=== PATIENT | female | born 1950 | race Two or more races ===

== ENCOUNTER 2020-06-07 08:45 | Outpatient (REF) | payer MEDICARE, SELFPAY ==
--- NOTE | 2020-06-07 08:51 | MM_ITS ---
EXAMINATION: MM SCREENING DIGITAL BREAST TOMOSYNTHESIS, BILATERAL CLINICAL INFORMATION: Screening. Asymptomatic. The lifetime risk of breast cancer based on the Tyrer-Cuzick Model is 18.6%. COMPARISON: Mammography: February 22, 2019 and studies dating back to January 08, 2012 TECHNIQUE: Digital breast tomosynthesis is performed in both the craniocaudal and mediolateral oblique views along with computer-aided detection (CAD). Synthesized 2D images are generated from the tomosynthesis. FINDINGS: There are scattered areas of fibroglandular density (ACR BI-RADS breast composition Category b). There are no significant masses, abnormal calcifications, or other abnormalities. MM/MM tomosynthesis screening BI IMPRESSION: There are no significant changes from prior study. ASSESSMENT: BI-RADS 1: Negative RECOMMENDATION: Routine annual mammography screening. This patient's information was entered into a reminder system with a target due date for their next mammogram.
== END 2020-06-07 08:46 | disposition home or self-care (01) ==
LOC: HO.MAMMO 08:45
PROVIDERS: Visit Provider Internal Medicine
DX: Z12.31 Encounter for screening mammogram for malignant neoplasm of breast (principal)
CPT/HCPCS: 77063; 77067

== ENCOUNTER → 2020-06-18 13:45 | Outpatient (BNVA) | payer MEDICARE, SELFPAY | PROVIDERS: PCP Internal Medicine; Referring Provider Internal Medicine; Visit Provider Internal Medicine Pulmonary Disease | DX: J47.9 Bronchiectasis, uncomplicated (principal); R06.00 Dyspnea, unspecified; Z88.6 Allergy status to analgesic agent; Z91.018 Allergy to other foods | CPT/HCPCS: 90471; 90686; 99212 ==

== ENCOUNTER 2020-10-31 09:29 | Outpatient (REF) | payer MEDICARE, SELFPAY ==
[2020-10-31 11:15] LABS: Alanine Aminotransferase 17 U/L (0-31); Albumin Level 4.2 g/dL (3.5-5.0); Alkaline Phosphatase 125 U/L (39-117); Anion Gap 13 (12-20); Aspartate Amino Transferase 16 U/L (5-31); Bilirubin Total 0.7 mg/dL (0.0-1.0); Blood Urea Nitrogen 21 mg/dL (9-16); Calcium 9.4 mg/dL (8.4-10.2); Carbon Dioxide 29 mmol/L (22-29); Chloride 104 mmol/L (96-108); Estimated Glomerular Filt Rate 39; Glucose Random 106 mg/dL (60-115); Potassium 4.3 mmol/L (3.3-5.1); Sodium 142 mmol/L (135-145); Total Protein 7.4 g/dL (6.5-8.0)
== END 2020-10-31 09:30 | disposition home or self-care (01) ==
LOC: HO.LAB 09:29
PROVIDERS: PCP Internal Medicine; Visit Provider Student in an Organized Health Care Education/Training Program
DX: M25.50 Pain in unspecified joint (principal); Z79.899 Other long term (current) drug therapy
CPT/HCPCS: 36415; 80053; 99212

== ENCOUNTER 2020-11-20 13:17 | Outpatient (REF) | payer MEDICARE, MEDICAID, SELFPAY ==
[2020-11-20 14:59] LABS: MANUAL DIFF FLAG NO
[2020-11-20 15:02] LABS: Basophils Percent Auto 0.6 % (0-2); Eosinophils Absolute Auto 0.1 X10*3/uL (0.0-0.4); Eosinophils Percent Auto 2.2 % (0-4); Hematocrit 36.2 % (37-47); Hemoglobin 11.7 g/dl (12.0-16.0); Imm Gran Abs Auto 0.02 X10*3/uL (0.00-0.03); Imm Gran Pct Auto 0.3 % (0.0-0.4); Lymphocytes Absolute Auto 2.8 X10*3/uL (1.2-4.9); Lymphocytes Percent Auto 44.1 % (20-40); Mean Corpuscular HGB Conc 32.3 g/dl (31.0-35.0); Mean Corpuscular Hemoglobin 24.8 pg (27.0-33.0); Mean Corpuscular Volume 76.9 fL (80-98); Mean Platelet Volume 9.5 fL (9.4-12.3); Monocytes Absolute Auto 0.6 X10*3/uL (0.1-1.2); Monocytes Percent Auto 8.9 % (2-11); Neutrophils Absolute Auto 2.8 X10*3/uL (2.0-8.3); Neutrophils Percent Auto 43.9 % (45-73); Platelet Count 352 X10*3/uL (160-400); Red Blood Count 4.71 X10*6/uL (4.20-5.50); Red Cell Distribution Width 14.3 % (11.0-16.0); White Blood Count 6.4 X10*3/uL (4.8-10.8)
== END 2020-11-20 13:18 | disposition home or self-care (01) ==
LOC: HO.LAB 13:17
PROVIDERS: PCP Internal Medicine; Visit Provider Internal Medicine Pulmonary Disease
DX: J45.909 Unspecified asthma, uncomplicated (principal); J47.9 Bronchiectasis, uncomplicated; R06.00 Dyspnea, unspecified; I10 Essential (primary) hypertension; E78.5 Hyperlipidemia, unspecified; F32.9 Major depressive disorder, single episode, unspecified; F17.200 Nicotine dependence, unspecified, uncomplicated; Z88.6 Allergy status to analgesic agent; Z91.018 Allergy to other foods; Z91.09 Other allergy status, other than to drugs and biological substances
CPT/HCPCS: 36415; 82785; 85025; 86003; 99212

== ENCOUNTER 2020-12-05 10:30 | Outpatient (RCR) | payer MEDICARE, SELFPAY ==
--- NOTE | 2020-11-26 11:04 | MHC.OT.OEV ---
[address] [phone] F: [phone] Occupational Therapy Evaluation Diagnosis: B/L hand arthritis Date of Onset: 08/16/19 Date of Surgery: Attending Provider: Dr Nielsen Prescribed Treatment: Sara and Soraya WOODARD Follow Up Appointment: History of Current Condition: Pt w/ history of arthritis, persistant pain in both shoulders, elbows and hands over the past few years. Also reports more pain and immobility in left thumb due to accident with a chainsaw years ago. Significant Medical History: Precautions/Contraindications: Difficulty staying focused during assessment High tension, guarded, moves frequently in chair, gets up occasionally Patient Goals: Hand Dominance: Right Observations: QuickDASH Score: 66 Prior Level of Function and Occupation Self Care, Employment, Leisure: Enjoys walking, spends time cleaning Living Situation, Family and/or Social Support: Lives w/ her significant other Current Level of Function and Occupation Self Care, Employment, Leisure: Difficulty washing her hair and back, combing her hair Difficulty opening jars and containers Sleep: Not sleeping due to pain (and significant other snores) Driving: Not driving Vision: Balance: Pain Assessment Pain Score: 7 Pain Scale Used: Pain Location and Description: Constant pain in B/L shoulders, elbow, and hands, worse w/ heavy use Aggravating Factors: Heavy use, gripping Alleviating Factors: Does like to milli pain medications Ice roll to knee Skin and Soft Tissue Assessment Skin and Soft Tissue: Comments: Nerve assessment Ulnar Nerve: WFL Median Nerve: WFL Radial Nerve: WFL Comments: Sensory Assessment Temperature: Light Touch: Proprioception: Vibration: Comments: Reports nighttime numbness and tingling (has nighttime orthoses but does not wear) Edema Assessment Upper Extremity: WNL Lower Extremity: WNL Comments: Dexterity Assessment Dexterity: Comments: Special Tests Comments: AROM(PROM) Strength Cervical Cervical Flexion: Cervical Extension: Cervical Lateral Flexion: Cervical Rotation: R 50 L 50 Comments: Shoulder Flexion: R 115 L 115 Extension: Abduction: Internal Rotation: External Rotation: Comments: Flexion: Extension: Abduction: Internal Rotation: External Rotation: Comments: Elbow Flexion: Extension: Pronation: Supination: Comments: WFL Flexion: Extension: Pronation: Supination: Comments: Wrist Flexion: Extension: Ulnar Deviation: Radial Deviation: Comments: WFL Flexion: Extension: Ulnar Deviation: Radial Deviation: Comments: Thumb Thumb CMC Flexion: Thumb MCP Flexion: Thumb IP Flexion: Radial Abduction: Palmar Abduction: Stephens (Kapandji 0-10): Comments: Decreased left thumb flexion due to old laceration injury and scar tissue Digits Index MCP: PIP: DIP: Long MCP: PIP: DIP: Ring MCP: PIP: DIP: Small MCP: PIP: DIP: Comments: WFL, decreased end range flex of digits Gross Grasp: R 53 L 54 Lateral Pinch: Two-Point Pinch: Three-Jaw Quan: Comments: Patient Education Primary Language: City Attorney Required: Yes Current Knowledge: Minimal, needs reinforcement Teaching Method: Demonstration Verbal Education Needs Identified on Evaluation: ADL's Disease Information Exercise Pain Safety How did patient/family demonstrate learning? Patient verbalizes Family/SO verbalizes Needs reinforcement Barriers to Learning: Other Readiness for Learning: Accepting Who was educated? Patient Family/other Comments: Pt tangentile at times, needs help focusing back to task Granddaughter present, supportive and translates Plan of Care Assessment: 70 yo female w/ hx of osteoarthritis, presents w/ persistant pain in shoulders, elbows and hands. She has decreased end range digit flexion w/ intrinsic tightness and decreased shoulder flex and cervical rotation. She reports constant pain in joints, unable to sleep, but she is resistant to pain medications. She also reports nighttime tingling in hands but is not consistent w/ resting wrist orthosis. We will continue OT for education on pain management, relaxaion techniques and general upper body range and strengthening program. STG Duration: 3 weeks Short Term Goals: Ind w/ HEP Full tip-palm digit flex B/L'ly Shoulder flex to 140 B/L'ly Pt to report <5/10 pain w/ light activities Ind w/ use of ice or heat modalities for comfort LTG Duration: Halfway Goals: same as above Frequency and Duration: The patient will be seen 1-2x/wk for 4 weeks Treatment Plan: Therapeutic Exercise Therapeutic Activity Home Exercise Program Splinting Patient Education ADL Training Paraffin Fluidotherapy MHP Cold Packs Joint Mobilization Soft Tissue Mobilization Kinesiotaping Electronically Signed By: Meredith Duran OTR/L Reviewed/agree with student documentation: N/A Therapist: Please sign and return to therapist, Thank you for your referral.
--- NOTE | 2020-12-05 10:53 | MHC.OT.DC ---
[address] [phone] F: [phone] Occupational Therapy Discharge Note Provider: Dr Nielsen Diagnosis: B/L hand arthritis Date of Evaluation: 11/26/20 Date of Discharge: 12/05/20 Treatments to Date: 2 Discharge Status: Achieved Goals Improved Function Independent with HEP Discharge Summary: Pain free in upper body w/ good ROM, good follow through w/ HEP and all goals met. Pt w/ lower leg/calf pain concerning for blood clot, pt and granddaughter to contact physician or urgent care for further assessment. Electronically Signed By: Meredith Duran OTR/L Please Sign and return to therapist, thank you for your referral.
== END 2020-12-05 13:43 | disposition other institution (70) ==
LOC: HO.OT 10:30
PROVIDERS: Visit Provider Student in an Organized Health Care Education/Training Program
DX: M19.041 Primary osteoarthritis, right hand (principal); M19.042 Primary osteoarthritis, left hand
CPT/HCPCS: 97110; 97166

== ENCOUNTER 2020-12-06 13:01 | Outpatient (REF) | payer MEDICARE, SELFPAY ==
--- NOTE | ~2020-12-06 | US_ITS ---
EXAMINATION: US VENOUS ULTRASOUND WITH DOPPLER LOWER EXTREMITY, LEFT CLINICAL INFORMATION: Pain in left leg COMPARISON: Ultrasound venous left lower extremity from 03/07/2019 TECHNIQUE: Ultrasound of the deep veins is performed from the hip to the calf with compression sonography and color and pulse Doppler assessment. Spectral analysis with color-flow imaging is performed. FINDINGS: There is normal venous compression and respiratory variation and augmented flow. The visualized common femoral vein, superficial femoral vein, profunda femoral vein, popliteal vein, and the trifurcation region shows no evidence of deep venous thrombosis. There is no significant popliteal fossa cyst. If the patient's symptoms persist, followup ultrasound in 5 days 7 days might be of value to exclude proximal propagation from a non-visualized calf vein. US/US venous duplex LE IMPRESSION: No DVT demonstrated in the left lower extremity.
== END 2020-12-06 13:02 | disposition home or self-care (01) ==
LOC: HO.HMGCX 13:01
PROVIDERS: PCP Internal Medicine; Visit Provider Nurse Practitioner
DX: M79.662 Pain in left lower leg (principal)
CPT/HCPCS: 93971

== ENCOUNTER 2021-01-28 10:54 | Outpatient (REF) | payer MEDICARE, SELFPAY ==
--- NOTE | ~2021-01-28 | XR_ITS ---
EXAMINATION: XR FOOT, LEFT CLINICAL INFORMATION: Pain COMPARISON: None TECHNIQUE: AP, lateral, and oblique views of the left foot. FINDINGS: There is mild hallux valgus deformity first MTP joint. No visible acute fracture, dislocation or subluxation seen. The ankle mortise and subtalar joints are normal. There is a small to moderate size calcaneal heel and retrocalcaneal enthesophytes. The soft tissues are normal XR/XR foot LT min 3V IMPRESSION: No acute fracture, dislocation or subluxation seen. Moderate-sized retrocalcaneal and calcaneal heel enthesophyte.
== END 2021-01-28 10:55 | disposition home or self-care (01) ==
LOC: HO.XRAY 10:54
PROVIDERS: PCP Internal Medicine; Visit Provider Internal Medicine
DX: M79.672 Pain in left foot (principal)
CPT/HCPCS: 73630

== ENCOUNTER → 2021-02-20 10:45 | Outpatient (BNVA) | payer MEDICARE, SELFPAY | PROVIDERS: PCP Internal Medicine; Visit Provider Internal Medicine Pulmonary Disease | DX: J45.909 Unspecified asthma, uncomplicated (principal); J47.9 Bronchiectasis, uncomplicated; Z91.09 Other allergy status, other than to drugs and biological substances | CPT/HCPCS: 99212 ==

== ENCOUNTER 2021-07-04 10:12 | Outpatient (REF) | payer MEDICARE, SELFPAY ==
--- NOTE | ~2021-07-04 | MM_ITS ---
EXAMINATION: MM SCREENING DIGITAL BREAST TOMOSYNTHESIS, BILATERAL CLINICAL INFORMATION: Screening. Asymptomatic. Left lumpectomy 02/14/2018 for mucocele-like lesion with focal atypia, no invasive or in situ carcinoma. The lifetime risk of breast cancer based on the Tyrer-Cuzick Model is 18%. COMPARISON: Mammography: 06/07/2020, 02/22/2019, 08/30/2018, 02/14/2018, 01/28/2018, 01/19/2018, 01/07/2018 TECHNIQUE: Digital breast tomosynthesis is performed in both the craniocaudal and mediolateral oblique views along with computer-aided detection (CAD). Synthesized 2D images are generated from the tomosynthesis. FINDINGS: There are scattered areas of fibroglandular density (ACR BI-RADS breast composition Category b). Parenchymal pattern is similar to prior study. There are scattered fibroglandular asymmetries without developing density or interval mass or architectural abnormality. There are scattered benign round and ductal secretory calcifications. The axilla and skin contours are unremarkable. No significant changes. MM/MM tomosynthesis screening BI IMPRESSION: No mammographic evidence of malignancy. ASSESSMENT: BI-RADS 2: Benign RECOMMENDATION: Routine annual mammography screening. This patient's information was entered into a reminder system with a target due date for their next mammogram.
== END 2021-07-04 10:13 | disposition home or self-care (01) ==
LOC: HO.MAMMO 10:12
PROVIDERS: PCP Internal Medicine; Visit Provider Internal Medicine
DX: Z12.31 Encounter for screening mammogram for malignant neoplasm of breast (principal)
CPT/HCPCS: 77063; 77067

== ENCOUNTER → 2021-07-29 10:56 | Outpatient (BNVA) | payer MEDICARE, SELFPAY | PROVIDERS: PCP Internal Medicine; Visit Provider Internal Medicine Pulmonary Disease | DX: J45.909 Unspecified asthma, uncomplicated (principal); J47.9 Bronchiectasis, uncomplicated | CPT/HCPCS: 99212 ==

== ENCOUNTER 2021-10-29 09:41 | Outpatient (REF) | payer MEDICARE, SELFPAY ==
--- NOTE | ~2021-10-29 | XR_ITS ---
EXAMINATION: XR LUMBAR SPINE XR PELVIS CLINICAL INFORMATION: M54.50 - Low back pain, unspecified. M53.3 - Sacrococcygeal disorders, not elsewhere classified. COMPARISON: Radiographs lumbar spine 06/30/2017 TECHNIQUE: Lumbar spine is imaged in 3 views. AP view of the pelvis is performed. 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 There is chronic deformity at L2 with mild increased AP diameter and chronic accentuated superior and inferior endplate concavity. Mild degenerative disc changes L1-L3 and partially bridging anterior osteophytes again noted. There are new mild degenerative disc changes L4-L5, likely with trace vacuum disc phenomenon. Surgical clips right upper quadrant again seen likely from prior cholecystectomy. There is moderate stool throughout the colon. No abnormal bowel gas. The pelvis shows no fracture or dislocation or destructive process. The SI joints and pubis show no diastases. Hip show no joint narrowing or erosive change. XR/XR lumbar spine 2-3V IMPRESSION: 1. 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 2. Chronic deformity L2 with degenerative disc changes L1-L3. 3. New mild Mild degenerative disc changes L4-L5. 4. Unremarkable pelvis.
--- NOTE | ~2021-10-29 | XR_ITS ---
EXAMINATION: XR LUMBAR SPINE XR PELVIS CLINICAL INFORMATION: M54.50 - Low back pain, unspecified. M53.3 - Sacrococcygeal disorders, not elsewhere classified. COMPARISON: Radiographs lumbar spine 06/30/2017 TECHNIQUE: Lumbar spine is imaged in 3 views. AP view of the pelvis is performed. 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 There is chronic deformity at L2 with mild increased AP diameter and chronic accentuated superior and inferior endplate concavity. Mild degenerative disc changes L1-L3 and partially bridging anterior osteophytes again noted. There are new mild degenerative disc changes L4-L5, likely with trace vacuum disc phenomenon. Surgical clips right upper quadrant again seen likely from prior cholecystectomy. There is moderate stool throughout the colon. No abnormal bowel gas. The pelvis shows no fracture or dislocation or destructive process. The SI joints and pubis show no diastases. Hip show no joint narrowing or erosive change. XR/XR pelvis 1-2V IMPRESSION: 1. 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 2. Chronic deformity L2 with degenerative disc changes L1-L3. 3. New mild Mild degenerative disc changes L4-L5. 4. Unremarkable pelvis.
== END 2021-10-29 09:42 | disposition home or self-care (01) ==
LOC: HO.XRAY 09:41
PROVIDERS: PCP Internal Medicine; Visit Provider Nurse Practitioner Family
DX: M25.50 Pain in unspecified joint (principal); M54.50 Low back pain, unspecified; M53.3 Sacrococcygeal disorders, not elsewhere classified
CPT/HCPCS: 72100; 72170; 99212

== ENCOUNTER 2021-12-16 09:00 | Outpatient (RCR) | payer MEDICARE, MEDICAID, SELFPAY ==
--- NOTE | 2021-11-20 10:53 | MHC.PT.EP ---
[facility] [place] Office [place] Office [place] Office [address] Serjio Kitchen [address] [phone] F: [phone] F: [phone] F: [phone] F: [phone] Physical Therapy Plan of Care Date of Evaluation: Date of Surgery: Diagnosis: cervicalgia, low back pain Assessment: 71 y/o female referred to PT with neck and LBP. SHe has had LBP for > 10 years that has worsened over the past few months resulting in pain and difficulty with sitting and sleeping. 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 Examination shows decreased lumbar and hip AROM, decreased HS/piri/hip flexor length, decreased core/ LE strength pain , and impaired postural awareness. Recommend PT 2x/week for 5 weeks to address impairments, implement HEP, and optimize functional mobility. Frequency and Duration: The patient will be seen 2x/week for 5 weeks Short Term Goals: 3 weeks 1. compliance with HEP 2. Pt will be able to sit > 30 min with pain M 3/10 [employer]ourier Goals: 5 weeks 1. I with hEP and self management of sx 2. Improve lumbar AROM by 25% each direction 3. Pt will be able to sit >60 min with pain < 3/10 Treatment Plan: Modalities to reduce pain, spasms and effusion. Manual therapy to restore motion and function. Therapeutic exercise to improve strength and flexibility. Neuromuscular re-education for posture and balance. Therapeutic activities to return to functional activities of daily living. Electronically signed by: Buffy Sanchez PT Please sign and return to therapist. Thank you for your referral.
--- NOTE | 2021-12-17 08:54 | MHC.PT.DC ---
[facility] [place] Office [place] Office [place] Office [address] Serjio Kitchen [address] [phone] F: [phone] F: [phone] F: [phone] F: [phone] Physical Therapy Discharge Report Diagnosis: cervicalgia, low back pain Date of Surgery: Date of Evaluation: 11/20/21 Date of Discharge: 12/17/21 Treatments to Date: 4 Cancellations to Date: 0 No Shows to Date: 0 Discharge Status: Achieved Goals Improved Function Independent with HEP Discharge Summary: Pt reports I with HEP and has met her goals. She is happy with care and agrees with d/c at this time. Pt to continue with I HEP Electronically signed by: Buffy Sanchez PT DPT Please sign and return to therapist. Thank you for your referral.
== END 2021-12-17 08:54 | disposition home or self-care (01) ==
LOC: HO.PT 09:00
PROVIDERS: PCP Internal Medicine; Visit Provider Nurse Practitioner Family
DX: M54.50 Low back pain, unspecified (principal); M54.2 Cervicalgia
CPT/HCPCS: 97110; 97161

== ENCOUNTER 2021-12-16 09:55 | Outpatient (REF) | payer OTHER, SELFPAY ==
[2021-12-16 10:15] LABS: MANUAL DIFF FLAG NO
[2021-12-16 10:28] LABS: Basophils Percent Auto 0.5 % (0-2); Eosinophils Absolute Auto 0.2 X10*3/uL (0.0-0.4); Eosinophils Percent Auto 2.1 % (0-4); Hematocrit 35.3 % (37.0-47.0); Hemoglobin 11.2 g/dl (12.0-16.0); Imm Gran Abs Auto 0.02 X10*3/uL (0.00-0.03); Imm Gran Pct Auto 0.3 % (0.0-0.4); Lymphocytes Absolute Auto 3.2 X10*3/uL (1.2-4.9); Lymphocytes Percent Auto 43.2 % (20-40); Mean Corpuscular HGB Conc 31.7 g/dl (31.0-35.0); Mean Corpuscular Hemoglobin 24.3 pg (27.0-33.0); Mean Corpuscular Volume 76.7 fL (80.0-98.0); Mean Platelet Volume 9.3 fL (9.4-12.3); Monocytes Absolute Auto 0.6 X10*3/uL (0.1-1.2); Monocytes Percent Auto 8.4 % (2-11); Neutrophils Absolute Auto 3.4 x10*3/uL (2.0-8.3); Neutrophils Percent Auto 45.5 % (45-73); Platelet Count 329 X10*3/uL (160-400); Red Cell Distribution Width 14.6 % (11.0-16.0); White Blood Count 7.5 X10*3/uL (4.8-10.8)
[2021-12-16 11:02] LABS: Anion Gap 14 (12-20); Blood Urea Nitrogen 25 mg/dL (9-16); Calcium 10.2 mg/dL (8.4-10.2); Carbon Dioxide 26 mmol/L (22-29); Chloride 104 mmol/L (96-108); Estimated Glomerular Filt Rate 40; Phosphorus 3.4 mg/dL (2.7-4.5); Potassium 4.5 mmol/L (3.3-5.1); Sodium 139 mmol/L (135-145)
[2021-12-16 11:16] LABS: Appearance Urine HAZY; Color Urine YELLOW; Glucose Urine UA NEG (NEG); Leukocyte Esterase Urine NEG (NEG); Nitrite Urine NEG (NEG); PH 5.5 (5.0-8.0); Urine Blood NEG (NEG); Urine Ketones NEG (NEG); Urine Protein NEG (NEG-TRACE)
[2021-12-16 11:22] LABS: Vitamin D 25-OH Total 46.7 ng/mL (>30)
[2021-12-16 12:04] LABS: Creatinine Urine 106.36 mg/dL; Microalbum/Creatinine Ratio Ur 4.7 ug/mg cr; Total Protein Urine Random < 7 mg/dL (<12)
[2021-12-17 14:11] LABS: Calcium (PTHI) 9.8 mg/dL (8.6-10.4); PTHI 47 pg/mL (16-77)
== END 2021-12-16 09:56 | disposition home or self-care (01) ==
LOC: HO.LAB 09:55
PROVIDERS: PCP Internal Medicine; Visit Provider Internal Medicine Nephrology
DX: E11.22 Type 2 diabetes mellitus with diabetic chronic kidney disease (principal); N18.31 Chronic kidney disease, stage 3a; N25.0 Renal osteodystrophy
CPT/HCPCS: 36415; 80051; 81003; 82040; 82043; 82306; 82310; 82565; 83735; 83970; 84100; 84156; 84520; 85025; 87086

== ENCOUNTER 2022-07-14 12:11 | Outpatient (REF) | payer OTHER, SELFPAY ==
--- NOTE | ~2022-07-14 | MM_ITS ---
EXAMINATION: MM SCREENING DIGITAL BREAST TOMOSYNTHESIS, BILATERAL CLINICAL INFORMATION: Screening. Asymptomatic. Left lumpectomy 02/14/2018 for a mucocele-like lesion with focal atypia, no invasive or in situ carcinoma. The lifetime risk of breast cancer based on the Tyrer-Cuzick Model is 17%. COMPARISON: Mammography: 07/04/2021, 06/07/2020, 02/22/2019, 02/14/2018 TECHNIQUE: Digital breast tomosynthesis is performed in both the craniocaudal and mediolateral oblique views along with computer-aided detection (CAD). Synthesized 2D images are generated from the tomosynthesis. FINDINGS: There are scattered areas of fibroglandular density (ACR BI-RADS breast composition Category b). There are no significant masses, abnormal calcifications, or other abnormalities. No significant changes from prior studies. No developing density. Skin contours are smooth. MM/MM tomosynthesis screening BI IMPRESSION: No mammographic evidence of malignancy. ASSESSMENT: BI-RADS 1: Negative RECOMMENDATION: Routine annual mammography screening. This patient's information was entered into a reminder system with a target due date for their next mammogram.
== END 2022-07-14 12:12 | disposition home or self-care (01) ==
LOC: HO.MAMMO 12:11
PROVIDERS: Visit Provider Internal Medicine
DX: Z12.31 Encounter for screening mammogram for malignant neoplasm of breast (principal)
CPT/HCPCS: 77063; 77067

== ENCOUNTER → 2022-07-30 13:19 | Outpatient (BNVA) | payer OTHER, SELFPAY | PROVIDERS: PCP Internal Medicine; Visit Provider Internal Medicine Pulmonary Disease | DX: J47.9 Bronchiectasis, uncomplicated (principal); J45.909 Unspecified asthma, uncomplicated; R06.00 Dyspnea, unspecified | CPT/HCPCS: 99212 ==

== ENCOUNTER → 2022-10-29 09:57 | Outpatient (BNVA) | payer OTHER, SELFPAY | PROVIDERS: PCP Internal Medicine; Visit Provider Nurse Practitioner Family | DX: M25.562 Pain in left knee (principal); M47.816 Spondylosis without myelopathy or radiculopathy, lumbar region | CPT/HCPCS: 99212 ==

== ENCOUNTER 2022-10-29 11:04 | Outpatient (REF) | payer OTHER, SELFPAY ==
--- NOTE | ~2022-10-29 | XR_ITS ---
EXAMINATION: XR KNEE, LEFT CLINICAL INFORMATION: Left knee pain COMPARISON: 05/08/2014 TECHNIQUE: Four views of the left knee. FINDINGS: Osseous alignment is anatomic. There is slight narrowing of the medial joint space and likely also the patellofemoral joint space. No acute fracture is seen. Mild spurring along the posterior patella. No significant joint effusion. Vascular calcification is noted. XR/XR knee LT 3V IMPRESSION: No acute findings identified. Mild degenerative changes.
== END 2022-10-29 11:05 | disposition home or self-care (01) ==
LOC: HO.XRAY 11:04
PROVIDERS: PCP Internal Medicine; Visit Provider Nurse Practitioner Family
DX: M25.562 Pain in left knee (principal); M47.816 Spondylosis without myelopathy or radiculopathy, lumbar region
CPT/HCPCS: 73562

== ENCOUNTER → 2022-12-09 13:55 | Outpatient (BNVA) | payer OTHER, SELFPAY | PROVIDERS: PCP Internal Medicine; Visit Provider Anesthesiology | DX: M47.816 Spondylosis without myelopathy or radiculopathy, lumbar region (principal); M51.36 Other intervertebral disc degeneration, lumbar region; G89.4 Chronic pain syndrome; Z87.828 Personal history of other (healed) physical injury and trauma | CPT/HCPCS: 99202 ==

== ENCOUNTER 2023-01-12 06:06 | Outpatient (REF) | payer OTHER, SELFPAY ==
--- NOTE | ~2023-01-12 | FL_ITS ---
EXAMINATION: XR FLUOROSCOPY WITH IMAGES CLINICAL INFORMATION: Chronic pain syndrome COMPARISON: None available. TECHNIQUE: Fluoroscopy Supervised By: Dr. Jr Sims. Fluoroscopy Time: 0.9 minutes. Cumulative Dose: 12.7 mGy. DAP: 0.174 Gycm2. Images: 7. FINDINGS: There is 7 digital images obtained revealing needle positioned adjacent to bilateral L1, L2, L3 pedicles with contrast opacifying the soft tissues. No gross bony abnormality seen FL/FL guidance in treatment room IMPRESSION: Fluoroscopy guidance was provided to referring physician for pain management.
== END 2023-01-12 06:07 | disposition home or self-care (01) ==
LOC: CF 06:06
PROVIDERS: Visit Provider Anesthesiology
DX: M47.816 Spondylosis without myelopathy or radiculopathy, lumbar region (principal); M51.36 Other intervertebral disc degeneration, lumbar region; G89.4 Chronic pain syndrome; Z87.828 Personal history of other (healed) physical injury and trauma
CPT/HCPCS: 64493; 64494

== ENCOUNTER → 2023-01-14 13:42 | Outpatient (BNVA) | payer OTHER, SELFPAY | PROVIDERS: PCP Internal Medicine; Visit Provider Internal Medicine Pulmonary Disease | DX: J47.9 Bronchiectasis, uncomplicated (principal); J45.909 Unspecified asthma, uncomplicated; Z79.899 Other long term (current) drug therapy | CPT/HCPCS: 99212 ==

== ENCOUNTER → 2023-01-20 09:42 | Outpatient (BNVA) | payer OTHER, SELFPAY | PROVIDERS: PCP Internal Medicine; Visit Provider Anesthesiology | DX: M47.816 Spondylosis without myelopathy or radiculopathy, lumbar region (principal); M51.36 Other intervertebral disc degeneration, lumbar region; G89.4 Chronic pain syndrome; Z87.828 Personal history of other (healed) physical injury and trauma | CPT/HCPCS: 99212 ==

== ENCOUNTER 2023-07-19 10:01 | Outpatient (REF) | payer OTHER, SELFPAY ==
[2023-07-19 10:24] LABS: MANUAL DIFF FLAG NO
[2023-07-19 11:04] LABS: Basophils Percent Auto 0.5 % (0-2); Eosinophils Absolute Auto 0.2 X10*3/uL (0.0-0.4); Eosinophils Percent Auto 2.4 % (0-4); Hematocrit 39.4 % (37.0-47.0); Hemoglobin 12.7 g/dl (12.0-16.0); Imm Gran Abs Auto 0.03 X10*3/uL (0.00-0.03); Imm Gran Pct Auto 0.4 % (0.0-0.4); Lymphocytes Absolute Auto 3.5 X10*3/uL (1.2-4.9); Lymphocytes Percent Auto 46.3 % (20-40); Mean Corpuscular HGB Conc 32.2 g/dl (31.0-35.0); Mean Corpuscular Volume 77.4 fL (80.0-98.0); Mean Platelet Volume 9.9 fL (9.4-12.3); Monocytes Absolute Auto 0.6 X10*3/uL (0.1-1.2); Monocytes Percent Auto 8.2 % (2-11); Neutrophils Absolute Auto 3.2 x10*3/uL (2.0-8.3); Neutrophils Percent Auto 42.2 % (45-73); Platelet Count 338 X10*3/uL (160-400); Red Blood Count 5.09 X10*6/uL (4.20-5.50); White Blood Count 7.6 X10*3/uL (4.8-10.8)
[2023-07-19 11:34] LABS: Parathyroid Hormone Intact 85.6 pg/mL (8.7-77.1)
[2023-07-19 11:35] LABS: Albumin Level 4.1 g/dL (3.5-5.0); Anion Gap 13 (12-20); Blood Urea Nitrogen 22 mg/dL (9-16); Calcium 10.3 mg/dL (8.4-10.2); Carbon Dioxide 25 mmol/L (22-29); Chloride 108 mmol/L (96-108); Estimated Glomerular Filt Rate 41; Magnesium 2.4 mg/dL (1.6-2.6); Phosphorus 2.8 mg/dL (2.7-4.5); Sodium 142 mmol/L (135-145)
[2023-07-19 11:51] LABS: Vitamin D 25-OH Total 51.6 ng/mL (>30)
[2023-07-19 12:36] LABS: Appearance Urine Hazy; Color Urine Yellow; Glucose Urine UA >=1000 mg/dL (Negative); Leukocyte Esterase Urine Negative (Negative); Nitrite Urine Negative (Negative); UMIC TRIGGER UA YES; Urine Blood Negative (Negative); Urine Ketones Negative (Negative); Urine Protein Negative (Neg-Trace)
[2023-07-19 12:50] LABS: Bacteria Urine 1+ (None Seen); Hyaline Casts Urine 0-2 /LPF (0-2); RBC Urine 0-2 /HPF (0-2); WBC Urine 0-5 /HPF (0-5)
[2023-07-19 13:21] LABS: Creatinine Urine 61.01 mg/dL; Microalbum/Creatinine Ratio Ur 9.8 ug/mg cr (<30); Total Protein Urine Random < 7 mg/dL (<12)
== END 2023-07-19 10:02 | disposition home or self-care (01) ==
LOC: HO.LAB 10:01
PROVIDERS: PCP Internal Medicine; Visit Provider Internal Medicine Nephrology
DX: I12.9 Hypertensive chronic kidney disease with stage 1 through stage 4 chronic kidney disease, or unspecified chronic kidney disease (principal); E11.22 Type 2 diabetes mellitus with diabetic chronic kidney disease; N18.31 Chronic kidney disease, stage 3a; R82.90 Unspecified abnormal findings in urine
CPT/HCPCS: 36415; 80051; 81001; 82040; 82043; 82306; 82310; 82565; 82570; 83735; 83970; 84100; 84156; 84520; 85025; 87086

== ENCOUNTER 2023-07-22 13:52 | Outpatient (AMB) | payer OTHER, SELFPAY ==
--- NOTE | 2023-07-22 14:07 | MHC.OFFVIS ---
Intake Vital Signs 07/22/23 14:08 Height 5 ft Weight 148 lb 12.992 oz BMI 29.1 BP 122/67 Blood Pressure Location Rt brachial Position Sitting Pulse 101 H Pulse Source Doppler Pulse Oximetry (%) 95 Intake Visit Reasons: COPD Allergies aspirin [ASPIRIN] Allergy (Unknown, Verified 07/22/23 14:10) MOUTH SWELLING Beef Containing Products [BEEF CONTAINING PRODUCTS] Adverse Reaction (Unknown, Verified 07/22/23 14:10) ITCHY HPI COPD HPI Details 72-year-old lady, lifetime nonsmoker, followed for bronchiectasis, dyspnea, and llergic asthma.? Patient continues to use Symbicort, Spiriva, and albuterol MDI with good control of her underlying symptoms. Her orthopnea symptoms have resolved. Today she complains of 2D history of upper respiratory symptoms including cough, wheezing, and also myalgias. [facility] Medical History Allergic rhinitis Arthralgia of knee Arthritis Asthma Breast mass Environmental allergies HTN (hypertension) Hyperlipidemia Major depression Mood disorder CARON (obstructive sleep apnea) Osteopenia Varicose veins of both lower extremities Surgical History History of back surgery Hx of section Hx of cholecystectomy Hx of tubal ligation Family History Mother CVD (cardiovascular disease) HTN (hypertension) Father Stroke Social History Alcohol intake: never Patient Tobacco Use Status: Never used Tobacco Review of Systems Const Denies daytime sleepiness, Denies excessive sweating, Denies fatigue, Denies fever(s), Denies lethargy, Reports malaise, Denies night sweats, Denies snoring and Denies weight loss Eyes Denies blurry vision and Denies itchy eyes ENT Denies nasal congestion, Denies post nasal drip, Denies sinus pain, Denies sinus pressure and Denies other ( Thrush) Card Denies chest pain, Denies pedal edema, Denies dyspnea, Denies orthopnea and Denies paroxysmal nocturnal dyspnea Resp Reports cough, Denies hemoptysis, Denies excessive phlegm production, Denies dyspnea, Denies snoring and Reports wheezing GI Denies abdominal pain and Denies heartburn Musc Denies myalgias, Denies arthralgias and Denies joint swelling Skin/Breast Denies rash Neuro Denies memory loss and Denies seizure-like activity Psych Denies abnormal sleep pattern, Denies anxiety and Denies memory loss Endo Denies excessive sweating, Denies fatigue and Denies heat intolerance Kyle/Lymph Denies easy bruising Aller/Immun Denies itchy eyes, Denies seasonal rhinorrhea and Reports wheezing Physical Exam Vital Signs: Last Vital Signs Pulse 101 H 07/22/23 14:08 BP 122/67 07/22/23 14:08 Pulse Ox 95 07/22/23 14:08 BMI result Body Mass Index 29.1 Const General: no acute distress and alert Nutritional Appearance: not obese Orientation/consciousness: Other orientation findings ( oriented) HEENT Head: Yes atraumatic Eyes General: appearance normal, both eyes and all related structures Sclerae: sclerae normal EOM: EOMs intact bilaterally Neck Neck: Yes supple Lymphatic: no lymphadenopathy noted Resp Effort & Inspection: normal respiratory effort and no use of accessory muscles Auscultation: clear to auscultation bilaterally Cardio Rate: regular rate Rhythm: regular rhythm Heart sounds: no gallops, no murmurs and no rubs Skin General skin exam: other ( warm) Extrem General: No clubbing, No cyanosis and No edema Assessment & Plan Assessment & Plan (1) Allergic asthma: Code(s): J45.909 - Unspecified asthma, uncomplicated Plan: Well controlled on Symbicort, Spiriva, and albuterol MDI. Continue current regimen. Now with upper respiratory viral symptoms. RSV/COVID/flu swab sent. (2) Environmental allergies: Code(s): Z91.09 - Other allergy status, other than to drugs and biological substances Plan: Well controlled on Singulair and loratadine. Continue current regimen. Orders: Orders SARS-CoV2/FLU/RSV Today R09.89 - Other specified symptoms and signs involving the circulatory and respiratory systems Medications: New prednisone 40 mg (2 x 20 mg) PO DAILY 10 tabs 0RF 5 days Refilled budesonide-formoterol 160-4.5 mcg/actuation (Symbicort) 2 puffs PO BID 10.2 grams 5RF tiotropium bromide (Spiriva with HandiHaler) 1 cap inhalation DAILY 30 caps 6RF albuterol sulfate 90 mcg/actuation 2 puffs PO Q4-6H PRN 1 ea 6RF shortness of breath or wheezing 30 days Coding Level of Care Code Est Pt Level 4 (22656) Diagnoses Allergic asthma J45.909 Environmental allergies Z91.09
[2023-07-22 14:08] VITALS: BP 122/67; PULSE 101; O2SAT 95; BMI 29.1
== END 2023-07-22 14:34 | disposition home or self-care (01) ==
PROVIDERS: PCP Internal Medicine; Visit Provider Internal Medicine Pulmonary Disease
DX: J45.909 Unspecified asthma, uncomplicated (principal); Z91.09 Other allergy status, other than to drugs and biological substances
CPT/HCPCS: 99214

== ENCOUNTER → 2023-07-22 13:52 | Outpatient (BNVA) | payer OTHER, SELFPAY | PROVIDERS: PCP Internal Medicine; Visit Provider Internal Medicine Pulmonary Disease | DX: J45.909 Unspecified asthma, uncomplicated (principal); Z91.09 Other allergy status, other than to drugs and biological substances | CPT/HCPCS: 99212 ==

== ENCOUNTER 2023-07-22 14:36 | Outpatient (REF) | payer OTHER, SELFPAY ==
[2023-07-22 15:37] LABS: Influenza A PCR NEGATIVE (Negative); Influenza B PCR NEGATIVE (Negative); Resp Syncy Virus RNA Qual PCR NEGATIVE (Negative); SARS COV2 PCR INHOUSE POSITIVE (Negative)
== END 2023-07-22 14:37 | disposition home or self-care (01) ==
LOC: HO.LNP 14:36
PROVIDERS: Visit Provider Internal Medicine Pulmonary Disease
DX: R09.89 Other specified symptoms and signs involving the circulatory and respiratory systems (principal); Z20.822 Contact with and (suspected) exposure to COVID-19
CPT/HCPCS: 0241U

== ENCOUNTER 2023-08-23 08:28 | Outpatient (REF) | payer OTHER, SELFPAY ==
--- NOTE | ~2023-08-23 | MM_ITS ---
EXAMINATION: MM SCREENING DIGITAL BREAST TOMOSYNTHESIS, BILATERAL CLINICAL INFORMATION: Screening. Asymptomatic. Patient is status post left breast surgery in 2018 for a mucocele-like lesion without atypia. There was no malignancy. COMPARISON: Mammography: This study is compared with prior exams dating back to TECHNIQUE: Digital breast tomosynthesis is performed in both the craniocaudal and mediolateral oblique views along with computer-aided detection (CAD). Synthesized 2D images are generated from the tomosynthesis. FINDINGS: There are scattered areas of fibroglandular density (ACR BI-RADS breast composition Category b). There are no significant masses, abnormal calcifications, or other abnormalities. MM/MM tomosynthesis screening BI IMPRESSION: No mammographic evidence of malignancy. ASSESSMENT: BI-RADS BI-RADS 1 - Negative RECOMMENDATION: Routine annual mammography screening. 1 year F/U This examination should not preclude the clinical evaluation of a suspicious palpable abnormality. This patient's information was entered into a reminder system with a target due date for their next mammogram.
== END 2023-08-23 08:29 | disposition home or self-care (01) ==
LOC: HO.MAMMO 08:28
PROVIDERS: PCP Internal Medicine; Visit Provider Internal Medicine
DX: Z12.31 Encounter for screening mammogram for malignant neoplasm of breast (principal)
CPT/HCPCS: 77063; 77067

== ENCOUNTER → 2023-08-23 08:30 | Outpatient (BNV) | payer OTHER, SELFPAY | PROVIDERS: PCP Internal Medicine; Visit Provider Radiology Diagnostic Radiology | DX: Z12.31 Encounter for screening mammogram for malignant neoplasm of breast (principal) | CPT/HCPCS: 77063; 77067 ==

== ENCOUNTER 2023-12-09 09:48 | Outpatient (AMB) | payer OTHER, SELFPAY ==
[2023-12-09 09:49] VITALS: BP 110/64; PULSE 96; O2SAT 96; BMI 28.7
--- NOTE | 2023-12-09 09:49 | MHC.OFFVIS ---
Vital Signs 12/09/23 09:49 Height 5 ft Weight 147 lb BMI 28.7 BP 110/64 Blood Pressure Location Lt brachial Position Sitting Pulse 96 Pulse Source Doppler Pulse Oximetry (%) 96 Oxygen Delivery Method Room Air Intake Visit Reasons: COPD Allergies aspirin [ASPIRIN] Allergy (Unknown, Verified 07/22/23 14:10) MOUTH SWELLING Beef Containing Products [BEEF CONTAINING PRODUCTS] Adverse Reaction (Unknown, Verified 07/22/23 14:10) ITCHY HPI HPI COPD: Details: 73-year-old lady, lifetime nonsmoker, followed for bronchiectasis, dyspnea, and allergic asthma.? Patient continues to use Symbicort, Spiriva, and albuterol MDI however she stopped driving benefit from metered-dose inhalers rather difficult for her to synchronize its use. Her orthopnea symptoms have recurred on Lasix 40 mg daily. Today she is also complaining bronchitic symptoms over the last week. [facility] Medical History Allergic rhinitis Arthralgia of knee Arthritis Asthma Breast mass Environmental allergies HTN (hypertension) Hyperlipidemia Major depression Mood disorder CARON (obstructive sleep apnea) Osteopenia Varicose veins of both lower extremities Surgical History History of back surgery Hx of section Hx of cholecystectomy Hx of tubal ligation Family History Mother CVD (cardiovascular disease) HTN (hypertension) Father Stroke Social History Alcohol intake: never Patient Tobacco Use Status: Never used Tobacco Review of Systems Const Denies daytime sleepiness, Denies excessive sweating, Denies fatigue, Denies fever(s), Denies lethargy, Denies malaise, Denies night sweats, Denies snoring and Denies weight loss Eyes Denies blurry vision and Denies itchy eyes ENT Denies nasal congestion, Denies post nasal drip, Denies sinus pain, Denies sinus pressure and Denies other ( Thrush) Card Denies chest pain, Reports pedal edema, Denies dyspnea, Reports dyspnea on exertion, Reports orthopnea and Denies paroxysmal nocturnal dyspnea Resp Reports cough, Denies hemoptysis, Reports excessive phlegm production, Denies dyspnea, Reports dyspnea on exertion, Denies snoring and Denies wheezing GI Denies abdominal pain and Denies heartburn Musc Denies myalgias, Denies arthralgias and Denies joint swelling Skin/Breast Denies rash Neuro Denies memory loss and Denies seizure-like activity Psych Denies abnormal sleep pattern, Denies anxiety and Denies memory loss Endo Denies excessive sweating, Denies fatigue and Denies heat intolerance Kyle/Lymph Denies easy bruising Aller/Immun Denies itchy eyes, Denies seasonal rhinorrhea and Denies wheezing Physical Exam Vital Signs: Last Vital Signs Pulse 96 12/09/23 09:49 BP 110/64 12/09/23 09:49 Pulse Ox 96 12/09/23 09:49 Oxygen Delivery Method Room Air 12/09/23 09:49 BMI result Body Mass Index 28.7 Const General: no acute distress and alert Nutritional Appearance: not obese Orientation/consciousness: Other orientation findings ( oriented) HEENT Head: Yes atraumatic Eyes General: appearance normal, both eyes and all related structures Sclerae: sclerae normal EOM: EOMs intact bilaterally Neck Neck: Yes supple Lymphatic: no lymphadenopathy noted Resp Effort & Inspection: normal respiratory effort and no use of accessory muscles Auscultation: rales bilateral Cardio Rate: regular rate Rhythm: regular rhythm Heart sounds: no gallops, no murmurs and no rubs Skin General skin exam: other ( warm) Extrem General: No clubbing, No cyanosis and Yes edema (1+ bilateral) Assessment & Plan Assessment & Plan (1) Bronchiectasis: Code(s): J47.9 - Bronchiectasis, uncomplicated Category: Medical Plan: Now with exacerbation, will treat with a course of azithromycin. (2) Allergic asthma: Code(s): J45.909 - Unspecified asthma, uncomplicated Category: Medical Plan: Suboptimal control on metered-dose inhalers as patient is not able to synchronize its use efficiently. Will switch to nebulized Brovana and budesonide. (3) Orthopnea: Code(s): R06.01 - Orthopnea Category: Medical Plan: Now with worsening symptoms on Lasix 40 mg daily, will switch to Bumex 1 mg daily. Medications: New azithromycin For 250 mg dose pack: take 500 mg today (day 1), then 250 mg for 4 days (days 2-5) PO 6 tabs 0RF arformoterol 2 mL inhalation BID 120 mL 6RF 30 days budesonide 0.5 mg (2 mL) inhalation BID 120 mL 6RF bumetanide 1 mg PO DAILY 30 tabs 6RF Discontinued budesonide-formoterol 160-4.5 mcg/actuation (Symbicort) Discontinued Reason: Doctor's Order 2 puffs PO BID 10.2 grams 5RF tiotropium bromide (Spiriva with HandiHaler) Discontinued Reason: Doctor's Order 1 cap inhalation DAILY 30 caps 6RF furosemide Discontinued Reason: Doctor's Order 40 mg PO QAM 30 tabs 6RF Coding Level of Care Code Est Pt Level 4 (83427) Diagnoses Bronchiectasis J47.9 Allergic asthma J45.909 Orthopnea R06.01
== END 2023-12-09 10:10 | disposition home or self-care (01) ==
PROVIDERS: PCP Internal Medicine; Visit Provider Internal Medicine Pulmonary Disease
DX: J47.9 Bronchiectasis, uncomplicated (principal); J45.909 Unspecified asthma, uncomplicated; R06.01 Orthopnea
CPT/HCPCS: 99214

== ENCOUNTER → 2023-12-09 09:48 | Outpatient (BNVA) | payer OTHER, SELFPAY | PROVIDERS: PCP Internal Medicine; Visit Provider Internal Medicine Pulmonary Disease | DX: R06.01 Orthopnea (principal); J47.9 Bronchiectasis, uncomplicated; J45.909 Unspecified asthma, uncomplicated; J44.9 Chronic obstructive pulmonary disease, unspecified; F17.210 Nicotine dependence, cigarettes, uncomplicated | CPT/HCPCS: 99212 ==

== ENCOUNTER 2024-01-18 11:10 | Outpatient (AMB) | payer OTHER, SELFPAY ==
--- NOTE | 2024-01-18 11:12 | MHC.OFFVIS ---
Vital Signs 01/18/24 11:13 Height 5 ft Weight 145 lb 8.081 oz BMI 28.4 BP 134/78 Blood Pressure Location Rt brachial Position Sitting Pulse 91 Pulse Source Doppler Pulse Oximetry (%) 95 Oxygen Delivery Method Room Air Intake Visit Reasons: COPD Allergies aspirin [ASPIRIN] Allergy (Unknown, Verified 01/18/24 11:17) MOUTH SWELLING Beef Containing Products [BEEF CONTAINING PRODUCTS] Adverse Reaction (Unknown, Verified 01/18/24 11:17) ITCHY HPI HPI COPD: Details: 73-year-old lady, lifetime nonsmoker, followed for bronchiectasis, dyspnea, and allergic asthma.?At the last office visit she was switched to nebulized budesonide and also her diuretic was switched from Lasix to Bumex. Patient now reports significantly improved symptom control on denies any recent exacerbations. [facility] Medical History Allergic rhinitis Arthralgia of knee Arthritis Asthma Breast mass Environmental allergies HTN (hypertension) Hyperlipidemia Major depression Mood disorder CARON (obstructive sleep apnea) Osteopenia Varicose veins of both lower extremities Surgical History History of back surgery Hx of section Hx of cholecystectomy Hx of tubal ligation Family History Mother CVD (cardiovascular disease) HTN (hypertension) Father Stroke Social History Alcohol intake: never Patient Tobacco Use Status: Never used Tobacco Review of Systems Const Denies daytime sleepiness, Denies excessive sweating, Denies fatigue, Denies fever(s), Denies lethargy, Denies malaise, Denies night sweats, Denies snoring and Denies weight loss Eyes Denies blurry vision and Denies itchy eyes ENT Denies nasal congestion, Denies post nasal drip, Denies sinus pain, Denies sinus pressure and Denies other ( Thrush) Card Denies chest pain, Denies pedal edema, Denies dyspnea, Denies orthopnea and Denies paroxysmal nocturnal dyspnea Resp Denies cough, Denies hemoptysis, Denies excessive phlegm production, Denies dyspnea, Denies snoring and Denies wheezing GI Denies abdominal pain and Denies heartburn Musc Denies myalgias, Denies arthralgias and Denies joint swelling Skin/Breast Denies rash Neuro Denies memory loss and Denies seizure-like activity Psych Denies abnormal sleep pattern, Denies anxiety and Denies memory loss Endo Denies excessive sweating, Denies fatigue and Denies heat intolerance Kyle/Lymph Denies easy bruising Aller/Immun Denies itchy eyes, Denies seasonal rhinorrhea and Denies wheezing Physical Exam Vital Signs: Last Vital Signs Pulse 91 01/18/24 11:13 BP 134/78 01/18/24 11:13 Pulse Ox 95 01/18/24 11:13 Oxygen Delivery Method Room Air 01/18/24 11:13 BMI result Body Mass Index 28.4 Const General: no acute distress and alert Nutritional Appearance: not obese Orientation/consciousness: Other orientation findings ( oriented) HEENT Head: Yes atraumatic Eyes General: appearance normal, both eyes and all related structures Sclerae: sclerae normal EOM: EOMs intact bilaterally Neck Neck: Yes supple Lymphatic: no lymphadenopathy noted Resp Effort & Inspection: normal respiratory effort and no use of accessory muscles Auscultation: clear to auscultation bilaterally Cardio Rate: regular rate Rhythm: regular rhythm Heart sounds: no gallops, no murmurs and no rubs Skin General skin exam: other ( warm) Extrem General: No clubbing, No cyanosis and No edema Assessment & Plan Assessment & Plan (1) Allergic asthma: Code(s): J45.909 - Unspecified asthma, uncomplicated Category: Medical Plan: Well controlled on nebulized budesonide, Spiriva, and albuterol MDI. Continue current regimen. (2) Orthopnea: Code(s): R06.01 - Orthopnea Category: Medical Plan: Well controlled on Bumex 1 mg daily. Continue current regimen. (3) Bronchiectasis: Code(s): J47.9 - Bronchiectasis, uncomplicated Category: Medical Plan: No recent exacerbations. Continue to monitor clinically. Coding Level of Care Code Est Pt Level 4 (53418) Diagnoses Allergic asthma J45.909 Orthopnea R06.01 Bronchiectasis J47.9
[2024-01-18 11:13] VITALS: BP 134/78; PULSE 91; O2SAT 95; BMI 28.4
== END 2024-01-18 11:41 | disposition home or self-care (01) ==
PROVIDERS: PCP Internal Medicine; Visit Provider Internal Medicine Pulmonary Disease
DX: J45.909 Unspecified asthma, uncomplicated (principal); R06.01 Orthopnea; J47.9 Bronchiectasis, uncomplicated
CPT/HCPCS: 99214

== ENCOUNTER → 2024-01-18 11:10 | Outpatient (BNVA) | payer OTHER, SELFPAY | PROVIDERS: PCP Internal Medicine; Visit Provider Internal Medicine Pulmonary Disease | DX: J45.909 Unspecified asthma, uncomplicated (principal); R06.01 Orthopnea; J47.9 Bronchiectasis, uncomplicated; Z79.899 Other long term (current) drug therapy | CPT/HCPCS: 99212 ==

== ENCOUNTER 2024-07-14 10:35 | Emergency (ER) | payer OTHER, SELFPAY ==
[2024-07-14 10:42] VITALS: BP 154/77; PULSE 92; RESP 16; TEMP 36.7; O2SAT 98; BMI 32.0
== END 2024-07-14 17:46 | disposition left against medical advice (07) ==
PROVIDERS: Emergency Provider Emergency Medicine; PCP Internal Medicine
DX: R51.9 Headache, unspecified (principal)
CPT/HCPCS: 99281

== ENCOUNTER 2024-07-25 11:23 | Outpatient (AMB) | payer OTHER, SELFPAY ==
[2024-07-25 11:28] VITALS: BP 122/77; PULSE 101; O2SAT 97; BMI 31.4
--- NOTE | 2024-07-25 11:28 | A.OFFVIS_ITS ---
Vital Signs 07/25/24 11:28 Height 4 ft 9 in Weight 145 lb BMI 31.4 BP 122/77 Blood Pressure Location Lt brachial Position Sitting Pulse 101 H Pulse Source Doppler Pulse Oximetry (%) 97 Oxygen Delivery Method Room Air Intake Visit Reasons: COPD Allergies aspirin [ASPIRIN] Allergy (Unknown, Verified 07/14/24 10:47) MOUTH SWELLING Beef Containing Products [BEEF CONTAINING PRODUCTS] Adverse Reaction (Unknown, Verified 07/14/24 10:47) ITCHY HPI HPI COPD: Details: 73-year-old lady, lifetime nonsmoker, followed for bronchiectasis, dyspnea, and allergic asthma.? She is continuing on Symbicort and albuterol MDI with good control of her symptoms. She did not tolerate arformoterol. Her lower e xtremity edema is well controlled on current Bumex regimen. She denies acute exacerbations. [facility] Medical History Allergic rhinitis Arthralgia of knee Arthritis Asthma Breast mass Environmental allergies HTN (hypertension) Hyperlipidemia Major depression Mood disorder CARON (obstructive sleep apnea) Osteopenia Varicose veins of both lower extremities Surgical History History of back surgery Hx of section Hx of cholecystectomy Hx of tubal ligation Family History Mother CVD (cardiovascular disease) HTN (hypertension) Father Stroke Social History Alcohol intake: never Patient Tobacco Use Status: Never used Tobacco Review of Systems Const Denies daytime sleepiness, Denies excessive sweating, Denies fatigue, Denies fever(s), Denies lethargy, Denies malaise, Denies night sweats, Denies snoring and Denies weight loss Eyes Denies blurry vision and Denies itchy eyes ENT Denies nasal congestion, Denies post nasal drip, Denies sinus pain, Denies sinus pressure and Denies other ( Thrush) Card Denies chest pain, Denies pedal edema, Denies dyspnea, Denies orthopnea and Denies paroxysmal nocturnal dyspnea Resp Denies cough, Denies hemoptysis, Denies excessive phlegm production, Denies dyspnea, Denies snoring and Denies wheezing GI Denies abdominal pain and Denies heartburn Musc Denies myalgias, Denies arthralgias and Denies joint swelling Skin/Breast Denies rash Neuro Denies memory loss and Denies seizure-like activity Psych Denies abnormal sleep pattern, Denies anxiety and Denies memory loss Endo Denies excessive sweating, Denies fatigue and Denies heat intolerance Kyle/Lymph Denies easy bruising Aller/Immun Denies itchy eyes, Denies seasonal rhinorrhea and Denies wheezing Physical Exam Vital Signs: Last Vital Signs Pulse 101 H 07/25/24 11:28 BP 122/77 07/25/24 11:28 Pulse Ox 97 07/25/24 11:28 Oxygen Delivery Method Room Air 07/25/24 11:28 BMI result Body Mass Index 31.4 Const General: no acute distress and alert Nutritional Appearance: not obese Orientation/consciousness: Other orientation findings ( oriented) HEENT Head: Yes atraumatic Eyes General: appearance normal, both eyes and all related structures Sclerae: sclerae normal EOM: EOMs intact bilaterally Neck Neck: Yes supple Lymphatic: no lymphadenopathy noted Resp Effort & Inspection: normal respiratory effort and no use of accessory muscles Auscultation: clear to auscultation bilaterally Cardio Rate: regular rate Rhythm: regular rhythm Heart sounds: no gallops, no murmurs and no rubs Skin General skin exam: other ( warm) Extrem General: No clubbing, No cyanosis and Yes edema (Trace bilateral) Assessment & Plan Assessment & Plan (1) Bronchiectasis: Code(s): J47.9 - Bronchiectasis, uncomplicated Category: Medical Plan: No recent exacerbations. Continue to monitor clinically. (2) Allergic asthma: Code(s): J45.909 - Unspecified asthma, uncomplicated Category: Medical Plan: Unable to tolerate nebulized arformoterol. Now well controlled on Symbicort and albuterol MDI. Continue current regimen. (3) Orthopnea: Code(s): R06.01 - Orthopnea Category: Medical Plan: Well controlled on current Bumex regimen. Continue Bumex at 1 mg daily. Medications: Discontinued azithromycin Discontinued Reason: Doctor's Order For 250 mg dose pack: take 500 mg today (day 1), then 250 mg for 4 days (days 2-5) PO 6 tabs 0RF arformoterol Discontinued Reason: Doctor's Order 2 mL inhalation BID 30 days 120 mL 6RF budesonide Discontinued Reason: Doctor's Order 0.5 mg (2 mL) inhalation BID 120 mL 6RF Coding Level of Care Code Est Pt Level 4 (02740) Complex EM visit Add On G2211 Diagnoses Bronchiectasis J47.9 Allergic asthma J45.909 Orthopnea R06.01
== END 2024-07-25 11:40 | disposition home or self-care (01) ==
PROVIDERS: PCP Internal Medicine; Visit Provider Internal Medicine Pulmonary Disease
DX: J47.9 Bronchiectasis, uncomplicated (principal); J45.909 Unspecified asthma, uncomplicated; R06.01 Orthopnea
CPT/HCPCS: 99214; G2211

== ENCOUNTER → 2024-07-25 11:23 | Outpatient (BNVA) | payer OTHER, SELFPAY | PROVIDERS: PCP Internal Medicine; Visit Provider Internal Medicine Pulmonary Disease | DX: J45.909 Unspecified asthma, uncomplicated (principal); J47.9 Bronchiectasis, uncomplicated; R06.01 Orthopnea | CPT/HCPCS: 99212 ==

== ENCOUNTER 2024-09-05 08:04 | Outpatient (REF) | payer OTHER, SELFPAY | END 2024-09-05 08:05 | disposition home or self-care (01) | LOC: HO.MAMMO 08:04 | PROVIDERS: PCP Internal Medicine; Visit Provider Internal Medicine | DX: Z12.31 Encounter for screening mammogram for malignant neoplasm of breast (principal) | CPT/HCPCS: 77063; 77067 ==

== ENCOUNTER → 2024-09-05 08:15 | Outpatient (BNV) | payer OTHER, SELFPAY | PROVIDERS: PCP Internal Medicine; Visit Provider Internal Medicine | DX: Z12.31 Encounter for screening mammogram for malignant neoplasm of breast (principal) | CPT/HCPCS: 77063; 77067 ==

== ENCOUNTER 2024-10-05 12:06 | Inpatient (IN) | payer OTHER, SELFPAY ==
--- NOTE | 2024-10-05 | ECG_ITS ---
Test Reason : CHEST PAIN Blood Pressure : */* mmHG Vent. Rate : 113 BPM Atrial Rate : 113 BPM P-R Int : 126 ms QRS Dur : 116 ms QT Int : 364 ms P-R-T Axes : 77 42 154 degrees QTcB Int : 499 ms Sinus tachycardia Incomplete left bundle branch block Minimal voltage criteria for LVH, may be normal variant ( [place] product ) ST & T wave abnormality, consider inferolateral ischemia Abnormal ECG When compared with ECG of 14-May-2018 16:05, Incomplete left bundle branch block is now Present Referred By: Generic ED Physician Electronically Signed By:
--- NOTE | ~2024-10-05 | XR_ITS ---
EXAMINATION: XR CHEST CLINICAL INFORMATION: Epigastric pain COMPARISON: May 21, 2015. TECHNIQUE: Frontal view of the chest was obtained. FINDINGS: Patchy opacity right lower hemithorax. 2 mm calcified nodule, right lung. There is a prominent right-sided cardiomediastinal silhouette. No pneumothorax. No pleural effusion. Multilevel thoracic spondylosis. Vascular clips right upper quadrant abdomen and likely laparoscopic cholecystectomy. Degenerative changes in the acromioclavicular joint. XR/XR chest 1V IMPRESSION: Concerning acute airspace disease, right middle lung lobe. Probable granuloma, right upper lobe. Electronically signed by: Richard Sims MD 10/05/2024 02:17 PM EST
--- NOTE | ~2024-10-05 | CT_ITS ---
EXAMINATION: CT ABDOMEN AND PELVIS WITHOUT CONTRAST CLINICAL INFORMATION: Upper abdominal pain rule out perforated viscus, AAA. COMPARISON: 12/15/2011. TECHNIQUE: Multidetector volumetric imaging was performed from the superior aspect of the liver through the pubic symphysis. Sagittal and coronal reformatted images were obtained on the technologist's workstation. This CT examination was performed using dose optimization techniques as appropriate, variously including the following: *Automated exposure control *Adjustment of mA and/or kV according to patient size (this includes techniques or standardized protocols for targeted exams where dose is matched to indication/reason for exam; i.e. extremities or head) *Use of iterative reconstruction technique FINDINGS: LUNG BASES: Patchy peribronchial opacities with bronchial wall thickening in the right lower lobe and right middle lobe consistent with bronchopneumonia. Regions of right cylindrical and cystic bronchiectasis. No effusions. LIVER, GALLBLADDER, AND BILIARY TREE: The unenhanced liver is normal in size, shape, and attenuation. No focal hepatic lesion or biliary ductal dilatation is present. Gallbladder is surgically absent. PANCREAS: Mild atrophy. No acute finding. SPLEEN: Unremarkable. ADRENAL GLANDS: Unremarkable. KIDNEYS AND URETERS: The kidneys are normal in size, shape, and attenuation. No hydronephrosis, hydroureter, or calculi seen. No perinephric stranding. There are vascular calcifications mimicking nonobstructing calculi. BLADDER: Poorly distended, grossly normal. GASTROINTESTINAL TRACT: Extensive colonic diverticulosis involving both the right and left colon. No inflammation or wall thickening. Normal appendix. Normal small bowel. Small type I hiatus hernia. ABDOMINAL WALL: No significant hernia is appreciated. LYMPH NODES: None enlarged. VASCULAR: Moderate to severe atheromatous calcification of arterial structures. No aneurysm. PELVIC VISCERA: The uterus and adnexa are unremarkable. OSSEOUS STRUCTURES: L2 butterfly vertebra. No acute abnormalities. CT/CT abdomen pelvis wo IV con IMPRESSION: 1.Patchy peribronchial opacities with bronchial wall thickening in the right lower lobe and right middle lobe consistent with bronchopneumonia. Regions of right basilar cylindrical and cystic bronchiectasis. 2. Extensive colonic diverticulosis without evidence of acute diverticulitis. 3. Small type I hiatus hernia. Cholecystectomy. 5. No aneurysm identified. Moderate to severe atheromatous calcification of the arterial structures. Electronically signed by: Gilberto Seymour MD 10/05/2024 02:25 PM ER COLON
[2024-10-05 12:25] VITALS: BP 140/72; BP 166/96; PULSE 129; PULSE 99; RESP 18; TEMP 35.3; O2SAT 98; O2SAT 99; BMI 27.7
--- NOTE | 2024-10-05 12:44 | ED_ITS ---
HPI - General Adult General Chief complaint: General Medical Stated complaint: SYNCOPAL EPISODE,RAPID HR,PALPITATIONS PER EMS Time Seen by Provider: 10/05/24 12:39 Source: patient, family (Granddaughter and CAR JOCKEY) and EMS Mode of arrival: EMS Limitations: no limitations History of Present Illness ED Provider: DR. Calvin HPI narrative: 74-year-old female came in by ambulance from [facility] for severe sudden epigastric pain that started suddenly in the a.m. about 2 hours ago, patient went to [facility] for upper abd pain evaluation and was sent here for further evaluation because of severity of the pain, describes it as epigastric pain that has been constant since it started 2 hours ago, declined using any alcohol, no trauma to the abdomen. Reportedly by EMS patient had multiple episodes of unresponsiveness patient was showing signs of anxiety and hyperventilation, patient was placed on 2 L of oxygen while transportation for concern of O2 90%. had a few episodes of non- bloody diarrhea yesterday. This morning around 10:00 she began having epigastric abdominal pain with 3 episodes of nonbloody emesis. No fever, no chills, no other sick contacts, normal bowel movement this morning, passing flatus, intra-abdominal surgery significant for cholecystectomy. Related Data Home Medications ?Medication ?Instructions ?Recorded ?Confirmed atorvastatin 20 mg tablet 20 mg PO DAILY 06/18/20 10/05/24 citalopram 20 mg tablet 20 mg PO DAILY 06/18/20 10/05/24 fluticasone propionate 50 1 spray intranasal DAILY PRN 06/18/20 mcg/actuation nasal allergies spray,suspension montelukast 10 mg tablet 10 mg PO DAILY 06/18/20 10/05/24 calcium 600 mg (as 1 tab PO DAILY 01/12/23 10/05/24 carbonate)-vitamin D3 10 mcg (400 unit) tablet cholecalciferol (vitamin D3) 50 50 mcg PO DAILY 01/12/23 10/05/24 mcg (2,000 unit) capsule (Vitamin D3) dapagliflozin propanediol 10 mg 10 mg PO DAILY 01/12/23 10/05/24 tablet (Farxiga) docusate sodium 100 mg capsule 100 mg PO BID constipation 01/12/23 10/05/24 loratadine 10 mg tablet 10 mg PO DAILY PRN allergies 01/12/23 10/05/24 tiotropium bromide 18 mcg capsule 1 cap inhalation DAILY 01/18/24 with inhalation device (Spiriva with HandiHaler) budesonide-formoterol HFA 160 2 puff inhalation BID 07/25/24 10/05/24 mcg-4.5 mcg/actuation aerosol inhaler (Symbicort) bumetanide 1 mg tablet 1 mg PO DAILY 10/05/24 10/05/24 losartan 25 mg tablet 12.5 mg PO BEDTIME 10/05/24 10/05/24 Previous Rx's ?Medication ?Instructions ?Recorded albuterol sulfate 90 mcg/actuation 2 puff PO Q4-6H PRN shortness of 07/22/23 aerosol inhaler breath or wheezing 30 days #1 ea Allergies Allergy/AdvReac Type Severity Reaction Status Date / Time aspirin [ASPIRIN] Allergy Unknown MOUTH Verified 10/05/24 12:35 SWELLING Beef Containing Products AdvReac Unknown ITCHY Verified 07/14/24 10:47 [BEEF CONTAINING PRODUCTS] Review of Systems 2 Review of Systems: All other systems are reviewed and are negative Constitutional: Reports as per HPI and Reports no additional constitutional complaints Eyes: Reports as per HPI and Reports no additional eye complaints Reports system reviewed and no additional complaints, except as documented Cardiovascular: Reports as per HPI and Reports no additional cardiovascular complaints Respiratory: Reports as per HPI and Reports no additional respiratory complaints Gastrointestinal: Reports as per HPI and Reports no additional gastrointestinal complaints Genitourinary: Reports no additional female genitourinary complaints Musculoskeletal: Reports no additional musculoskeletal complaints Skin/Breast: Reports system reviewed and no additional complaints, except as docu Psychiatric: Reports no additional psychiatric complaints Endocrine: Reports no additional endocrine complaints Hematologic/Lymphatic: Reports no additional hematologic/lymphatic complaints Allergic/Immunologic: Reports no additional allergic/immunologic complaints Reports system reviewed and no additional complaints, except as documented and Reports Abnormal speech present [facility] Past Medical History Medical History Environmental allergies Arthralgia of knee Breast mass Varicose veins of both lower extremities CARON (obstructive sleep apnea) Major depression Hyperlipidemia Arthritis Mood disorder Allergic rhinitis Osteopenia HTN (hypertension) Asthma Surgical History Hx of tubal ligation Hx of cholecystectomy History of back surgery Hx of section Family History Family History Mother CVD (cardiovascular disease) HTN (hypertension) Father Stroke Social History Social History Alcohol intake: never Patient Tobacco Use Status: Never used Tobacco Advance Directives: Yes Advance Directives Information Provided: Yes Advance Directives on File: No Physical Exam ED Vital Signs: Vital Signs - 24 hr 10/05/24 12:25 10/05/24 14:06 10/05/24 16:36 Temperature 95.6 F L 98.3 F 98.7 F Pulse Rate 99 92 101 H Respiratory Rate 18 14 13 Blood Pressure 166/96 H 132/70 148/81 H Pulse Oximetry 98 98 98 Oxygen Delivery Method Room Air Room Air Room Air BMI result Body Mass Index 27.7 Vital signs have been reviewed and appear to be correct. Blood pressure elevated. Heart rate normal. Respiratory rate normal. Temperature normal. Oxygen saturation normal. Appearance: Alert. Oriented X3. acute distress secondary to epigastric pain. Head: Normal external exam. Normocephalic. Atraumatic. No Hartmann signs noted. No raccoon eyes noted Eyes: PERRLA. EOMI. Conjunctiva and sclera normal. Eyelids normal. ENT: TM's Normal. Pharynx normal. Uvula midline. Moist mucous membranes. No trismus noted. No drooling noted. No muffled voice noted. Neck: Normal inspection. Neck supple. FROM. No adenopathy. Thyroid Normal. No meningeal signs. No neck mass noted. CVS: Normal heart rate and rhythm. Heart sound normal. No murmurs noted. Pulses normal throughout. Respiratory: No respiratory distress. Painless inspiration. Breath sounds normal. No wheezes/rales/rhonchi noted. Chest nontender. No accessory muscle usage noted or decreased air movement noted. Abdomen: Soft and nontender. Bowel sounds normal in all 4 quadrants. No distention noted. No organomegaly noted. No visible injury noted. Back: No CVA tenderness. Full range of motion noted. Skin: Skin warm and dry. Normal skin color. Normal skin turgor. No rashes/lesions/lacerations noted. Extremities: No lower extremity edema. Extremities exhibit normal range of motion. Extremities nontender. Neuro: Oriented X 3. Cranial nerve exam: II-XII are grossly intact No motor deficit. No sensory deficit. Reflexes normal. Course Reevaluation(s) Reevaluation #1: sepsis is suspected now by confirming pneumonia on the CT, patient will be given ceftriaxone/doxycycline. Blood culture/lactic acid was ordered. Time: 16:04 Medications Administered Generic Name Dose Route Start Last Admin Trade Name Freq PRN Reason Stop Dose Admin Enoxaparin Sodium 40 mg 10/05/24 17:00 10/05/24 18:06 Enoxaparin Sodium 40 Mg/0.4 Ml Syringe SUBCUT 40 mg Q24H MERNA Administration Discontinued Medications Generic Name Dose Route Start Last Admin Trade Name Freq PRN Reason Stop Dose Admin Al Hydroxide/Mg Hydroxide 30 ml 10/05/24 12:40 10/05/24 13:35 Magnesium Hydrox/Alum Hydrox 30 Ml Oral.Susp PO 10/05/24 12:41 30 ml ONCE ONE Administration Ceftriaxone Sodium 1 gm 10/05/24 16:02 10/05/24 16:47 Ceftriaxone Sodium 1 Gm Vial IVPUSH 10/05/24 16:03 1 gm ONCE ONE Administration Famotidine 20 mg 10/05/24 12:40 10/05/24 13:34 Famotidine/Pf 20 Mg/2 Ml Vial IVPUSH 10/05/24 12:41 20 mg ONCE ONE Administration Sodium Chloride 1,000 mls @ 999 mls/hr 10/05/24 12:41 10/05/24 15:42 Ns IV 10/05/24 13:41 Infused .Q1H1M ONE Infusion Doxycycline Hyclate 100 mg/ 250 mls @ 166.67 mls/hr 10/05/24 16:02 10/05/24 19:06 Sodium Chloride IV 10/05/24 17:31 Infused ONCE ONE Infusion Ondansetron HCl 4 mg 10/05/24 15:40 10/05/24 15:45 Ondansetron Hcl 4 Mg/2 Ml Vial IVPUSH 10/05/24 15:41 4 mg ONCE ONE Administration Medical Decision Making Differential Diagnosis Differential Diagnoses: The differential diagnosis associated with the presentation includes (Pneumonia, pneumothorax, pleural effusion, AAA, pancreatitis, gastritis, viral upper respiratory infection) Admission/Observation Consideration of admission/observation: Escalation of care including admission/observation considered Lab Data MDM Lab Attestation statement: I reviewed the patient's lab results. 10/05/24 13:31 10/05/24 13:31 Labs: Lab Results 10/05/24 10/05/24 10/05/24 Range/Units 13:31 14:04 16:27 WBC 13.7 H (4.8-10.8) X10*3/uL RBC 5.12 (4.20-5.50) X10*6/uL Hgb 12.6 (12.0-16.0) g/dl Hct 38.1 (37.0-47.0) % MCV 74.4 L (80.0-98.0) fL MCH 24.6 L (27.0-33.0) pg MCHC 33.1 (31.0-35.0) g/dl RDW 15.2 (11.0-16.0) % Plt Count 320 (160-400) X10*3/uL MPV 9.2 L (9.4-12.3) fL Immature Gran % (Auto) 0.5 H (0.0-0.4) % Neut % (Auto) 87.8 H (45-73) % Lymph % (Auto) 6.5 L (20-40) % [place] % (Auto) 4.7 (2-11) % Eos % (Auto) 0.1 (0-4) % Baso % (Auto) 0.4 (0-2) % Lymph # (Auto) 0.9 L (1.2-4.9) X10*3/uL [place] # (Auto) 0.7 (0.1-1.2) X10*3/uL Eos # (Auto) 0.0 (0.0-0.4) X10*3/uL Baso # (Auto) 0.1 (0.0-0.2) X10*3/uL Abs Immat Gran (auto) 0.07 H (0.00-0.03) X10*3/uL Absolute Neuts (auto) 12.1 H (2.0-8.3) x10*3/uL Absolute Nucleated RBC 0.000 (0.0-0.012) X10*3/uL Nucleated RBC % (auto) 0.0 (0.0-0.2) /100WBC PT 11.3 (10.9-12.4) SEC INR 1.0 (0.9-1.1) Sodium 142 (135-145) mmol/L Potassium 4.1 (3.3-5.1) mmol/L Chloride 108 (96-108) mmol/L Carbon Dioxide 23 (22-29) mmol/L Anion Gap 15 (12-20) BUN 25 H (9-16) mg/dL Creatinine 1.18 (0.5-1.4) mg/dL Estim Creat Clear Calc 37.3 Estimated GFR 45 Random Glucose 102 (60-115) mg/dL Lactic Acid 1.1 (0.5-2.0) mmol/L Calcium 10.1 (8.4-10.2) mg/dL Total Bilirubin 0.4 (0.0-1.0) mg/dL Direct Bilirubin 0.2 (0.0-0.5) mg/dL AST 31 (5-31) U/L ALT 31 (0-31) U/L Alkaline Phosphatase 122 H (39-117) U/L Troponin I High Sens < 2.7 (<3.5-17.0) ng/L B-Natriuretic Peptide < 10 (<100) pg/mL Total Protein 8.6 H (6.5-8.0) g/dL Albumin 4.3 (3.5-5.0) g/dL Lipase 30 (8-78) U/L Procalcitonin 0.06 ng/mL Urine Color Yellow Urine Appearance Clear Urine pH 5.5 (5.0-9.0) Ur Specific [place] 1.025 (1.005-1.025) Urine Protein Negative (Neg-Trace) mg/dL Urine Glucose (UA) >=1000 H (Negative) mg/dL Urine Ketones Negative (Negative) mg/dL Urine Blood Negative (Negative) Urine Nitrite Negative (Negative) Ur Leukocyte Esterase Negative (Negative) Urine RBC 0-2 (0-2) /HPF Urine WBC 0-5 (0-5) /HPF Ur Squamous Epith Cells 6-10 (0-2) /HPF Urine Bacteria 1+ (None Seen) Hyaline Casts 3-5 (0-2) /LPF Influenza Type A (PCR) NEGATIVE (Negative) Influenza Type B (PCR) NEGATIVE (Negative) RSV RNA Qual (PCR) NEGATIVE (Negative) SARS-CoV-2 RNA (RT-PCR) NEGATIVE (Negative) Independent Interpretation I performed an independent interpretation of an: CT Scan (Abdomen pelvis:1.Patchy peribronchial opacities with bronchial wall thickening in the right lower lobe and right middle lobe consistent with bronchopneumonia. Regions of right basilar cylindrical and cystic bronchiectasis. 2. Extensive colonic diverticulosis without evidence of acute diverticul) Radiology Impression Discussion of test interpretation with radiology: I have reviewed the radiologist's reading. Discharge Plan Discharge Clinical Impression: Pneumonia Patient Disposition: Admitted As Inpatient
[2024-10-05] MEDS: 0.9 % Sodium Chloride 1,000 ML 999 ML IV (12:56)
[2024-10-05] MEDS: Famotidine/PF 20 MG/2 ML VIAL IVPUSH (13:34)
[2024-10-05] MEDS: Magnesium Hydrox/Alum Hydrox 30 ML ORAL.SUSP PO (13:35)
[2024-10-05 13:36] LABS: MANUAL DIFF FLAG NO
--- OUTSIDE RECORDS SUMMARY | 2024-10-05 13:37 | XMS_ITS | Encounter Summary ---
Author Organization [employer] Address [address] [facility] [address] [place] [address] Care Team Providers Care Music Minister Name Role Phone Sammie Silverman MD Primary Care Provide r Encounter Details Date Type Department Care Team (Late st Contact Info) Description 05/18/[address] [facility] [address] [place], [place] [id number] Rosa Wise LPN Social History Tobacco Use Types Packs/Day Years Used Date Smoking Tobacco: Never Smokeless Tobacco: Never Alcohol Use Standard Drinks/Week Comments Never 0 (1 standard drink = 0.6 oz pur e alcohol) Depression Answer Date Recorded Patient Health Questionnaire-9 Score 0 01/06/2023 Depression Answer Date Recorded Patient Health Questionnaire-2 Score 0 01/06/2023 Comments Unknown Sex and Gender Information Value Date Recorded Sex Assigned at Female 06/15/2022 10:22 AM EDT Legal Sex Female 10:22 AM EDT Gender Identity Female 06/15/2022 10:22 AM EDT Sexual Orientation Straight 06/15/2022 10 :22 AM EDT documented as of this encounter Plan of Treatment Not on file documented as of this encounter Visit Diagnoses Not on filedocumented in this encounter Additional Health Concerns Assessment Noted Time PHQ-9 Depression Total Score: 0 01/07/20 23 9:59 AM EDT documented as of this encounter Care Teams Music Minister Relationship Specialty Start Date End Date Sammie Silverman MD [address] [place] [address] PCP - General Family Medicine 04/27/18 documented as of this encounter
--- OUTSIDE RECORDS SUMMARY | 2024-10-05 13:37 | XMS_ITS | Encounter Summary ---
Author Organization [facility] Address [address] [facility] [address] [place] [address] Phone Care Team Providers Care Gravity Meter Observer Name Role Phone Sammie Silverman MD Primary Care Provide r Reason for Visit * Reason Comments Med Refill Encounter Details Date Type Department Care Team (Late Contact Info) Description 09/05/2024 Refill [facility] [address] [place] [address] [place] [phone] Shiva Patel MD [address] [facility] [address] [place] [address] Social History Tobacco Use Types Packs/Day Years Used Date Smoking Tobacco: Never Smokeless Tobacco: Never Alcohol Use Standard Drinks/Week Comments Not Currently 0 (1 standard drink = 0.6 oz pur e alcohol) Comments Unknown Sex and Gender Information Value Date Recorded Sex Assigned at Not on file Legal Sex Female 4:53 PM EST Gender Identity Not on file Sexual Orientation Not on file documented as of this encounter Plan of Treatment Upcoming Encounters Date Type Department Care Team (Late Contact Info) Description 12/11/2024 2:00 PM EDT Office Visit [facility] [address] [place] [address] [place] [phone] Shiva Patel MD [address] [facility] [address] [place] [address] documented as of this encounter Visit Diagnoses Not on filedocumented in this encounter Care Teams Gravity Meter Observer Relationship Specialty Start Date End Date Sammie Silverman MD [address] [place] [address] [facility] [place] [address] PCP - General Internal Medicine 12/19/20 documented as of this encounter
--- OUTSIDE RECORDS SUMMARY | 2024-10-05 13:37 | XMS_ITS | Encounter Summary ---
Author Organization [employer] Address [address] [facility] [address] [place] [address] Care Team Providers Care Furnace And Wash Equipment Operator Name Role Phone Sammie Silverman MD Primary Care Provide r Reason for Visit * Reason Onset Date Comments Nurse Triage 08/04/2023 Encounter Details Date Type Department Care Team ([facility] st Contact Info) Description 08/04/2023 Telephone [facility] [address] [place], [place] [phone] Sammie Silverman MD [address] [place], [place] [phone] Nurse Triage Social History Tobacco Use Types Packs/Day Years Used Date Smoking Tobacco: Never Smokeless Tobacco: Never Alcohol Use Standard Drinks/Week Comments Never 0 (1 standard drink = 0.6 oz pur e alcohol) Depression Answer Date Recorded Patient Health Questionnaire-9 Score 0 01/06/2023 Housing Stability Answer Date Recorded What is your housing situation today? I have radha rodas 05/31/[address] you li ve. Do you have problems with any of the following? None of the above 05/31/2023 Food Insecurity Answer Date Recorded Within the past 12 months, y ou worried that your food would run out before you got money to buy more: Never True 05/31/2023 Within the past 12 months,th e food you bought just didn't last and you didn't have enough money to get more: Never True Transportation Answer Date Recorded In the past 12 months, has l ack of transportation kept you from medical appts, meetings, work or from getting things needed for daily living? No 05/31/2023 Utilities Answer Date Recorded In the past 12 months, has t he electric, gas, oil or water company threatened to shut off services in your home? No 05/31/2023 Depression Answer Date Recorded Patient Health Questionnaire-2 Score 0 01/06/2023 Comments Unknown Sex and Gender Information Value Date Recorded Sex Assigned at Female 06/15/2022 10:22 AM EDT Legal Sex Female 10:22 AM EDT Gender Identity Female 06/15/2022 10:22 AM EDT Sexual Orientation Straight 06/15/2022 10 :22 AM EDT documented as of this encounter Miscellaneous Notes * Telephone Encounter - Nani Murphy RN - 08/04/2023 3:42 PM EST Triage call with [employer] [place] [id number] Pt reports was seen in pulmonology office [facility] 07/22/23. Pt reports was tested for Covid and was toldthat Pt had Covid. No information regarding a positive test for Covid observed on the chart. Pt didhave symptoms of fever on the but, today Pt is asymptomatic. Pt doesn't have sob , fever, coughor JERALD symptoms. Pt is advised to contact pulmonology office regarding testing and if any symptoms s hould start to call us back . Pt agrees with this disposition and will call with questions if needed. Protocol Used: COVID-19 - Diagnosed or Suspected (Adult) Protocol-Based Disposition: Home Care Positive Triage Question: * COVID-19 Testing, questions about * All higher-acuity triage questions were negative * Telephone Encounter - Earl Baumann - 08/04/2023 2:29 PM EST Symptom: COVID-19 Suspected Outcome: Schedule a same-day appointment or talk to a nurse or provider today Reason: Caller denied all higher acuity questions The caller accepted this outcome Please contact pt @ [phone] Maori Speaker documented in this encounter Plan of Treatment Not on file documented as of this encounter Visit Diagnoses Not on filedocumented in this encounter Additional Health Concerns Assessment Noted Time PHQ-9 Depression Total Score: 0 01/07/20 23 9:59 AM EDT documented as of this encounter Care Teams Furnace And Wash Equipment Operator Relationship Specialty Start Date End Date Sammie Silverman MD [address] [place] [address] PCP - General Family Medicine 04/27/18 documented as of this encounter
--- OUTSIDE RECORDS SUMMARY | 2024-10-05 13:37 | XMS_ITS | Encounter Summary ---
Author Organization [employer] Address [address] [facility] [address] [place] [address] Care Team Providers Care Ceo & Founder Name Role Phone Sammie Silverman MD Primary Care Provide r Reason for Visit * Reason Onset Date Comments Nurse Triage 10/05/2024 Encounter Details Date Type Department Care Team ([facility] st Contact Info) Description 10/05/2024 Telephone [facility] [address] [place] [address] Sammie Silverman MD [address] [place] [address] Nurse Triage Social History Tobacco Use Types Packs/Day Years Used Date Smoking Tobacco: Never Passive Smoke Exposure: Never Smokeless Tobacco: Never Alcohol Use Standard Drinks/Week Comments Never 0 (1 standard drink = 0.6 oz pur e alcohol) Depression Answer Date Recorded Patient Health Questionnaire-9 Score 0 08/28/2024 Patient Health Questionnaire-9 Score 0 08/28/2024 Last PHQ-9: Questionnaire Data Not on file 0 08/28/2024 Housing Stability Answer Date Recorded What is [...] Date Recorded Patient Health Questionnaire-2 Score 0 08/28/2024 Internet Access Answer Date Recorded Internet Access Q1 Yes 08/28/2024 Internet Access Q2 Not on file 08/28/2024 Comments Unknown Sex and Gender Information Value Date Recorded Sex Assigned at Female 06/15/2022 10:22 AM EDT Legal Sex Female 10:22 AM EDT Gender Identity Female 06/15/2022 10:22 AM EDT Sexual Orientation Straight 06/15/2022 10 :22 AM EDT documented as of this encounter Miscellaneous Notes * Telephone Encounter - Lenore Velez RN - 10/05/2024 11:56 AM EST service restorer emergency: Patient presents to walk-in center with severe abdominal pain. Patient brought back into triage room by this RN. Patient unable to stand d/t pain, brought by wheelchair. Initial vitals as follows: BP 135/73 HR 99 RR 18 SpO2 99% on room air Patient reports she currently has 10/10 lower pelvic and epigastric pain. She reports she has had this pain intermittently over the last 2 weeks, but it now constant. Reports she has been vomiting since yesterday. Gallbladder surgically removed years ago per patient's daughter. Patient in acute distress, tearful, grimacing in pain. Ambulance called by this RN at 1136. At approximately 1143, patient had episode of unresponsiveness. Pulse present, regular unlabored respirations. This RN performed sternal rub and patient became alert. Bruna WALKER communicated to patient (Pt [place] speaking). Patient with new onset confusion. EMS arrival at this time, 1146. Daughterreports she had similar episode earlier today and she is not sure why. No known hx seizure disorder. Report to EMS. Patient to be transported [facility] per patient/ family request. Will send to team nurses for follow-up. Interpretor Ajit DELEON/ Bruna WALKER documented in this encounter Plan of Treatment Not on file documented as of this encounter Visit Diagnoses Not on filedocumented in this encounter Additional Health Concerns Assessment Noted Time PHQ-9 Depression Total Score: 0 08/28/19 25 11:54 AM EST documented as of this encounter Care Teams Ceo & Founder Relationship Specialty Start Date End Date Sammie Silverman MD [address] [place] [address] PCP - General Family Medicine 04/27/18 documented as of this encounter
--- OUTSIDE RECORDS SUMMARY | 2024-10-05 13:37 | XMS_ITS | Clinical Summary ---
Author Organization [employer] Address [address] [facility] 7[address] [place] [address] Care Team Providers Care Scientific Illustrator Name Role Phone Sammie Silverman MD Primary Care Provide r Allergies Active Allergy Reactions Criticality Noted Date Comments Aspirin Swelling Hydrochlorothiazide 11/30/2014 Other reaction(s): GI upset Lisinopril 02/11/2015 Other reaction(s): itch Simvastatin 02/11/2015 Other reaction(s): muscle aches Medications fluticasone (Flonase) 50 MCG/ACT nasal sprayIndication s:Seasonal allergic rhinitis, unspecified trigger USE 1 SPRAY IN EACH NOSTRIL ONCE DAILY 16 g 11 09/09/19 23 Active albuterol (2.5 MG/3ML) 0.083% nebulizer solutionIndicat ions:Moderate persistent asthma, unspecified whether complicated Take 3 mL (2.5 mg) by nebulization every 6 (six) hours if needed for wheezing. 75 mL 11/24/19 24 Active Respiratory Therapy Supplies (Nebulizer Mask Adult) miscIndications :Moderate persistent asthma, unspecified whether complicated 1 each every 6 (six) hours if needed (wheezing). 1 each 02/08/20 24 Active Respiratory Therapy Supplies (Nebulizer Cup/Tubing) deviceIndicatio ns:Moderate persistent asthma, unspecified whether complicated 1 each every 6 (six) hours if needed (wheezing). 1 each 02/09/20 24 Active atorvastatin (Lipitor) 20 MG tablet TAKE 1 TABLET BY MOUTH EVERY MORNING 90 tablet 3 03/22/20 24 Active Calcium Carb-Cholecalci ferol 600-10 MG-MCG tablet TAKE 1 TABLET BY MOUTH EVERY MORNING 90 tablet 1 05/15/20 24 Active cholecalciferol (D3 Super Strength) 50 MCG (2000 UT) capsuleIndicati ons:Vitamin deficiency TAKE 1 CAPSULE BY MOUTH EVERY MORNING 90 capsule 1 05/15/20 24 Active loratadine (Claritin) 10 MG tablet TAKE 1 TABLET BY MOUTH EVERY DAY NEEDED FOR ALLERGIES 90 tablet 1 06/08/20 24 Active bumetanide (Bumex) 1 MG tablet Take 1 mg by mouth Once per day. Active dapagliflozin (Farxiga) 10 MG Take 10 mg by mouth Once per day. Active citalopram (CeleXA) 20 MG tablet Take 20 mg by mouth Once per day. Provider Kendall Junior Active montelukast (Singulair) 10 MG tabletIndicatio ns:Mild persistent asthma without complication TAKE 1 TABLET BY MOUTH EVERY EVENING 90 tablet 1 08/08/20 24 Active losartan (Cozaar) 25 MG tabletIndicatio ns:Essential hypertension TAKE 1/2 TABLET BY MOUTH EVERY EVENING 45 tablet 08/08/20 24 Active FREESTYLE LITE test stripIndication s:Prediabetes Use to test blood sugar 1 times daily 100 each 12 08/28/19 25 2025 Active Lancets miscIndications :Prediabetes Use to test blood sugar 1 times daily 100 each 08/28/19 25 Active Alcohol Swabs 70 % padsIndications :Prediabetes Use to test blood sugar 1 times daily 100 each 08/28/19 25 Active Blood Glucose Monitoring Suppl (FreeStyle Torrance Lite) w/Device kitIndications: Prediabetes Use to test blood sugar 1 times daily 1 kit 08/28/19 25 Active budesonide-form oterol (Symbicort) 160-4.5 MCG/ACT inhalerIndicati ons:Moderate persistent asthma, unspecified whether complicated Inhale 2 puffs in the morning and at bedtime. Rinse mouth with water after use to reduce aftertaste and incidence of candidiasis. Do not swallow. 1 each 08/28/19 25 2025 Active albuterol 108 (90 Base) MCG/ACT inhalerIndicati ons:Moderate persistent asthma, unspecified whether complicated Inhale 2 puffs every 6 (six) hours if needed for wheezing. 18 g 08/28/19 25 2025 Active docusate sodium (Colace) 100 MG capsuleIndicati ons:Constipatio n, unspecified constipation type TAKE 1 CAPSULE BY MOUTH TWICE DAILY FOR CONSTIPATION 180 capsule 3 09/12/19 25 Active docusate sodium (Colace) 100 MG capsuleIndicati ons:Constipatio n, unspecified constipation type TAKE 1 CAPSULE BY MOUTH TWICE DAILY FOR CONSTIPATION 180 capsule 3 09/03/19 24 2024 Discontinued Active Problems Problem Noted Date Diagnosed Date Advance directive discussed with patient 024 Assessment & Plan (10/22/2023 12:28 PM EST): See HPI Patient chose to be DNR/DNI Mixed stress and urge urinary incontinence 09/21 Colon cancer screening 03/25/2023 Essential hypertension 01/06/2023 Assessment & Plan (01/28/2024 1:51 PM EDT): Maintenance: BMP: up to date Lipid Panel: up to date ASCVD Risk: Calculated patient on atorvastatin 20mg daily - Aerobic exercise to reduce BP. Initial goal of 30 min walk 3-5x/week. Increase as tolerated. - low-sodium diet (goal: <2g/day) and heart healthy diet such as DASH to reduce BP and prevent ASCVD. - Home BP monitoring 1-2 x day with goal of <140/90. - Seek immediate medical attention for chest pain, palpitations, SOB, syncope, or sudden changes in mental status. - Do not change or discontinue current prescriptions without first consulting health care provider Assessment & Plan (10/22/2023 12:28 PM EST): - Aerobic exercise to reduce BP. Initial goal of 30 min walk 3-5x/week. Increase as tolerated. - low-sodium diet (goal: <2g/day) and heart healthy diet such as DASH to reduce BP and prevent ASCVD. - Home BP monitoring 1-2 x day with goal of <140/90. - Seek immediate medical attention for chest pain, palpitations, SOB, syncope, or sudden changes in mental status. - Do not change or discontinue current prescriptions without first consulting health care provider Assessment & Plan (09/24/2023 4:29 PM EST): Maintenance: BMP: up to date Lipid Panel: up to date ASCVD Risk: on atorvastatin 20mg - Aerobic exercise to reduce BP. Initial goal of 30 min walk 3-5x/week. Increase as tolerated. - low-sodium diet (goal: <2g/day) and heart healthy diet such as DASH to reduce BP and prevent ASCVD. - Home BP monitoring 1-2 x day with goal of <140/90. - Seek immediate medical attention for chest pain, palpitations, SOB, syncope, or sudden changes in mental status. - Do not change or discontinue current prescriptions without first consulting health care provider Assessment & Plan (03/25/2023 9:39 AM EDT): I will decrease her losartan decrease to 12.5mg daily I advise low Na diet and weight reduction Dizziness 01/06/2023 Foot pain 01/06/2023 Moderate persistent asthma 01/06/2023 Assessment & Plan (09/24/2023 4:29 PM EST): Controlled c/w current interventions Multiple joint pain 01/06/2023 Pain in right arm 01/06/2023 Stage 3 chronic kidney disease 01/06/2023 Assessment & Plan (03/25/2023 9:40 AM EDT): Patient has an appointment with nephrology on 07/08/23 I advise not to miss her appointment Avoid NSAIDs and take her BP medications ever day, drink plenty of water Xerostomia 01/06/2023 Prediabetes 01/06/2023 Assessment & Plan (01/28/2024 1:51 PM EDT): Today extensive discussion was done about life style modifications I advise healthy diet (low calorie) and cardiovascular exercise Assessment & Plan (09/24/2023 4:29 PM EST): Today extensive discussion was done about life style modifications I advise healthy diet (low calorie) and cardiovascular exercise Assessment & Plan (03/25/2023 9:39 AM EDT): Today extensive discussion was done about life style modifications I advise healthy diet (low calorie) and cardiovascular exercise Assessment & Plan (01/06/2023 1:02 PM EDT): a1c to be check Today extensive discussion was done about life style modifications I advise healthy diet (low calorie) and cardiovascular exercise Dental implant pain 01/06/2023 Hypertensive retinopathy of right eye 08/21/2022 Pain in elbow 11/26/2017 Benign essential hypertension 05/28/2017 Assessment & Plan (01/06/2023 1:02 PM EDT): Maintenance: BMP: ordered today Lipid Panel: ordered today ASCVD Risk: Calculate pending updated labs - Aerobic exercise to reduce BP. Initial goal of 30 min walk 3-5x/week. Increase as tolerated. - low-sodium diet (goal: <2g/day) and heart healthy diet such as DASH to reduce BP and prevent ASCVD. - Home BP monitoring 1-2 x day with goal of <140/90. - Seek immediate medical attention for chest pain, palpitations, SOB, syncope, or sudden changes in mental status. - Do not change or discontinue current prescriptions without first consulting health care provider Hyperlipidemia 05/28/2017 Injury of thoracic spine 05/28/2017 Mood disorder 05/28/2017 Osteopenia determined by x-ray 05/28/2017 Seasonal allergic rhinitis 05/28/2017 Encounters Date Type Department Care Team Description 10/05/2024 Telephone [facility] [address] [place] [id number] Sammie Silverman MD Nurse Triage 09/11/2024 Refill [facility] MED & PEDS [address] [place] [address] Sammie Silverman MD Constipation, unspecified constipation type 09/05/2024 Orders Only [facility] MEDICINE [address] [place] [phone] Sammie Silverman MD 08/28/2024 11:30 AM EST Office Visit [address] [address] Sammie Silverman MD Moderate persistent asthma, unspecified whether complicated (Primary Dx); Prediabetes 08/28/2024 Travel 08/21/2024 Telephone [facility] MEDICINE [address] [place] [address] Sammie Silverman MD callback requested 08/08/2024 Refill [facility] [address] [place] [address] Sammie Silverman MD Essential hypertension 08/08/2024 Telephone [facility] MEDICINE [address] [place] [address] Sammie Silverman MD fyi 08/07/2024 Telephone [facility] MEDICINE [address] [place] [address] Sammie Silverman MD 08/07/2024 Refill [facility] MED[facility] [address] [place] [address] Sammie Silverman MD Mild persistent asthma without complication; Essential hypertension 08/07/2024 Refill [facility] [address] [place] [address] Sammie Silverman MD Essential hypertension 07/27/2024 Telephone [facility] MED[facility] [address] [place] [address] Sammie Silverman MD Referral 07/19/2024 Telephone [facility] MED[facility] [address] [place] [address] Mayco Ontiveros [place] [employer] 07/12/2024 10:50 AM EST Immunization [facility] [address] [place] [phone] Encounter for immunization (Primary Dx) 07/12/2024 Telephone [facility] [address] [place] [address] Mayco Ontiveros [place] [employer] 07/10/2024 Telephone [facility] [address] [place] [phone] Sammie Silverman MD [employer] from Last 3 Months Immunizations Name Administration Dates Next Due Influenza High-dose Quadriva lent Preservative Free 06/04/2022 Influenza injectable quadriv alent IIV4 with preservative 05/26/2019,04/30/2015 Influenza injectable quadriv alent preservative free 09/24/2023,06/18/2020,05/28/2017 Influenza, High Dose Seasona l, Preservative Free 07/12/2024,06/02/2018 Influenza, Split (incl. andrew fied surface antigen) 06/05/2013,05/31/2012 Pfizer Covid-19 Vaccine 12+ 07/12/2024, Pneumococcal Conjugate PCV 13 04/30/2015 Pneumococcal Polysaccharide PPSV23 08/30/2019, Tdap 05/31/2012 Zoster, Recombinant 10/18/2019,07/31/2019 Zoster, live 04/26/2014 Social History Tobacco Use Types Packs/Day Years Used Date Smoking Tobacco: Never Passive Smoke Exposure: Never Smokeless Tobacco: Never Tobacco Cessation:Counseling Given: Not Answered Alcohol Use Standard Drinks/Week Comments Never 0 [...] Orientation Straight 06/15/2022 10 :22 AM EDT Last Filed Vital Signs Vital Sign Reading Time Taken Comments Blood Pressure 128/70 08/28/2024 11:53 AM EST Pulse 77 08/28/2024 11:53 AM EST Temperature 36.1 ??C (97 ??F) 08/28/2024 11:53 AM EST Respiratory Rate 18 08/28/2024 11:53 AM EST Oxygen Saturation 95% 01/28/2024 1:27 PM EDT Inhaled Oxygen Concentration - - Weight 66.2 kg (146 lb) 08/28/2024 11:53 AM EST Height 152.4 cm (5') 08/28/2024 11:53 AM EST Body Mass Index 28.51 08/28/2024 11:53 AM EST Plan of Treatment Health Maintenance Due Date Last Done Comments CT Colonography 1950 Colonoscopy 1950 Colorectal Cancer Screening 1950 Dental Oral Exam 1950 Dental Prophylaxis 1950 Dental X-Ray: Bitewings 1950 FIT DNA/Cologuard 1950 FIT 1950 FOBT 1950 Sigmoidoscopy 1950 DTaP/Tdap/Td Vaccines (2 - Td or Tdap) 05/31/2022 05/31/2012 RSV Patients and Patients Aged 60 years or older (1 - 1-dose 75+ series) 2024 Alcohol/Substance Use Screening 08/28/2025 08/28/2024 Depression Screening 08/28/2025 08/28/2024, 08/28/19 25 Diabetes: Hemoglobin A1C 08/28/2025 025, 01/28/2024, 09/24/2023, Additional history exists SDOH Screening 08/28/2025 08/28/2024 Tobacco Screening 08/28/2025 08/28/2024 Dental X-Ray: Full Mouth 04/07/2026 04/06/2023 Lipid Panel 01/07/2028 01/06/2023, 10/07/2021 Pneumococcal Vaccine: 50+ Years Completed 08/30/2019, 04/30/2015, 09/25/2011 Hepatitis C Screening Completed 10/17/2019 Zoster Vaccines Completed 10/18/2019, 07/16, 04/26/2014 COVID-19 Vaccine Completed 07/12/2024, 04/2024, 06/04/2022, Additional history exists Influenza Vaccine Completed 07/12/2024, , 06/04/2022, Additional history exists HIB Vaccines Aged Out No longer eligi ble based on patient's age to complete this topic HPV Vaccines Aged Out No longer eligi ble based on patient's age to complete this topic Hepatitis A Vaccines Aged Out No long er eligible based on patient's age to complete this topic Hepatitis B Vaccines Aged Out No long er eligible based on patient's age to complete this topic IPV Vaccines Aged Out No longer eligi ble based on patient's age to complete this topic Meningococcal Vaccine Aged Out No yakelin nerissa eligible based on patient's age to complete this topic RSV under 20 months Aged Out No longe r eligible based on patient's age to complete this topic Rotavirus Vaccines Aged Out No longer eligible based on patient's age to complete this topic Procedures Procedure Name Priority Date/Time Associated Diagnosis Comments BI MAMMOGRAM SCREENING TOMOSYNTHESIS BILATERAL Routine 09/05/2024 8:15 AM EST POCT GLYCATED HEMOGLOBIN, TOTAL Routine 08/28/2024 11:56 AM EST Prediabetes POCT GLUCOSE Routine 08/28/2024 11:56 AM EST Prediabetes PANORAMIC RADIOGRAPHIC IMAGE Routine 04/06/2023 10:00 AM EDT LIPID PANEL, STANDARD Routine 01/06/2023 10:56 AM EDT Essential hypertension Prediabetes ZZZ HISTORICAL HEPATITIS A,B,C PROFILE Routine 10/17/2019 2:04 PM EST from Last 3 Months or Most Recently Relevant to Health Maintenance Results * BI Mammogram Screening Tomosynthesis Bilateral (09/05/2024 8:15 AM EST) Anatomical Region Laterality Modality Breast Bilateral Mammography 09/05/2024 8:15 AM EST Narrative 09/13/2024 1:12 PM EST ? [facility] ? [address] ?[place] [address] ? Mammography Report ? Signed ? Patient: Irma Pal ?M ?? R#: [id number] ? : 1950 ?Acct:[id number] ? Age/Sex: 73 / F ?ADM Date: 09/05/ ? Loc: HO.MAMMO ? Attending Dr: Sammie Hale MD ? Ordering Physician: Sammie Silverman MD ?Results: ?? 1Negative ? Date of Service: 09/05/ ?Follow Up: 1 Year From Orig ?? inal Mammogram ? Procedure(s): MM tomosynthesis screening BI ?? Accession Number(s): [id number] ? cc: Sammie Silverman MD ? EXAMINATION: ?? MM SCREENING DIGITAL BREAST TOMOSYNTHESIS, BILATERAL ? CLINICAL INFORMATION: ? Screening. Asymptomatic. ? COMPARISON: ?? Mammography: Comparison is made with available priors ? TECHNIQUE: ?? Digital breast mammography with tomosynthesis is performed in both the ?? craniocaudal and mediolateral oblique views along with computer-aided ?? detection (CAD). ? FINDINGS: ?? There are scattered areas of fibroglandular density (ACR BI-RADS breast ?? composition Category b). ?? Left post surgical changes are stable. ?? There are no significant masses, abnormal calcifications, or other ?? abnormalities. ? MM/MM tomosynthesis screening BI ?? IMPRESSION: ?? No mammographic evidence of malignancy. ? ASSESSMENT: ? BI-RADS BI-RADS 1 - Negative ? RECOMMENDATION: ?? Routine annual mammography screening. ? 1 year F/U ? This examination should not preclude the clinical evaluation of a ?? suspicious palpable abnormality. ? This patient's information was entered into a reminder system with a ?? target due date for their next mammogram. ? Electronically signed by: ??Erin Martini DO ??09/13/2024 01:09 PM EST ?? RP ? Dictated By: ?Erin Martini DO ? Signed By: ?<Electronically signed by Erin Martini, DO in OV> ? 09/13/24 1309 ? DD/ 0815 ? TD/TT: 09/05/24 0839 ? Test Specialist: ? Procedure Note Don[place], Image - 09/13/2024 [place] [facility] [address] [place] [address] Mammography Report Signed Patient: Sanjuana Pal R#: [id number] : 1950Acct:[id number] Age/Sex: 73 / FADM Date: 09/05/24 Loc: HO.MAMMO Attending Dr: Sammie Hale MD Ordering Physician: Sammie Silverman MDResults: 1Negative Date of Service: 09/05/24Follow Up: 1 Year From Orig inal Mammogram Procedure(s): MM tomosynthesis screening BI Accession Number(s): [id number] cc: Sammie Silverman MD EXAMINATION: MM SCREENING DIGITAL BREAST TOMOSYNTHESIS, BILATERAL CLINICAL INFORMATION: Screening. Asymptomatic. COMPARISON: Mammography: Comparison is made with available priors TECHNIQUE: Digital breast mammography with tomosynthesis is performed in both the craniocaudal and mediolateral oblique views along with computer-aided detection (CAD). FINDINGS: There are scattered areas of fibroglandular density (ACR BI-RADS breast composition Category b). Left post surgical changes are stable. There are no significant masses, abnormal calcifications, or other abnormalities. MM/MM tomosynthesis screening BI IMPRESSION: No mammographic evidence of malignancy. ASSESSMENT: BI-RADS BI-RADS 1 - Negative RECOMMENDATION: Routine annual mammography screening. 1 year F/U This examination should not preclude the clinical evaluation of a suspicious palpable abnormality. This patient's information was entered into a reminder system with a target due date for their next mammogram. Electronically signed by: Erin Martini DO 09/13/2024 01:09 PM EST Dictated By: Erin Martini DO Signed By: <Electronically signed by Erin Martini DO in OV> 09/13/24 1309 DD/ 0815 TD/TT: 09/05/24 0839 Test Specialist: Sammie Hale MD IMG BI PROCEDURES Wes stephany Result - Final * (ABNORMAL) POCT HGB A1C (08/28/2024 11:56 AM EST) Hemoglobin A1C 6.1(A) 4.0 - 6.0 % QC Media Lot # [id number] Lot# Expiration Date ,026 Blood 08/28/2024 11:5 6 AM EST Result [facility] Sammie Hale MD POINT OF CARE TEST EN TER/EDIT ORDERABLES Final Result * POCT Glucose (08/28/2024 11:56 AM EST) Glucose Blood, POC 163 60 - 200 mg/dL QC Media Lot # [id number] Lot# Expiration Date 172,025 Blood Capillary blood specimen / Unknown 08/28/2024 11:56 AM EST Sammie Hale MD POINT OF CARE TEST EN TER/EDIT ORDERABLES Final Result * Lipid Panel, Standard (01/06/2023 10:56 AM EDT) [facility] Cholesterol, Total 165 <200 mg/dL [facility] [facility] HDL Cholesterol 51 > OR = 50 mg/dL [employer] [facility] Triglycerides 148 <150 mg/dL [facility] [facility] LDL Cholesterol 89 mg/dL (calc) [employer] [facility] Comment: Reference range: <100 Desirable range <100 mg/dL for primary prevention; ?? <70 mg/dL for patients with CHD or diabetic patients with > or = 2 CHD risk factors. LDL-C is now calculated using the Kedar calculation, which is a validated novel method providing better accuracy than the Friedewald equation in the estimation of LDL-C. Tyshawn ESTRADA et al. SUAD. 2013;310(19): 3156-6900 (http://education.[employer]/faq/RTX288) Chol/HDLC Ratio 3.2 <5.0 (calc) [facility] [facility] Non-HDL Cholesterol 114 <130 mg/dL (calc) [employer] [facility] [employer] [facility] Comment: For patients with diabetes plus 1 major ASCVD risk factor, treating to a non-HDL-C goal of <100 mg/dL (LDL-C of <70 mg/dL) is considered a therapeutic option. Blood Venous blood specimen / Unknown 01/06/2023 10:56 AM EDT 01/06/2023 10:56 AM EDT Narrative [facility] - 01/06/2023 9:40 PM EDT FASTING:YES FASTING: YES us Sammie Hale MD LAB BLOOD ORDERABLES Final Result [facility] [address], [place] [address] [facility] [employer] [facility] [address] [place] [address] * HEPATITIS A,B,C PROFILE (10/17/2019 2:04 PM EST) HEPATITIS B CORE ANTIBODY NONREACTIVE NONREACTIVE [facility] HEPATITIS B INTERPRETATION SEE NOTE [facility] Comment:Negative for Hepatit is B. HEPATITIS B SURFACE ANTIBODY NONREACTIVE NONREACTIVE [facility] Comment:NONREACTIVE: < 8.00 mIU/mL HEPATITIS B SURFACE ANTIGEN NEGATIVE NEGATIVE [facility] HEPATITIS C ANTIBODY NONREACTIVE NONREACTIVE [facility] Comment: Antibodies to HCV not detected; does not exclude early acute HCV infection. 10/17/2019 2:04 PM EST us Historical Provider MD HISTORICAL/NON ORDERABLE LABS Final Result [facility] [address] [place] [address], from Last 3 Months or Most Recently Relevant to Health Maintenance Insurance [facility] - [facility] Care Teams Scientific Illustrator Relationship Specialty Start Date End Date Sammie Silverman MD [address] [place] [phone] PCP - General Family Medicine 04/27/18
--- OUTSIDE RECORDS SUMMARY | 2024-10-05 13:37 | XMS_ITS | Encounter Summary ---
Author Organization [employer] Address [address] [place] [address] Care Team Providers Care Freight Elevator Erector Name Role Phone Sammie Silverman MD Primary Care Provide r Reason for Visit * Reason Comments Med Refill Encounter Details Date Type Department Care Team ([facility] st Contact Info) Description 09/11/2024 Refill [facility] MED & PEDS [address] [place], [place] [phone] Sammie Silverman MD [address] [place] [address] Constipation, unspecified constipation type Social History Tobacco Use Types Packs/Day Years [...] documented as of this encounter Visit Diagnoses Diagnosis Constipation, unspecified constipation type documented in this encounter Additional Health Concerns Assessment Noted Time PHQ-9 Depression Total Score: 0 08/28/19 25 11:54 AM EST documented as of this encounter Care Teams Freight Elevator Erector Relationship Specialty Start Date End Date Sammie Silverman MD [address] [place] [address] PCP - General Family Medicine 04/27/18 documented as of this encounter
--- OUTSIDE RECORDS SUMMARY | 2024-10-05 13:37 | XMS_ITS | Clinical Summary ---
Author Organization [facility] Address [address] [place] [address] Phone Care Team Providers Care Chief Of Police Name Role Phone Sammie Silverman MD Primary Care Provide r Allergies Active Allergy Reactions Criticality Noted Date Comments Aspirin 12/19/2020 Hydrochlorothiazide Other (see comments) 2020 Simvastatin Other (see comments) 12/15/2020 Medications Acetaminophen (Tylenol) 325 MG capsule Take 1 capsule by mouth 1 (one) time each day Active albuterol (2.5 MG/3ML) 0.083% nebulizer solution Active Albuterol Sulfate (ProAir RespiClick) 108 (90 Base) MCG/ACT aerosol powder Active atorvastatin (LIPITOR) 20 MG tablet Take 1 tablet by mouth 1 (one) time each day Active budesonide-form oterol (SYMBICORT) 160-4.5 MCG/ACT inhaler Active calcium carbonate (OS-BETINA) 1250 (500 Ca) MG tablet Active citalopram (CeleXA) 20 MG tablet Take 1 tablet by mouth 1 (one) time each day Active fluticasone (FLONASE) 50 MCG/ACT nasal spray Active loratadine (CLARITIN) 10 MG tablet Take 1 tablet by mouth 1 (one) time each day Active losartan (COZAAR) 25 MG tablet Take 1 tablet by mouth 1 (one) time each day Active montelukast (SINGULAIR) 10 MG tablet Take 1 tablet by mouth 1 (one) time each day Active tiotropium (Spiriva HandiHaler) 18 MCG per inhalation capsule Active Oyster Shell Calcium + D3 500-400 MG-UNIT per tablet Take 1 tablet by mouth 11/29/2020 Active furosemide (LASIX) 40 MG tablet Take 40 mg by mouth 11/29/2020 Active traMADol (ULTRAM) 50 MG tablet TAKE 1 TABLET BY MOUTH THREE TIMES DAILY NEEDED FOR PAIN 10/31/2020 Active Farxiga 10 MG tablet TAKE 1 TABLET BY MOUTH EVERY MORNING 90 tablet 2 09/05/2024 Active Active Problems Problem Noted Date Diagnosed Date Stage 3b chronic kidney disease 11/15/2023 Advance directive discussed with patient 024 Overview (11/15/2023): Last Assessment & Plan: See HPI Patient chose to be DNR/DNI Foot pain 01/06/2023 Dizziness 01/06/2023 Type 2 diabetes mellitus wit h diabetic chronic kidney disease 12/15/2021 Stage 3a chronic kidney disease 12/19/2020 Chronic kidney disease due to benign hypertensio n 12/19/2020 Renal osteodystrophy 12/19/2020 Benign essential hypertension 12/15/2020 Chronic kidney disease stage 3 12/15/2020 Bronchiectasis 10/10/2015 H/O Spinal surgery 10/15/2011 Asthma 10/15/2011 Arthritis 10/15/2011 Encounters Date Type Department Care Team Description 09/05/2024 Refill [facility] [address] [place], [place] [id number] Shiva Patel MD from Last 3 Months Immunizations Name Administration Dates Next Due Influenza Split 06/05/2013,05/31/2012 Influenza Split High Dose Pr eservative Free IM 06/02/2018 Influenza, Quadrivalent, Preservative Free 09/24,06/18/2020,05/28/2017 Influenza, Quadrivalent, With Preservative 05/26,04/30/2015 Pneumococcal Conjugate 13-Valent 04/30/2015 Pneumococcal Polysaccharide 08/30/2019, 2 Shingrix 10/18/2019,07/31/2019 Tdap 05/31/2012 Zoster 04/26/2014 Social History Tobacco Use Types Packs/Day Years Used Date Smoking Tobacco: Never Smokeless Tobacco: Never Tobacco Cessation:Counseling Given: Not Answered Alcohol Use Standard Drinks/Week Comments Not Currently 0 (1 standard drink = 0.6 oz pur e alcohol) Comments Unknown Sex and Gender Information Value Date Recorded Sex Assigned at Not on file Legal Sex Female 4:53 PM EST Gender Identity Not on file Sexual Orientation Not on file Last Filed Vital Signs Vital Sign Reading Time Taken Comments Blood Pressure 110/62 11/15/2023 3:30 PM EDT Pulse 78 11/15/2023 3:30 PM EDT Temperature - - Respiratory Rate - - Oxygen Saturation 96% 11/15/2023 3:30 PM EDT Inhaled Oxygen Concentration - - Weight 66.7 kg (147 lb) 11/15/2023 3:30 PM EDT Height - - Body Mass Index - - Plan of Treatment Upcoming Encounters Date Type Department Care Team (Late st Contact Info) Description 12/11/2024 2:00 PM EDT Office Visit [facility] [address] [place] [phone] Shiva Patel MD [id number] [address] [place] [phone] Health Maintenance Due Date Last Done Comments Breast Cancer Screening 1949 Colorectal Cancer Screening: Annual FOBT 1998 Colorectal Cancer Screening: Colonoscopy 1998 Colorectal Cancer Screening: Sigmoidoscopy 1998 Diabetes: Ophthalmology Exam 12/15/2021 Diabetes: Pedal Pulse Checked 12/15/2021 Diabetes: Sensory Foot Exam 12/15/2021 Diabetes: Visual Foot Exam 12/15/2021 Diabetes: Hemoglobin A1C 12/23/2023 09/24/2023 Influenza Vaccine (#1) 2024 4, 06/18/2020, 05/26/2019, Additional history exists Pneumococcal Vaccine: 65+ Years Completed 08/30/2019, 04/30/2015, 09/25/2011 Hepatitis B Vaccine Aged Out No longe r eligible based on patient's age to complete this topic Insurance [place] [id number] [facility]UAL [facility] ([id number]) [id number] ([id number]) Care Teams Chief Of Police Relationship Specialty Start Date End Date Sammie Silverman MD [address] [place] [phone] PCP - General Internal Medicine 12/19/20
--- OUTSIDE RECORDS SUMMARY | 2024-10-05 13:37 | XMS_ITS ---
Author Name Ridge Rubio APRN Address [address] [place] [address] Phone [phone] [facility] Care Team Providers Care Paint Stockman Name Role Phone Palma Rubio Unavailable [phone] Unavailable Unavailable Unavailable Reason for Referral Not Available Allergies, adverse reactions, alerts Allergen Type Reaction Severity Status Onset Date Aspirin Allergy to substance (disorder) Unknown Active N/A Hydrochlorothiazide Allergy to substance (disorder) Unknown Active N/A Simvastatin Allergy to substance (disorder) Unknown Active N/A History of medication use Medication Class Instructions Start Date End Date calcium carbonate 600 mg-vitamin D3 10 mcg (400 unit) tablet TAKE 1 TABLET BY MOUTH EVERY MORNING 2022-01-15 No Data Available cholecalciferol (vitamin D3) 50 mcg (2,000 unit) capsule TAKE 1 CAPSULE BY MOUTH EVERY MORNING 2021-10-09 No Data Available Citalopram Hydrobromide 20 m g Tab TAKE 1 TABLET BY MOUTH AT BEDTIME 2021-12-15 No Data Available Furosemide 40 mg Tab Take 1 tablet once daily No Data Available SM All Day Allergy Relief 10 mg Tab TAKE 1 TABLET BY MOUTH EVERY DAY NEEDED FOR ALLERGIES 2021-06-09 No Data Available Losartan Potassium 25 mg Tab TAKE half a TABLET (12.5 mg) BY MOUTH EVERY MORNING 2021-12-22 No Data Available Spiriva HandiHaler 18 MCG Cap USE 1 CAPS ULE FOR INHALATION ONCE A DAY DO NOT SWALLOW CAPSULE 2021-07-29 No Data Available Symbicort 160-4.5 MCG/ACT Aerosol INHALE 2 PUFFS TWICE DAILY. RINSE MOUTH AFTER USING. 2021-09-30 No Data Available Montelukast Sodium 10 mg Tab TAKE 1 TABL ET BY MOUTH EVERY EVENING 2021-11-27 No Data Available Atorvastatin Calcium 20 mg Tab TAKE 1 TA BLET BY MOUTH EVERY MORNING 2021-06-16 No Data Available Fluticasone Propionate 50 MCG/ACT Suspension USE 1 SPRAY IN EACH NOSTRIL ONCE DAILY 2021-07-15 No Data Available Farxiga 10 mg Tab TAKE 1 TABLET BY FIOR TH EVERY MORNING 2021-12-15 No Data Available traMADol 50 mg Tab TAKE 1 TABLET BY FIOR TH EVERY TWELVE HOURS NEEDED 2022-03-17 No Data Available Vitamin D3 50 mcg (2,000 uni t) capsule TAKE 1 CAPSULE BY MOUTH EVERY MORNING 2022-02-12 2023-04-09 Docusate Sodium 100 mg Cap TAKE 1 CAPSUL E BY MOUTH TWICE DAILY FOR CONSTIPATION 2022-05-04 No Data Available Polyethylene Glycol 3350 17 GM/SCOOP Powder DISSOLVE 17 GRAMS IN 4 TO 8 OUNCES LIQUID ONCE DAILY 2022-05-04 No Data Available Cyclobenzaprine 5 mg Tab TAKE 1 TABLET B Y MOUTH TWICE DAILY 2022-06-01 No Data Available ProAir HFA 108 (90 Base) MCG/ACT Aerosol Solution Inhalation 2 inhalations every 4-6 hours as needed. 2022-08-05 No Data Available Medbox Status USE DIRECTED 2022-07-08 No Data Baylee ilable Vitamin D3 50 mcg (2,000 uni t) capsule TAKE 1 CAPSULE BY MOUTH EVERY MORNING 2023-06-15 No Data Available Bumetanide 1 mg Tab TAKE 1 TABLET BY FIOR TH EVERY MORNING 2023-12-09 No Data Available Budesonide 0.5 mg/2ML Suspension INHALE 1 AMPULE USING A NEBULIZER TWICE DAILY 2023-12-09 No Data Available Azithromycin 250 mg Tab TAKE 2 TABLETS B Y MOUTH ON DAY 1, THEN TAKE 1 TABLET DAILY ON DAYS 2-5 2023-12-09 No Data Available Adult Aerosol Mask Miscellaneous USE DIRECTED EVERY 6 HOURS NEEDED FOR WHEEZING 2024-02-08 No Data Available Problem List Problem Status Onset Date Resolved Date HTN (hypertension) Active 2022-07-11 N/A HLD (hyperlipidemia) Active 2022-07-11 N/A Anxiety Active 2022-07-11 N/A COPD (chronic obstructive pulmonary disease) Active 2022-07-11 N/A Vitamin D deficiency Active 2022-07-11 N/A Constipation Active 2022-07-11 N/A Calcium deficiency Active 2022-07-11 N/A Type 2 diabetes mellitus wit h diabetic chronic kidney disease Active 2022-07-11 N/A MDD (major depressive disord er), recurrent episode, mild Active 2022-08-05 N/A 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 Active 2022-08-05 N/A Chronic kidney disease, stage 3b Active N/A Encounters Encounters Type Facility Date of Service Diagnosis/Co mplaint No Data Available [facility]/03/2022 Type 2 diabetes mellitus wit h diabetic chronic kidney diseaseHypertensive chronic kidney disease w stg 1-4/unsp chr kdnyChronic kidney disease, stage 3aHyperlipidemia, unspecifiedAnxiety disorder, unspecifiedChronic obstructive pulmonary disease, unspecifiedVitamin D deficiency, unspecifiedConstipation, unspecifiedDietary calcium deficiency No Data Available [facility] 07[place]03/2022 No Data Available [facility] No Data Available [facility] No Data Available [facility] No Data Available [facility] No Data Available [facility] Estab. patient 20-29min; 1 stable chronic or 2 minor; add add modifier 95 for video, modifier 93 for phone [facility] ([place] 08/05/2022 Type 2 diabetes mellitus wit h diabetic chronic kidney diseaseHyp hrt & chr kdny dis w hrt fail and stg 1-4/unsp chr kdnyHeart failure, unspecifiedChronic kidney disease, stage 3aHyperlipidemia, unspecifiedAnxiety disorder, unspecifiedChronic obstructive pulmonary disease, unspecifiedVitamin D deficiency, unspecifiedConstipation, unspecifiedDietary calcium deficiencyMajor depressive disorder, recurrent, mild Estab. patient 20-29min; 1 stable chronic or 2 minor; add add modifier 95 for video, modifier 93 for phone [facility] ([place] 08/05/2022 Unlisted special service; to be used for medical record reviews and reporting CPTII codes (1111F, etc) [facility] ([place]) 03/31/2023 Other specified counseling Unlisted special service; to be used for medical record reviews and reporting CPTII codes (1111F, etc) [facility], ([place]) 03/31/2023 Unlisted special service; to be used for medical record reviews and reporting CPTII codes (1111F, etc) [facility] ([place] 03/31/20[place] Estab. patient 30-39min; chronic exacerbation, 2 stable chronic or 1 acute illness add add modifier 95 for video, (do not use for phone, instead use [id number]) [facility] 04[place]09/2023 Type 2 diabetes mellitus wit h diabetic chronic kidney diseaseChronic kidney disease, stage 3aHyp hrt & chr kdny dis w hrt fail and stg 1-4/unsp chr kdnyHeart failure, unspecifiedSecondary hyperaldosteronismChronic obstructive pulmonary disease, unspecifiedMajor depressive disorder, recurrent, mildHyperlipidemia, unspecifiedAnxiety disorder, unspecifiedVitamin D deficiency, unspecifiedConstipation, unspecifiedDietary calcium deficiency Estab. patient 30-39min; chronic exacerbation, 2 stable chronic or 1 acute illness add add modifier 95 for video, (do not use for phone, instead use [id number]) [facility] 04[place]20[place] Estab. patient 30-39min; chronic exacerbation, 2 stable chronic or 1 acute illness add add modifier 95 for video, (do not use for phone, instead use [id number]) [facility] ([place] 04/09/2023 Estab. patient 30-39min; chronic exacerbation, 2 stable chronic or 1 acute illness add add modifier 95 for video, (do not use for phone, instead use [id number]) [facility] [place] 04/09/2023 Unlisted special service; to be used for medical record reviews and reporting CPTII codes (1111F, etc) [facility] ([place] 01/07/2024 Other specified health statu s Unlisted special service; to be used for medical record reviews and reporting CPTII codes (1111F, etc) [facility] ([place] 01/07/2024 Unlisted special service; to be used for medical record reviews and reporting CPTII codes (1111F, etc) [facility] ([place] 01/07/2024 Vital Signs Date of Collection Vitals 2022-08-05 09:12:10 Height - 149.86 cmWe ight - 63.96 kgBody Mass Index (BMI) - 28.48 kg/m2 2023-04-09 11:44:18 BP Diastolic - 83.0 mm[Hg]BP Systolic - 132.0 mm[Hg] Social History Social History Social History Observation Description Effec tive Time Current Smoking Status Never smoker 2024-09-17 0 Sex Female History of Procedures Procedures Service Procedure code Service date Servicing provider Phone# No Data Available [id number] 2022-07-03 No Data Available No Data Available Pain Assessment - NO pain present (1126F) 1126F 2022-07-03 No Data Available No Data A vailable Medication List Documented (1159F) 1159F 2022-07-03 No Data Available No Data Baylee ilable Medication Review by prescribing provider or pharmacist documented (1160F) 1160F 2022-07-03 No Data Available No Data Baylee ilable Functional Status Assessed (1170F) 1170F 2022-07-03 No Data Available No Data Avail able Advance Care Directive Advance care planning discussion documented in the medical record (1158F) 1158F 2022-07-03 No Data Available No Data Availa ble BMI obtained (3008F) 3008F 2022-07-03 No Data Availab le No Data Available Estab. patient 20-29min; 1 stable chronic or 2 minor; add add modifier 95 for video, modifier 93 for phone [id number] 2022-08-05 No Data Available No Data Availa ble BMI obtained (3008F) 3008F 2022-08-05 No Data Availab le No Data Available Unlisted special service; to be used for medical record reviews and reporting CPTII codes (1111F, etc) 38610 2023-03-31 No Data Available No Data Availa ble SBP < 130 (3074F) 3074F 2023-03-31 No Data Available No Data Available DBP 80-89 (3079F) 3079F 2023-03-31 No Data Available No Data Available Estab. patient 30-39min; chronic exacerbation, 2 stable chronic or 1 acute illness add add modifier 95 for video, (do not use for phone, instead use [id number]) 39734 2023-04-09 No Data Available No Data Availa ble Functional Status Assessed (1170F) 1170F 2023-04-09 No Data Available No Data Avail able Medication List Documented (1159F) 1159F 2023-04-09 No Data Available No Data Baylee ilable Medication Review by prescribing provider or pharmacist documented (1160F) 1160F 2023-04-09 No Data Available No Data Baylee ilable Unlisted special service; to be used for medical record reviews and reporting CPTII codes (1111F, etc) 28351 2024-01-07 No Data Available No Data Availa ble SBP < 130 (3074F) 3074F 2024-01-07 No Data Available No Data Available DBP <80 (3078F) 3078F 2024-01-07 No Data Available No Data Available Functional Status Functional Category Effective Dates EROSION CONTROL COORDINATOR/granddaughter, 2 hrs/wk 2022-07-03 walker 2022-07-03 Mental Status Status Date A&O x3 2022-07-03 Assessments Date of Service Assessments 2022-07-03 12:38:13 Type 2 diabetes david itus with diabetic chronic kidney diseaseHTN (hypertension)HLD (hyperlipidemia)AnxietyCOPD (chronic obstructive pulmonary disease)Vitamin D deficiencyConstipationCalcium deficiency 2022-08-05 09:12:10 Type 2 diabetes david itus with diabetic chronic kidney diseaseHTN (hypertension)HLD (hyperlipidemia)AnxietyCOPD (chronic obstructive pulmonary disease)Vitamin D deficiencyConstipationCalcium deficiencyCHF (congestive heart failure)Chronic kidney disease, stage 3aMDD (major depressive disorder), recurrent episode, mild 2023-04-09 11:44:18 Type 2 diabetes david itus with diabetic chronic kidney diseaseHTN (hypertension)HLD (hyperlipidemia)AnxietyCOPD (chronic obstructive pulmonary disease)Vitamin D deficiencyConstipationCalcium deficiencyChronic kidney disease, stage 3aMDD (major depressive disorder), recurrent episode, mildCHF (congestive heart failure) with secondary hyperaldosteronism Plan of Care Date of Service Plans 2022-07-03 12:38:13 Pain Assessment - NO pain documented (1126F)Medication Review by prescribing provider or pharmacist documented (1160F)Medication List Documented (1159F)Functional Status Assessed (1170F)Advance Care Directive Advance care planning discussion documented in the medical record (1158F)Phone (patient, parent, or guardian); 21-30 minutes of medical discussion (no modifier 95)Continue to see PCP. Follow-up with [facility] as needed for any acute or disease education needs that may arise.Avoid foods high in sugar and carbsIncorporate exercise regimenContinue taking Farxiga as prescribed Check A1c level every 3 monthsCheck BS weeklyContinue seeing entry level machine operator, Dr. Shiva Santo foods high in saltIncorporate exercise regimen and lifestyle modificationsContinue taking losartan as prescribedCheck BP weekly and report any elevated readingsAvoid foods high in fatIncorporate exercise regimen and lifestyle modificationsContinue taking Atorvastatin as prescribed Check lipid levels yearlyManaged by PCPContinue taking symbicort, spiriva, montelukast as prescribedAvoid irritantsContinue taking vit d as prescribedContinue taking docusate as prescribedContinue taking prescribed medications 2022-08-05 09:12:10 Televideo 20-29min; 1 stable chronic or 2 minor; add modifier 95BMI obtained (3008F)Continue to see PCP. Follow-up with [facility] as needed for any acute or disease education needs that may arise 08/03.Avoid foods high in sugar and carbsIncorporate exercise regimenContinue taking Farxiga as prescribed Check A1c level every 3 monthsCheck BS weeklyContinue seeing entry level machine operatorDr. Shiva foods high in saltIncorporate exercise regimen and lifestyle modificationsContinue taking losartan as prescribedCheck BP weekly and report any elevated readingsAvoid foods high in fatIncorporate exercise regimen and lifestyle modificationsContinue taking Atorvastatin as prescribed Check lipid levels yearlyManaged by PCPContinue taking symbicort, spiriva, montelukast as prescribedAvoid irritantsContinue taking vit d as prescribedContinue taking docusate as prescribedContinue taking prescribed medicationson furosemide daily [id number], low na dietcall if weight gain greater than 3lbs for RX treatmenton furosemidemonitor BPlow na dieton citalopram no recent episodes and stable 2023-03-31 11:07:41 29359HUY < 130 (3074 F)DBP 80-89 (3079F) 2023-04-09 11:44:18 Medication Review by prescribing provider or pharmacist documented (1160F)Medication List Documented (1159F)Functional Status Assessed (1170F)Advance Care Directive Advance care planning discussion documented in the medical record (1158F)BMI obtained (3008F)SBP 130-139 (3075F)DBP 80-89 (3079F)Televideo 30-39min; chronic exacerbation, 2 stable chronic or 1 acute illness add modifier 95Advance care planning discussed and documented ? advance care plan or surrogate decision-maker was documented in the medical record. (1123F)Advance care planning discussed and documented in the medical record ? beneficiary/patient did not wish to or was unable to provide an advance care plan or name a surrogate decision-maker. (1124F)Pain Assessment - NO pain documented (1126F)Continue to see PCP. Follow-up with [facility] as needed for any acute or disease education needs that may arise.Avoid foods high in sugar and carbsIncorporate exercise regimenContinue taking Farxiga as prescribed Check A1c level every 3 monthsCheck BS weeklyContinue seeing entry level machine operator, Dr. Shiva Hareid foods high in saltIncorporate exercise regimen and lifestyle modificationsContinue taking losartan as prescribedCheck BP weekly and report any elevated readingsAvoid foods high in fatIncorporate exercise regimen and lifestyle modificationsContinue taking Atorvastatin as prescribed Check lipid levels yearlyManaged by PCPContinue taking symbicort, spiriva, montelukast as prescribedAvoid irritantsContinue taking vit d as prescribedContinue taking docusate as prescribedContinue taking prescribed medicationson furosemidemonitor BPlow na dieton citalopram no recent episodes and stableon furosemide daily [id number], low na dietcall if weight gain greater than 3lbs for RX treatment 2024-01-07 09:15:07 Unlisted special ser vice; to be used for medical record reviews and reporting CPTII codes (1111F, etc)SBP < 130 (3074F)DBP <80 (3078F) Goals Date Goal 2022-07-03 Remember to Keep all provider appts 2022-07-03 Call me if You are f eeling sick or ill 2022-07-03 Keep it up with imndy aguirre medications as prescribed 2022-08-05 furosemide was recen tly increased to BID done by research project coordinator due to fluid in lungs, denies cough and SOB at this time 2022-08-05 will send proair ref ill to pharmacy 2022-08-05 call if you feel ill , have any questions or concerns
--- OUTSIDE RECORDS SUMMARY | 2024-10-05 13:37 | XMS_ITS | Encounter Summary ---
Author Organization [employer] Address [address] [place] [address] Care Team Providers Care Legal Word Processor Name Role Phone Sammie Silverman MD Primary Care Provide r Encounter Details Date Type Department Care Team ([facility] st Contact Info) Description 09/05/2024 Orders Only [facility] [address] [place], [place] [phone] Sammie Silverman MD [address] [place], [place] [phone] Social History Tobacco Use Types Packs/Day Years [...] on file documented as of this encounter Procedures Procedure Name Priority Date/Time Associated Diagnosis Comments BI MAMMOGRAM SCREENING TOMOSYNTHESIS BILATERAL Routine 09/05/2024 8:15 AM EST documented in this encounter Results * BI Mammogram Screening Tomosynthesis Bilateral (09/05/2024 8:15 AM EST) Anatomical Region Laterality Modality Breast Bilateral Mammography 09/05/2024 8:15 AM EST Narrative 09/13/2024 1:12 PM EST ? [facility] [place] ? [address] ?[place] [id number] ? Mammography Report ? Signed ? Patient: Irma Pal ?M ?? R#: [id number] ? : 1950 ?Acct:[id number] ? Age/Sex: 73 / F ?ADM Date: 01/21/25 ? Loc: HO.MAMMO ? Attending Dr: Sammie Hale MD ? Ordering Physician: Sammie Silverman MD ?Results: ?? 1Negative ? Date of Service: 09/05/24 ?Follow Up: 1 Year From Orig ?? inal Mammogram ? Procedure(s): MM tomosynthesis screening BI ?? Accession Number(s): [id number] ? cc: Sammie Silverman MD ? EXAMINATION: [...] DD/ 0815 ? TD/TT: 09/05/24 0839 ? Steamfitter: ? Procedure Note Donotuseinterpreter, Image - 09/13/2024 [facility] [address] [place] [address] Mammography Report Signed Patient: Sanjuana Pal R#: [id number] : 1950Acct:[id number] Age/Sex: 73 / FADM Date: 09/05/24 Loc: HO.MAMMO Attending Dr: Sammie Hale MD Ordering Physician: Sammie Silverman MDResults: 1Negative Date of Service: 09/05/24Follow Up: 1 Year From Orig inal Mammogram Procedure(s): MM tomosynthesis screening BI Accession Number(s): [id number] cc: Sammie Silverman MD EXAMINATION: MM SCREENING [...] by: Erin Martini DO 09/13/2024 01:09 PM [facility] Dictated By: Erin Martini DO Signed By: <Electronically signed by Erin Martini DO in OV> 09/13/24 1309 DD/ 0815 TD/TT: 09/05/24 0839 Steamfitter: us Sammie Hale MD IMG BI PROCEDURES Wes stephany Result - Final documented in this encounter Visit Diagnoses Not on filedocumented in this encounter Additional Health Concerns Assessment Noted Time PHQ-9 Depression Total Score: 0 08/28/19 25 11:54 AM EST documented as of this encounter Care Teams Legal Word Processor Relationship Specialty Start Date End Date Sammie Silverman MD [address] [place] [address] PCP - General Family Medicine 04/27/18 documented as of this encounter
[2024-10-05 13:44] LABS: Basophils Absolute Auto 0.1 X10*3/uL (0.0-0.2); Basophils Percent Auto 0.4 % (0-2); Eosinophils Percent Auto 0.1 % (0-4); Hematocrit 38.1 % (37.0-47.0); Hemoglobin 12.6 g/dl (12.0-16.0); Imm Gran Abs Auto 0.07 X10*3/uL (0.00-0.03); Imm Gran Pct Auto 0.5 % (0.0-0.4); Lymphocytes Absolute Auto 0.9 X10*3/uL (1.2-4.9); Lymphocytes Percent Auto 6.5 % (20-40); Mean Corpuscular HGB Conc 33.1 g/dl (31.0-35.0); Mean Corpuscular Hemoglobin 24.6 pg (27.0-33.0); Mean Corpuscular Volume 74.4 fL (80.0-98.0); Mean Platelet Volume 9.2 fL (9.4-12.3); Monocytes Absolute Auto 0.7 X10*3/uL (0.1-1.2); Monocytes Percent Auto 4.7 % (2-11); Neutrophils Absolute Auto 12.1 x10*3/uL (2.0-8.3); Neutrophils Percent Auto 87.8 % (45-73); Platelet Count 320 X10*3/uL (160-400); Red Blood Count 5.12 X10*6/uL (4.20-5.50); Red Cell Distribution Width 15.2 % (11.0-16.0); White Blood Count 13.7 X10*3/uL (4.8-10.8)
[2024-10-05 13:45] LABS: Prothrombin Time 11.3 SEC (10.9-12.4)
[2024-10-05 13:52] LABS: Alanine Aminotransferase 31 U/L (0-31); Albumin Level 4.3 g/dL (3.5-5.0); Alkaline Phosphatase 122 U/L (39-117); Anion Gap 15 (12-20); Aspartate Amino Transferase 31 U/L (5-31); Bilirubin Direct 0.2 mg/dL (0.0-0.5); Bilirubin Total 0.4 mg/dL (0.0-1.0); Blood Urea Nitrogen 25 mg/dL (9-16); Calcium 10.1 mg/dL (8.4-10.2); Carbon Dioxide 23 mmol/L (22-29); Chloride 108 mmol/L (96-108); Creatinine Clr Calc Pharmacy 37.3; Estimated Glomerular Filt Rate 45; Glucose Random 102 mg/dL (60-115); Lipase 30 U/L (8-78); Potassium 4.1 mmol/L (3.3-5.1); Sodium 142 mmol/L (135-145); Total Protein 8.6 g/dL (6.5-8.0)
[2024-10-05 14:01] LABS: Troponin-I High Sensitivity < 2.7 ng/L (<3.5-17.0)
[2024-10-05 14:06] VITALS: BP 132/70; PULSE 92; RESP 14; TEMP 36.8; O2SAT 98
[2024-10-05 14:06] LABS: B Type Natriuretic Peptide < 10 pg/mL (<100)
[2024-10-05 14:11] LABS: Appearance Urine Clear; Color Urine Yellow; Glucose Urine UA >=1000 mg/dL (Negative); Leukocyte Esterase Urine Negative (Negative); Nitrite Urine Negative (Negative); PH 5.5 (5.0-9.0); Specific Gravity - Urine 1.025 (1.005-1.025); UMIC TRIGGER UACC YES; Urine Blood Negative (Negative); Urine Ketones Negative (Negative); Urine Protein Negative (Neg-Trace)
[2024-10-05 14:17] LABS: Influenza A PCR NEGATIVE (Negative); Influenza B PCR NEGATIVE (Negative); Resp Syncy Virus RNA Qual PCR NEGATIVE (Negative); SARS COV2 PCR INHOUSE NEGATIVE (Negative)
[2024-10-05 14:21] LABS: Bacteria Urine 1+ (None Seen); RBC Urine 0-2 /HPF (0-2); WBC Urine 0-5 /HPF (0-5)
[2024-10-05] MEDS: ondansetron HCL 4 MG/2 ML VIAL IVPUSH (15:45)
[2024-10-05 16:36] VITALS: BP 148/81; PULSE 101; RESP 13; TEMP 37.1; O2SAT 98
[2024-10-05] MEDS: cefTRIAXone sodium 1 GM VIAL IVPUSH (16:47)
[2024-10-05] MEDS: Doxycycline Hyclate 100 MG in 0.9 % Sodium Chloride 250 ML 166.67 MG IV (16:47)
[2024-10-05 16:51] LABS: Lactic Acid 1.1 mmol/L (0.5-2.0)
--- NOTE | 2024-10-05 16:54 | PM.IMHP ---
History of Present Illness Date of Service: 10/05/24 Attending physician on admission: Rich Hubbard Chief Complaint: Abdominal pain This is a 74-year-old female who presents to the emergency depart multiple complaints. She had a few episodes of non- bloody diarrhea yesterday. This morning around 10:00 she began having epigastric abdominal pain with 3 episodes of nonbloody emesis. She denies any associated fever or recent sick contacts. In the emergency department she had CT scan of her abdomen and pelvis which showed peribronchial opacities and bronchial wall thickening in the right middle lobe and right lower lobe. She was treated with IV antibiotics. Lab work was significant for leukocytosis with white count of 13.7 and she had mild tachycardia. She does report cough productive of green phlegm for the past 2 weeks that she did not think much about it because she ?always coughs ?. She reports chronic shortness of breath stating that her breathing is the same as always. She tested negative for flu, RSV, COVID-19. She will be admitted for further management of pneumonia Review of Systems Review of Systems: Yes all other systems are reviewed and are negative Constitutional: Constitutional: Denies chills and Denies fever(s) Cardiovascular: Cardiovascular: Denies chest pain and Denies palpitations Endocrine: Endocrine: Denies palpitations [facility] Medical History Environmental allergies Arthralgia of knee Breast mass Varicose veins of both lower extremities CARON (obstructive sleep apnea) Major depression Hyperlipidemia Arthritis Mood disorder Allergic rhinitis Osteopenia HTN (hypertension) Asthma Family History Mother CVD (cardiovascular disease) HTN (hypertension) Father Stroke Surgical History Hx of tubal ligation Hx of cholecystectomy History of back surgery Hx of section Social History Alcohol intake: never Patient Tobacco Use Status: Never used Tobacco Smoked in Last 30 Days: No Use of substances other than those prescribed or required for medical reasons: No Advance Directives: Yes Advance Directives Information Provided: Yes Advance Directives on File: No Nutrition Risks: No Nutritional Risk Meds Allergies Allergy/AdvReac Type Severity Reaction Status Date / Time aspirin [ASPIRIN] Allergy Unknown MOUTH Verified 10/05/24 12:35 SWELLING Beef Containing Products AdvReac Unknown ITCHY Verified 07/14/24 10:47 [BEEF CONTAINING PRODUCTS] Active Medications: Current Medications Acetaminophen (Acetaminophen 325 Mg Tablet) 650 mg PO Q6H PRN PRN Reason: Pain, Mild 1-3,fever,headache Benzonatate (Benzonatate 100 Mg Capsule) 100 mg PO TID PRN PRN Reason: Cough Calcium Carbonate (Calcium Carbonate 750 Mg Tab.Chew) 750 mg PO Q4H PRN PRN Reason: Heartburn Enoxaparin Sodium (Enoxaparin Sodium 40 Mg/0.4 Ml Syringe) 40 mg SUBCUT Q24H MERNA Doxycycline Hyclate 100 mg/ (Sodium Chloride) 250 mls @ 166.67 mls/hr IV ONCE ONE Stop: 10/05/24 17:31 Last Admin: 10/05/24 16:47 Dose: 166.67 mls/hr Melatonin (Melatonin 3 Mg Tablet) 6 mg PO BEDTIME PRN PRN Reason: Insomnia Polyethylene Glycol (Polyethylene Glycol 3350 17 Gm Powd.Pack) 17 gm PO DAILY PRN PRN Reason: Constipation Sodium Chloride (0.9 % Sodium Chloride Flush 3 Ml Syringe) 3 ml IVFLUSH QSHIFT [facility] Home Medications ?Medication ?Instructions ?Recorded ?Confirmed ?Last Taken ?Type atorvastatin 20 mg tablet 20 mg PO DAILY 06/18/20 10/05/24 Unknown History citalopram 20 mg tablet 20 mg PO DAILY 06/18/20 10/05/24 Unknown History fluticasone propionate 50 1 spray intranasal DAILY PRN 06/18/20 Unknown History mcg/actuation nasal allergies spray,suspension montelukast 10 mg tablet 10 mg PO DAILY 06/18/20 10/05/24 Unknown History calcium 600 mg (as 1 tab PO DAILY 01/12/23 10/05/24 Unknown History carbonate)-vitamin D3 10 mcg (400 unit) tablet cholecalciferol (vitamin D3) 50 50 mcg PO DAILY 01/12/23 10/05/24 Unknown History mcg (2,000 unit) capsule (Vitamin D3) dapagliflozin propanediol 10 mg 10 mg PO DAILY 01/12/23 10/05/24 Unknown History tablet (Farxiga) docusate sodium 100 mg capsule 100 mg PO BID constipation 01/12/23 10/05/24 Unknown History loratadine 10 mg tablet 10 mg PO DAILY PRN allergies 01/12/23 10/05/24 Unknown History tiotropium bromide 18 mcg capsule 1 cap inhalation DAILY 01/18/24 Unknown History with inhalation device (Spiriva with HandiHaler) budesonide-formoterol HFA 160 2 puff inhalation BID 07/25/24 10/05/24 Unknown History mcg-4.5 mcg/actuation aerosol inhaler (Symbicort) bumetanide 1 mg tablet 1 mg PO DAILY 10/05/24 10/05/24 Unknown History losartan 25 mg tablet 12.5 mg PO BEDTIME 10/05/24 10/05/24 Unknown History Physical Exam Vital Signs and Narrative: Vital Signs: Last Vital Signs Temp 98.7 F 10/05/24 16:36 Pulse 101 H 10/05/24 16:36 Resp 13 10/05/24 16:36 BP 148/81 H 10/05/24 16:36 Pulse Ox 98 10/05/24 16:36 O2 Del Method Room Air 10/05/24 16:36 BMI result Body Mass Index 27.7 Const: General: cooperative, comfortable, no acute distress, alert and awake Nutritional Appearance: average body habitus Orientation/consciousness: patient oriented x3 Resp: Other: crackles right base Effort & Inspection: no respiratory distress and no use of accessory muscles Cardio: Rate: tachycardic Neuro: General: patient oriented x3, moves all extremities and CN's II-XI intact bilaterally Extrem: General: Yes no pedal edema Results Labs 10/06/24 06:08 10/05/24 13:31 Labs: Laboratory Results - last 24 hr 10/05/24 10/05/24 10/05/24 13:31 14:04 16:27 MCV 74.4 L MCH 24.6 L MCHC 33.1 RDW 15.2 Plt Count 320 MPV 9.2 L Immature Gran % (Auto) 0.5 H Neut % (Auto) 87.8 H Lymph % (Auto) 6.5 L [place] % (Auto) 4.7 Eos % (Auto) 0.1 Baso % (Auto) 0.4 Lymph # (Auto) 0.9 L [place] # (Auto) 0.7 Eos # (Auto) 0.0 Baso # (Auto) 0.1 Abs Immat Gran (auto) 0.07 H Absolute Neuts (auto) 12.1 H Absolute Nucleated RBC 0.000 Nucleated RBC % (auto) 0.0 PT 11.3 INR 1.0 Anion Gap 15 Estim Creat Clear Calc 37.3 Estimated GFR 45 Random Glucose 102 Lactic Acid 1.1 Calcium 10.1 Total Bilirubin 0.4 Direct Bilirubin 0.2 AST 31 ALT 31 Alkaline Phosphatase 122 H B-Natriuretic Peptide < 10 Total Protein 8.6 H Albumin 4.3 Lipase 30 Urine Color Yellow Urine Appearance Clear Urine pH 5.5 Ur Specific Wann 1.025 Urine Protein Negative Urine Glucose (UA) >=1000 H Urine Ketones Negative Urine Blood Negative Urine Nitrite Negative Ur Leukocyte Esterase Negative Urine RBC 0-2 Urine WBC 0-5 Ur Squamous Epith Cells 6-10 Urine Bacteria 1+ Hyaline Casts 3-5 Influenza Type A (PCR) NEGATIVE Influenza Type B (PCR) NEGATIVE RSV RNA Qual (PCR) NEGATIVE SARS-CoV-2 RNA (RT-PCR) NEGATIVE Imaging Radiologist's Impressions: Impressions Abdomen/Pelvis CT 10/05/24 13:53 IMPRESSION: 1.Patchy peribronchial opacities with bronchial wall thickening in the right lower lobe and right middle lobe consistent with bronchopneumonia. Regions of right basilar cylindrical and cystic bronchiectasis. 2. Extensive colonic diverticulosis without evidence of acute diverticulitis. 3. Small type I hiatus hernia. Cholecystectomy. 5. No aneurysm identified. Moderate to severe atheromatous calcification of the arterial structures. Electronically signed by: Gilberto Seymour MD 10/05/2024 02:25 PM EST RP Chest X-Ray 10/05/24 14:04 IMPRESSION: Concerning acute airspace disease, right middle lung lobe. Probable granuloma, right upper lobe. Electronically signed by: Richard Sims MD 10/05/2024 02:17 PM EST RP Assessment and Plan (1) Pneumonia: Status: Acute Plan This is a 74-year-old female with history of hypertension, hyperlipidemia, underlying bronchiectasis, allergic asthma who presents to the emergency department with abdominal pain and vomiting found to have pneumonia Sepsis due to Multilobar pneumonia CT scan showing opacities in right middle lobe, right lower lobe Met sepsis criteria with leukocytosis and tachycardia Lactic acid normal, blood cultures pending. No severe features Possible aspiration in the setting of vomiting. Also with history of bronchiectasis flu, rsv, covid 19 negative We will treat with IV Zosyn No hypoxia Follow blood culture results due to diarrhea, will check Legionella urine antigen Epigastric abdominal pain with nausea/vomiting/diarrhea Symptomatic support, IV Pepcid, antiemetics No acute abdominal pathology on CT scan if diarrhea persists can check stool studies Left bundle branch block EKG showing left bundle branch block, no recent EKGs for comparison. Last EKG from 2018 No chest pain, initial troponin negative We will repeat 2nd troponin monitor on telemetry HLD continue statin when med rec complete allergic asthma followed by pulmonology resume baseline inhalers lower extremity edema on bumex at baseline - will hold for now given nasea and diarrhea caron is listed in problem list - pt says her sleep study came out ok and she does not use CPAP med rec pending at the time of admission. dvt ppx - lovenox Code status-DNR/DNI Patient will likely require 2 midnight stay in the hospital for management of multilobar pneumonia requiring IV antibiotics Quality Stroke Does the patient have a stroke diagnosis?: No VTE Prior VTE?: No VTE Risk Level:: Medical - moderate - high VTE Device Contraindication: N/A - Device Ordered VTE Drug Contraindication: N/A - Med Ordered
[2024-10-05 17:05] LABS: Procalcitonin 0.06 ng/mL
[2024-10-05] MEDS: Enoxaparin Sodium 40 MG/0.4 ML SYRINGE SUBCUT (18:06)
--- NOTE | 2024-10-05 18:51 | PHA.MEDREC ---
Addendum entered by Bentley Henry 10/06/24 11:53: reviewed Addendum entered by Gloria Gallegos 10/06/24 11:30: Recieved a med list from another facility that was printed 10/05 that matched claims I was able to utilized to confirm the remainder of the med rec. Addendum entered by Natacha Gonzalez RPh 10/05/24 19:07: reviewed by [facility], left fluticasone and spiriva to be followed up on with the AM team. Original Note: Pharmacy Consult ? Medication Reconciliation Pharmacy has completed the medication reconciliation. Patient was a poor historian. was instructed to call patient daughter Chanelle. Called daughter and she didn't know the names of patient medications. was in the middle of taking to her and the phone D/C tried to call back 3 times and just go's straight to voicemail. Utilized claims to confirm med list.
[2024-10-05 20:16] LABS: Troponin-I High Sensitivity < 2.7 ng/L (<3.5-17.0)
[2024-10-05] MEDS: Piperacillin Sodium/Tazobactam 4.5 GM in 0.9 % Sodium Chloride 100 ML IV (21:16)
[2024-10-05 21:17] VITALS: BP 138/75; PULSE 97; RESP 18; TEMP 36.8; O2SAT 97
--- NOTE | 2024-10-05 21:24 | PC.NURSE ---
pt assisted to bathroom, ambulatory with steady gait to bathroom. pt noted to be stand by assist. pt medicated per mar at this time, son remains at bedside for comfort.vss.
[2024-10-05 23:14] VITALS: BP 128/70; PULSE 88; RESP 16; TEMP 37.1; O2SAT 96
[2024-10-06] VITALS (9 sets, daily range): BP systolic 112–148; BP diastolic 57–72; PULSE 80–97; RESP 14–22; TEMP 36.2–37.1; O2SAT 93–98
[2024-10-06] MEDS: Morphine Sulfate 2 MG/ML CARTRIDGE IVPUSH (05:15)
[2024-10-06] MEDS: Piperacillin Sodium/Tazobactam 4.5 GM in 0.9 % Sodium Chloride 100 ML IV ×3 (05:15→22:48)
--- NOTE | 2024-10-06 05:29 | PC.NURSE ---
tire rebuilder at bedside. pt reporting 8/10 pain, pt medicated per oct. pt reporting pain to IV site. IV removed, new IV established, 20G left forearm.
[2024-10-06 06:15] LABS: Hematocrit 33.6 % (37.0-47.0); Hemoglobin 11.3 g/dl (12.0-16.0); Mean Corpuscular HGB Conc 33.6 g/dl (31.0-35.0); Mean Corpuscular Hemoglobin 24.9 pg (27.0-33.0); Mean Platelet Volume 8.8 fL (9.4-12.3); Platelet Count 271 X10*3/uL (160-400); Red Blood Count 4.54 X10*6/uL (4.20-5.50); Red Cell Distribution Width 15.4 % (11.0-16.0); White Blood Count 6.9 X10*3/uL (4.8-10.8)
--- NOTE | 2024-10-06 07:00 | CA_ITS ---
Transthoracic Echocardiogram Patient (Last, First, Middle): Irma Pal, Gender: Female Date of : 1950 Age: 74 Procedure Date: 10/06/2024 Procedure Type: Transthoracic [place] [facility] [place]: 157.48 cm Weight: 68.49 kg BSA: 1.70 m2 Heart Rate: bpm BP: 123 / 61 mmHg Roof [employer]: Referring MD: Ethel ASKEW Symptoms: LBBB Study Quality: Fair ECG Rhythm: Sinus, LBBB Conclusions: - The left ventricular systolic function is normal. The calculated ejection fraction is 62% by biplane method. - No obvious valvular pathology seen on this study. Findings Left Ventricle Normal left ventricular cavity size. There is mildly increased left ventricular wall thickness. The left ventricular systolic function is normal. The calculated ejection fraction is 62% by biplane method. There is no evidence of regional wall motion abnormalities. There is paradoxical septal motion consistent with a left bundle branch block. Diastolic function is normal for age. Right Ventricle Normal right ventricular cavity size and systolic function. Atria Both atria are normal in size. Aortic Valve There is a normal trileaflet aortic valve. There is no aortic valve stenosis. There is no aortic valve regurgitation. Mitral Valve The mitral valve appears normal. There is no mitral valve regurgitation. There is no mitral valve stenosis. Pulmonic Valve The pulmonic valve is likely normal. Tricuspid Valve There is mild tricuspid valve regurgitation. There is no evidence of pulmonary hypertension. Great Vessels The asc aorta is normal in size. Venous The inferior vena cava is normal in size and collapses greater than 50% with inspiration. Pericardium/Pleural There is no evidence of pericardial effusion. Prior Study Comparison No significant change compared to prior study dated: 09/14/2018. Recommendations, Care & Conclusions No obvious valvular pathology seen on this study. Measurements 2D Linear Measurements IVSd: 1.22 0.6-0.9/0.6-1.0 cm LVIDd: 2.52 3.9-5.3/4.2-5.9 cm LVIDd Index: 1.48 2.4-3.2/2.2-3.1 cm/m2 LVIDs: 1.64 2.0-3.6 cm LVPWd: 1.23 0.7-1.1 cm Ao Root: 2.90 2.1-3.5 cm LA Diam: 2.90 2.7-3.8/3.0-4.0 cm LAIDs Index: 1.71 1.5-2.3 cm/m2 LV Mass: 111.03 67-162/88-224 g LV Mass Index: 65.31 43-95/49-115 g/m2 LVOT Diam: 1.90 3.0+(-)1.3 cm 2D Systolic Function EF 4C: 57.80 >55% EF 2C: 64.60 >55% EF BiP: 62.40 >55% Mitral Valve MV Pk E: 0.73 MV PK A: 0.96 MV Decel Time: 168.00 E/A: 0.80 E'Lateral: 7.40 E'Medial: 7.18 E/E' Med: 10.10 E/E' Lat: 9.80 PHT: 49.00 MVA PHT: 4.49 Decel Crawford: 4.33 Aortic Valve AoV Pk Kiran: 1.69 AoV Mn Kiran: 1.12 AoV VTI: 0.31 AoV Pk Grad: 11.00 Aov Mn Grad: 6.00 TERRI Cont.VTI: 1.92 LVOT LVOT Pk Kiran: 1.17 LVOT Mn Kiran: 0.82 LVOT VTI: 0.21 LVOT Pk Grad: 5.00 LVOT Mn Grad: 3.00 LVOT Diam: 1.90 LVOT Area: 2.84 Diastolic Function MV Pk E: 0.73 MV Pk A: 0.96 E/A: 0.80 E'Medial: 7.18 E/E' Med: 10.10 E' Laterial: 7.40 E/E' Lat: 9.80 Right Ventricle TAPSE (mm): 22.00 TVS' Kiran: 13.00 Tricuspid Valve TR Pk Kiran: 2.46 TR Pk Grad: 24.00 RA Press: 3.00 RVSP: 27.00 Great Vessels Aorta Ao Root-2D: 2.90 2.0-3.7 cm Ao Asc: 3.70 2.1-3.4 cm Pulmonary Valve PV Pk Kiran: 1.17 Peak PV Grad: 5.00 Updated in Other Vendor System with Status of Final Chris Pond MD electronically signed on 10/06/2024 3:50:21 PM with status of Final
[2024-10-06] MEDS: Cholecalciferol (Vitamin D3) 25 MCG TABLET 50 MCG PO (08:22)
[2024-10-06] MEDS: Montelukast Sodium 10 MG TABLET PO (08:22)
[2024-10-06] MEDS: Docusate Sodium 100 MG CAPSULE PO (08:22)
[2024-10-06] MEDS: Famotidine/PF 20 MG/2 ML VIAL IVPUSH (08:22)
[2024-10-06] MEDS: Escitalopram Oxalate 10 MG TABLET PO (08:22)
[2024-10-06] MEDS: Atorvastatin Calcium 20 MG TABLET PO (08:22)
[2024-10-06] MEDS: Fluticasone/Vilanterol 200/25 BLST.W.DEV 1 PUFF INHALE (08:55)
[2024-10-06] MEDS: Calcium + Vitamin D 250 MG TABLET PO (11:44)
--- NOTE | 2024-10-06 12:13 | P.PNIM_ITS ---
Subjective Subjective Date of Service: 10/06/24 Interval History: Seen and examined this morning Follow-up for pneumonia, abdominal pain Reporting diarrhea and persistent epigastric abdominal pain Cough improving, no shortness a breath Review of Systems Review of Systems: Yes all other systems are reviewed and are negative Constitutional Constitutional: Denies chills and Denies fever(s) Cardiovascular Cardiovascular: Denies chest pain, Denies palpitations and Denies dyspnea Respiratory Respiratory: Reports cough and Denies dyspnea Endocrine Endocrine: Denies palpitations Physical Exam 2 Vital Signs: Vital Signs: Last Vital Signs Temp 98.3 F 10/06/24 11:46 Pulse 80 10/06/24 11:46 Resp 14 10/06/24 11:46 BP 123/61 10/06/24 11:46 Pulse Ox 96 10/06/24 11:46 O2 Del Method Room Air 10/06/24 11:46 BMI result Body Mass Index 27.7 Const: General: cooperative, comfortable, no acute distress, alert and awake Nutritional Appearance: average body habitus Orientation/consciousness: p atient oriented x3 Resp: Other: crackles right base Effort & Inspection: no respiratory distress and no use of accessory muscles Cardio: Rate: tachycardic Neuro: General: patient oriented x3, moves all extremities and CN's II-XI intact bilaterally Extrem: General: Yes no pedal edema Objective Data Active Medications Acetaminophen (Acetaminophen 325 Mg Tablet) 650 mg PO Q6H PRN PRN Reason: Pain, Mild 1-3,fever,headache Albuterol Sulfate (Albuterol Sulfate 90 Mcg 8 Gm Inhaler) 2 puff INHALE Q4H PRN PRN Reason: shortness of breath or wheezing Albuterol/Ipratropium (Albuterol/Iprat 2.5/0.5mg 3 Ml Ampul.Neb) 3 ml INHALE Q6H PRN PRN Reason: shortness of breath/wheezing Atorvastatin Calcium (Atorvastatin Calcium 20 Mg Tablet) 20 mg PO DAILY MERNA Last Admin: 10/06/24 08:22 Dose: 20 mg Documented By: DARRELL Benzonatate (Benzonatate 100 Mg Capsule) 100 mg PO TID PRN PRN Reason: Cough Calcium Carbonate (Calcium Carbonate 750 Mg Tab.Chew) 750 mg PO Q4H PRN PRN Reason: Heartburn Calcium Carbonate/Cholecalciferol (Calcium + Vitamin D 250 Mg Tablet) 250 mg PO DAILY COUNT INCLUDES THE [facility] Last Admin: 10/06/24 11:44 Dose: 250 mg Documented By: SUSANNA Docusate Sodium (Docusate Sodium 100 Mg Capsule) 100 mg PO BID COUNT INCLUDES THE [facility] Last Admin: 10/06/24 08:22 Dose: 100 mg Documented By: DARRELL Enoxaparin Sodium (Enoxaparin Sodium 40 Mg/0.4 Ml Syringe) 40 mg SUBCUT Q24H COUNT INCLUDES THE [facility] Last Admin: 10/05/24 18:06 Dose: 40 mg Documented By: MIHIR Escitalopram Oxalate (Escitalopram Oxalate 10 Mg Tablet) 10 mg PO DAILY COUNT INCLUDES THE [facility] Last Admin: 10/06/24 08:22 Dose: 10 mg Documented By: DARRELL Famotidine (Famotidine/Pf 20 Mg/2 Ml Vial) 20 mg IVPUSH DAILY COUNT INCLUDES THE [facility] Last Admin: 10/06/24 08:22 Dose: 20 mg Documented By: DARRELL Fluticasone/Vilanterol (Fluticasone/Vilanterol 200/25 Blst.W.Dev) 1 puff INHALE DAILY COUNT INCLUDES THE [facility] Last Admin: 10/06/24 08:55 Dose: 1 puff Documented By: ALEX Piperacillin Sod/Tazobactam (Sod 4.5 gm/ Sodium Chloride) 100 mls @ 200 mls/hr IV Q8H COUNT INCLUDES THE [facility] Last Infusion: 10/06/24 05:45 Dose: Infused Documented By: GIANLUCA Loratadine (Loratadine 10 Mg Tablet) 10 mg PO DAILY PRN PRN Reason: allergies Losartan Potassium (Losartan Potassium 25 Mg Tablet) 12.5 mg PO BEDTIME COUNT INCLUDES THE [facility]; Protocol Melatonin (Melatonin 3 Mg Tablet) 6 mg PO BEDTIME PRN PRN Reason: Insomnia Montelukast Sodium (Montelukast Sodium 10 Mg Tablet) 10 mg PO DAILY COUNT INCLUDES THE [facility] Last Admin: 10/06/24 08:22 Dose: 10 mg Documented By: DARRELL Polyethylene Glycol (Polyethylene Glycol 3350 17 Gm Powd.Pack) 17 gm PO DAILY PRN PRN Reason: Constipation Sodium Chloride (0.9 % Sodium Chloride Flush 3 Ml Syringe) 3 ml IVFLUSH QSHIFT COUNT INCLUDES THE [facility] Last Admin: 10/06/24 07:06 Dose: Not Given Documented By: DARRELL Non-Admin Reason: Previously Administered Vitamin D (Cholecalciferol (Vitamin D3) 25 Mcg Tablet) 50 mcg PO DAILY MERNA Last Admin: 10/06/24 08:22 Dose: 50 mcg Documented By: DARRELL Labs 10/06/24 06:08 10/05/24 13:31 Labs: Laboratory Results - last 24 hr 10/05/24 10/05/24 10/05/24 13:31 14:04 16:27 MCV 74.4 L MCH 24.6 L MCHC 33.1 RDW 15.2 Plt Count 320 MPV 9.2 L Immature Gran % (Auto) 0.5 H Neut % (Auto) 87.8 H Lymph % (Auto) 6.5 L [place] % (Auto) 4.7 Eos % (Auto) 0.1 Baso % (Auto) 0.4 Lymph # (Auto) 0.9 L [place] # (Auto) 0.7 Eos # (Auto) 0.0 Baso # (Auto) 0.1 Abs Immat Gran (auto) 0.07 H Absolute Neuts (auto) 12.1 H Absolute Nucleated RBC 0.000 Nucleated RBC % (auto) 0.0 PT 11.3 INR 1.0 Anion Gap 15 Estim Creat Clear Calc 37.3 Estimated GFR 45 Random Glucose 102 Lactic Acid 1.1 Calcium 10.1 Total Bilirubin 0.4 Direct Bilirubin 0.2 AST 31 ALT 31 Alkaline Phosphatase 122 H B-Natriuretic Peptide < 10 Total Protein 8.6 H Albumin 4.3 Lipase 30 Procalcitonin 0.06 Urine Color Yellow Urine Appearance Clear Urine pH 5.5 Ur Specific [place] 1.025 Urine Protein Negative Urine Glucose (UA) >=1000 H Urine Ketones Negative Urine Blood Negative Urine Nitrite Negative Ur Leukocyte Esterase Negative Urine RBC 0-2 Urine WBC 0-5 Ur Squamous Epith Cells 6-10 Urine Bacteria 1+ Hyaline Casts 3-5 Influenza Type A (PCR) NEGATIVE Influenza Type B (PCR) NEGATIVE RSV RNA Qual (PCR) NEGATIVE SARS-CoV-2 RNA (RT-PCR) NEGATIVE 10/06/24 06:08 MCV 74.0 L MCH 24.9 L MCHC 33.6 RDW 15.4 Plt Count 271 MPV 8.8 L Immature Gran % (Auto) Neut % (Auto) Lymph % (Auto) [place] % (Auto) Eos % (Auto) Baso % (Auto) Lymph # (Auto) [place] # (Auto) Eos # (Auto) Baso # (Auto) Abs Immat Gran (auto) Absolute Neuts (auto) Absolute Nucleated RBC 0.000 Nucleated RBC % (auto) 0.0 PT INR Anion Gap Estim Creat Clear Calc Estimated GFR Random Glucose Lactic Acid Calcium Total Bilirubin Direct Bilirubin AST ALT Alkaline Phosphatase B-Natriuretic Peptide Total Protein Albumin Lipase Procalcitonin Urine Color Urine Appearance Urine pH Ur Specific [place] Urine Protein Urine Glucose (UA) Urine Ketones Urine Blood Urine Nitrite Ur Leukocyte Esterase Urine RBC Urine WBC Ur Squamous Epith Cells Urine Bacteria Hyaline Casts Influenza Type A (PCR) Influenza Type B (PCR) RSV RNA Qual (PCR) SARS-CoV-2 RNA (RT-PCR) Assessment and Plan (1) Pneumonia: Status: Acute (2) Left bundle branch block: Status: Acute Plan This is a 74-year-old female with history of hypertension, hyperlipidemia, underlying bronchiectasis, allergic asthma who presents to the emergency department with abdominal pain and vomiting found to have pneumonia Sepsis due to Multilobar pneumonia CT scan showing opacities in right middle lobe, right lower lobe Met sepsis criteria with leukocytosis and tachycardia Lactic acid normal, blood cultures pending. No severe features Possible aspiration in the setting of vomiting. Also with history of bronchiectasis flu, rsv, covid 19 negative continue IV Zosyn, started 10/05 remaines on room air Follow blood culture results due to diarrhea, will check Legionella urine antigen Epigastric abdominal pain with nausea/vomiting/diarrhea nausea and vomiting have resolved; persistent diarrhea Symptomatic support, IV Pepcid, antiemetics No acute abdominal pathology on CT scan will check stool studies Left bundle branch block EKG showing left bundle branch block, no recent EKGs for comparison. Last EKG from 2018 No chest pain, trops negative x2 will get echo monitor on telemetry HLD continue statin HTN continue losartan allergic asthma followed by pulmonology resume baseline inhalers lower extremity edema on bumex at baseline - will hold for now given nausea and diarrhea jay is listed in problem list - pt says her sleep study came out ok and she does not use CPAP mood continue citalopram unclear why pt is on farxiga? will hold for now dvt ppx - lovenox Code status-DNR/DNI Requires ongoing inpatient stay for management of multilobar pneumonia requiring IV antibiotics Quality Stroke Does the patient have a stroke diagnosis?: No VTE Prior VTE?: No VTE Risk Level:: Medical - moderate - high VTE Device Contraindication: N/A - Device Ordered VTE Drug Contraindication: N/A - Med Ordered
[2024-10-06] MEDS: Pantoprazole Sodium 40 MG/10 ML VIAL IVPUSH (12:57)
--- NOTE | 2024-10-06 13:43 | MHC.CM.PN ---
IMM 10/06/24, Pt is SSO, she lives with her , she has a [employer] 29 hrs a week. For DME, she has a cane, walker, shower chair, bed rails. HCP discussed, she will complete form here and it will be added to her chart. PCP confirmed: Sammie Zacarias. Family to provide transport home at DC. DCP: home with services. CM to follow for DC needs.
[2024-10-06] MEDS: 0.9 % Sodium Chloride Flush 3 ML SYRINGE IVFLUSH ×2 (17:38→21:04)
[2024-10-06] MEDS: Enoxaparin Sodium 40 MG/0.4 ML SYRINGE SUBCUT (17:40)
[2024-10-06] MEDS: Acetaminophen 325 MG TABLET 650 MG PO (21:02)
[2024-10-06] MEDS: Losartan Potassium 25 MG TABLET 12.5 MG PO (21:02)
[2024-10-07] MEDS: Morphine Sulfate 2 MG/ML CARTRIDGE IVPUSH (00:22)
[2024-10-07 03:26] VITALS: BP 126/56; PULSE 84; RESP 16; TEMP 36.4; O2SAT 98
[2024-10-07] MEDS: Pantoprazole Sodium 40 MG/10 ML VIAL IVPUSH (06:02)
[2024-10-07] MEDS: Piperacillin Sodium/Tazobactam 4.5 GM in 0.9 % Sodium Chloride 100 ML IV (06:02)
[2024-10-07] MEDS: Fluticasone/Vilanterol 200/25 BLST.W.DEV 1 PUFF INHALE (07:35)
[2024-10-07 07:56] VITALS: BP 114/65; PULSE 68; RESP 18; TEMP 36.2; O2SAT 96
[2024-10-07] MEDS: Atorvastatin Calcium 20 MG TABLET PO (08:52)
[2024-10-07] MEDS: Cholecalciferol (Vitamin D3) 25 MCG TABLET 50 MCG PO (08:53)
[2024-10-07] MEDS: Calcium + Vitamin D 250 MG TABLET PO (08:53)
[2024-10-07] MEDS: Montelukast Sodium 10 MG TABLET PO (08:54)
[2024-10-07] MEDS: 0.9 % Sodium Chloride Flush 3 ML SYRINGE IVFLUSH (08:54)
[2024-10-07 09:30] LABS: Adenovirus PCR Not Detected (Not Detect.); Bordetella parapertussis PCR Not Detected (Not Detect.); Bordetella pertussis PCR Not Detected (Not Detect.); Chlamydia pneumoniae PCR Not Detected (Not Detect.); Coronavirus 229E PCR Not Detected (Not Detect.); Coronavirus HKU1 PCR Not Detected (Not Detect.); Coronavirus NL63 PCR Not Detected (Not Detect.); Coronavirus OC43 PCR Not Detected (Not Detect.); Human metapneumovirus PCR Not Detected (Not Detect.); Influenza A PCR Not Detected (Not Detect.); Influenza B PCR Not Detected (Not Detect.); Mycoplasma pneumoniae PCR Not Detected (Not Detect.); Parainfluenza 1 PCR Not Detected (Not Detect.); Parainfluenza 2 PCR Not Detected (Not Detect.); Parainfluenza 3 PCR Not Detected (Not Detect.); Parainfluenza 4 PCR Not Detected (Not Detect.); RSV PCR Not Detected (Not Detect.); Rhino/Enterovirus PCR Not Detected (Not Detect.)
[2024-10-07 09:31] LABS: SARS-CoV-2 PCR Not Detected (Not Detect.)
[2024-10-07 09:33] LABS: Adenovirus F 40/41 Not Detected (Not Detect.); Astrovirus Not Detected (Not Detect.); Campylobacter Not Detected (Not Detect.); Cryptosporidium Not Detected (Not Detect.); Cyclospora cayetanensis Not Detected (Not Detect.); E. coli EAEC Not Detected (Not Detect.); E. coli EPEC Not Detected (Not Detect.); E. coli ETEC Not Detected (Not Detect.); E. coli STEC Not Detected (Not Detect.); Entamoeba histolytica Not Detected (Not Detect.); Giardia lamblia Not Detected (Not Detect.); Plesiomonas shigelloides Not Detected (Not Detect.); Rotavirus A Not Detected (Not Detect.); Salmonella Not Detected (Not Detect.); Sapovirus Not Detected (Not Detect.); Shigella sp./EIEC Not Detected (Not Detect.); Vibrio Not Detected (Not Detect.); Vibrio Cholerae Not Detected (Not Detect.); Yersinia enterocolitica Not Detected (Not Detect.)
[2024-10-07 09:54] LABS: Norovirus GI/GII Detected (Not Detect.)
--- NOTE | 2024-10-07 10:04 | P.DS_ITS ---
DS: Providers Provider Date of Service: 10/07/24 Date of admission: 10/05/24 17:06 Date of discharge: 10/07/24 Primary care physician: Sammie Hale MD Attending physician on discharge: Dalila Dominguez Discharging clinician: Ethel White DS: Diagnosis Discharge Diagnosis (1) Pneumonia: Status: Acute (2) Left bundle branch block: Status: Acute DS: Summary Hospital Course Hospital Course: From H&P on the day of admission This is a 74-year-old female who presents to the emergency depart multiple complaints. She had a few episodes of non- bloody diarrhea yesterday. This morning around 10:00 she began having epigastric abdominal pain with 3 episodes of nonbloody emesis. She denies any associated fever or recent sick contacts. In the emergency department she had CT scan of her abdomen and pelvis which showed peribronchial opacities and bronchial wall thickening in the right middle lobe and right lower lobe. She was treated with IV antibiotics. Lab work was significant for leukocytosis with white count of 13.7 and she had mild tachycardia. She does report cough productive of green phlegm for the past 2 weeks that she did not think much about it because she ?always coughs ?. She reports chronic shortness of breath stating that her breathing is the same as always. She tested negative for flu, RSV, COVID-19. She will be admitted for further management of pneumonia Sepsis due to Multilobar pneumonia CT scan showing opacities in right middle lobe, right lower lobe. Met sepsis criteria with leukocytosis and tachycardia which have both resolved. Lactic acid normal, blood cultures negative to date. No severe features of sepsis. Possible aspiration in the setting of vomiting. Also with history of bronchiectasis. RPP was negative. She was treated with IV Zosyn, she has remained on room air. Due to diarrhea Legionella urine antigen was checked pending at the time of discharge but as the patient tested positive for norovirus, less likely to be positive. Recommend repeat chest imaging outpatient to ensure resolution. Epigastric abdominal pain with nausea/vomiting/diarrhea No acute abdominal pathology on CT scan. Stool studies positive for norovirus. Abdominal pain and nausea and vomiting have resolved, patient is tolerating regular diet. Left bundle branch block EKG showing left bundle branch block, no recent EKGs for comparison. Last EKG from 2018 No chest pain, trops negative x2. ECHO with no wall motion abnormality. Recommend outpatient follow-up with Cardiology Time Attestation Discharge Coordination Time (in mins): 35 Quality: Safe Use of Opioids Does Pt have an Active Cancer Diagnosis on the Problem List?: No Quality: Stroke Does the patient have a stroke diagnosis?: No Physical Exam Vital Signs: Vital Signs: Last Vital Signs Temp 97.2 F 10/07/24 07:56 Pulse 68 10/07/24 07:56 Resp 18 10/07/24 07:56 BP 114/65 10/07/24 07:56 Pulse Ox 96 10/07/24 07:56 O2 Del Method Room Air 10/07/24 07:56 BMI result Body Mass Index 27.7 Const: General: cooperative, comfortable, no acute distress, alert and awake Nutritional Appearance: average body habitus Orientation/consciousness: patient oriented x3 Resp: Effort & Inspection: normal respiratory effort, able to speak in complete sentences, no respiratory distress and no use of accessory muscles GI: Inspection: No distended Palpation (GI): Soft to palpation and nontender Neuro: General: patient oriented x3, moves all extremities and CN's II-XI intact bilaterally Extrem: General: Yes no pedal edema DS: Data Data Completed and Pending Labs on day of discharge: Laboratory Results - last 24 hr 10/06/24 10/06/24 14:40 18:06 Stl C. cayetanensis PCR Not Detected Stool Rotavirus A PCR Not Detected Stl Adenov F 40/ PCR Not Detected Stool Astrovirus (PCR) Not Detected Stool Campylobacter PCR Not Detected Stool Cryptosporidium PCR Not Detected Stl Sh Tox Pr E STEC PCR Not Detected Stool E coli O157 PCR Not applicable Stl Enterotoxigenic E PCR Not Detected Stool EPEC (PCR) Not Detected Stool EAEC (PCR) Not Detected Stl E. histolytica PCR Not Detected Stool Giardia Lamblia PCR Not Detected Stl P. shigelloides PCR Not Detected Stool Salmonella PCR Not Detected Stool Sapovirus (PCR) Not Detected Stl Shigella/EIEC PCR Not Detected St Y.enterocolitica PCR Not Detected Stool Vibrio (PCR) Not Detected Stl Vibrio cholerae PCR Not Detected Stl Norovirus GI/GII PCR Detected A Respiratory Panel Valadez See Note Adenovirus (Rapid PCR) Not Detected B.pert (TEM-PCR) Not Detected B.parapertussis DNA PCR Not Detected C. pneumoniae DNA (PCR) Not Detected Coronavirus OC43 (PCR) Not Detected Coronavirus HKU1 (PCR) Not Detected Coronavirus 229E (PCR) Not Detected Coronavirus NL63 (PCR) Not Detected Human Metapneumovir PCR Not Detected Influenza A (RT-PCR) Not Detected Influenza B (RT-PCR) Not Detected M. pneumoniae (PCR) Not Detected Parainfluenza 1 (PCR) Not Detected Parainfluenza 2 (PCR) Not Detected Parainfluenza 3 (PCR) Not Detected Parainfluenza 4 (PCR) Not Detected RSV (PCR) Not Detected Entero/Rhino (PCR) Not Detected SARS-CoV-2 RNA (RT-PCR) Not Detected Preliminary micro results at discharge 10/05/24 16:27 Blood Culture - Preliminary Blood - Venous No growth after 24 hours. 10/05/24 16:27 Blood Culture - Preliminary Blood - Venous No growth after 24 hours. Discharge Plan Discharge Anticipated Discharge Date/Time: 10/07/24 10:16 Patient Disposition: Home, Self-Care Discharge Diagnosis: sepsis due to pneumonia norovirus [facility] Referrals: Sammie Silverman MD [Primary Care Provider] - 1 Week Chris Pond MD [Physician] - 1 Week (new [facility]) Discharge Medications: New amoxicillin-pot clavulanate 875-125 mg tablet 1 tab PO Q12H 5 Days Qty: 10 0RF loperamide [Anti-Diarrheal (loperamide)] 2 mg tablet 2 mg PO Q6H PRN (Reason: loose stool) Qty: 14 0RF Continued losartan 25 mg tablet 12.5 mg PO BEDTIME bumetanide 1 mg tablet 1 mg PO DAILY albuterol sulfate 2.5 mg /3 mL (0.083 %) Solution For Nebulization 2.5 mg INHALATION Q6H PRN (Reason: Shortness Of Breath Or Wheezing) fluticasone propionate 50 mcg/actuation spray,suspension 1 spray intranasal DAILY PRN (Reason: allergies) citalopram 20 mg tablet 20 mg PO DAILY montelukast 10 mg tablet 10 mg PO DAILY atorvastatin 20 mg tablet 20 mg PO DAILY albuterol sulfate 90 mcg/actuation HFA aerosol inhaler 2 puff PO Q4-6H PRN (Reason: shortness of breath or wheezing) 30 Days Qty: 1 6RF cholecalciferol (vitamin D3) [Vitamin D3] 50 mcg (2,000 unit) capsule 50 mcg PO DAILY calcium carbonate-vitamin D3 600 mg-10 mcg (400 unit) tablet 1 tab PO DAILY loratadine 10 mg tablet 10 mg PO DAILY PRN (Reason: allergies) docusate sodium 100 mg capsule 100 mg PO BID Farxiga 10 mg tablet 10 mg PO DAILY budesonide-formoterol [Symbicort] 160-4.5 mcg/actuation HFA aerosol inhaler 2 puff inhalation BID Discharge Orders: Discharge Order (Routine); Ordered 10/07/24 Ordered By: Ethel White Activity on Discharge: As tolerated Stand Alone Forms: Patient Portal Discharge page Print Language: Chinese Care Plan Goals: see below Health Concerns: pneumonia norovirus Left bundle branch block (LBBB) Plan of Treatment: complete course of antibiotics for pneumonia - consider repeat CXR as outpatient in 4-6 weeks to assess resolution of infection Norovirus is a viral illness which is self-limiting. Can use Imodium as needed for severe diarrhea. for LBBB, call to schedule a follow-up appointment with Cardiology Assessment: see discharge summary Patient Instructions: Gastroenteritis (GEN)
--- NOTE | 2024-10-07 10:47 | MHC.CM.PN ---
Patient has been medically cleared for dc to home today, self care. IMM was addressed yesterday.
[2024-10-10 07:23] LABS: Legionella Ag Urine Not Detected (Not Detected)
== END 2024-10-07 12:22 | disposition home or self-care (01) | DRG 194 ==
LOC: HO.ED 16:12 → HO.EDOVER 17:09 → HO.IMC 10-06 09:30
PROVIDERS: Admitting Provider Physician Assistant Medical; Emergency Provider Emergency Medicine; PCP Internal Medicine; Visit Provider Physician Assistant Medical
DX: J18.9 Pneumonia, unspecified organism (principal); A08.11 Acute gastroenteropathy due to Norwalk agent; J47.0 Bronchiectasis with acute lower respiratory infection; F39 Unspecified mood [affective] disorder; I44.7 Left bundle-branch block, unspecified; G47.33 Obstructive sleep apnea (adult) (pediatric); I10 Essential (primary) hypertension; E78.5 Hyperlipidemia, unspecified; Z20.822 Contact with and (suspected) exposure to COVID-19; Z79.899 Other long term (current) drug therapy
CPT/HCPCS: 0241U; 36415; 71045; 74176; 80048; 80076; 81001; 83605; 83690; 83880; 84145; 84484; 85025; 85027; 85610; 87040; 87449; 87507; 87633; 93005; 93306; 94640; 99285; J0696; J1650; J2270; J2405; J2470; J2543; Q9957

== ENCOUNTER → 2024-10-05 12:40 | Outpatient (BNV) | payer OTHER, SELFPAY | PROVIDERS: Emergency Provider Emergency Medicine; PCP Internal Medicine; Visit Provider Radiology Diagnostic Radiology | DX: R10.9 Unspecified abdominal pain (principal); R10.13 Epigastric pain | CPT/HCPCS: 71045; 74176 ==

== ENCOUNTER 2024-10-05 17:06 | Outpatient (BNV) | payer OTHER, SELFPAY | END 2024-10-06 07:00 | PROVIDERS: Admitting Provider Physician Assistant Medical; Emergency Provider Emergency Medicine; PCP Internal Medicine; Visit Provider Internal Medicine | DX: I36.1 Nonrheumatic tricuspid (valve) insufficiency (principal); I44.7 Left bundle-branch block, unspecified | CPT/HCPCS: 93306 ==

== ENCOUNTER → 2024-10-05 17:06 | Outpatient (BNV) | payer OTHER, SELFPAY | PROVIDERS: Admitting Provider Physician Assistant Medical; Emergency Provider Emergency Medicine; PCP Internal Medicine; Visit Provider Physician Assistant Medical | DX: J18.9 Pneumonia, unspecified organism (principal); I44.7 Left bundle-branch block, unspecified | CPT/HCPCS: 99239 ==

== ENCOUNTER 2024-10-25 11:45 | Outpatient (AMB) | payer OTHER, SELFPAY ==
[2024-10-25 11:53] VITALS: BMI 30.8
--- NOTE | 2024-10-25 11:53 | A.OFFVIS_ITS ---
Vital Signs 10/25/24 11:53 Height 4 ft 9 in Weight 142 lb 3.17 oz BMI 30.8 Intake Visit Reasons: ER follow up Allergies aspirin [ASPIRIN] Allergy (Unknown, Verified 10/05/24 12:35) MOUTH SWELLING Beef Containing Products [BEEF CONTAINING PRODUCTS] Adverse Reaction (Unknown, Verified 07/14/24 10:47) ITCHY HPI HPI ER follow up: Details: 74-year-old lady, lifetime nonsmoker, followed for bronchiectasis, dyspnea, and allergic asthma.? She is continuing on Symbicort and albuterol MDI with good control of her symptoms. She did not tolerate arformoterol. She had recent exacerbation requiring ER evaluation which was treated with course of doxycycline and Augmentin with recovery to baseline. Unfortunately patient also started develop worsening lower extremity edema and has been evaluated by her primary care day prior to this visit with increase of her bumetanide dose, unfortunately she has picked up increase dose diuretic and continues to complain of significant lower extremity edema and orthopnea. [facility] Medical History Environmental allergies Arthralgia of knee Breast mass Varicose veins of both lower extremities CARON (obstructive sleep apnea) Major depression Hyperlipidemia Arthritis Mood disorder Allergic rhinitis Osteopenia HTN (hypertension) Asthma Surgical History Hx of tubal ligation Hx of cholecystectomy History of back surgery Hx of section Family History Mother CVD (cardiovascular disease) HTN (hypertension) Father Stroke Social History Household Members: Spouse Housing: Apartment Do you presently have visiting nurse or other home services: Yes (come every 3 months , james is her [employer]. nursing does assessments) Alcohol intake: never Patient Tobacco Use Status: Never used Tobacco Advance Directives Date on File: 10/06/24 service: No Review of Systems Const Denies daytime sleepiness, Denies excessive sweating, Denies fatigue, Denies fever(s), Denies lethargy, Denies malaise, Denies night sweats, Denies snoring and Denies weight loss Eyes Denies blurry vision and Denies itchy eyes ENT Denies nasal congestion, Denies post nasal drip, Denies sinus pain, Denies sinus pressure and Denies other ( Thrush) Card Denies chest pain, Reports pedal edema, Denies dyspnea, Reports dyspnea on exert ion, Reports orthopnea and Denies paroxysmal nocturnal dyspnea Resp Denies cough, Denies hemoptysis, Denies excessive phlegm production, Denies dyspnea, Reports dyspnea on exertion, Denies snoring and Denies wheezing GI Denies abdominal pain and Denies heartburn Musc Denies myalgias, Denies arthralgias and Denies joint swelling Skin/Breast Denies rash Neuro Denies memory loss and Denies seizure-like activity Psych Denies abnormal sleep pattern, Denies anxiety and Denies memory loss Endo Denies excessive sweating, Denies fatigue and Denies heat intolerance Kyle/Lymph Denies easy bruising Aller/Immun Denies itchy eyes, Denies seasonal rhinorrhea and Denies wheezing Physical Exam Vital Signs: BMI result Body Mass Index 30.8 Const General: no acute distress and alert Nutritional Appearance: not obese Orientation/consciousness: Other orientation findings ( oriented) HEENT Head: Yes atraumatic Eyes General: appearance normal, both eyes and all related structures Sclerae: sclerae normal EOM: EOMs intact bilaterally Neck Neck: Yes supple Lymphatic: no lymphadenopathy noted Resp Effort & Inspection: normal respiratory effort and no use of accessory muscles Auscultation: clear to auscultation bilaterally Cardio Rate: regular rate Rhythm: regular rhythm Heart sounds: no gallops, no murmurs and no rubs Skin General skin exam: other ( warm) Extrem General: No clubbing, No cyanosis and Yes edema (1+ bilateral) Assessment & Plan Assessment & Plan (1) Bronchiectasis: Code(s): J47.9 - Bronchiectasis, uncomplicated Category: Medical Plan: With recent exacerbation requiring ER evaluation and treatment with an antibiotic regimen, now returned to baseline. (2) Allergic asthma: Code(s): J45.909 - Unspecified asthma, uncomplicated Category: Medical Plan: Control on baseline regimen of Symbicort, albuterol MDI and nebs. Continue current regimen. (3) Orthopnea: Code(s): R06.01 - Orthopnea Category: Medical Plan: Now with worsening orthopnea lower extremity edema. Patient diuretic has been increased by, will reassess symptoms in 5 days. (4) Environmental allergies: Code(s): Z91.09 - Other allergy status, other than to drugs and biological substances Category: Medical Plan: Baseline controlled on Singulair Flonase. Continue regimen. Coding Level of Care Code Est Pt Level 4 (84018) Complex EM visit Add On G2211 Diagnoses Bronchiectasis J47.9 Allergic asthma J45.909 Orthopnea R06.01 Environmental allergies Z91.09
--- OUTSIDE RECORDS SUMMARY | 2024-10-25 13:51 | XMS_ITS | Encounter Summary ---
Author Organization [employer] Address [address] [place] [address] Care Team Providers Care Slat Basket Top Maker Name Role Phone Sammie Silverman MD Primary Care Provide r Reason for Visit * Reason Onset Date Comments Error (VOID this visit) 10/06/2024 Encounter Details Date Type Department Care Team ([facility] st Contact Info) Description 10/06/2024 Telephone [facility] [address] [place] [address] Sammie Silverman MD [address] [place] [address] Error (VOID this visit) Social History Tobacco Use Types Packs/Day Years [...] Care Team (Late st Contact Info) Description 01/15/2025 10:00 AM EDT Office Visit [facility] [address] [place] [address] Sammie Silverman MD [address] [place] [address] documented as of this encounter Visit Diagnoses Not on filedocumented in this encounter Additional Health Concerns Assessment Noted Time PHQ-9 Depression Total Score: 0 08/28/19 25 11:54 AM EST documented as of this encounter Care Teams Slat Basket Top Maker Relationship Specialty Start Date End Date Sammie Silverman MD [address] [place] [id number] PCP - General Family Medicine 04/27/18 documented as of this encounter
--- OUTSIDE RECORDS SUMMARY | 2024-10-25 13:51 | XMS_ITS | Clinical Summary ---
Author Organization [facility] Address [address] [place] [address] Phone Care Team Providers Care Infection Control Manager Name Role Phone Sammie Silverman MD Primary [...] 09/05/2024 Refill [facility] [address] [place], [place] [id number] Shiva Patel MD from Last 3 Months [...] Visit [facility] [address] [place] [phone] Shiva Patel MD [address] [facility] [address] [place] [phone] Health Maintenance Due Date Last Done Comments [...] to complete this topic Insurance [place] [id number] [facility] DUAL COMPLETE ([id number]) [address] DUAL COMPLETE ([id number]) Care Teams Infection Control Manager Relationship Specialty Start Date End Date Sammie Silverman MD [address] [place] [phone] PCP - General Internal Medicine 12/19/20
--- OUTSIDE RECORDS SUMMARY | 2024-10-25 13:51 | XMS_ITS | Encounter Summary ---
Author Organization [employer] Address [address] [facility] [address] [place] [address] Care Team Providers Care Carbide Operator Name Role Phone Sammie Silverman MD Primary Care Provide r Encounter Details Date Type Department Care Team (Latest Contact Info) Description 10/24/2024 Travel Social History Tobacco Use Types Packs/Day Years Used Date Smoking Tobacco: Never Passive Smoke Exposure: Never Smokeless Tobacco: Never Alcohol Use Standard Drinks/Week Comments Never 0 (1 standard drink = 0.6 oz pur e alcohol) Depression Answer Date Recorded Patient Health Questionnaire-9 Score 0 10/24/2024 Patient Health Questionnaire-9 Score 0 10/24/2024 Last PHQ-9: Questionnaire Data Not on file 0 10/24/2024 Housing Stability Answer Date Recorded What is [...] Date Recorded Patient Health Questionnaire-2 Score 0 10/24/2024 Internet Access Answer Date Recorded Internet Access [...] Description 01/15/2025 10:00 AM EDT Office Visit [facility] [address] [place] [address] Sammie Silverman MD [address] [place] [id number] documented as of this encounter Visit Diagnoses Not on filedocumented in this encounter Additional Health Concerns Assessment Noted Time PHQ-9 Depression Total Score: 0 10/25/19 25 9:53 AM EDT documented as of this encounter Care Teams Carbide Operator Relationship Specialty Start Date End Date Sammie Silverman MD [address] [place] [id number] PCP - General Family Medicine 04/27/18 documented as of this encounter
--- OUTSIDE RECORDS SUMMARY | 2024-10-25 13:51 | XMS_ITS ---
Author Name Ridge Rubio APRN Address [address] [place] [address] Phone [phone] Organization [facility] Care Team Providers Care Milliner Helper Name Role Phone Pamla Rubio Unavailable [phone] Reason for Referral Not Available Allergies, adverse [...] of Service Diagnosis/Co mplaint No Data Available [facility] [place]/03/2022 Type 2 diabetes mellitus wit h diabetic chronic kidney diseaseHypertensive chronic kidney disease w stg 1-4/unsp chr kdnyChronic kidney disease, stage 3aHyperlipidemia, unspecifiedAnxiety disorder, unspecifiedChronic obstructive pulmonary disease, unspecifiedVitamin D deficiency, unspecifiedConstipation, unspecifiedDietary calcium deficiency No Data Available [facility] [place] 07[place]03[place]2022 No Data Available [facility]2022 No Data Available [facility]20[place] No Data Available [facility] No Data Available [facility] No Data Available [facility] [place]20[place] Estab. patient 20-29min; 1 stable chronic or 2 minor; add add modifier 95 for video, modifier [address] [facility] [place]2022 Type 2 diabetes mellitus wit h [...] 95 for video, modifier [address] [facility] [place]/2022 Unlisted special service; to be used for medical record reviews and reporting CPTII codes (1111F, etc) [facility] [place] 03/31/2023 Other specified counseling Unlisted special service; to be used for medical record reviews and reporting CPTII codes (1111F, etc) [facility] ([place]) 03/31/2023 Unlisted special service; to be used for medical record reviews and reporting CPTII codes (1111F, etc) [facility] [place] 03[place]/20[place] Estab. patient 30-39min; chronic exacerbation, 2 stable chronic or 1 acute illness add add modifier 95 for video, (do not use for phone, instead use [id number]) [facility] [place] 04/09/2023 Type 2 diabetes mellitus [...] (do not use for phone, instead use [id number]) [facility] [place] 04[place]09/2023 Estab. patient 30-39min; chronic exacerbation, 2 stable chronic or 1 acute illness add add modifier 95 for video, (do not use for phone, instead use [id number]) [facility] [place] 04[place]09/2023 Estab. patient 30-39min; chronic exacerbation, 2 stable chronic or 1 acute illness add add modifier 95 for video, (do not use for phone, instead use [id number]) [facility] [place] 04/09/2023 Unlisted special service; to be used for medical record reviews and reporting CPTII codes (1111F, etc) [facility] [place] 01/07/2024 Other specified health statu s Unlisted special service; to be used for medical record reviews and reporting CPTII codes (1111F, etc) [facility] [place]/07/2024 Unlisted special service; to be used for medical record reviews and reporting CPTII codes (1111F, etc) [facility] [place] 01/07/2024 Vital Signs Date of Collection Vitals 2022-08-05 09:12:10 Height - 149.86 cmWe ight - 63.96 kgBody Mass Index (BMI) - 28.48 kg/m2 2023-04-09 11:44:18 BP Diastolic - 83.0 mm[Hg]BP Systolic - 132.0 mm[Hg] Social History Social History Social History Observation Description Effec tive Time Current Smoking Status Never smoker 2024-10-14 2 Sex Female History of Procedures Procedures Service Procedure code Service date Servicing provider Phone# No Data Available [id number] 2022-07-03 No Data Available No Data Available [...] 95 for video, modifier 93 for phone [id number] 2022-08-05 No Data Available No Data Availa ble BMI obtained (3008F) 3008F 2022-08-05 No Data Availab le No Data Available Unlisted special service; to be used for medical record reviews and reporting CPTII codes (1111F, etc) 52147 2023-03-31 No Data Available No Data Availa ble SBP < 130 (3074F) 3074F 2023-03-31 No Data Available No Data Available DBP 80-89 (3079F) 3079F 2023-03-31 No Data Available No Data Available Estab. 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 Shiva Santo foods high in saltIncorporate [...] level every 3 monthsCheck BS weeklyContinue seeing sample cutterDr. Shiva foods high in saltIncorporate exercise regimen and lifestyle modificationsContinue taking losartan as prescribedCheck BP weekly and report any elevated readingsAvoid foods high in fatIncorporate exercise regimen and lifestyle modificationsContinue taking Atorvastatin as prescribed Check lipid levels yearlyManaged by PCPContinue taking symbicort, spiriva, montelukast as prescribedAvoid irritantsContinue taking vit d as prescribedContinue taking docusate as prescribedContinue taking prescribed medicationson furosemide daily [id number], low na dietcall if weight gain greater than 3lbs for RX treatmenton furosemidemonitor BPlow na dieton citalopram no recent episodes and stable 2023-03-31 11:07:41 [id number] < 130 (3074 F)DBP 80-89 (3079F) 2023-04-09 [...] level every 3 monthsCheck BS weeklyContinue seeing sample cutter, Dr. Shiva Santo foods high in saltIncorporate [...] no recent episodes and stableon furosemide daily [id number], low na dietcall if weight gain greater than 3lbs for RX treatment 2024-01-07 09:15:07 Unlisted special ser vice; to be used for medical record reviews and reporting CPTII codes (1111F, etc)SBP < 130 (3074F)DBP <80 (3078F) Goals Date Goal 2022-07-03 Remember to Keep all provider appts 2022-07-03 Call me if You are f eeling sick or ill 2022-07-03 Keep it up with mindy aguirre medications as prescribed 2022-08-05 furosemide was recen tly increased to BID done by lead technician due to fluid in lungs, denies cough and SOB at this time 2022-08-05 will send proair ref ill to pharmacy 2022-08-05 call if you feel ill , have any questions or concerns
--- OUTSIDE RECORDS SUMMARY | 2024-10-25 13:51 | XMS_ITS | Clinical Summary ---
Author Organization [employer] Address [address] [facility] 7[address] [place] [address] Care Team Providers Care Quality Control Projectionist Name Role Phone Sammie Silverman MD Primary Care Provide r Allergies Active Allergy Reactions Criticality Noted Date Comments Aspirin Swelling Hydrochlorothiazide 11/30/2014 Other reaction(s): GI upset Lisinopril 02/11/2015 Other reaction(s): itch Simvastatin 02/11/2015 Other reaction(s): muscle aches Medications fluticasone (Flonase) 50 MCG/ACT nasal sprayIndication s:Seasonal allergic rhinitis, unspecified trigger USE 1 SPRAY IN EACH NOSTRIL ONCE DAILY 16 g 11 023 Active albuterol (2.5 MG/3ML) 0.083% nebulizer solutionIndicat ions:Moderate persistent asthma, unspecified whether complicated Take 3 mL (2.5 mg) by nebulization every 6 (six) hours if needed for wheezing. 75 mL 024 Active Respiratory Therapy Supplies (Nebulizer Mask Adult) miscIndications :Moderate persistent asthma, unspecified whether complicated 1 each every 6 (six) hours if needed (wheezing). 1 each 024 Active Respiratory Therapy Supplies (Nebulizer Cup/Tubing) deviceIndicatio ns:Moderate persistent asthma, unspecified whether complicated 1 each every 6 (six) hours if needed (wheezing). 1 each 024 Active atorvastatin (Lipitor) 20 MG tablet TAKE 1 TABLET BY MOUTH EVERY MORNING 90 tablet 3 024 Active Calcium Carb-Cholecalci ferol 600-10 MG-MCG tablet TAKE 1 TABLET BY MOUTH EVERY MORNING 90 tablet 1 Active cholecalciferol (D3 Super Strength) 50 MCG (2000 UT) capsuleIndicati ons:Vitamin deficiency TAKE 1 CAPSULE BY MOUTH EVERY MORNING 90 capsule 1 Active loratadine (Claritin) 10 MG tablet TAKE 1 TABLET BY MOUTH EVERY DAY NEEDED FOR ALLERGIES 90 tablet 1 024 Active dapagliflozin (Farxiga) 10 MG Take 10 mg by mouth Once per day. Active citalopram (CeleXA) 20 MG tablet Take 20 mg by mouth Once per day. Provider Kendall Junior Active montelukast (Singulair) 10 MG tabletIndicatio ns:Mild persistent asthma without complication TAKE 1 TABLET BY MOUTH EVERY EVENING 90 tablet 1 024 Active losartan (Cozaar) 25 MG tabletIndicatio ns:Essential hypertension TAKE 1/2 TABLET BY MOUTH EVERY EVENING 45 tablet 024 Active FREESTYLE LITE test stripIndication s:Prediabetes Use to test blood sugar 1 times daily 100 each 025 2025 Active Lancets miscIndications :Prediabetes Use to test blood sugar 1 times daily 100 each 025 Active Alcohol Swabs 70 % padsIndications :Prediabetes Use to test blood sugar 1 times daily 100 each 025 Active Blood Glucose Monitoring Suppl (FreeStyle [place] Lite) w/Device kitIndications: Prediabetes Use to test blood sugar 1 times daily 1 kit Active budesonide-form oterol (Symbicort) 160-4.5 MCG/ACT inhalerIndicati ons:Moderate persistent asthma, unspecified whether complicated Inhale 2 puffs in the morning and at bedtime. Rinse mouth with water after use to reduce aftertaste and incidence of candidiasis. Do not swallow. 1 each 025 2025 Active albuterol 108 (90 Base) MCG/ACT inhalerIndicati ons:Moderate persistent asthma, unspecified whether complicated Inhale 2 puffs every 6 (six) hours if needed for wheezing. 18 g 025 2025 Active docusate sodium (Colace) 100 MG capsuleIndicati ons:Constipatio n, unspecified constipation type TAKE 1 CAPSULE BY MOUTH TWICE DAILY FOR CONSTIPATION 180 capsule 3 025 Active Blood Glucose Monitoring Suppl ([place] Lite) w/Device kitIndications: Prediabetes Use to test blood sugar 2 times daily 1 kit 025 Active bumetanide (Bumex) 1 MG tabletIndicatio ns:SOB (shortness of breath) Take 1 tablet (1 mg) by mouth 2 times daily. 60 tablet 025 Active bumetanide (Bumex) 1 MG tablet Take 1 mg by mouth Once per day. 2024 Discontinued(R eorder (will not trigger notification to Pharmacy)) furosemide (Lasix) 20 MG tabletIndicatio ns:SOB (shortness of breath) Take 1 tablet (20 mg) by mouth Once per day. 30 tablet 025 2024 Discontinued Active Problems Problem Noted Date Diagnosed Date Aspiration pneumonia of both lower lobes due to vomit 10/24/2024 Assessment & Plan (10/24/2024 11:48 AM EDT): Improved, patient finished all her antibiotics, I will order CT of the chest as suggested on discharge summary LBBB (left bundle branch block) 10/24/2024 SOB (shortness of breath) 10/24/2024 Assessment & Plan (10/24/2024 11:48 AM EDT): Patient will see cardiology on November 07 of this year I decided to go up on her bumetanide to 1 mg twice a day, further adjustment to be done by cardiology Advance directive discussed with patient Assessment & Plan (10/22/2023 12:28 PM EST): See HPI Patient chose to be DNR/DNI Mixed stress and urge urinary incontinence 09/21 Colon cancer screening 03/25/2023 Essential hypertension 01/06/2023 Assessment & Plan (10/24/2024 11:49 AM EDT): I advised low-sodium diet and continue with same medications Assessment & Plan (01/28/2024 1:51 PM EDT): [...] Xerostomia 01/06/2023 Prediabetes 01/06/2023 Assessment & Plan (10/24/2024 11:49 AM EDT): Patient tells me after she picked up the prescription for her glucometer she noticed it was not working she will bring it up done to pharmacy if it is still not working and new glucometer will be given to her Assessment & Plan (01/28/2024 1:51 PM EDT): [...] Encounters Date Type Department Care Team Description 10/24/2024 10:15 AM EDT Office Visit [facility] [address] [place] [phone] Sammie Silverman MD Aspiration pneumonia of both lower lobes due to vomit (CMS/HCC) (Primary Dx); Essential hypertension; LBBB (left bundle branch block); SOB (shortness of breath); Prediabetes 10/24/2024 Travel 10/20/2024 Telephone [facility] [address] [place] [phone] Sammie Silverman MD Chart Prep 10/09/2024 Patient Outreach [address] [phone] Sammie Silverman MD Transition Of Care (Tcm) (HDF- LV ) 10/09/2024 Telephone [facility] [address] [place] [address] [phone] Sammie Silverman MD Hospital Follow-up 10/06/[address] [phone] Sammie Silverman MD Error (VOID this visit) 10/05/2024 Telephone [facility] [address] [place] [address] [phone] Sammie Silverman MD Nurse Triage 09/11/2024 Refill [facility] [address] [place] [address] Sammie Silverman MD Constipation, unspecified constipation type 09/05/2024 Orders Only [facility] [address] [place] [phone] Sammie Silverman MD 08/28/2024 11:30 AM EST Office Visit [facility] [address] [place] [address] Sammie Silverman MD Moderate persistent asthma, unspecified whether complicated (Primary Dx); Prediabetes 08/28/2024 Travel 08/21/2024 Telephone [facility] [address] [place] [phone] Sammie Silverman MD callback requested 08/08/2024 Refill [facility] [address] [place] [address] Sammie Silverman MD Essential hypertension 08/08/2024 Telephone [facility] [address] [place] [phone] Sammie Silverman MD fyi 08/07/2024 Telephone [facility] [address] [place] [phone] Sammie Silverman MD 08/07/2024 Refill [facility] [address] [place] [phone] Sammie Silverman MD Mild persistent asthma without complication; Essential hypertension 08/07/2024 Refill [facility] [address] [place] [address] Sammie Silverman MD Essential hypertension 07/27/2024 Telephone [facility] [address] [place] [phone] Sammie Silverman MD Referral from Last 3 Months Immunizations Name Administration [...] Sign Reading Time Taken Comments Blood Pressure 141/77 10/24/2024 9:46 AM EDT Pulse 85 10/24/2024 9:46 AM EDT Temperature 36 ??C (96.8 ??F) 10/24/2024 9:46 AM EDT Respiratory Rate 20 10/24/2024 9:46 AM EDT Oxygen Saturation 99% 10/24/2024 9:46 AM EDT Inhaled Oxygen Concentration - - Weight 64.3 kg (141 lb 12.8 oz) 10/24/2024 9:46 AM EDT Height 152.4 cm (5') 10/24/2024 9:46 AM EDT Body Mass Index 27.69 10/24/2024 9:46 AM EDT Plan of Treatment Upcoming Encounters Date Type Department Care Team (Late st Contact Info) Description 01/15/2025 10:00 AM EDT Office Visit [facility] [address] [place] [phone] Sammie Silverman MD [address] [place] [address] Health Maintenance Due Date Last Done Comments [...] series) 2024 Alcohol/Substance Use Screening 08/28/2025 08/28/2024 Diabetes: Hemoglobin A1C 08/28/2025 025, 01/28/2024, 09/24/2023, Additional history exists SDOH Screening 08/28/2025 08/28/2024 Depression Screening 10/24/2025 10/24/2024, 10/25/19 Tobacco Screening 10/24/2025 10/24/2024 Dental X-Ray: Full Mouth 04/07/2026 04/06/2023 Lipid [...] Procedure Name Priority Date/Time Associated Diagnosis Comments LACTIC ACID Routine 10/05/2024 4:27 PM EST URINALYSIS, COMPLETE, WITH REFLEX TO CULTURE Routine 10/05/2024 2:04 PM EST XR CHEST 1 VIEW Routine 10/05/2024 2:[address] ABDOMEN PELVIS WO CONTRAST Routine 10/05/2024 1:53 PM EST BI MAMMOGRAM SCREENING TOMOSYNTHESIS BILATERAL Routine 09/05/2024 [...] Recently Relevant to Health Maintenance Results * Lactic Acid (10/05/2024 4:27 PM EST) Lactic Acid 1.1 0.5 - 2.0 mmol/L [facility] 10/05/2024 4:2 7 PM EST 10/05/2024 4:33 PM EST us Generic External Data Provider LAB BLOOD ORDERAB LES Final Result [facility] [address] [place] [phone] * (ABNORMAL) Urinalysis, Complete, with Reflex to Culture (10/05/2024 2:04 PM EST) Color Urine Yellow [facility] Appearance Urine Clear [facility] PH 5.5 5.0 - 9.0 [facility] Glucose Urine UA >=1000(A) Negative mg/dL [facility] Urine Blood Negative Negative [facility] Specific [place] - Urine 1.025 1.005 - 1.025 [facility] Urine Protein Negative Neg-Trace mg/dL [facility] Urine Ketones Negative Negative mg/dL [facility] Nitrite Urine Negative Negative [facility] Leukocyte Esterase Urine Negative Negative [facility] RBC Urine 0-2 0 - 2 /HPF [facility] Urine WBC 0-5 0 - 5 /HPF [facility] Urine Squamous Epithelial Cell 6-10 0 - 2 /HPF [facility] Urine Bacteria 1+ None Seen [facility] Hyaline Casts, Urine 3-5 0 - 2 /LPF [facility] 10/05/2024 2:04 PM EST 10/05/2024 2:07 PM EST Narrative [facility] - 10/05/2024 2:21 PM EST [id number], Clean Catch us Generic External Data Provider LAB URINE ORDERAB LES Final Result [facility] [address] [place] [address] [phone] * XR Chest 1 View (10/05/2024 2:04 PM EST) Anatomical Region Laterality Modality Chest Radiographic Addie ging 10/05/2024 2:04 PM EST Narrative 10/05/2024 2:20 PM EST ? [facility] ?[address] ?[place] [address] ?XRay Report ? Signed ? Patient: Irma Pal ?M ?? R#: [id number] ? : 1950 ?Acct:[id number] ? Age/Sex: 74 / F ?ADM Date: 10/05/24 ? Loc: HO.ED ? Attending Dr: ? Ordering Physician: Jose Calvin MD ?? Date of Service: 10/05/24 ?? Procedure(s): XR chest 1V ?? Accession Number(s): [id number] ? cc: Sammie Silverman MD; Jose Calvin MD ? EXAMINATION: ?? XR CHEST ? CLINICAL INFORMATION: ?? Epigastric pain ? COMPARISON: ?? May 21, 2015. ? TECHNIQUE: ?? Frontal view of the chest was obtained. ? FINDINGS: ?? Patchy opacity right lower hemithorax. ?? 2 mm calcified nodule, right lung. ?? There is a prominent right-sided cardiomediastinal silhouette. ?? No pneumothorax. No pleural effusion. Multilevel thoracic spondylosis. ?? Vascular clips right upper quadrant abdomen and likely laparoscopic ?? cholecystectomy. ?? Degenerative changes in the acromioclavicular joint. ? XR/XR chest 1V ?? IMPRESSION: ?? Concerning acute airspace disease, right middle lung lobe. ?? Probable granuloma, right upper lobe. ? Electronically signed by: ??Richard Sims MD ??10/05/2024 02:17 PM ?? EST RP ? Dictated By: ?Richard Mendes MD ? Signed By: ?<Electronically signed by Richard Alva MD in OV> ? 10/05/24 1417 ? DD/ 1404 ? TD/TT: 10/05/24 1404 ? Nut Processing Supervisor: ? Procedure Note Donines, Image - 10/05/[address] [address] XRay Report Signed Patient: Sanjuana Pal R#: [id number] : 1950Acct:[id number] Age/Sex: 74 / FADM Date: 10/05/24 Loc: HO.ED Attending Dr: Ordering Physician: Jose Calvin MD Date of Service: 10/05/24 Procedure(s): XR chest 1V Accession Number(s): [id number] cc: Sammie Silverman MD; Jose Calvin MD EXAMINATION: XR CHEST CLINICAL INFORMATION: Epigastric pain COMPARISON: May 21, 2015. TECHNIQUE: Frontal view of the chest was obtained. FINDINGS: Patchy opacity right lower hemithorax. 2 mm calcified nodule, right lung. There is a prominent right-sided cardiomediastinal silhouette. No pneumothorax. No pleural effusion. Multilevel thoracic spondylosis. Vascular clips right upper quadrant abdomen and likely laparoscopic cholecystectomy. Degenerative changes in the acromioclavicular joint. XR/XR chest 1V IMPRESSION: Concerning acute airspace disease, right middle lung lobe. Probable granuloma, right upper lobe. Electronically signed by: Richard Sims MD 10/05/2024 02:17 PM EST RP Dictated By: Richard Mendes MD Signed By: <Electronically signed by Richard Alva MDin OV> 10/05/24 1417 DD/ 1404 TD/TT: 10/05/24 1404 Nut Processing Supervisor: [facility] External Provider IMG XR PROCEDURES Final Result * CT Abdomen Pelvis w/o Contrast (10/05/2024 1:53 PM EST) Anatomical Region Laterality Modality Body, Pelvis, Abdomen Computed T omography 10/05/2024 1:53 PM EST Narrative 10/05/2024 2:28 PM EST ? [facility] ?[address] ?[place] [address] ? CT Scan Report ? Signed ? Patient: Irma Pal ?M ?? R#: [id number] ? : 1950 ?Acct:[id number] ? Age/Sex: 74 / F ?ADM Date: 10/05/24 ? Loc: HO.ED ? Attending Dr: ? Ordering Physician: Jose Calvin MD ?? Date of Service: 10/05/24 ?? Procedure(s): CT abdomen pelvis wo IV con ?? Accession Number(s): [id number] ? cc: Sammie Silverman MD; Jose Calvin MD ? Report Number: ?? [id number]: Total DLP = ??462.00 mGy-cm ?? EXAMINATION: ?? CT ABDOMEN AND PELVIS WITHOUT CONTRAST ? CLINICAL INFORMATION: ?? Upper abdominal pain rule out perforated viscus, AAA. ? COMPARISON: ?? 12/15/2011. ? TECHNIQUE: ?? Multidetector volumetric imaging was performed from the superior aspect ?? of the liver through the pubic symphysis. Sagittal and coronal ?? reformatted images were obtained on the technologist's workstation. ? This CT examination was performed using dose optimization techniques as ?? appropriate, variously including the following: ?? *Automated exposure control ?? *Adjustment of mA and/or kV according to patient size (this includes ?? techniques or standardized protocols for targeted exams where dose is ?? matched to indication/reason for exam; i.e. extremities or head) ?? *Use of iterative reconstruction technique ? FINDINGS: ?? LUNG BASES: Patchy peribronchial opacities with bronchial wall ?? thickening in the right lower lobe and right middle lobe consistent ?? with bronchopneumonia. Regions of right cylindrical and cystic ?? bronchiectasis. No effusions. ? LIVER, GALLBLADDER, AND BILIARY TREE: The unenhanced liver is normal in ?? size, shape, and attenuation. No focal hepatic lesion or biliary ductal ?? dilatation is present. Gallbladder is surgically absent. ? PANCREAS: Mild atrophy. No acute finding. ? SPLEEN: Unremarkable. ? ADRENAL GLANDS: Unremarkable. ? KIDNEYS AND URETERS: The kidneys are normal in size, shape, and ?? attenuation. No hydronephrosis, hydroureter, or calculi seen. No ?? perinephric stranding. ??There are vascular calcifications mimicking ?? nonobstructing calculi. ? BLADDER: Poorly distended, grossly normal. ? GASTROINTESTINAL TRACT: ?? Extensive colonic diverticulosis involving both the right and left ?? colon. No inflammation or wall thickening. ?? Normal appendix. ?? Normal small bowel. ? Small type I hiatus hernia. ? ABDOMINAL WALL: No significant hernia is appreciated. ? LYMPH NODES: None enlarged. ? VASCULAR: Moderate to severe atheromatous calcification of arterial ?? structures. No aneurysm. ? PELVIC VISCERA: The uterus and adnexa are unremarkable. ? OSSEOUS STRUCTURES: L2 butterfly vertebra. No acute abnormalities. ? CT/CT abdomen pelvis wo IV con ?? IMPRESSION: ?? 1.Patchy peribronchial opacities with bronchial wall thickening in the ?? right lower lobe and right middle lobe consistent with ?? bronchopneumonia. Regions of right basilar cylindrical and cystic ?? bronchiectasis. ?? 2. Extensive colonic diverticulosis without evidence of acute ?? diverticulitis. ?? 3. Small type I hiatus hernia. Cholecystectomy. ?? 5. No aneurysm identified. Moderate to severe atheromatous ?? calcification of the arterial structures. ? Electronically signed by: ??Gilberto Seymour MD ??10/05/2024 02:25 PM EST RP ? Dictated By: ?Gilberto Seymour MD ? Signed By: ?<Electronically signed by Gilberto Seymour MD in OV> ?10/05/24 1425 ? DD/ 7883 ? TD/TT: 10/05/24 1414 ? Nut Processing Supervisor: ? Procedure Note Donotuseinterpreter, Image - 10/05/[address] [address] [address] Scan Report Signed Patient: Sanjuana Pal R#: [id number] : 1950Acct:[id number] Age/Sex: 74 / FADM Date: 10/05/24 Loc: HO.ED Attending Dr: Ordering Physician: Jose Calvin MD Date of Service: 10/05/24 Procedure(s): CT abdomen pelvis wo IV con Accession Number(s): [id number] cc: Sammie Silverman MD; Jose Calvin MD Report Number: [id number]: Total DLP = 462.00 mGy-cm EXAMINATION: CT ABDOMEN AND PELVIS WITHOUT CONTRAST CLINICAL INFORMATION: Upper abdominal pain rule out perforated viscus, AAA. COMPARISON: 12/15/2011. TECHNIQUE: Multidetector volumetric imaging was performed from the superior aspect of the liver through the pubic symphysis. Sagittal and coronal reformatted images were obtained on the technologist's workstation. This CT examination was performed using dose optimization techniques as appropriate, variously including the following: *Automated exposure control *Adjustment of mA and/or kV according to patient size (this includes techniques or standardized protocols for targeted exams where dose is matched to indication/reason for exam; i.e. extremities or head) *Use of iterative reconstruction technique FINDINGS: LUNG BASES: Patchy peribronchial opacities with bronchial wall thickening in the right lower lobe and right middle lobe consistent with bronchopneumonia. Regions of right cylindrical and cystic bronchiectasis. No effusions. LIVER, GALLBLADDER, AND BILIARY TREE: The unenhanced liver is normal in size, shape, and attenuation. No focal hepatic lesion or biliary ductal dilatation is present. Gallbladder is surgically absent. PANCREAS: Mild atrophy. No acute finding. SPLEEN: Unremarkable. ADRENAL GLANDS: Unremarkable. KIDNEYS AND URETERS: The kidneys are normal in size, shape, and attenuation. No hydronephrosis, hydroureter, or calculi seen. No perinephric stranding. There are vascular calcifications mimicking nonobstructing calculi. BLADDER: Poorly distended, grossly normal. GASTROINTESTINAL TRACT: Extensive colonic diverticulosis involving both the right and left colon. No inflammation or wall thickening. Normal appendix. Normal small bowel. Small type I hiatus hernia. ABDOMINAL WALL: No significant hernia is appreciated. LYMPH NODES: None enlarged. VASCULAR: Moderate to severe atheromatous calcification of arterial structures. No aneurysm. PELVIC VISCERA: The uterus and adnexa are unremarkable. OSSEOUS STRUCTURES: L2 butterfly vertebra. No acute abnormalities. CT/CT abdomen pelvis wo IV con IMPRESSION: 1.Patchy peribronchial opacities with bronchial wall thickening in the right lower lobe and right middle lobe consistent with bronchopneumonia. Regions of right basilar cylindrical and cystic bronchiectasis. 2. Extensive colonic diverticulosis without evidence of acute diverticulitis. 3. Small type I hiatus hernia. Cholecystectomy. 5. No aneurysm identified. Moderate to severe atheromatous calcification of the arterial structures. Electronically signed by: Gilberto Seymour MD 10/05/2024 02:25 PM EST Dictated By: Gilberto Seymour MD Signed By: <Electronically signed by Gilberto Seymour MD in OV> 10/05/24 1425 DD/ 1353 TD/TT: 10/05/24 1414 Nut Processing Supervisor: [facility] External Provider IMG CT PROCEDURES Final Result * BI Mammogram Screening Tomosynthesis Bilateral (09/05/2024 8:15 AM EST) Anatomical Region Laterality Modality Breast Bilateral Mammography 09/05/2024 8:15 AM EST Narrative 09/13/2024 1:12 PM EST ? [place] [facility] ? [address] ?[place] [address] ? Mammography Report ? Signed ? Patient: Demarco,Irma ?M ?? R#: [id number] ? : 1950 ?Acct:[id number] ? Age/Sex: 73 / F ?ADM Date: 09/05/24 ? Loc: HO.MAMMO ? Attending Dr: Sammie Hale MD ? Ordering Physician: Sammie Silverman MD ?Results: ?? 1Negative ? Date of Service: 09/05/24 ?Follow Up: 1 Year From Orig ?? inal Mammogram ? Procedure(s): MM tomosynthesis screening BI ?? Accession Number(s): [id number] ? cc: Sammie Silverman MD ? EXAMINATION: [...] ??Erin Martini DO ??09/13/2024 01:09 PM EST ? Dictated By: ?Erin Martini DO ? Signed By: ?<Electronically signed by Erin Martini, DO in OV> ? 09/13/24 1309 ? DD/ 0815 ? TD/TT: 09/05/24 0839 ? Nut Processing Supervisor: ? Procedure Note Donmamtamoniinterpreter, Image - 09/13/2024 [place] [facility] [address] [place], [place] [address] Mammography Report Signed Patient: Sanjuana Pal R#: [id number] : 1950Acct:[id number] Age/Sex: 73 / FADM Date: 09/05/24 Loc: HO.MAMMO Attending Dr: Sammie Hael MD Ordering Physician: Sammie Silverman MDResults: 1Negative Date of Service: 09/05/24Follow Up: 1 Year From Orig inal Mammogram Procedure(s): MM tomosynthesis screening BI Accession Number(s): [id number] cc: Sammie Silverman MD EXAMINATION: MM SCREENING [...] Erin Martini DO 09/13/2024 01:09 PM EST RP Dictated By: Erin Martini DO Signed By: <Electronically signed by Erin Martini DO in OV> 09/13/24 1309 DD/ 0815 TD/TT: 09/05/24 0839 Nut Processing Supervisor: Sammie Hale MD IMG BI PROCEDURES Wes stephany Result - Final * (ABNORMAL) POCT HGB A1C (08/28/2024 11:56 AM EST) Hemoglobin A1C 6.1(A) 4.0 - 6.0 % QC Media Lot # [id number] Lot# Expiration Date Blood 08/28/2024 11:5 6 AM EST Result [facility] Sammie Hale MD POINT OF CARE TEST EN TER/EDIT ORDERABLES Final Result * POCT Glucose (08/28/2024 11:56 AM EST) Glucose Blood, POC 163 60 - 200 mg/dL QC Media Lot # [id number] Lot# Expiration Date ,025 Blood Capillary blood specimen / Unknown 08/28/2024 11:56 AM EST Result [facility] Sammie Hale MD POINT OF CARE TEST EN TER/EDIT ORDERABLES Final Result * Lipid Panel, Standard (01/06/2023 10:56 AM EDT) Cholesterol, Total 165 <200 mg/dL [facility] HDL Cholesterol 51 > OR = 50 mg/dL [facility] Triglycerides 148 <150 mg/dL [facility] LDL Cholesterol 89 mg/dL (calc) [facility]ulin Comment: Reference range: <100 Desirable range <100 mg/dL for primary prevention; ?? <70 mg/dL for patients with CHD or diabetic patients with > or = 2 CHD risk factors. LDL-C is now calculated using the Kedar calculation, which is a validated novel method providing better accuracy than the Friedewald equation in the estimation of LDL-C. Tyshawn SS et al. SUAD. 2013;310(19): 1419-9216 (http://education.McKinstry Reklaim/faq/TTE462) Chol/HDLC Ratio 3.2 <5.0 (calc) [facility] Non-HDL Cholesterol 114 <130 mg/dL (calc) [facility] Comment: For patients with diabetes plus 1 major ASCVD risk factor, treating to a non-HDL-C goal of <100 mg/dL (LDL-C of <70 mg/dL) is considered a therapeutic option. Blood Venous blood specimen / Unknown 01/06/2023 10:56 AM EDT 01/06/2023 10:56 AM EDT Narrative [facility] - 01/06/2023 9:40 PM EDT FASTING:YES FASTING: YES Sammie Hale MD LAB BLOOD ORDERABLES Final Result [facility] [address], [facility] [place] [address] [facility] [address] [place] [address] * HEPATITIS A,B,C PROFILE (10/17/2019 2:04 PM [...] 10/17/2019 2:04 PM EST us Historical Provider HISTORICAL/NON ORDERABLE LABS Final Result [facility] [address] from Last 3 Months or Most Recently Relevant to Health Maintenance Insurance [facility] D[facility]TE [facility] - [facility] Care Teams Quality Control Projectionist Relationship Specialty Start Date End Date Sammie Silverman MD [address] [place] [address] PCP - General Family Medicine 04/27/18
--- OUTSIDE RECORDS SUMMARY | 2024-10-25 13:51 | XMS_ITS | Encounter Summary ---
Author Organization [employer] Address [address] [facility] 7t [place] [address] Care Team Providers Care Business Process Consultant Name Role Phone Sammie Silverman MD Primary Care Provide r Reason for Visit * Reason Onset Date Comments Nurse Triage 08/04/2023 Encounter Details Date Type Department Care Team ([facility] st Contact Info) Description 08/04/2023 Telephone [facility] [address] [place], [place] [phone] Sammie Silverman MD [address] [place], [place] [phone] Nurse Triage Social History Tobacco Use Types [...] 08/04/2023 3:42 PM EST Triage call with [employer] Animal Caretaker ID [id number] Pt reports was seen in pulmonology office [facility] 07/22/23. Pt reports was tested for Covid [...] accepted this outcome Please contact pt @ [phone] Azeri Speaker documented in this encounter Plan of Treatment Upcoming Encounters Date Type Department Care Team (Late st Contact Info) Description 01/15/2025 10:00 AM EDT Office Visit [facility] [address] [place] [address] Sammie Silverman MD [address] [place] [address] documented as of this encounter Visit Diagnoses Not on filedocumented in this encounter Additional Health Concerns Assessment Noted Time PHQ-9 Depression Total Score: 0 01/07/20 23 9:59 AM EDT documented as of this encounter Care Teams Business Process Consultant Relationship Specialty Start Date End Date Sammie Silverman MD [address] [place] [address] PCP - General Family Medicine 04/27/18 documented as of this encounter
--- OUTSIDE RECORDS SUMMARY | 2024-10-25 13:51 | XMS_ITS | Encounter Summary ---
Author Organization [employer] Address [address] [facility] [address] 7[address] [place] [address] Care Team Providers Care Used Car Sales Supervisor Name Role Phone Sammie Silverman MD Primary Care Provide r Reason for Visit * Reason Onset Date Comments Nurse Triage 10/05/2024 Encounter Details Date Type Department Care Team ([facility] st Contact Info) Description 10/05/2024 Telephone [facility] [address] [place] [address] Sammie Silverman MD [address] [place], [place] [phone] Nurse Triage Social History Tobacco Use Types [...] encounter Miscellaneous Notes * Telephone Encounter - Twila Soto RN - 10/06/2024 11:46 AM EST Noted. RN [facility], patient is currently admitted d/t Pneumonia. Per admission note: Patient will likely require 2 midnight stay in the hospital for management of multilobar pneumoniarequiring IV antibiotics Patient/hospital to f/u upon discharge for HDF. * Telephone Encounter - Lenore Velez RN - 10/05/2024 11:56 AM EST family development extension specialist: Patient presents to walk-in center with severe [...] sternal rub and patient became alert. Bruna RN communicated to patient (Pt Urdu speaking). Patient with new onset confusion. EMS arrival at this time, 1146. Daughterreports she had similar episode earlier today and she is not sure why. No known hx seizure disorder. Report to EMS. Patient to be transported to [facility] per patient/ family request. Will send to team nurses for follow-up. Interpretor Ajit DELEON/ Bruna RN documented in this encounter Plan of Treatment Upcoming Encounters Date Type Department Care Team (Late st Contact Info) Description 01/15/2025 10:00 AM EDT Office Visit [facility] [address] [place] [address] Sammie Silverman MD [address] [place] [phone] documented as of this encounter Visit Diagnoses Not on filedocumented in this encounter Additional Health Concerns Assessment Noted Time PHQ-9 Depression Total Score: 0 08/28/19 25 11:54 AM EST documented as of this encounter Care Teams Used Car Sales Supervisor Relationship Specialty Start Date End Date Sammie Silverman MD [address] [place] [phone] PCP - General Family Medicine 04/27/18 documented as of this encounter
--- OUTSIDE RECORDS SUMMARY | 2024-10-25 13:51 | XMS_ITS | Encounter Summary ---
Author Organization [employer] Address [address] [facility] [address] [place] [address] Care Team Providers Care Biztalk Administrator Name Role Phone Sammie Silverman MD Primary Care Provide r Reason for Visit * Reason Onset Date Comments Hospital Follow-up 10/09/2024 Encounter Details Date Type Department Care Team ([facility] st Contact Info) Description 10/09/2024 Telephone [facility] [address] [place], [place] [phone] Sammie Silverman MD [address] [place], [place] [phone] Hospital Follow-up Social History Tobacco Use Types Packs/Day Years [...] encounter Miscellaneous Notes * Telephone Encounter - Nader Pruitt RN - 10/11/2024 10:31 AM EST Patients granddaughter walked in requesting HDF appt. RN reviewed last note and asked grandaughter about patients status grand daughter reports patient is doing a litter better. Patient stool is now softer and not watery like it was had about 2-3 episodes of soft stool yesterday and no vomiting. Denies any abdominal pain. Grand daughter denies any chest pain or shortness of breath. Patients granddaughter advised to ensure patient continue antibiotics until she completes the course and to take PRN antidiarrheal as needed until stools return to normal. Patient booked for HDF appt on 10/24/24 at10:15 am with PCP and advised to return call to clinic if patient symptoms return or worsen or go to ED if patient develops SOB CP or severe abdominal pain. Grand daughter asked if patient can apply anything to anus as patient is having burning there from the diarrhea she was having and advised shecan use some OTC Desitin to the area. Grand daughter verbalized understanding and agrees with plan. * Telephone Encounter - Pallavi Ferreira RN - 10/10/2024 3:30 PM EST TC x1 PM to pt to inquire about symptoms and advise pt to go to ED. No answer, LVM on [phone] and [phone] to return call to office and ask for red team nurses. * Telephone Encounter - Bibi Segovia RN - 10/10/2024 3:17 PM EST TC from Juani Vaz, [facility] nurse. States she was following up from pt having Norovirus and pt is in distress saying she is having multiple bouts of explosive diarrhea. Juani states she has told pt she should go to ED but pt says she wants to hear back from provider. Message forwarded to Red Team nurses. * Telephone Encounter - Keith Crowder - 10/09/2024 9:58 AM EST Tc from pt requesting a HDF appt. Hospital: [facility] Date of admission: 09-04-2024 Discharge date: 09-06-2024 Diagnosed: Pneumonia / Branch block *Send message to [place] Clinical Care Coordinators documented in this encounter Plan of Treatment Upcoming Encounters Date Type Department Care Team (Late st Contact Info) Description 01/15/2025 10:00 AM EDT Office Visit [facility] [address] [place] [address] Sammie Silverman MD [address] [place] [address] documented as of this encounter Visit Diagnoses Not on filedocumented in this encounter Additional Health Concerns Assessment Noted Time PHQ-9 Depression Total Score: 0 08/28/19 11:54 AM EST documented as of this encounter Care Teams Biztalk Administrator Relationship Specialty Start Date End Date Sammie Silverman MD [address] [place] [address] PCP - General Family Medicine 04/27/18 documented as of this encounter
--- OUTSIDE RECORDS SUMMARY | 2024-10-25 13:51 | XMS_ITS | Encounter Summary ---
Author Organization [employer] Address [address] [facility] 7t [place] [address] Care Team Providers Care Account Contact Associate Name Role Phone Sammie Silverman MD Primary Care Provide r Reason for Visit * Reason Comments Transition Of Care (Tcm) HDF- LVM Encounter Details Date Type Department Care Team ([facility] st Contact Info) Description 10/09/2024 Patient Outreach [facility] [address] [place] [address] Sammie Silverman MD [address] [place] [address] Transition Of Care (Tcm) (HDF- LVM ) Social History Tobacco Use Types Packs/Day Years [...] as of this encounter Miscellaneous Notes * Significant Event - Hien Baeza - 10/09/2024 11:14 AM EST 10/09/24 1110 Hospital Discharges and Admission for [facility] Type of Visit Hospital Admission Date of Admission/Visit 10/05/24 Date of Discharge 10/07/24 Facility [facility] Diagnosis Pneumonia / Branch block Disposition Discharged Home Follow-Up Actions Follow-Up Needed Provider appointment Follow-Up Outcome Left Voicemail Initial Contact Date 10/09/24 CC Hien Hudson placed outbound call to patient for HDF outreach. CC placing call to offer patient with an HDF appointment with provider. No answer at this time. Patient's name and were not confirmed. CC left detailed message educating patient on importance of following up with provider followingan inpatient admission. Provided contact information requesting a call back in order to schedule the HDF appointment. Patient educated via voicemail on extended clinic hours on Mondays and Wednesdays, and Walk-In Urgent Care Located in [facility] of [facility]. Patient provided with after-hours line for [facility], , which offer night time triage service and option to transfer to director of undergraduate admissions provider if needed. CC will request Discharge summaries to scan into chart. CC will place additional outreach call within 2-5 business days. documented in this encounter Plan of Treatment Upcoming Encounters Date Type Department Care Team (Late st Contact Info) Description 01/15/2025 10:00 AM EDT Office Visit [facility] [address] [place] [address] Sammie Silverman MD [address] [place], [place] [phone] documented as of this encounter Visit Diagnoses Not on filedocumented in this encounter Additional Health Concerns Assessment Noted Time PHQ-9 Depression Total Score: 0 08/28/19 25 11:54 AM EST documented as of this encounter Care Teams Account Contact Associate Relationship Specialty Start Date End Date Sammie Silverman MD [address] [place], [place] [phone] PCP - General Family Medicine 04/27/18 documented as of this encounter
--- OUTSIDE RECORDS SUMMARY | 2024-10-25 13:51 | XMS_ITS | Encounter Summary ---
Author Organization [employer] Address [address] [facility] 7t [place] [address] Care Team Providers Care Agriculture Extension Specialist Name Role Phone Sammie Silverman MD Primary Care Provide r Encounter Details Date Type Department Care Team ([facility] Contact Info) Description 05/18/2023 Orders Only [facility] [address] [place], [place] [phone] Rosa Wise LPN Social History Tobacco Use [...] Upcoming Encounters Date Type Department Care Team ([facility] Contact Info) Description 01/15/2025 10:00 AM EDT Office Visit [facility] [address] [place], [place] [phone] Sammie Silverman MD [address] [place], [place] [phone] documented as of this encounter Visit Diagnoses Not on filedocumented in this encounter Additional Health Concerns Assessment Noted Time PHQ-9 Depression Total Score: 0 01/07/20 23 9:59 AM EDT documented as of this encounter Care Teams Agriculture Extension Specialist Relationship Specialty Start Date End Date Sammie Silverman MD [address] [place] [address] PCP - General Family Medicine 04/27/18 documented as of this encounter
--- OUTSIDE RECORDS SUMMARY | 2024-10-25 13:51 | XMS_ITS | Encounter Summary ---
Author Organization [employer] Address [address] [facility] 7t [place] [address] Care Team Providers Care Canopy Inspector Name Role Phone Sammie Silverman MD Primary Care Provide r Reason for Referral * Imaging (Routine) - Authorized Specialty Diagnoses / Procedures Referred By Swapna t Referred To Contact Radiology Diagnoses Aspiration pneumonia of both lower lobes due to vomit (CMS/HCC) Procedures CT Chest w/o Contrast Sammie Silverman MD [address] [place] [address] Phone: tel: fax: [address] Phone: tel: fax: Referral ID Status Reason Start Date Expiration Date V isits Requested Visits Authorized [id number] Authorized 10/24/2024 10/24/2025 1 1 * Consultation (Routine) - Authorized Specialty Diagnoses / Procedures Referred By Contac t Referred To Contact Cardiology Diagnoses LBBB (left bundle branch block) SOB (shortness of breath) Sammie Silverman MD [address] [place] [address] Phone: tel: fax: [facility] Referral ID Status Reason Start Date Expiration Date Visits Requested Visits Authorized [id number] Authorized Specialty Services Required 10/24/2024 10/24/2025 1 1 Reason for Visit * Reason Comments Hospital follow up Encounter Details Date Type Department Care Team (Late st Contact Info) Description 10/24/2024 10:15 AM EDT Office Visit [facility] [address] [place] [address] Sammie Silverman MD [address] [place] [address] Aspiration pneumonia of both lower lobes due to vomit (CMS/HCC) (Primary Dx); Essential hypertension; LBBB (left bundle branch block); SOB (shortness of breath); Prediabetes Social History Tobacco Use Types Packs/Day Years [...] AM EDT documented as of this encounter Last Filed Vital Signs Vital Sign Reading [...] Mass Index 27.69 10/24/2024 9:46 AM EDT documented in this encounter Progress Notes * Sammie Hale MD - 10/24/2024 10:15 AM EDT SUBJECTIVE: Irma Puckett is a 74 y.o. year old female who presents for HDF . [facility] (10/05/24 - 10/07/24) Patient presented due to multiple episodes of V/D and epigastric abdominal pain. CT scan revealed peribronchial opacities and bronchial wall thickening of the RML and RLL. Patient initiated on IV Zosyn for pneumonia and possible aspiration in the setting of vomiting. Patient also tested positive for norovirus. EKG revealed LBBB, and patient instructed to follow up with cardiology outpatient. Patient discharged to home. Medication changes that occurred during hospitalization include: Added Amoxicillin-clavulanate 875-125 mg twice daily x 5 days Loperamide 2 mg every 6 hours as needed Changed None Discontinued None Acute Concerns: Patient reports that since she was sick she has been having increased shortness of breath, she tells me she cannot sleep at night due to shortness of breath and she is sleeps almost sitting up since before her hospitalization she also tells me she feels short of breath with activity Social History Social History Narrative Not on file Patient Active Problem List Diagnosis Hypertensive retinopathy of right eye Benign essential hypertension Essential hypertension Dizziness Foot pain Hyperlipidemia Injury of thoracic spine (CMS/HCC) Moderate persistent asthma Multiple joint pain Mood disorder ([facility]/HCC) Osteopenia determined by x-ray Pain in elbow Pain in right arm Seasonal allergic rhinitis Stage 3 chronic kidney disease (CMS/HCC) Xerostomia Prediabetes Dental implant pain Colon cancer screening Mixed stress and urge urinary incontinence Advance directive discussed with patient Aspiration pneumonia of both lower lobes due to vomit (CMS/HCC) LBBB (left bundle branch block) SOB (shortness of breath) No family history on file. Review of Systems Constitutional: Positive for fatigue. Negative for activity change, appetite change, chills, diaphoresis, fever and unexpected weight change. HENT: Negative. Respiratory: Positive for shortness of breath. Negative for apnea, cough, choking, chest tightness,wheezing and stridor. Cardiovascular: Negative. OBJECTIVE: Vitals: 10/24/24 0946 BP: (!) 141/77 BP Location: Left arm Patient Position: Sitting BP Cuff Size: Large adult Pulse: 85 Resp: 20 Temp: 96.8 ??F (36 ??C) TempSrc: Temporal SpO2: 99% Weight: 141 lb 12.8 oz (64.3 kg) Height: 5' (1.524 m) Physical Exam Constitutional: Appearance: Normal appearance. Cardiovascular: Rate and Rhythm: Normal rate and regular rhythm. Heart sounds: Gallop present. S3 sounds present. Musculoskeletal: Right lower le+ Edema present. Left lower le+ Edema present. Neurological: Mental Status: She is alert. Follow Up: Follow up in about 3 months (around 01/24/2025) for chronic conditions . Current Outpatient Medications on File Prior to Visit Medication Sig Dispense Refill albuterol (2.5 MG/3ML) 0.083% nebulizer solution Take 3 mL (2.5 mg) by nebulization every 6 (six) hours if needed for wheezing. 75 mL 0 albuterol 108 (90 Base) MCG/ACT inhaler Inhale 2 puffs every 6 (six) hours if needed for wheezing. 18 g 11 Alcohol Swabs 70 % pads Use to test blood sugar 1 times daily 100 each 0 atorvastatin (Lipitor) 20 MG tablet TAKE 1 TABLET BY MOUTH EVERY MORNING 90 tablet 3 Blood Glucose Monitoring Suppl (FreeStyle Ostrander Lite) w/Device kit Use to test blood sugar 1 times daily 1 kit 0 budesonide-formoterol (Symbicort) 160-4.5 MCG/ACT inhaler Inhale 2 puffs in the morning and at bedtime. Rinse mouth with water after use to reduce aftertaste and incidence of candidiasis. Do not swallow. 1 each 11 Calcium Carb-Cholecalciferol 600-10 MG-MCG tablet TAKE 1 TABLET BY MOUTH EVERY MORNING 90 tablet 1 cholecalciferol (D3 Super Strength) 50 MCG (2000 UT) capsule TAKE 1 CAPSULE BY MOUTH EVERY MORNING 90 capsule 1 citalopram (CeleXA) 20 MG tablet Take 20 mg by mouth Once per day. Provider - Lina Junior dapagliflozin (Farxiga) 10 MG Take 10 mg by mouth Once per day. docusate sodium (Colace) 100 MG capsule TAKE 1 CAPSULE BY MOUTH TWICE DAILY FOR CONSTIPATION 180 capsule 3 fluticasone (Flonase) 50 MCG/ACT nasal spray USE 1 SPRAY IN EACH NOSTRIL ONCE DAILY 16 g 11 FREESTYLE LITE test strip Use to test blood sugar 1 times daily 100 each 12 Lancets misc Use to test blood sugar 1 times daily 100 each 0 loratadine (Claritin) 10 MG tablet TAKE 1 TABLET BY MOUTH EVERY DAY NEEDED FOR ALLERGIES 90 tablet 1 losartan (Cozaar) 25 MG tablet TAKE 1/2 TABLET BY MOUTH EVERY EVENING 45 tablet 0 montelukast (Singulair) 10 MG tablet TAKE 1 TABLET BY MOUTH EVERY EVENING 90 tablet 1 Respiratory Therapy Supplies (Nebulizer Cup/Tubing) device 1 each every 6 (six) hours if needed (wheezing). 1 each 0 Respiratory Therapy Supplies (Nebulizer Mask Adult) misc 1 each every 6 (six) hours if needed (wheezing). 1 each 0 [DISCONTINUED] bumetanide (Bumex) 1 MG tablet Take 1 mg by mouth Once per day. No current facility-administered medications on file prior to visit. Problem List Items Addressed This Visit Aspiration pneumonia of both lower lobes due to vomit (CMS/HCC) - Primary Improved, patient finished all her antibiotics, I will order CT of the chest as suggested on discharge summary Relevant Orders CT Chest w/o Contrast Essential hypertension I advised low-sodium diet and continue with same medications LBBB (left bundle branch block) Relevant Orders Referral to Cardiology SOB (shortness of breath) Patient will see cardiology on November 07 of this year I decided to go up on her bumetanide to 1 mg twice a day, further adjustment to be done by cardiology Relevant Medications bumetanide (Bumex) 1 MG tablet Other Relevant Orders Referral to Cardiology Prediabetes Patient tells me after she picked up the prescription for her glucometer she noticed it was not working she will bring it up done to pharmacy if it is still not working and new glucometer will be given to her Relevant Medications Blood Glucose Monitoring Suppl (FreeStyle Ostrander Lite) w/Device kit documented in this encounter Miscellaneous Notes * Assessment & Plan Note - Sammie Hale MD - 10/24/2024 11:49 AM EDT Associated Problem(s): Prediabetes Patient tells me after she picked up the prescription for her glucometer she noticed it was not working she will bring it up done to pharmacy if it is still not working and new glucometer will be given to her * Assessment & Plan Note - Sammie Hale MD - 10/24/2024 11:49 AM EDT Associated Problem(s): Essential hypertension I advised low-sodium diet and continue with same medications * Assessment & Plan Note - Sammie Hale MD - 10/24/2024 11:48 AM EDT Associated Problem(s): SOB (shortness of breath) Patient will see cardiology on November 07 of this year I decided to go up on her bumetanide to 1 mg twice a day, further adjustment to be done by cardiology * Assessment & Plan Note - Sammie Hale MD - 10/24/2024 11:48 AM EDT Associated Problem(s): Aspiration pneumonia of both lower lobes due to vomit (CMS/HCC) Improved, patient finished all her antibiotics, I will order CT of the chest as suggested on discharge summary documented in this encounter Plan of Treatment Upcoming Encounters Date Type Department Care Team (Late st Contact Info) Description 01/15/2025 10:00 AM EDT Office Visit [facility] [address] [place], [place] [phone] Sammie Silverman MD [address] [place], [place] [phone] Scheduled Orders Name Type Priority Associated Diagnoses Orde r Schedule CT Chest w/o Contrast Imaging Routine Aspiration pneumonia of both lower lobes due to vomit (CMS/HCC) Expected: 10/24/2024, Expires: 10/24/2025 Scheduled Referrals Name Type Priority Associated Diagnoses Order Schedule Referral to Cardiology Outpatient Referral Routine LBBB (left bundle branch block) SOB (shortness of breath) Expected: 10/24/2024 (Approximate), Expires: 10/24/2025 documented as of this encounter Visit Diagnoses Diagnosis Aspiration pneumonia of both lower lobes due to vomit (CMS/HCC)- Primary Essential hypertension Unspecified essential hypertension LBBB (left bundle branch block) Other left bundle branch block SOB (shortness of breath) Shortness of breath Prediabetes Other abnormal glucose documented in this encounter Additional Health Concerns Assessment Noted Time PHQ-9 Depression Total Score: 0 10/25/19 25 9:53 AM EDT documented as of this encounter Care Teams Canopy Inspector Relationship Specialty Start Date End Date Sammie Silverman MD [address] [place], [place] [phone] PCP - General Family Medicine 04/27/18 documented as of this encounter
--- OUTSIDE RECORDS SUMMARY | 2024-10-25 13:51 | XMS_ITS | Encounter Summary ---
Author Organization [employer] Address [address] [facility] 7t [place] [address] Care Team Providers Care Account Engineer Name Role Phone Sammie Silverman MD Primary Care Provide r Reason for Visit * Reason Onset Date Comments Chart Prep 10/20/2024 Encounter Details Date Type Department Care Team ([facility] Contact Info) Description 10/20/2024 Telephone [facility] [address] [place], [place] [phone] Sammie Silverman MD [address] [place], [place] [phone] Chart Prep Social History Tobacco Use Types Packs/Day Years [...] encounter Miscellaneous Notes * Telephone Encounter - Mayco Ontiveros [place] - 10/20/2024 9:57 AM EST Chart Prep Labs: done Images: done Vaccines due: yes Referrals: complete Screenings: colonoscopy Overdue care gaps: Oral Health, SALLY-7 .discharge doc in chart documented in this encounter Plan of Treatment Upcoming Encounters Date Type Department Care Team (Late st Contact Info) Description 01/15/2025 10:00 AM EDT Office Visit [facility] [address] [place] [address] Sammie Silverman MD [address] [place] [address] documented as of this encounter Visit Diagnoses Not on filedocumented in this encounter Additional Health Concerns Assessment Noted Time PHQ-9 Depression Total Score: 0 08/28/19 25 11:54 AM EST documented as of this encounter Care Teams Account Engineer Relationship Specialty Start Date End Date Sammie Silverman MD [address] [place] [phone] PCP - General Family Medicine 04/27/18 documented as of this encounter
== END 2024-10-25 12:01 | disposition home or self-care (01) ==
LOC: HO.HPS 11:46
PROVIDERS: PCP Internal Medicine; Visit Provider Internal Medicine Pulmonary Disease
DX: J47.9 Bronchiectasis, uncomplicated (principal); J45.909 Unspecified asthma, uncomplicated; R06.01 Orthopnea; Z91.09 Other allergy status, other than to drugs and biological substances
CPT/HCPCS: 99214; G2211

== ENCOUNTER → 2024-10-25 11:45 | Outpatient (BNVA) | payer OTHER, SELFPAY | PROVIDERS: PCP Internal Medicine; Visit Provider Internal Medicine Pulmonary Disease | DX: J45.909 Unspecified asthma, uncomplicated (principal); J47.9 Bronchiectasis, uncomplicated; R06.01 Orthopnea; Z91.09 Other allergy status, other than to drugs and biological substances | CPT/HCPCS: 99212 ==

== ENCOUNTER 2024-10-31 09:04 | Outpatient (AMB) | payer OTHER, SELFPAY ==
[2024-10-31 09:09] VITALS: BP 124/60; PULSE 80; BMI 30.6
--- NOTE | 2024-10-31 09:09 | MHC.OFFVIS ---
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 Stage Setting Painter Apprentice Required: No Weir Fisherman: Weir Fisherman Present Allergies aspirin [ASPIRIN] Allergy (Unknown, Verified 10/31/24 09:11) MOUTH SWELLING Beef Containing Products [BEEF CONTAINING PRODUCTS] Adverse Reaction (Unknown, Verified 10/31/24 09:11) ITCHY Medication List - Last Reconciled 10/31/24 by Sarahy Herrera NP-C albuterol sulfate 2.5 mg inhalation Q6H PRN albuterol sulfate 90 mcg/actuation 2 puffs PO Q4-6H PRN 30 days atorvastatin 20 mg PO DAILY budesonide-formoterol 160-4.5 mcg/actuation (Symbicort) 2 puffs inhalation BID bumetanide 2 mg (2 x 1 mg) PO DAILY 30 days calcium carbonate-vitamin D3 600 mg-10 mcg (400 unit) 1 tab PO DAILY cholecalciferol (vitamin D3) (Vitamin D3) 50 mcg PO DAILY citalopram 20 mg PO DAILY dapagliflozin propanediol (Farxiga) 10 mg PO DAILY docusate sodium 100 mg PO BID fluticasone propionate 50 mcg/actuation 1 spray intranasal DAILY PRN loperamide (Anti-Diarrheal (loperamide)) 2 mg PO Q6H PRN loratadine 10 mg PO DAILY PRN losartan 12.5 mg PO BEDTIME montelukast 10 mg PO DAILY HPI HPI INDUSTRIAL ENGINEERING TECHNOLOGIST-ER C Follow up: Details: Irma is a 74-year-old female with past medical history of obesity, hypertension, hyperlipidemia, asthma who was recently seen in the ER for epigastric type discomfort and was found to have bronchopneumonia. EMS had reported patient had unresponsive episodes while in their care. Her EKG showed sinus tachycardia with left bundle branch block. Troponin levels were normal. An echocardiogram has shown normal EF and paradoxical septal motion consistent with left bundle branch block. On discharge she was referred to Cardiology. Today she presents for cardiology consultation. She tells me she has no cardiac history. She does get discomfort in her left upper chest area that occurs randomly at rest and with activity. She has no known triggers or alleviating factors. Her symptoms will gradually resolve on their own. She also notices rapid heartbeats at times. She does not recall any other syncopal events in her past. She does get mild shortness of breath with walking. She has periodic dizziness and says she recently had an episode of vertigo. No history of smoking or alcohol use. She believes her mom had a history of heart disease. No other heart disease in her family. She describes herself as an active person. Daughter is present and assisting with Argentine translation. [facility] Medical History (Updated 10/31/24 @ 11:12 by Sarahy Herrera NP-C) Environmental allergies Arthralgia of knee Breast mass Varicose veins of both lower extremities CARON (obstructive sleep apnea) Major depression Hyperlipidemia Arthritis Mood disorder Allergic rhinitis Osteopenia HTN (hypertension) Asthma Surgical History Hx of tubal ligation Hx of cholecystectomy History of back surgery Hx of section Family History Mother CVD (cardiovascular disease) HTN (hypertension) Father Stroke Social History Household Members: Spouse Housing: Apartment Do you presently have visiting nurse or other home services: Yes (come every 3 months , james is her BUNDLE PERSON. nursing does assessments) Alcohol intake: never Patient Tobacco Use Status: Never used Tobacco Advance Directives Date on File: 10/06/24 service: No Review of Systems Const All systems reviewed & are unremarkable except as noted in HPI and below ENT Details: posterior neck discomfort Denies dizziness Card Reports chest pain, Reports chest pain at rest, Denies chest pain with activity, Reports rapid heart rate, Denies pedal edema, Denies edema, Denies leg edema, Denies lightheadedness, Denies palpitations, Denies dyspnea, Reports dyspnea on exertion and Denies orthopnea Resp Denies cough, Denies dyspnea and Reports dyspnea on exertion GI Denies hematochezia and Denies change in stool character Musc Denies abnormal gait, Denies limited range of motion, Denies muscle cramps, Denies muscle weakness, Denies numbness, Denies radiating pain into limb, Denies stiffness and Denies tingling Neuro Denies abnormal gait, Denies dizziness, Denies numbness and Denies tingling Endo Denies palpitations Physical Exam Vital Signs: Last Vital Signs Pulse 80 10/31/24 09:09 BP 124/60 10/31/24 09:09 BMI result Body Mass Index 30.6 Const General: cooperative, healthy appearing, comfortable and no acute distress Orientation/consciousness: patient oriented x3 Neck Neck: Yes normal visual inspection Resp Effort & Inspection: normal respiratory effort Auscultation: rales (right lower lobe), no rhonchi and no wheezes Cardio Jugular venous distension: no JVD Rate: regular rate Rhythm: regular rhythm Heart sounds: S1 normal heart sound present, S2 normal heart sound present, no gallops, no murmurs and no rubs Neuro General: patient oriented x3 Extrem General: Yes normal to inspection, No no pedal edema and No calf tenderness Psych Appearance: grossly normal Mental Status: mental status grossly normal Speech and movement: Normal speech and movement present Assessment & Plan Assessment & Plan (1) Left bundle branch block: Code(s): I44.7 - Left bundle-branch block, unspecified Category: Medical Plan: EKG done at the time of recent ER evaluation, 10/05/2024 shows sinus tachycardia with left bundle branch block. Prior EKG in our system 2018 did not show left bundle branch block. She reports atypical chest discomfort. She has cardiac risk factors of hypertension, hyperlipidemia, mild obesity, age. Echocardiogram 10/06/2024 showed EF 62%, no regional wall motion abnormality. Will check a pharmacological nuclear stress test to evaluate for ischemia. Signs and symptoms of angina reviewed with her. Emergency care if needed for symptoms. Cardiology follow-up 4-6 weeks, sooner if needed. (2) Palpitations: Code(s): R00.2 - Palpitations Category: Medical Plan: Reports of heart palpitations like her heart is going fast. Reported syncopal event while under EMS care last month. No other reports of syncope in the past. Will check a Holter monitor to assess for arrhythmia. (3) Syncope: Code(s): R55 - Syncope and collapse Category: Medical Plan: As above. (4) HTN (hypertension): Code(s): I10 - Essential (primary) hypertension Category: Medical Plan: [place] goal less than 130/80. well controlled at this time. Continue losartan (5) Hyperlipidemia: Code(s): E78.5 - Hyperlipidemia, unspecified Category: Medical Plan: [place] LDL goal less than 70. No recent lipid profile in our system. She can continue atorvastatin. Recommend recheck of lipids in the near future. Labs followed by PCP. (6) Pneumonia: Code(s): J18.9 - Pneumonia, unspecified organism Category: Medical Plan: Recent pneumonia. On exam today she has some rales in her right lower lobe. She still has some shortness of breath with activity. She follows with pulmonology. (7) Chest pain: Code(s): R07.9 - Chest pain, unspecified Category: Medical Plan Time spent on chart review, documentation, interview and assessment Orders: Orders ECG 3 day holter monitor Today R00.2 - Palpitations, R55 - Syncope and collapse CA lexiscan stress w lesa Today I44.7 - Left bundle-branch block, unspecified, R07.9 - Chest pain, unspecified NM cardiolite stress test Today I44.7 - Left bundle-branch block, unspecified, R07.9 - Chest pain, unspecified Coding Level of Care Code New Pt Level 4 (49012) Complex EM visit Add On G2211 Diagnoses Left bundle branch block I44.7 Palpitations R00.2 Syncope R55 HTN (hypertension) I10 Hyperlipidemia E78.5 Pneumonia J18.9 Chest pain R07.9 Time Spent (min) 30
--- OUTSIDE RECORDS SUMMARY | 2024-10-31 09:40 | XMS_ITS | Encounter Summary ---
Author Organization [employer] Address 75 [facility] 7t [place] [address] Care Team Providers Care Senior Clinical Study Manager Name Role Phone Sammie Silverman MD Primary Care Provide r Reason for Referral * Imaging (Routine) - Authorized Specialty Diagnoses / Procedures Referred By Swapna t Referred To Contact Radiology Diagnoses Aspiration pneumonia of both lower lobes due to vomit (CMS/HCC) Procedures CT Chest w/o Contrast Sammie Silverman MD [address] [place] [address] Phone: tel: fax: [address] Phone: tel: fax: Referral ID Status Reason Start Date Expiration Date V isits Requested Visits Authorized [id number] Authorized 10/24/2024 10/24/2025 1 1 * Consultation (Routine) - Authorized Specialty Diagnoses / Procedures Referred By Contac t Referred To Contact Cardiology Diagnoses LBBB (left bundle branch block) SOB (shortness of breath) Sammie Silverman MD [address] [place] [address] Phone: tel: fax: [facility] Referral ID Status Reason Start Date Expiration Date Visits Requested Visits Authorized [id number] Authorized Specialty Services Required 10/24/2024 10/24/2025 1 1 Reason for Visit * Reason Comments Hospital follow up Encounter Details Date Type Department Care Team (Late st Contact Info) Description 10/24/2024 10:15 AM EDT Office Visit [facility] [address] [place] [address] Sammie Silverman MD [address] [place] [address] Aspiration pneumonia of both lower lobes due [...] old female who presents for HDF . [facility] (10/05/24 - 10/07/24) Patient presented due to [...] persistent asthma Multiple joint pain Mood disorder ([facility]/HCC) Osteopenia determined by x-ray Pain in elbow [...] tablet 3 Blood Glucose Monitoring Suppl (FreeStyle [place] Lite) w/Device kit Use to test blood [...] Relevant Medications Blood Glucose Monitoring Suppl (FreeStyle [place] Lite) w/Device kit documented in this encounter [...] Description 01/15/2025 10:00 AM EDT Office Visit [facility] [address] [place], [place] [phone] Sammie Silverman MD [address] [place], [place] [phone] Scheduled Orders Name Type Priority Associated Diagnoses [...] documented as of this encounter Care Teams Senior Clinical Study Manager Relationship Specialty Start Date End Date Sammie Silverman MD [address] [place], [place] [phone] PCP - General Family Medicine 04/27/18 documented as of this encounter
--- OUTSIDE RECORDS SUMMARY | 2024-10-31 09:40 | XMS_ITS | Encounter Summary ---
Author Organization [employer] Address [address] [facility] 7t [place] [address] Care Team Providers Care Car Seat Coverer Name Role Phone Sammie Silverman MD Primary Care Provide r Reason for Visit * Reason Comments Transition Of Care (Tcm) HDF- LVM Encounter Details Date Type Department Care Team ([facility] st Contact Info) Description 10/09/[address] [facility] [address] [place] [address] Sammie Silverman MD [address] [place] [address] Transition Of Care (Tcm) (HDF- LVM ) [...] Admission/Visit 10/05/24 Date of Discharge 10/07/24 Facility [facility] Diagnosis Pneumonia / Branch block Disposition [...] Wednesdays, and Walk-In Urgent Care Located in [facility]. Patient provided with after-hours line for [facility], , which offer night time triage service and option to transfer to ebd special education teacher provider if needed. CC will request Discharge summaries to scan into chart. CC will place additional outreach call within 2-5 business days. documented in this encounter Plan of Treatment Upcoming Encounters Date Type Department Care Team (Late st Contact Info) Description 01/15/2025 10:00 AM EDT Office Visit [facility] [address] [place] [address] Sammie Silverman MD [address] [place], [place] [phone] documented as of this encounter Visit Diagnoses Not on filedocumented in this encounter Additional Health Concerns Assessment Noted Time PHQ-9 Depression Total Score: 0 08/28/19 25 11:54 AM EST documented as of this encounter Care Teams Car Seat Coverer Relationship Specialty Start Date End Date Sammie Silverman MD [address] [place], [place] [phone] PCP - General Family Medicine 04/27/18 documented as of this encounter
--- OUTSIDE RECORDS SUMMARY | 2024-10-31 09:40 | XMS_ITS | Encounter Summary ---
Author Organization [employer] Address [address] [facility] 7t [place] [address] Care Team Providers Care Technology Methodology Consultant Name Role Phone Sammie Silverman MD Primary Care Provide r Reason for Visit * Reason Onset Date Comments Chart Prep 10/20/2024 Encounter Details Date Type Department Care Team ([facility] Contact Info) Description 10/20/2024 Telephone [facility] [address] [place], [place] [phone] Sammie Silverman MD [address] [place], [place] [phone] Chart Prep Social History Tobacco Use Types [...] Office Visit [facility] [address] [place] [address] Sammie Silverman MD [address] [place] [address] documented as of this encounter Visit Diagnoses Not on filedocumented in this encounter Additional Health Concerns Assessment Noted Time PHQ-9 Depression Total Score: 0 08/28/19 25 11:54 AM EST documented as of this encounter Care Teams Technology Methodology Consultant Relationship Specialty Start Date End Date Sammie Silverman MD [address] [place] [phone] PCP - General Family Medicine 04/27/18 documented as of this encounter
--- OUTSIDE RECORDS SUMMARY | 2024-10-31 09:40 | XMS_ITS | Clinical Summary ---
Author Organization [facility] Address [address] [facility] [address] [place] [address] Phone Care Team Providers Care Brick Off Bearer Name Role Phone Sammie Silverman MD Primary [...] 09/05/2024 Refill [facility] [address] [place], [place] [phone] Shiva Patel MD from Last 3 Months [...] Visit [facility] [address] [place] [phone] Shiva Patel MD [address] [facility] [address] [place] [phone] Health Maintenance Due Date Last Done Comments [...] to complete this topic Insurance [place] [id number] [facility] DUAL COMPLETE ([id number]) [id number] DUAL COMPLETE ([id number]) Care Teams Brick Off Bearer Relationship Specialty Start Date End Date Sammie Silverman MD [address] [place] [phone] PCP - General Internal Medicine 12/19/20
--- OUTSIDE RECORDS SUMMARY | 2024-10-31 09:40 | XMS_ITS | Encounter Summary ---
Author Organization [email or web address] Address 75 [facility] 7t [place] [address] Care Team Providers Care Cancer Genetic Counselor Name Role Phone Sammie Silverman MD Primary Care Provide r Encounter Details Date Type Department Care Team ([facility] Contact Info) Description 05/18/2023 Orders Only [facility]S [address] [place], [place] [phone] Rosa Wise LPN Social History Tobacco Use [...] Upcoming Encounters Date Type Department Care Team ([facility] Contact Info) Description 01/15/2025 10:00 AM EDT Office Visit [facility] [address] [place], [place] [phone] Sammie Silverman MD [address] [place], [place] [phone] documented as of this encounter Visit Diagnoses Not on filedocumented in this encounter Additional Health Concerns Assessment Noted Time PHQ-9 Depression Total Score: 0 01/07/20 23 9:59 AM EDT documented as of this encounter Care Teams Cancer Genetic Counselor Relationship Specialty Start Date End Date Sammie Silverman MD [address] [place] [address] PCP - General Family Medicine 04/27/18 documented as of this encounter
--- OUTSIDE RECORDS SUMMARY | 2024-10-31 09:40 | XMS_ITS | Encounter Summary ---
Author Organization [employer] Address [address] [facility] [address] 7t [place] [address] Care Team Providers Care Dispatcher Service Or Work Name Role Phone Sammie Silverman MD Primary Care Provide r Reason for Visit * Reason Onset Date Comments Nurse Triage 10/05/2024 Encounter Details Date Type Department Care Team ([facility] st Contact Info) Description 10/05/2024 Telephone [facility] [address] [place] [address] Sammie Silverman MD [address] [place], [place] [phone] Nurse Triage Social History Tobacco Use Types [...] 10/06/2024 11:46 AM EST Noted. RN reviewed [facility], patient is currently admitted d/t Pneumonia. Per admission note: Patient will likely require 2 midnight stay in the hospital for management of multilobar pneumoniarequiring IV antibiotics Patient/hospital to f/u upon discharge for HDF. * Telephone Encounter - Lenore Velez RN - 10/05/2024 11:56 AM EST lab animal technologist: Patient presents to walk-in center with severe [...] alert. Bruna RN communicated to patient (Pt Bengali speaking). Patient with new onset confusion. EMS arrival at this time, 1146. Daughterreports she had similar episode earlier today and she is not sure why. No known hx seizure disorder. Report to EMS. Patient to be transported to [facility] per patient/ family request. Will send to team nurses for follow-up. Interpretor Ajit DELEON/ Bruna RN documented in this encounter Plan of Treatment Upcoming Encounters Date Type Department Care Team (Late st Contact Info) Description 01/15/2025 10:00 AM EDT Office Visit [facility] [address] [place] [address] Sammie Silverman MD [address] [place] [address] documented as of this encounter Visit Diagnoses Not on filedocumented in this encounter Additional Health Concerns Assessment Noted Time PHQ-9 Depression Total Score: 0 08/28/19 25 11:54 AM EST documented as of this encounter Care Teams Dispatcher Service Or Work Relationship Specialty Start Date End Date Sammie Silverman MD [address] [place] [phone] PCP - General Family Medicine 04/27/18 documented as of this encounter
--- OUTSIDE RECORDS SUMMARY | 2024-10-31 09:40 | XMS_ITS | Encounter Summary ---
Author Organization [email or web address] Address [address] [facility] 7[address] [place] [address] Care Team Providers Care Eligibility Manager Name Role Phone Sammie Silverman MD Primary Care Provide r Reason for Visit * Reason Onset Date Comments Hospital Follow-up 10/09/2024 Encounter Details Date Type Department Care Team ([facility] st Contact Info) Description 10/09/2024 Telephone [facility] [address] [place], [place] [phone] Sammie Silverman MD [address] [place], [place] [phone] Hospital Follow-up Social History Tobacco Use Types [...] go to ED. No answer, LVM on [phone] and [phone] to return call to office and ask for red team nurses. * Telephone Encounter - Bibi Segovia RN - 10/10/2024 3:17 PM EST TC from Juani Vaz, [facility] nurse. States she was following [...] from pt requesting a HDF appt. [place] [facility] Date of admission: 09-04-2024 Discharge date: 09-06-2024 Diagnosed: Pneumonia / Branch block *Send message to [place] Clinical Care Coordinators documented in this encounter Plan of Treatment Upcoming Encounters Date Type Department Care Team (Late st Contact Info) Description 01/15/2025 10:00 AM EDT Office Visit [facility] [address] [place] [address] Sammie Silverman MD [address] [place] [address] documented as of this encounter Visit Diagnoses Not on filedocumented in this encounter Additional Health Concerns Assessment Noted Time PHQ-9 Depression Total Score: 0 08/28/19 11:54 AM EST documented as of this encounter Care Teams Eligibility Manager Relationship Specialty Start Date End Date Sammie Silverman MD [address] [place] [address] PCP - General Family Medicine 04/27/18 documented as of this encounter
--- OUTSIDE RECORDS SUMMARY | 2024-10-31 09:40 | XMS_ITS | Encounter Summary ---
Author Organization [employer] Address [address] [facility] 7t [place] [address] Care Team Providers Care Information Technology Program Manager Name Role Phone Sammie Silverman MD Primary Care Provide r Reason for Visit * Reason Onset Date Comments Nurse Triage 08/04/2023 Encounter Details Date Type Department Care Team ([facility] st Contact Info) Description 08/04/2023 Telephone [facility] [address] [place], [place] [phone] Sammie Silverman MD [address] [place], [place] [phone] Nurse Triage Social History Tobacco Use Types [...] 08/04/2023 3:42 PM EST Triage call with [employer] [place] [id number] Pt reports was seen in pulmonology office [facility] 07/22/23. Pt reports was tested for Covid [...] accepted this outcome Please contact pt @ [phone] Korean Speaker documented in this encounter Plan of Treatment Upcoming Encounters Date Type Department Care Team (Late st Contact Info) Description 01/15/2025 10:00 AM EDT Office Visit [facility] [address] [place] [address] Sammie Silverman MD [address] [place] [address] documented as of this encounter Visit Diagnoses Not on filedocumented in this encounter Additional Health Concerns Assessment Noted Time PHQ-9 Depression Total Score: 0 01/07/20 23 9:59 AM EDT documented as of this encounter Care Teams Information Technology Program Manager Relationship Specialty Start Date End Date Sammie Silverman MD [address] [place] [address] PCP - General Family Medicine 04/27/18 documented as of this encounter
--- OUTSIDE RECORDS SUMMARY | 2024-10-31 09:40 | XMS_ITS ---
Author Name Ridge Rubio APRN Address [address] [place] [address] Phone [phone] Organization [facility] Care Team Providers Care Waste Treatment Operator Name Role Phone Palma Rubio Unavailable [phone] Reason for Referral Not Available Allergies, adverse [...] of Service Diagnosis/Co mplaint No Data Available [facility], [place] 07/03/2022 Type 2 diabetes mellitus wit h diabetic chronic kidney diseaseHypertensive chronic kidney disease w stg 1-4/unsp chr kdnyChronic kidney disease, stage 3aHyperlipidemia, unspecifiedAnxiety disorder, unspecifiedChronic obstructive pulmonary disease, unspecifiedVitamin D deficiency, unspecifiedConstipation, unspecifiedDietary calcium deficiency No Data Available [facility] 07/03/2022 No Data Available [facility] 07/03/2022 No Data Available [facility] 07/03/2022 No Data Available [facility] 07/03/2022 No Data Available [facility] 07/03/2022 No Data Available [facility] [place] 07/03/2022 Estab. patient 20-29min; 1 stable chronic or 2 minor; add add modifier 95 for video, modifier 93 for phone [facility] [place] 08/05/2022 Type 2 diabetes mellitus wit h [...] 95 for video, modifier 93 for phone [facility] [place] 08/05/2022 Unlisted special service; to be used for medical record reviews and reporting CPTII codes (1111F, etc) [facility] ([place] 03/31/2023 Other specified counseling Unlisted special service; to be used for medical record reviews and reporting CPTII codes (1111F, etc) [facility], ([place]) 03/31/2023 Unlisted special service; to be used for medical record reviews and reporting CPTII codes (1111F, etc) [facility] ([place] 03/31/2023 Estab. patient 30-39min; chronic exacerbation, 2 stable chronic or 1 acute illness add add modifier 95 for video, (do not use for phone, instead use 29564-27) [facility] 04/09/2023 Type 2 diabetes mellitus wit [...] (do not use for phone, instead use 02627-74) [facility] 04[place] Estab. patient 30-39min; chronic exacerbation, 2 stable chronic or 1 acute illness add add modifier 95 for video, (do not use for phone, instead use 11446-92) [facility] [place] 04/09/2023 Estab. patient 30-39min; chronic exacerbation, 2 stable chronic or 1 acute illness add add modifier 95 for video, (do not use for phone, instead use 29494-78) [facility] 04/09/2023 Unlisted special service; to be used for medical record reviews and reporting CPTII codes (1111F, etc) [facility] [place] 01/07/2024 Other specified health statu s Unlisted special service; to be used for medical record reviews and reporting CPTII codes (1111F, etc) [facility] [place] 01/07/2024 Unlisted special service; to be used for medical record reviews and reporting CPTII codes (1111F, etc) [facility] [place] 01/07/2024 Vital Signs Date of Collection Vitals 2022-08-05 09:12:10 Height - 149.86 cmWe ight - 63.96 kgBody Mass Index (BMI) - 28.48 kg/m2 2023-04-09 11:44:18 BP Diastolic - 83.0 mm[Hg]BP Systolic - 132.0 mm[Hg] Social History Social History Social History Observation Description Effec tive Time Current Smoking Status Never smoker 2024-10-14 7 Sex Female History of Procedures Procedures Service Procedure code Service date Servicing provider Phone# No Data Available 53312 2022-07-03 No Data Available No Data Available [...] 95 for video, modifier 93 for phone 36332 2022-08-05 No Data Available No Data Availa ble BMI obtained (3008F) 3008F 2022-08-05 No Data Availab le No Data Available Unlisted special service; to be used for medical record reviews and reporting CPTII codes (1111F, etc) 71116 2023-03-31 No Data Available No Data Availa ble SBP < 130 (3074F) 3074F 2023-03-31 No Data Available No Data Available DBP 80-89 (3079F) 3079F 2023-03-31 No Data Available No Data Available Estab. 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 Shiva Santo foods high in saltIncorporate [...] level every 3 monthsCheck BS weeklyContinue seeing infection control managerDr. Shiva foods high in saltIncorporate exercise regimen and lifestyle modificationsContinue taking losartan as prescribedCheck BP weekly and report any elevated readingsAvoid foods high in fatIncorporate exercise regimen and lifestyle modificationsContinue taking Atorvastatin as prescribed Check lipid levels yearlyManaged by PCPContinue taking symbicort, spiriva, montelukast as prescribedAvoid irritantsContinue taking vit d as prescribedContinue taking docusate as prescribedContinue taking prescribed medicationson furosemide daily [id number], low na dietcall if weight gain greater than 3lbs for RX treatmenton furosemidemonitor BPlow na dieton citalopram no recent episodes and stable 2023-03-31 11:07:41 09831FRI < 130 (3074 F)DBP 80-89 (3079F) 2023-04-09 [...] level every 3 monthsCheck BS weeklyContinue seeing infection control manager, Dr. Shiva Santo foods high in saltIncorporate [...] no recent episodes and stableon furosemide daily fufcnhf5O, low na dietcall if weight gain greater [...] recen tly increased to BID done by head of marketing analytics due to fluid in lungs, denies cough and SOB at this time 2022-08-05 will send proair ref ill to pharmacy 2022-08-05 call if you feel ill , have any questions or concerns
--- OUTSIDE RECORDS SUMMARY | 2024-10-31 09:40 | XMS_ITS | Encounter Summary ---
Author Organization [employer] Address [address] [facility] [address]t [place] [address] Care Team Providers Care Cytogenetics Technologist Name Role Phone Sammie Silverman MD Primary Care Provide r Reason for Visit * Reason Onset Date Comments Error (VOID this visit) 10/06/2024 Encounter Details Date Type Department Care Team ([facility] st Contact Info) Description 10/06/2024 Telephone [facility] MED[facility]INE [address] [place] [address] Sammie Silverman MD [address] [place] [address] Error (VOID this visit) Social History Tobacco [...] Description 01/15/2025 10:00 AM EDT Office Visit [facility] MEDICINE [address] [place] [address] Sammie Silverman MD [address] [place] [address] documented as of this encounter Visit Diagnoses Not on filedocumented in this encounter Additional Health Concerns Assessment Noted Time PHQ-9 Depression Total Score: 0 08/28/19 25 11:54 AM EST documented as of this encounter Care Teams Cytogenetics Technologist Relationship Specialty Start Date End Date Sammie Silverman MD [address] [place] [phone] PCP - General Family Medicine 04/27/18 documented as of this encounter
--- OUTSIDE RECORDS SUMMARY | 2024-10-31 09:40 | XMS_ITS | Clinical Summary ---
Author Organization [employer] Address [address] [facility] 7[address] [place] [address] Care Team Providers Care Screen Printing Stencil Preparer Name Role Phone Sammie Silverman MD Primary [...] EVERY MORNING 90 tablet 3 024 Active loratadine (Claritin) 10 MG tablet TAKE 1 TABLET BY MOUTH EVERY DAY NEEDED FOR ALLERGIES 90 tablet 1 10/24/2 024 Active dapagliflozin (Farxiga) 10 MG Take 10 mg by mouth Once per day. Active citalopram (CeleXA) 20 MG tablet Take 20 mg by mouth Once per day. Bel Junior Active montelukast (Singulair) 10 MG tabletIndicatio ns:Mild persistent asthma without complication TAKE 1 TABLET BY MOUTH EVERY EVENING 90 tablet 1 Active FREESTYLE LITE test stripIndication s:Prediabetes Use to test blood sugar 1 times daily 100 each 025 2025 Active Lancets miscIndications :Prediabetes Use to test blood sugar 1 times daily 100 each Active Alcohol Swabs 70 % padsIndications :Prediabetes Use to test blood sugar 1 times daily 100 each Active Blood Glucose Monitoring Suppl (FreeStyle [place] Lite) w/Device kitIndications: Prediabetes Use to test [...] TWICE DAILY FOR CONSTIPATION 180 capsule 3 Active Blood Glucose Monitoring Suppl (FreeStyle [place] Lite) w/Device kitIndications: Prediabetes Use to test blood sugar 2 times daily 1 kit 025 Active bumetanide (Bumex) 1 MG tabletIndicatio ns:SOB (shortness of breath) Take 1 tablet (1 mg) by mouth 2 times daily. 60 tablet 025 Active cholecalciferol (D3 Super Strength) 50 MCG (2000 UT) capsuleIndicati ons:Vitamin deficiency TAKE 1 CAPSULE BY MOUTH EVERY MORNING 90 capsule 1 025 Active Calcium Carb-Cholecalci ferol 600-10 MG-MCG tablet TAKE 1 TABLET BY MOUTH EVERY MORNING 90 tablet 1 025 Active losartan (Cozaar) 25 MG tabletIndicatio ns:Essential hypertension TAKE 1/2 TABLET BY MOUTH EVERY EVENING 45 tablet 1 025 Active Calcium Carb-Cholecalci ferol 600-10 MG-MCG tablet TAKE 1 TABLET BY MOUTH EVERY MORNING 90 tablet 1 024 2024 Discontinued cholecalciferol (D3 Super Strength) 50 MCG (2000 UT) capsuleIndicati ons:Vitamin deficiency TAKE 1 CAPSULE BY MOUTH EVERY MORNING 90 capsule 1 024 2024 Discontinued bumetanide (Bumex) 1 MG tablet Take 1 mg by mouth Once per day. 2024 Discontinued(R eorder (will not trigger notification to Pharmacy)) losartan (Cozaar) 25 MG tabletIndicatio ns:Essential hypertension TAKE 1/2 TABLET BY MOUTH EVERY EVENING 45 tablet 024 2024 Discontinued(R eorder (will not trigger notification [...] by cardiology Advance directive discussed with patient 024 Assessment [...] Encounters Date Type Department Care Team Description 10/30/2024 Refill [facility] MEDICINE [address] [place] [address] Sammie Silverman MD Essential hypertension 10/29/2024 Refill [facility] MED[facility] [address] [place] [address] Sammie Silverman MD Vitamin deficiency; Essential hypertension 10/24/2024 10:15 AM EDT Office Visit [facility] MED[facility] [address] [place] [address] Sammie Silverman MD Aspiration pneumonia of both lower lobes due to vomit (CMS/HCC) (Primary Dx); Essential hypertension; LBBB (left bundle branch block); SOB (shortness of breath); Prediabetes 10/24/2024 Travel 10/20/2024 Telephone [facility] [address] [place] [address] Sammie Silverman MD Chart Prep 10/09/2024 Patient Outreach [address] [address] Sammie Silverman MD Transition Of Care (Tcm) (HDF- LV ) 10/09/[address] [address] Sammie Silverman MD Hospital Follow-up 10/06/[address] [address] Sammie Silverman MD Error (VOID this visit) 10/05/2024 Telephone [facility] [address] [place] [address] Sammie Silverman MD Nurse Triage 09/11/2024 Refill [facility] [address] [place] [address] Sammie Silverman MD Constipation, unspecified constipation type 09/05/2024 Orders Only [facility] [address] [place] [address] Sammie Silverman MD 08/28/2024 11:30 AM EST Office Visit [address] [address] Sammie Silverman MD Moderate persistent asthma, unspecified whether complicated (Primary Dx); Prediabetes 08/28/2024 Travel 08/21/[address] [phone] Sammie Silverman MD callback requested 08/08/[address] [address] Sammie Silverman MD Essential hypertension 08/08/[address] [address] Sammie Silverman MD fyi 08/07/2024 Telephone [facility] [address] [place] [address] Sammie Silverman MD 08/07/2024 Refill [facility] [address] [place] [address] Sammie Silverman MD Mild persistent asthma without complication; Essential hypertension 08/07/2024 Refill [facility] [address] [place] [address] Sammie Silverman MD Essential hypertension from Last 3 Months Immunizations Name Administration [...] Description 01/15/2025 10:00 AM EDT Office Visit [facility] [address] [place], [place] [phone] Sammie Silverman MD [address] [place] [address] Health Maintenance Due Date Last Done Comments [...] 08/28/2025 08/28/2024 Depression Screening 10/24/2025 10/24/2024, 10/25/19 25 Tobacco Screening 10/24/2025 10/24/2024 Dental X-Ray: Full [...] Lactic Acid 1.1 0.5 - 2.0 mmol/L [facility] 10/05/2024 4:27 PM EST 10/05/2024 4:33 PM EST us Generic External Data Provider LAB BLOOD ORDERAB LES Final Result [facility] [address] [place] [address] [phone] * (ABNORMAL) Urinalysis, Complete, with Reflex to Culture (10/05/2024 2:04 PM EST) Color Urine Yellow [facility] Appearance Urine Clear [facility] PH 5.5 5.0 - 9.0 [facility] Glucose Urine UA >=1000(A) Negative mg/dL [facility] Urine Blood Negative Negative [facility] Specific [place] - Urine 1.025 1.005 - 1.025 [facility] Urine Protein Negative Neg-Trace mg/dL [facility] Urine Ketones Negative Negative mg/dL [facility] Nitrite Urine Negative Negative [facility] Leukocyte Esterase Urine Negative Negative [facility] RBC Urine 0-2 0 - 2 /HPF [facility] Urine WBC 0-5 0 - 5 /HPF [facility] Urine Squamous Epithelial Cell 6-10 0 - 2 /HPF [facility] Urine Bacteria 1+ None Seen [facility] Hyaline Casts, Urine 3-5 0 - 2 /LPF [facility] 10/05/2024 2:04 PM EST 10/05/2024 2:07 PM EST Narrative [facility] - 10/05/2024 2:21 PM EST [id number], Clean Catch us Generic External Data Provider LAB URINE ORDERAB LES Final Result Performing Organization Address [facility]/State/ZIP Co de Phone Number [facility] [address] [place] [address] [phone] * XR Chest 1 View (10/05/2024 2:04 PM EST) Anatomical Region Laterality Modality Chest Radiographic Addie ging 10/05/2024 2:04 PM EST Narrative 10/05/2024 2:20 PM EST ? [facility] ?[address] ?[place] [address] ?XRay Report ? Signed ? Patient: Irma Pal ?M ?? R#: [id number] ? : 1950 ?Acct:[id number] ? Age/Sex: 74 / F ?ADM Date: 10/05/24 ? Loc: HO.ED ? Attending Dr: ? Ordering Physician: Jose Calvin MD ?? Date of Service: 10/05/24 ?? Procedure(s): XR chest 1V ?? Accession Number(s): [id number] ? cc: Sammie Silverman MD; Jose Calvin [...] DD/ 1404 ? TD/TT: 10/05/24 1404 ? Product Development Intern: ? Procedure Note Shade, Image - 10/05/[address] [address] XRay Report Signed Patient: Sanjuana Pal#: [id number] : 1950Acct:[id number] Age/Sex: 74 / FADM Date: 10/05/24 Loc: HO.ED Attending Dr: Ordering Physician: Jose Calvin MD Date of Service: 10/05/24 Procedure(s): XR chest 1V Accession Number(s): [id number] cc: Sammie Silverman MD; Jose Calvin MD [...] 10/05/24 1417 DD/ 1404 TD/TT: 10/05/24 1404 Product Development Intern: [facility] External Provider IMG XR PROCEDURES Final Result * CT Abdomen Pelvis w/o Contrast (10/05/2024 1:53 PM EST) Anatomical Region Laterality Modality Body, Pelvis, Abdomen Computed T omography 10/05/2024 1:53 PM EST Narrative 10/05/2024 2:28 PM EST ? [facility] ?[address] ?[place] [address] ? CT Scan Report ? Signed ? Patient: Irma Pal ?M ?? R#: [id number] ? : 1950 ?Acct:[id number] ? Age/Sex: 74 / F ?ADM Date: 02/20/25 ? Loc: HO.ED ? Attending Dr: ? Ordering Physician: Jose Calvin MD ?? Date of Service: 10/05/24 ?? Procedure(s): CT abdomen pelvis wo IV con ?? Accession Number(s): [id number] ? cc: Sammie Silverman MD; Jose Calvin MD ? Report Number: ?? [id number]: Total DLP = ??462.00 mGy-cm ?? EXAMINATION: [...] MD in OV> ?10/05/24 1425 ? DD/ 1353 ? TD/TT: 10/05/24 1414 ? Product Development Intern: ? Procedure Note Heather Laguerre - 10/05/[address] [place] [address] [address] Scan Report Signed Patient: Sajnuana Pal R#: [id number] : 1950Acct:[id number] Age/Sex: 74 / FADM Date: 10/05/24 Loc: HO.ED Attending Dr: Ordering Physician: Jose Calvin MD Date of Service: 10/05/24 Procedure(s): CT abdomen pelvis wo IV con Accession Number(s): [id number] cc: Sammie Silverman MD; Jose Calvin MD Report Number: [id number]: Total DLP = 462.00 mGy-cm EXAMINATION: CT [...] by: Gilberto Seymour MD 10/05/2024 02:25 PM [facility] Dictated By: Gilberto Seymour MD Signed By: <Electronically signed by Gilberto Seymour MD in OV> 10/05/24 1425 DD/ 1353 TD/TT: 10/05/24 1414 Product Development Intern: [facility] External Provider IMG CT PROCEDURES Final Result * BI Mammogram Screening Tomosynthesis Bilateral (09/05/2024 8:15 AM EST) Anatomical Region Laterality Modality Breast Bilateral Mammography 09/05/2024 8:15 AM EST Narrative 09/13/2024 1:12 PM EST ? [facility] ? [address] ?[place] [address] ? Mammography Report ? Signed ? Patient: Irma Pal ?M ?? R#: [id number] ? : 1950 ?Acct:[id number] ? Age/Sex: 73 / F ?ADM Date: 09/05/24 ? Loc: HO.MAMMO ? Attending Dr: Sammie Hale MD ? Ordering Physician: Sammie Silverman MD ?Results: ?? 1Negative ? Date of Service: 09/05/24 ?Follow Up: 1 Year From Orig ?? inal Mammogram ? Procedure(s): MM tomosynthesis screening BI ?? Accession Number(s): [id number] ? cc: Sammie Silverman MD ? EXAMINATION: [...] DD/ 0815 ? TD/TT: 09/05/24 0839 ? Product Development Intern: ? Procedure Note Shade, Heather - 09/13/2024 [facility] [address] [place] [address] [place]. [place], [place] [address] Mammography Report Signed Patient: DemarcoSolLiana R#: [id number] : 1950Acct:[id number] Age/Sex: 73 / FADM Date: 09/05/24 Loc: JARROD Attending Dr: Sammie Hale MD Ordering Physician: Sammie Silverman MDResults: 1Negative Date of Service: 01/21/25Follow Up: 1 Year From Orig ina Mammogram Procedure(s): MM tomosynthesis screening BI Accession Number(s): [id number] cc: Sammie Silverman MD EXAMINATION: MM SCREENING [...] 09/13/24 1309 DD/ 0815 TD/TT: 09/05/24 0839 Product Development Intern: Sammie Hale MD IMG BI PROCEDURES Wes stephany Result - Final * (ABNORMAL) POCT HGB A1C (08/28/2024 11:56 AM EST) Hemoglobin A1C 6.1(A) 4.0 - 6.0 % QC Media Lot # [id number] Lot# Expiration Date Blood 08/28/2024 11:5 6 AM EST Sammie Hale MD POINT OF CARE TEST EN TER/EDIT ORDERABLES Final Result * POCT Glucose (08/28/2024 11:56 AM EST) Glucose Blood, POC 163 60 - 200 mg/dL QC Media Lot # [id number] Lot# Expiration Date [id number] Blood Capillary blood specimen / Unknown 08/28/2024 11:56 AM EST Sammie Hale MD POINT OF CARE TEST EN TER/EDIT ORDERABLES Final Result * Lipid Panel, Standard (01/06/2023 10:56 AM EDT) [facility] Cholesterol, Total 165 <200 mg/dL [facility] [place] [email or web address] HDL Cholesterol 51 > OR = 50 mg/dL [place] [place] [facility] Triglycerides 148 <150 mg/dL [place] [place] [facility] LDL Cholesterol 89 mg/dL (calc) [facility] [place] [facility] Comment: Reference range: <100 Desirable range <100 mg/dL for primary prevention; ?? <70 mg/dL for patients with CHD or diabetic patients with > or = 2 CHD risk factors. LDL-C is now calculated using the Tyshawn-Zoltan calculation, which is a validated novel method providing better accuracy than the Friedewald equation in the estimation of LDL-C. Tyshawn SS et al. SUAD. 2013;310(19): 7132-2187 (http://education.IWT/faq/FCE786) Chol/HDLC Ratio 3.2 <5.0 (calc) [facility] [place] [facility] Non-HDL Cholesterol 114 <130 mg/dL (calc) [facility] [place] [facility] Comment: For patients with diabetes plus 1 major ASCVD risk factor, treating to a non-HDL-C goal of <100 mg/dL (LDL-C of <70 mg/dL) is considered a therapeutic option. Blood Venous blood specimen / Unknown 01/06/2023 10:56 AM EDT 01/06/2023 10:56 AM EDT Narrative [facility] - 01/06/2023 9:40 PM EDT FASTING:YES FASTING: YES us Sammie Hale MD LAB BLOOD ORDERABLES Final Result [facility] [address] [facility], [place] [address] [facility] [address] [place] [address] * HEPATITIS A,B,C PROFILE (10/17/2019 2:04 PM [...] Provider HISTORICAL/NON ORDERABLE LABS Final Result [facility] [address] from Last 3 Months or Most Recently Relevant to Health Maintenance Insurance [facility] D[facility]PLETE [facility]AL - [facility] Care Teams Screen Printing Stencil Preparer Relationship Specialty Start Date End Date Sammie Silverman MD [address] [place] [phone] PCP - General Family Medicine 04/27/18
--- OUTSIDE RECORDS SUMMARY | 2024-10-31 09:41 | XMS_ITS | Encounter Summary ---
Author Organization [employer] Address [address] [facility] 7t [place] [address] Care Team Providers Care Book Publisher Name Role Phone Sammie Silverman MD Primary [...] Description 01/15/2025 10:00 AM EDT Office Visit [facility] [address] [place] [address] Sammie Silverman MD [address] [place] [address] documented as of this encounter Visit Diagnoses Not on filedocumented in this encounter Additional Health Concerns Assessment Noted Time PHQ-9 Depression Total Score: 0 10/25/19 25 9:53 AM EDT documented as of this encounter Care Teams Book Publisher Relationship Specialty Start Date End Date Sammie Silverman MD [address] [place] [address] PCP - General Family Medicine 04/27/18 documented as of this encounter
--- OUTSIDE RECORDS SUMMARY | 2024-10-31 09:41 | XMS_ITS | Encounter Summary ---
Author Organization [employer] Address [address] [facility] [address] [place] [address] Care Team Providers Care Wire Machine Cutter Name Role Phone Sammie Silverman MD Primary Care Provide r Reason for Visit * Reason Comments Med Refill Encounter Details Date Type Department Care Team ([facility] st Contact Info) Description 10/29/2024 Refill [facility] [address] [place], [place] [phone] Sammie Silverman MD [address] [place] [address] Vitamin deficiency; Essential hypertension Social History Tobacco Use Types Packs/Day Years [...] Description 01/15/2025 10:00 AM EDT Office Visit [facility] [address] [place] [address] Sammie Silverman MD [address] [place] [address] documented as of this encounter Visit Diagnoses Diagnosis Vitamin deficiency Unspecified vitamin deficiency Essential hypertension Unspecified essential hypertension documented in this encounter Additional Health Concerns Assessment Noted Time PHQ-9 Depression Total Score: 0 10/25/19 25 9:53 AM EDT documented as of this encounter Care Teams Wire Machine Cutter Relationship Specialty Start Date End Date Sammie Silverman MD [address] [place] [address] PCP - General Family Medicine 04/27/18 documented as of this encounter
--- OUTSIDE RECORDS SUMMARY | 2024-10-31 09:41 | XMS_ITS | Encounter Summary ---
Author Organization [employer] Address [address] [facility] [address] [address] 7[address] [place] [address] Care Team Providers Care Emergency Room Technician Name Role Phone Sammie Silverman MD Primary Care Provide r Reason for Visit * Reason Comments Med Refill Encounter Details Date Type Department Care Team ([facility] st Contact Info) Description 10/30/2024 Refill [facility] [address] [place], [place] [phone] Sammie Silverman MD [address] [place] [address] Essential hypertension Social History Tobacco Use Types [...] Description 01/15/2025 10:00 AM EDT Office Visit [facility] [address] [place] [address] Sammie Silverman MD [address] [place] [address] documented as of this encounter Visit Diagnoses Diagnosis Essential hypertension Unspecified essential hypertension documented in this encounter Additional Health Concerns Assessment Noted Time PHQ-9 Depression Total Score: 0 10/25/19 25 9:53 AM EDT documented as of this encounter Care Teams Emergency Room Technician Relationship Specialty Start Date End Date Sammie Silverman MD [address] [place] [address] PCP - General Family Medicine 04/27/18 documented as of this encounter
== END 2024-10-31 09:39 | disposition home or self-care (01) ==
PROVIDERS: PCP Internal Medicine; Visit Provider Nurse Practitioner Family
DX: I44.7 Left bundle-branch block, unspecified (principal); R00.2 Palpitations; R55 Syncope and collapse; I10 Essential (primary) hypertension; E78.5 Hyperlipidemia, unspecified; J18.9 Pneumonia, unspecified organism; R07.9 Chest pain, unspecified
CPT/HCPCS: 99204; G2211

== ENCOUNTER → 2024-10-31 09:04 | Outpatient (BNVA) | payer OTHER, SELFPAY | PROVIDERS: PCP Internal Medicine; Visit Provider Nurse Practitioner Family | DX: I44.7 Left bundle-branch block, unspecified (principal); I10 Essential (primary) hypertension; R00.2 Palpitations; R55 Syncope and collapse; E78.5 Hyperlipidemia, unspecified; J18.9 Pneumonia, unspecified organism; R07.9 Chest pain, unspecified | CPT/HCPCS: 99202 ==

== ENCOUNTER → 2024-11-16 08:31 | Outpatient (REF) | payer OTHER, SELFPAY ==
--- NOTE | 2024-11-16 08:35 | CA_ITS ---
Acquisition Time: 2024-11-16 09:01:13 Total Exercise Time: 00:02:00 Test Indications: LBBB Medications: ALBUTEROL ATORVASTATIN LOSARTAN Protocol: LEXISCAN Max HR: 121 BPM 83% of Pred: 145 BPM Max BP: 124/60 mmHG Max Work Load: 1.0 METS Pharmacological stress test with Lexiscan while pt moves her legs in chair, with reports of feeling fatigued, with isolated PACs and PVCs, with normotensive response to injection. Nondiagnostic EKG for ischemia. In recovery, pt treated with IVP Aminophylline 75 mg to reverse Lexiscan after which, pt feeling back to baseline. Nuclear images pending. Test reviewed with Dr. Pond. Referred By: Sarahy Herrera Electronically Signed By: Boris Pickett
--- OUTSIDE RECORDS SUMMARY | 2024-11-16 08:39 | XMS_ITS | Encounter Summary ---
Author Organization [employer] Address [address] [facility] 7t [place] [address] Care Team Providers Care Campus Wellness Coordinator Name Role Phone Sammie Silverman MD Primary Care Provide r Encounter Details Date Type Department Care Team ([facility] Contact Info) Description 05/18/2023 Orders Only [facility] [address] [place], [place] [phone] Rosa Wise LPN Social History Tobacco Use [...] Department Care Team (Late Contact Info) Description 01/15/2025 10:00 AM EDT Office Visit [facility] [address] [place], [place] [phone] Sammie Silverman MD [address] [place], [place] [phone] documented as of this encounter Visit Diagnoses Not on filedocumented in this encounter Additional Health Concerns Assessment Noted Time PHQ-9 Depression Total Score: 0 01/07/20 23 9:59 AM EDT documented as of this encounter Care Teams Campus Wellness Coordinator Relationship Specialty Start Date End Date Sammie Silverman MD [address] [place] [address] PCP - General Family Medicine 04/27/18 documented as of this encounter
--- OUTSIDE RECORDS SUMMARY | 2024-11-16 08:39 | XMS_ITS | Encounter Summary ---
Author Organization [employer] Address [address] [facility] 7t [place] [address] Care Team Providers Care Electric Gas Appliances Demonstrator Name Role Phone Sammie Silverman MD Primary Care Provide r Reason for Visit * Reason Onset Date Comments Nurse Triage 08/04/2023 Encounter Details Date Type Department Care Team ([facility] st Contact Info) Description 08/04/2023 Telephone [facility] [address] [place], [place] [phone] Sammie Silverman MD [address] [place], [place] [phone] Nurse Triage Social History Tobacco Use Types [...] 08/04/2023 3:42 PM EST 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 Pt reports was tested for Covid [...] accepted this outcome Please contact pt @ [phone] Kuwaiti Speaker documented in this encounter Plan of Treatment Upcoming Encounters Date Type Department Care Team (Late st Contact Info) Description 01/15/2025 10:00 AM EDT Office Visit [facility] [address] [place] [address] Sammie Silverman MD [address] [place] [address] documented as of this encounter Visit Diagnoses Not on filedocumented in this encounter Additional Health Concerns Assessment Noted Time PHQ-9 Depression Total Score: 0 01/07/20 23 9:59 AM EDT documented as of this encounter Care Teams Electric Gas Appliances Demonstrator Relationship Specialty Start Date End Date Sammie Silverman MD [address] [place] [address] PCP - General Family Medicine 04/27/18 documented as of this encounter
--- OUTSIDE RECORDS SUMMARY | 2024-11-16 08:39 | XMS_ITS | Clinical Summary ---
Author Organization [facility] Address [address] [place] [address] Phone Care Team Providers Care English As A Second Language Instructor Name Role Phone Sammie Silverman MD Primary [...] Refill [facility] [address] [place], [place] [phone] Shiva Patel MD from Last 3 Months [...] Visit [facility] [address] [place] [phone] Shiva Patel MD [address] [facility] [address] [place] [phone] Health Maintenance Due Date Last Done Comments Breast Cancer Screening 1950 Colorectal Cancer Screening: Annual FOBT 1998 Colorectal Cancer Screening: Colonoscopy 1998 Colorectal Cancer Screening: Sigmoidoscopy 1998 Diabetes: Ophthalmology Exam 12/15/2021 Diabetes: Pedal Pulse Checked 12/15/2021 Diabetes: Sensory Foot Exam 12/15/2021 Diabetes: Visual Foot Exam 12/15/2021 Diabetes: Hemoglobin A1C 11/26/2024 08/28/2024, 02/0 04/2024 Pneumococcal Vaccine: 65+ Years Completed 08/30/2019, 04/30/2015, 09/25/2011 Influenza Vaccine Completed 07/12/2024, , 06/18/2020, Additional history exists Hepatitis B Vaccine Aged Out No longe r eligible based on patient's age to complete this topic Insurance [place] [employer] [id number] [facility] DUAL COMPLETE ([id number]) [id number] [facility] DUAL COMPLETE ([id number]) Care Teams English As A Second Language Instructor Relationship Specialty Start Date End Date Sammie Silverman MD [address] [place] [phone] PCP - General Internal Medicine 12/19/20
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
--- OUTSIDE RECORDS SUMMARY | 2024-11-16 08:39 | XMS_ITS | Clinical Summary ---
Author Organization [employer] Address 75 [facility] 7t [place] [address] Care Team Providers Care Health Physics Technician Name Role Phone Sammie Silverman MD [...] each Active Blood Glucose Monitoring Suppl (FreeStyle Macon Lite) w/Device kitIndications: Prediabetes Use to test [...] 3 Active Blood Glucose Monitoring Suppl (FreeStyle [place] Lite) w/Device kitIndications: Prediabetes Use to test [...] Type Department Care Team Description 10/30/2024 Refill [facility] [address] [place] [address] Sammie Silverman MD Essential hypertension 10/29/2024 Refill [facility] [address] [place] [address] Sammie Silverman MD Vitamin deficiency; Essential hypertension 10/24/2024 10:15 AM EDT Office Visit [facility] [address] [place] [address] Sammie Silverman MD Aspiration pneumonia of both lower lobes due to vomit (CMS/HCC) (Primary Dx); Essential hypertension; LBBB (left bundle branch block); SOB (shortness of breath); Prediabetes 10/24/2024 Travel 10/20/2024 Telephone [facility] [address] [place] [phone] Sammie Silverman MD Chart Prep 10/09/2024 Patient Outreach [address] [address] Sammie Silverman MD Transition Of Care (Tcm) (HDF- LV ) 10/09/[address] [address] Sammie Silverman MD Hospital Follow-up 10/06/[address] [address] Sammie Silverman MD Error (VOID this visit) 10/05/2024 Telephone [facility] [address] [place] [phone] Sammie Silverman MD Nurse Triage 09/11/2024 Refill [facility] [address] [place], [place] [phone] Sammie Silverman MD Constipation, unspecified constipation type 09/05/2024 Orders Only [address] [address] Sammie Silverman MD 08/28/2024 11:30 AM EST Office Visit [address] [phone] Sammie Silverman MD Moderate persistent asthma, unspecified whether complicated (Primary Dx); Prediabetes 08/28/2024 Travel 08/21/[address] [phone] Sammie Silverman MD callback requested from Last 3 Months Immunizations Name Administration [...] is your housing situation today? I have radhaopal rodas 05/31/[address] you [...] Description 01/15/2025 10:00 AM EDT Office Visit [facility] [address] [place] [address] Sammie Silverman MD [address] [place] [address] Health Maintenance Due Date Last Done Comments [...] Lactic Acid 1.1 0.5 - 2.0 mmol/L [facility] 10/05/2024 4:27 PM EST 10/05/2024 4:33 PM EST us Generic External Data Provider LAB BLOOD ORDERAB LES Final Result Performing Organization Address City/State/[facility] Co de Phone Number [facility] [address] [place] [phone] * (ABNORMAL) Urinalysis, Complete, with Reflex to Culture (10/05/2024 2:04 PM EST) Color Urine Yellow [facility] Appearance Urine Clear [facility] PH 5.5 5.0 - 9.0 [facility] Glucose Urine UA >=1000(A) Negative mg/dL [facility] Urine Blood Negative Negative [facility] Specific [place] - Urine 1.025 1.005 - 1.025 [facility] Urine Protein Negative Neg-Trace mg/dL [facility] Urine Ketones Negative Negative mg/dL [facility] Nitrite Urine Negative Negative [facility] Leukocyte Esterase Urine Negative Negative [facility] RBC Urine 0-2 0 - 2 /HPF [facility] Urine WBC 0-5 0 - 5 /HPF [facility] Urine Squamous Epithelial Cell 6-10 0 - 2 /HPF [facility] Urine Bacteria 1+ None Seen [facility] Hyaline Casts, Urine 3-5 0 - 2 /LPF [facility] 10/05/2024 2:04 PM EST 10/05/2024 2:07 PM EST Narrative [facility] - 10/05/2024 2:21 PM EST [id number], Clean Catch us Generic External Data Provider LAB URINE ORDERAB LES Final Result Performing Organization Address City/State/[facility] Co de Phone Number [facility] [address] [place] [address] [phone] * XR Chest 1 View (10/05/2024 2:04 PM EST) Anatomical Region Laterality Modality Chest Radiographic Addie ging 10/05/2024 2:04 PM EST Narrative 10/05/2024 2:20 PM EST ? [facility] ?[address] ?[place] [address] ?XRay Report ? Signed ? Patient: Irma Pal ?M ?? R#: [id number] ? : 1950 ?Acct:[id number] ? Age/Sex: 74 / F ?ADM Date: 10/05/24 ? Loc: HO.ED ? Attending Dr: ? Ordering Physician: Jose Calvin MD ?? Date of Service: 10/05/24 ?? Procedure(s): XR chest 1V ?? Accession Number(s): [id number] ? cc: Sammie Silverman MD; Jose Calvin [...] DD/ 1404 ? TD/TT: 10/05/24 1404 ? Law Office Assistant: ? Procedure Note Donanilater, Image - 10/05/2024 [place] [address] XRay Report Signed Patient: Sanjuana Pal R#: [id number] : 1950Acct:[id number] Age/Sex: 74 / FADM Date: 10/05/24 Loc: HO.ED Attending Dr: Ordering Physician: Jose Calvin MD Date of Service: 10/05/24 Procedure(s): XR chest 1V Accession Number(s): [id number] cc: Sammie Silverman MD; Jose Calvin MD [...] 10/05/24 1417 DD/ 1404 TD/TT: 10/05/24 1404 Law Office Assistant: [facility] External Provider IMG XR PROCEDURES Final Result * CT Abdomen Pelvis w/o Contrast (10/05/2024 1:53 PM EST) Anatomical Region Laterality Modality Body, Pelvis, Abdomen Computed T omography 10/05/2024 1:53 PM EST Narrative 10/05/2024 2:28 PM EST ? [facility] ?[address] ?[place] [address] ? CT Scan Report ? Signed ? Patient: Irma Pal ?M ?? R#: [id number] ? : 1950 ?Acct:[id number] ? Age/Sex: 74 / F ?ADM Date: 10/05/24 ? Loc: HO.ED ? Attending Dr: ? Ordering Physician: Jose Calvin MD ?? Date of Service: 10/05/24 ?? Procedure(s): CT abdomen pelvis wo IV con ?? Accession Number(s): [id number] ? cc: Sammie Silverman MD; Jose Calvin MD ? Report Number: ?? [id number]: Total DLP = ??462.00 mGy-cm ?? EXAMINATION: [...] DD/ 1353 ? TD/TT: 10/05/24 1414 ? Law Office Assistant: ? Procedure Note Donotuseinterpreter, Image - 10/05/[address] [address] Scan Report Signed Patient: Sanjuana Pal R#: [id number] : 1950Acct:[id number] Age/Sex: 74 / FADM Date: 10/05/24 Loc: HO.ED Attending Dr: Ordering Physician: Jose Calvin MD Date of Service: 10/05/24 Procedure(s): CT abdomen pelvis wo IV con Accession Number(s): [id number] cc: Sammie Silverman MD; Jose Calvin MD Report Number: [id number]: Total DLP = 462.00 mGy-cm EXAMINATION: CT [...] 10/05/24 1425 DD/ 1353 TD/TT: 10/05/24 1414 Law Office Assistant: [facility] External Provider IMG CT PROCEDURES Final Result * BI Mammogram Screening Tomosynthesis Bilateral (09/05/2024 8:15 AM EST) Anatomical Region Laterality Modality Breast Bilateral Mammography 09/05/2024 8:15 AM EST Narrative 09/13/2024 1:12 PM EST ? [facility] ? [address] ?[place] [address] ? Mammography Report ? Signed ? Patient: Demarco,Irma ?M ?? R#: [id number] ? : 1950 ?Acct:[id number] ? Age/Sex: 73 / F ?ADM Date: 01/21/25 ? Loc: HO.MAMMO ? Attending Dr: Sammie Hale MD ? Ordering Physician: Sammie Silverman MD ?Results: ?? 1Negative ? Date of Service: 09/05/24 ?Follow Up: 1 Year From Orig ?? inal Mammogram ? Procedure(s): MM tomosynthesis screening BI ?? Accession Number(s): [id number] ? cc: Sammie Silverman MD ? EXAMINATION: [...] DD/ 0815 ? TD/TT: 09/05/24 0839 ? Law Office Assistant: ? Procedure Note Donotuseinterpreter, Image - 09/13/2024 [place] [facility] [address] [place] [address] Mammography Report Signed Patient: Sanjuana Pal R#: [id number] : 1950Acct:[id number] Age/Sex: 73 / FADM Date: 09/05/24 Loc: HO.MAMMO Attending Dr: Sammie Hale MD Ordering Physician: Sammie Silverman MDResults: 1Negative Date of Service: 09/05/24Follow Up: 1 Year From Orig inal Mammogram Procedure(s): MM tomosynthesis screening BI Accession Number(s): [id number] cc: Sammie Silverman MD EXAMINATION: MM SCREENING [...] 09/13/24 1309 DD/ 0815 TD/TT: 09/05/24 0839 Law Office Assistant: Sammie Hale MD IMG BI PROCEDURES Wes stephany Result - Final * (ABNORMAL) POCT HGB A1C (08/28/2024 11:56 AM EST) [facility] Hemoglobin A1C 6.1(A) 4.0 - 6.0 % QC Media Lot # [id number] Lot# Expiration Date Blood 08/28/2024 11:5 6 AM EST Result [facility] Sammie Hale MD POINT OF CARE TEST EN TER/EDIT ORDERABLES Final Result * POCT Glucose (08/28/2024 11:56 AM EST) [facility] Glucose Blood, POC 163 60 - 200 mg/dL QC Media Lot # [id number] Lot# Expiration Date ,025 Blood Capillary blood specimen / Unknown 08/28/2024 11:56 AM EST Result [facility] Sammie Hale MD POINT OF CARE TEST EN TER/EDIT ORDERABLES Final Result * Lipid Panel, Standard (01/06/2023 10:56 AM EDT) [facility] Cholesterol, Total 165 <200 mg/dL [facility] HDL Cholesterol 51 > OR = 50 mg/dL [facility] Triglycerides 148 <150 mg/dL [employer] LDL Cholesterol 89 mg/dL (calc) [facility] Comment: Reference range: <100 Desirable range <100 mg/dL for primary prevention; ?? <70 mg/dL for patients with CHD or diabetic patients with > or = 2 CHD risk factors. LDL-C is now calculated using the Kedar calculation, which is a validated novel method providing better accuracy than the Friedewald equation in the estimation of LDL-C. Tyshawn ESTRADA et al. SUAD. 2013;310(19): 4364-0756 (http://education.Memonic/faq/UPU927) Chol/HDLC Ratio 3.2 <5.0 (calc) [facility] Non-HDL Cholesterol 114 <130 mg/dL (calc) [facility] Comment: For patients with diabetes plus 1 major ASCVD risk factor, treating to a non-HDL-C goal of <100 mg/dL (LDL-C of <70 mg/dL) is considered a therapeutic option. Blood Venous blood specimen / Unknown 01/06/2023 10:56 AM EDT 01/06/2023 10:56 AM EDT Narrative [facility] - 01/06/2023 9:40 PM EDT FASTING:YES FASTING: YES Sammie Hale MD LAB BLOOD ORDERABLES Final Result [facility] [address] [place] [address] [employer] [address] [place] [address] * HEPATITIS A,B,C PROFILE (10/17/2019 2:04 PM [...] acute HCV infection. 10/17/2019 2:04 PM EST Historical Provider HISTORICAL/NON ORDERABLE LABS Final Result [facility] [address] from Last 3 Months or Most Recently Relevant to Health Maintenance Insurance [facility] DUAL COMPLETE DENTAL - [facility] Care Teams Health Physics Technician Relationship Specialty Start Date End Date Sammie Silverman MD [address] [place] [address] PCP - General Family Medicine 04/27/18
== END ==
LOC: HO.CARD 08:31
PROVIDERS: PCP Internal Medicine; Visit Provider Nurse Practitioner Family
DX: R00.2 Palpitations (principal); R55 Syncope and collapse; I44.7 Left bundle-branch block, unspecified; R07.9 Chest pain, unspecified
CPT/HCPCS: 78452; 93017; 93242; A9500; J0280; J2785

== ENCOUNTER → 2024-11-16 08:35 | Outpatient (BNV) | payer OTHER, SELFPAY | PROVIDERS: PCP Internal Medicine | DX: I49.1 Atrial premature depolarization (principal); I49.3 Ventricular premature depolarization | CPT/HCPCS: 78452; 93016; 93018 ==

== ENCOUNTER 2024-12-14 09:07 | Outpatient (AMB) | payer OTHER, SELFPAY ==
--- NOTE | 2024-12-14 09:09 | A.OFFVIS_ITS ---
Vital Signs 12/14/24 09:10 Height 4 ft 9 in Weight 140 lb 10.479 oz BMI 30.4 BP 114/62 Blood Pressure Location Lt brachial Position Sitting Pulse 67 Pulse Source Pulse Oximeter Intake Visit Reasons: 6 wk f/up melquiades Plating Tank Operator Required: No Customer Operations Intern: Customer Operations Intern Present Allergies aspirin [ASPIRIN] Allergy (Unknown, Verified 12/14/24 09:11) MOUTH SWELLING Beef Containing Products [BEEF CONTAINING PRODUCTS] Adverse Reaction (Unknown, Verified 12/14/24 09:11) ITCHY Medication List - Last Reconciled 12/14/24 by RUDDY Landeros albuterol sulfate 2.5 mg inhalation Q6H PRN albuterol sulfate 90 mcg/actuation 2 puffs PO Q4-6H PRN 30 days atorvastatin 20 mg PO DAILY budesonide-formoterol 160-4.5 mcg/actuation (Symbicort) 2 puffs inhalation BID bumetanide 2 mg (2 x 1 mg) PO DAILY 30 days calcium carbonate-vitamin D3 600 mg-10 mcg (400 unit) 1 tab PO DAILY cholecalciferol (vitamin D3) (Vitamin D3) 50 mcg PO DAILY citalopram 20 mg PO DAILY dapagliflozin propanediol (Farxiga) 10 mg PO DAILY docusate sodium 100 mg PO BID fluticasone propionate 50 mcg/actuation 1 spray intranasal DAILY PRN loperamide (Anti-Diarrheal (loperamide)) 2 mg PO Q6H PRN loratadine 10 mg PO DAILY PRN losartan 12.5 mg PO BEDTIME montelukast 10 mg PO DAILY HPI HPI 6 wk f/up melquiades: Details: Irma is a 74-year-old female with past medical history of obesity, hypertension, hyperlipidemia, asthma who was recently seen in the ER for epigastric type discomfort and was found to have bronchopneumonia. EMS had reported patient had unresponsive episodes while in their care. Her EKG showed sinus tachycardia with left bundle branch block. Troponin levels were normal. An echocardiogram has shown normal EF and paradoxical septal motion consistent with left bundle branch block. On discharge she was referred to Cardiology. On last visit a nuclear stress test and Holter monitor were ordered and she now presents for follow-up. Today she reports that she has been doing very well since her last visit in October. She has no cardiac concerns at this time. She is denying any chest discomfort at rest or during activities. She now denies having any rapid heartbeats or palpitations. She says her breathing is normal, no PND, orthopnea or edema. She has been active and tolerates steady walking without symptoms. She has had vertigo in the past but is not experiencing any symptoms at this time. Daughter is present and assisting with [facility] Medical History Environmental allergies Arthralgia of knee Breast mass Varicose veins of both lower extremities CARON (obstructive sleep apnea) Major depression Hyperlipidemia Arthritis Mood disorder Allergic rhinitis Osteopenia HTN (hypertension) Asthma Surgical History Hx of tubal ligation Hx of cholecystectomy History of back surgery Hx of section Family History Mother CVD (cardiovascular disease) HTN (hypertension) Father Stroke Social History Household Members: Spouse Housing: Apartment Do you presently have visiting nurse or other home services: Yes (come every 3 months , james is her JUNIOR SALES REPRESENTATIVE. nursing does assessments) Alcohol intake: never Patient Tobacco Use Status: Never used Tobacco Advance Directives Date on File: 10/06/24 service: No Review of Systems Const All systems reviewed & are unremarkable except as noted in HPI and below ENT Denies dizziness Card Denies chest pain, Denies chest pain at rest, Denies chest pain with activity, Denies rapid heart rate, Denies pedal edema, Denies edema, Denies leg edema, Denies lightheadedness, Denies palpitations, Denies dyspnea, Denies dyspnea on exertion and Denies orthopnea Resp Denies cough, Denies dyspnea and Denies dyspnea on exertion GI Denies hematochezia and Denies change in stool character Musc Denies abnormal gait, Denies limited range of motion, Denies muscle cramps, Denies muscle weakness, Denies numbness, Denies radiating pain into limb, Denies stiffness and Denies tingling Neuro Denies abnormal gait, Denies dizziness, Denies numbness and Denies tingling Endo Denies palpitations Physical Exam Vital Signs: Last Vital Signs Pulse 67 12/14/24 09:10 BP 114/62 12/14/24 09:10 BMI result Body Mass Index 30.4 Const General: cooperative, healthy appearing, comfortable and no acute distress Orientation/consciousness: patient oriented x3 Neck Neck: Yes normal visual inspection Resp Effort & Inspection: normal respiratory effort Auscultation: rales (right lower lobe), no rhonchi and no wheezes Cardio Jugular venous distension: no JVD Rate: regular rate Rhythm: regular rhythm Heart sounds: S1 normal heart sound present, S2 normal heart sound present, no gallops, no murmurs and no rubs Neuro General: patient oriented x3 Extrem General: Yes normal to inspection, No no pedal edema and No calf tenderness Psych Appearance: grossly normal Mental Status: mental status grossly normal Speech and movement: Normal speech and movement present Assessment & Plan Assessment & Plan (1) Left bundle branch block: Code(s): I44.7 - Left bundle-branch block, unspecified Category: Medical Plan: EKG done at the time of recent ER evaluation, 10/05/2024 shows sinus tachycardia with left bundle branch block. Prior EKG in our system 2018 did not show left bundle branch block. Echocardiogram 10/06/2024 showed EF 62%, no regional wall motion abnormality. On last visit she reported atypical chest discomfort and underwent a nuclear stress test on 11/16/2024 which does show a reversible defect in the inferior region however report states it is less likely to be true ischemia and likely artifact. She has cardiac risk factors of hypertension, hyperlipidemia, mild obesity, age. She is currently asymptomatic and does not want further cardiac testing at this time. Signs and symptoms of angina reviewed with her. Instructed to notify this office if she has any concerning symptoms and CTA of coronary versus cardiac catheterization will be performed. Continue with risk factor modification. Continue losartan for good blood pressure control. Continue atorvastatin for LDL control. Emergency care if needed for symptoms. Cardiology follow-up 6 months, sooner if needed. (2) Palpitations: Code(s): R00.2 - Palpitations Category: Medical Plan: Prior reports of heart palpitations like her heart is going fast. Reported syncopal event while under EMS care last month. No other reports of syncope in the past. Holter monitor done 11/16/2024 for 3 days shows sinus rhythm with average heart rate 82, occasional PACs, no significant arrhythmia. (3) Syncope: Code(s): R55 - Syncope and collapse Category: Medical Plan: As above. -no recurrent episodes. (4) HTN (hypertension): Code(s): I10 - Essential (primary) hypertension Category: Medical Plan: [place]ushing goal less than 130/80. well controlled at this time. Continue losartan (5) Hyperlipidemia: Code(s): E78.5 - Hyperlipidemia, unspecified Category: Medical Plan: [place]ushing LDL goal less than 70. No recent lipid profile in our system. She can continue atorvastatin. Recommend recheck of lipids in the near future. Labs followed by PCP. Plan Time spent on chart review, documentation, interview and assessment Patient was informed and verbally consented to the use of an ambient scribe for clinic note documentation during this visit. During the discussion, I reviewed with the patient the presence of a left bundle branch block and the considerations regarding coronary artery disease given the stress test results. We deliberated the option of obtaining a coronary CTA to further explore potential coronary artery abnormalities however she decided on a symptom-directed approach owing to the absence of current symptoms and the possibility of false positive stress test results. The patient agreed to remain physically active while observing for symptoms. Future actions, such as further diagnostic imaging, will be taken if new symptoms develop. We agreed upon a follow-up timeline of six months, with immediate contact advised should any new symptoms arise. Patient Instructions: - Stay physically active and report new symptoms - Limit caffeine intake to one serving per day - Remain hydrated, especially during outdoor activities - Observe for symptoms such as chest pain and significant palpitations, and seek care immediately if these occur - Follow up in six months or sooner if symptoms develop Coding Level of Care Code Est Pt Level 4 (22550) Complex EM visit Add On G2211 Diagnoses Left bundle branch block I44.7 Palpitations R00.2 Syncope R55 HTN (hypertension) I10 Hyperlipidemia E78.5 Time Spent (min) 28
[2024-12-14 09:10] VITALS: BP 114/62; PULSE 67; BMI 30.4
--- OUTSIDE RECORDS SUMMARY | 2024-12-14 09:49 | XMS_ITS | Clinical Summary ---
Author Organization [facility] Address [address] [place] [address] Phone Care Team Providers Care Cinder Pitman Name Role Phone Sammie Silverman MD Primary [...] Spinal surgery 10/15/2011 Asthma 10/15/2011 Arthritis 10/15/2011 Immunizations Immunization Administration Dates Next Due Influenza Split 06/05/2013,05/31/2012 [...] Care Team (Late st Contact Info) Description 06/11/2025 2:45 PM EDT Office Visit [facility] [address] [place] [phone] Shiva Patel MD [address] [facility] [address] [place] [address] Health Maintenance Due Date Last Done Comments Breast Cancer Screening 1949 Colorectal Cancer Screening: Annual FOBT 1998 Colorectal Cancer Screening: Colonoscopy 1998 Colorectal Cancer Screening: Sigmoidoscopy 1998 Diabetes: Ophthalmology Exam 12/15/2021 Diabetes: Pedal Pulse Checked 12/15/2021 Diabetes: Sensory Foot Exam 12/15/2021 Diabetes: Visual Foot Exam 12/15/2021 Diabetes: Hemoglobin A1C 11/26/2024 08/28/2024, 04/2024 Pneumococcal Vaccine: 50+ Years Completed 08/30/2019, 04/30/2015, 09/25/2011 Pneumococcal Vaccine: Peds (0 to 5 Years) and At-Risk Patients (6 to 49 Years) Discontinued 08/30/2019, 04/30/2015, 09/25/2011 Influenza Vaccine Completed 07/12/2024, , 06/18/2020, Additional history exists Hepatitis B Vaccine Aged Out No longe r eligible based on patient's age to complete this topic Insurance [facility] [address] [place] [address] [facility] ([id number]) [place] [address] ([id number]) Care Teams Cinder Pitman Relationship Specialty Start Date End Date Sammie Silverman MD [address] [place] [phone] PCP - General Internal Medicine 12/19/20
--- OUTSIDE RECORDS SUMMARY | 2024-12-14 09:49 | XMS_ITS | Encounter Summary ---
Author Organization [employer] Address [address] [place] [address] Care Team Providers Care Bander Hand Name Role Phone Sammie Silverman MD Primary Care Provide r Reason for Visit * Reason Comments Med Refill Encounter Details Date Type Department Care Team ([facility] st Contact Info) Description 12/09/2024 Refill [facility] [address] [place], [place] [phone] Sammie Silverman MD [address] [place] [address] Social History Tobacco Use Types Packs/Day Years [...] Description 01/15/2025 10:00 AM EDT Office Visit [facility] [address] [place] [address] Sammie Silverman MD [address] [place] [address] documented as of this encounter Visit Diagnoses Not on filedocumented in this encounter Additional Health Concerns Assessment Noted Time PHQ-9 Depression Total Score: 0 10/25/19 25 9:53 AM EDT documented as of this encounter Care Teams Bander Hand Relationship Specialty Start Date End Date Sammie Silverman MD [address] [place] [phone] PCP - General Family Medicine 04/27/18 documented as of this encounter
--- OUTSIDE RECORDS SUMMARY | 2024-12-14 09:49 | XMS_ITS | Encounter Summary ---
Author Organization [employer] Address [address] [place] [address] Care Team Providers Care Engraver Ornamental Design Name Role Phone Sammie Silverman MD Primary Care Provide r Reason for Visit * Reason Comments Med Refill Encounter Details Date Type Department Care Team ([facility] st Contact Info) Description 12/14/2024 Refill [facility] MED[facility]INE [address] [place] [address] Belen Mehta FNP [address] [place] [address] Prediabetes Social History Tobacco Use Types Packs/Day [...] Description 01/15/2025 10:00 AM EDT Office Visit [facility] [address] [place] [address] Sammie Silverman MD [address] [place] [address] documented as of this encounter Visit Diagnoses Diagnosis Prediabetes Other abnormal glucose documented in this encounter Additional Health Concerns Assessment Noted Time PHQ-9 Depression Total Score: 0 10/25/19 25 9:53 AM EDT documented as of this encounter Care Teams Engraver Ornamental Design Relationship Specialty Start Date End Date Sammie Silverman MD [address] [place] [phone] PCP - General Family Medicine 04/27/18 documented as of this encounter
--- OUTSIDE RECORDS SUMMARY | 2024-12-14 09:49 | XMS_ITS | Encounter Summary ---
Author Organization [email or web address] Address [address] [facility] [address]t [place] [address] Care Team Providers Care Kiln Loader Name Role Phone Sammie Silverman MD Primary Care Provide r Reason for Visit * Reason Onset Date Comments Nurse Triage 08/04/2023 Encounter Details Date Type Department Care Team ([facility] st Contact Info) Description 08/04/2023 Telephone [facility] MEDICINE [address] [place], [place] [phone] Sammie Silverman MD [address] [place], [place] [phone] Nurse Triage Social History Tobacco Use Types [...] 08/04/2023 3:42 PM EST Triage call with [employer] [place] [id number] Pt reports was seen in pulmonology [place] [facility] [place]. Pt reports was tested for Covid [...] accepted this outcome Please contact pt @ [phone] Slovenian Speaker documented in this encounter Plan of Treatment Upcoming Encounters Date Type Department Care Team (Late st Contact Info) Description 01/15/2025 10:00 AM EDT Office Visit [facility] MED[facility]INE [address] [place] [address] Sammie Silverman MD [address] [place] [address] documented as of this encounter Visit Diagnoses Not on filedocumented in this encounter Additional Health Concerns Assessment Noted Time PHQ-9 Depression Total Score: 0 01/07/20 23 9:59 AM EDT documented as of this encounter Care Teams Kiln Loader Relationship Specialty Start Date End Date Sammie Silverman MD [address] [place] [address] PCP - General Family Medicine 04/27/18 documented as of this encounter
--- OUTSIDE RECORDS SUMMARY | 2024-12-14 09:49 | XMS_ITS ---
Author Name Ridge Rubio APRN Address [address] [place] [address] Phone [phone] Organization [facility] Care Team Providers Care Electrical Machinist Name Role Phone Palma Rubio Unavailable [phone] Reason for Referral Not Available Allergies, adverse [...] of Service Diagnosis/Co mplaint No Data Available [facility] Type 2 diabetes mellitus wit h diabetic chronic kidney diseaseHypertensive chronic kidney disease w stg 1-4/unsp chr kdnyChronic kidney disease, stage 3aHyperlipidemia, unspecifiedAnxiety disorder, unspecifiedChronic obstructive pulmonary disease, unspecifiedVitamin D deficiency, unspecifiedConstipation, unspecifiedDietary calcium deficiency No Data Available [facility] [facility] [facility] [facility] [facility] [facility] Estab. patient 20-29min; 1 stable chronic or 2 minor; add add modifier 95 for video, modifier [address] [facility] [place]20[place] Type 2 diabetes mellitus wit [...] for video, modifier [address] [facility] [place]20[place] Unlisted special service; to be used for medical record reviews and reporting CPTII codes (1111F, etc) [facility] ([place] 03/[place]/2023 Other specified counseling Unlisted special service; to be used for medical record reviews and reporting CPTII codes (1111F, etc) [facility] Unlisted special service; to be used for medical record reviews and reporting CPTII codes (1111F, etc) [facility] [place] Estab. patient 30-39min; chronic exacerbation, 2 stable chronic or 1 acute illness add add modifier 95 for video, (do not use for phone, instead use [id number]) [facility]2023 Type 2 diabetes mellitus [...] (do not use for phone, instead use [id number]) [facility] Estab. patient 30-39min; chronic exacerbation, 2 stable chronic or 1 acute illness add add modifier 95 for video, (do not use for phone, instead use 01770-49) [facility] [place] 04[place]/2023 Estab. patient 30-39min; chronic exacerbation, 2 stable chronic or 1 acute illness add add modifier 95 for video, (do not use for phone, instead use 77786-79) [facility]2023 Unlisted special service; to be used for medical record reviews and reporting CPTII codes (1111F, etc) [facility] [place] 01/07/2024 Other specified health statu s Unlisted special service; to be used for medical record reviews and reporting CPTII codes (1111F, etc) [facility] [place] Unlisted special service; to be used for medical record reviews and reporting CPTII codes (1111F, etc) [facility] [place]2024 Vital Signs Date of Collection Vitals 2022-08-05 09:12:10 Height - 149.86 cmWe ight - 63.96 kgBody Mass Index (BMI) - 28.48 kg/m2 2023-04-09 11:44:18 BP Diastolic - 83.0 mm[Hg]BP Systolic - 132.0 mm[Hg] Social History Social History Social History Observation Description Effec tive Time Current Smoking Status Never smoker 1 Sex Female History of Procedures Procedures Service Procedure code Service date Servicing provider Phone# No Data Available [id number] 2022-07-03 No Data Available No Data Available [...] 95 for video, modifier 93 for phone [id number] 2022-08-05 No Data Available No Data Availa ble BMI obtained (3008F) 3008F 2022-08-05 No Data Availab le No Data Available Unlisted special service; to be used for medical record reviews and reporting CPTII codes (1111F, etc) 54355 2023-03-31 No Data Available No Data Availa ble SBP < 130 (3074F) 3074F 2023-03-31 No Data Available No Data Available DBP 80-89 (3079F) 3079F 2023-03-31 No Data Available No Data Available Estab. patient 30-39min; chronic exacerbation, 2 stable chronic or 1 acute illness add add modifier 95 for video, (do not use for phone, instead use 26701-21) 98959 2023-04-09 No Data Available No Data Availa [...] reviews and reporting CPTII codes (1111F, etc) 33055 2024-01-07 No Data Available No Data Availa ble SBP < 130 (3074F) 3074F 2024-01-07 No Data Available No Data Available DBP <80 (3078F) 3078F 2024-01-07 No Data Available No Data Available Functional Status Functional Category Effective Dates CAMPGROUND HAND/granddaughter, 2 hrs/wk 2022-07-03 walker 2022-07-03 Mental Status [...] level every 3 monthsCheck BS weeklyContinue seeing playground aide, Dr. Shiva Santo foods high in saltIncorporate [...] level every 3 monthsCheck BS weeklyContinue seeing playground aideDr. Shiva foods high in saltIncorporate exercise regimen and lifestyle modificationsContinue taking losartan as prescribedCheck BP weekly and report any elevated readingsAvoid foods high in fatIncorporate exercise regimen and lifestyle modificationsContinue taking Atorvastatin as prescribed Check lipid levels yearlyManaged by PCPContinue taking symbicort, spiriva, montelukast as prescribedAvoid irritantsContinue taking vit d as prescribedContinue taking docusate as prescribedContinue taking prescribed medicationson furosemide daily [id number], low na dietcall if weight gain greater than 3lbs for RX treatmenton furosemidemonitor BPlow na dieton citalopram no recent episodes and stable 2023-03-31 11:07:41 [id number] < 130 (3074 F)DBP 80-89 (3079F) 2023-04-09 [...] level every 3 monthsCheck BS weeklyContinue seeing playground aide, Dr. Shiva Santo foods high in saltIncorporate [...] no recent episodes and stableon furosemide daily [id number], low na dietcall if weight gain greater [...] recen tly increased to BID done by chemical blender due to fluid in lungs, denies cough and SOB at this time 2022-08-05 will send proair ref ill to pharmacy 2022-08-05 call if you feel ill , have any questions or concerns
--- OUTSIDE RECORDS SUMMARY | 2024-12-14 09:49 | XMS_ITS | Encounter Summary ---
Author Organization [employer] Address [address] [facility] [address] [place] [address] Care Team Providers Care It Program Engagement Director Name Role Phone Sammie Silverman MD Primary Care Provide r Encounter Details Date Type Department Care Team ([facility] Contact Info) Description 05/18/2023 Orders Only [facility] MED & PEDS [address] [place], [place] [phone] Rosa Wise LPN Social History Tobacco Use [...] Upcoming Encounters Date Type Department Care Team ([facility] Contact Info) Description 01/15/2025 10:00 AM EDT Office Visit [facility] MEDICINE [address] [place], [place] [phone] Sammie Silverman MD [address] [place], [place] [phone] documented as of this encounter Visit Diagnoses Not on filedocumented in this encounter Additional Health Concerns Assessment Noted Time PHQ-9 Depression Total Score: 0 01/07/20 23 9:59 AM EDT documented as of this encounter Care Teams It Program Engagement Director Relationship Specialty Start Date End Date Sammie Silverman MD [address] [place] [address] PCP - General Family Medicine 04/27/18 documented as of this encounter
--- OUTSIDE RECORDS SUMMARY | 2024-12-14 09:49 | XMS_ITS | Clinical Summary ---
Author Organization [employer] Address [address] [facility] [address] [place] [address] Care Team Providers Care Fund Accountant Name Role Phone Sammie Silverman MD Primary [...] MORNING 90 tablet 3 03/22/20 24 Active dapagliflozin (Farxiga) 10 MG Take 10 mg by mouth Once per day. Active citalopram (CeleXA) 20 MG tablet Take 20 mg by mouth Once per day. Bel Junior Active montelukast (Singulair) 10 MG tabletIndicatio ns:Mild persistent asthma without complication TAKE 1 TABLET BY MOUTH EVERY EVENING 90 tablet 1 08/08/20 24 Active FREESTYLE LITE test stripIndication s:Prediabetes Use to test blood sugar 1 times daily 100 each 08/28/19 25 2025 Active Lancets miscIndications :Prediabetes Use to test blood sugar 1 times daily 100 each 08/28/19 25 Active Alcohol Swabs 70 % padsIndications :Prediabetes Use to test blood sugar 1 times daily 100 each 08/28/19 25 Active Blood Glucose Monitoring Suppl (FreeStyle [place] Lite) w/Device kitIndications: Prediabetes Use to test blood sugar 1 times daily 1 kit 08/28/19 Active budesonide-form oterol (Symbicort) 160-4.5 MCG/ACT inhalerIndicati [...] DAILY FOR CONSTIPATION 180 capsule 3 09/12/19 Active Blood Glucose Monitoring Suppl (FreeStyle [place] Lite) w/Device kitIndications: Prediabetes Use to test blood sugar 2 times daily 1 kit 10/25/19 25 Active bumetanide (Bumex) 1 MG tabletIndicatio ns:SOB (shortness of breath) Take 1 tablet (1 mg) by mouth 2 times daily. 60 tablet 10/25/19 25 Active cholecalciferol (D3 Super Strength) 50 MCG (2000 UT) capsuleIndicati ons:Vitamin deficiency TAKE 1 CAPSULE BY MOUTH EVERY MORNING 90 capsule 1 10/31/19 25 Active Calcium Carb-Cholecalci ferol 600-10 MG-MCG tablet TAKE 1 TABLET BY MOUTH EVERY MORNING 90 tablet 1 10/31/19 25 Active losartan (Cozaar) 25 MG tabletIndicatio ns:Essential hypertension TAKE 1/2 TABLET BY MOUTH EVERY EVENING 45 tablet 1 10/31/19 25 Active loratadine (Claritin) 10 MG tablet TAKE 1 TABLET BY MOUTH EVERY DAY NEEDED FOR ALLERGIES 90 tablet 1 12/12/19 25 Active loratadine (Claritin) 10 MG tablet TAKE 1 TABLET BY MOUTH EVERY DAY NEEDED FOR ALLERGIES 90 tablet 1 06/08/20 24 2024 Discontinued Active Problems Problem Noted [...] Encounters Date Type Department Care Team Description 12/14/2024 Refill [facility] [address] [place] [address] Belen Mehta FNP Prediabetes 12/09/2024 Refill [facility] [address] [place] [address] Sammie Silverman MD 11/16/2024 Orders Only [facility] External Provider, [facility] 10/30/2024 Refill [facility] [address] [place] [address] Sammie Silverman MD Essential hypertension 10/29/2024 Refill [facility] [address] [place] [address] Sammie Silverman MD Vitamin deficiency; Essential hypertension 10/24/2024 10:15 AM EDT Office Visit [facility] [address] [place] [phone] Sammie Silverman MD Aspiration pneumonia of both lower lobes due to vomit (CMS/HCC) (Primary Dx); Essential hypertension; LBBB (left bundle branch block); SOB (shortness of breath); Prediabetes 10/24/2024 Travel 10/20/2024 Telephone [facility] [address] [place] [address] Sammie Silverman MD Chart Prep 10/09/2024 Patient Outreach [facility] [address] [place] [address] [phone] Sammie Silverman MD Transition Of Care (Tcm) ([facility]- LVM ) 10/09/2024 Telephone [facility] [address] [place], [place] [phone] Sammie Silverman MD Hospital Follow-up 10/06/2024 Telephone [facility] [address] [place], [place] [phone] Sammie Silverman MD Error (VOID this visit) 10/05/2024 Telephone [facility] [address] [place], [place] [phone] Sammie Silverman MD Nurse Triage from Last 3 Months Immunizations Name Administration [...] 01/15/2025 10:00 AM EDT Office Visit [facility] [address] [place] [address] Sammie Silverman MD [address] [place] [address] Health Maintenance Due Date Last Done Comments [...] Procedure Name Priority Date/Time Associated Diagnosis Comments STRESS TEST WITH MYOCARDIAL PERFUSION Routine 11/16/2024 8:56 AM EDT LACTIC ACID Routine 10/05/2024 4:27 PM EST URINALYSIS, COMPLETE, WITH REFLEX TO CULTURE Routine 10/05/2024 2:04 PM EST XR CHEST 1 VIEW Routine 10/05/2024 2:[address] ABDOMEN PELVIS WO CONTRAST Routine 10/05/2024 1:53 PM EST POCT GLYCATED HEMOGLOBIN, TOTAL Routine 08/28/2024 11:56 AM EST Prediabetes PANORAMIC RADIOGRAPHIC IMAGE Routine 04/06/2023 10:00 AM EDT LIPID PANEL, STANDARD Routine 01/06/2023 10:56 AM EDT Essential hypertension Prediabetes ZZZ HISTORICAL HEPATITIS A,B,C PROFILE Routine 10/17/2019 2:04 PM EST from Last 3 Months or Most Recently Relevant to Health Maintenance Results * Stress test with myocardial perfusion (11/16/2024 8:56 AM EDT) 11/16/2024 8:56 AM EDT Narrative [facility] - 11/19/2024 1:15 PM EDT ? [facility] ?[address] ?[place] [address] ?Nuclear Medicine Report ? Signed ? Patient: Demarco,Irma ?M ?? R#: [id number] ? : 1950 ?Acct:[id number] ? Age/Sex: 74 / F ?ADM Date: 04/03/25 ? Loc: HO.CARD ? Attending Dr: Sarahy FOX ? Ordering Physician: Sarahy Herrera ?? Date of Service: 11/16/24 ?? Procedure(s): NM cardiolite stress test ?? Accession Number(s): [id number] ? cc: Sammie Silverman MD; Sarahy Herrera ? Lexiscan Myocardial perfusion study ? Indication: ?? Left bundle-branch block ? Technique: ? The patient was brought in for a Lexiscan perfusion study on 11/16/2024 ?? and was injected 0.4 mg of Lexiscan intravenously. Within a minute of ?? this injection 30 mCi of sestamibi was given intravenously. Images were ?? obtained using the SPECT gamma camera interlaced with the gating ?? device. Images were obtained in supine position. ? Resting perfusion study was performed on 11/17/2024. Patient was ?? administered 30 mCi of sestamibi intravenously at rest. Images were ?? then obtained in supine position. Total DLP 104 mGy-cm. ? Images were processed with the software and compared side to side in ?? short axis, horizontal long axis and vertical long axis views. ? Findings: ? Raw aquisition reviewed. Arms by the patient side. ? The stress perfusion study showed ??decreased tracer uptake in the ?? septum, distal part of inferolateral wall. Also reduced apical tracer ?? uptake. Evidence of subdiaphragmatic tracer uptake. With CT attenuation ?? correction, the subdiaphragmatic tracer uptake appears more prominent. ?? There is overall reduced uptake in the myocardium. The gated study ?? shows normal LV systolic function with calculated LVEF of 57%. LV ?? cavity is normal in size. The gated study shows normal ??wall thickening ?? and contraction of segments. ? Resting study shows suggestion subdiaphragmatic tracer uptake. Reduced ?? tracer uptake in the septum. With CT attenuation correction, there is ?? overall improvement in tracer uptake. Gating at rest reveals normal ?? wall motion with ejection fraction at 67%. ? The findings are consistent with reversible tracer uptake in the distal ?? inferolateral wall. Mostly fixed septal defect. ? NM/NM cardiolite stress test ?? Impression: ? 1. ??Myocardial perfusion imaging study is of suboptimal quality. ?? Apparent reversible defects in the distal inferolateral wall, apex; ?? fixed septal defect. Based on normal contractility, could be ?? artifactual. Less likely to be true ischemic defects. Correlate ?? clinically. ?? 2. ??Gated LVEF is 57% during stress and 67% during rest. ?? 3. Transient ischemic dilatation not present. ? EKG component of the test reported separately. ? Electronically signed by: ??Chris Pond MD ??11/19/2024 01:12 ?? PM EDT RP ? Dictated By: ?Chris Pond MD ? Signed By: ?<Electronically signed by Chris Pond MD in OV> ?11/19/24 1312 ? DD/ 0856 ? TD/TT: 11/17/24 1220 ? Business Representative: ? Procedure Note [place], Image - 11/19/2024 [place] [address] Nuclear Medicine Report Signed Patient: Sanjuana Pal R#: [id number] : 1950Acct:[id number] Age/Sex: 74 / FADM Date: 11/16/24 Loc: AMBER Attending Dr: Sarahy FOX Ordering Physician: Sarahy Herrera Date of Service: 11/16/24 Procedure(s): NM cardiolite stress test Accession Number(s): [id number] cc: Sammie Silverman MD; Sarahy Herrera Lexiscan Myocardial perfusion study Indication: Left bundle-branch block Technique: The patient was brought in for a Lexiscan perfusion study on 11/16/2024 and was injected 0.4 mg of Lexiscan intravenously. Within a minute of this injection 30 mCi of sestamibi was given intravenously. Images were obtained using the SPECT gamma camera interlaced with the gating device. Images were obtained in supine position. Resting perfusion study was performed on 11/17/2024. Patient was administered 30 mCi of sestamibi intravenously at rest. Images were then obtained in supine position. Total DLP 104 mGy-cm. Images were processed with the software and compared side to side in short axis, horizontal long axis and vertical long axis views. Findings: Raw aquisition reviewed. Arms by the patient side. The stress perfusion study showed decreased tracer uptake in the septum, distal part of inferolateral wall. Also reduced apical tracer uptake. Evidence of subdiaphragmatic tracer uptake. With CT attenuation correction, the subdiaphragmatic tracer uptake appears more prominent. There is overall reduced uptake in the myocardium. The gated study shows normal LV systolic function with calculated LVEF of 57%. LV cavity is normal in size. The gated study shows normal wall thickening and contraction of segments. Resting study shows suggestion subdiaphragmatic tracer uptake. Reduced tracer uptake in the septum. With CT attenuation correction, there is overall improvement in tracer uptake. Gating at rest reveals normal wall motion with ejection fraction at 67%. The findings are consistent with reversible tracer uptake in the distal inferolateral wall. Mostly fixed septal defect. NM/NM cardiolite stress test Impression: 1. Myocardial perfusion imaging study is of suboptimal quality. Apparent reversible defects in the distal inferolateral wall, apex; fixed septal defect. Based on normal contractility, could be artifactual. Less likely to be true ischemic defects. Correlate clinically. 2. Gated LVEF is 57% during stress and 67% during rest. 3. Transient ischemic dilatation not present. EKG component of the test reported separately. Electronically signed by: Chris Pond MD 11/19/2024 01:12 PM EDT Dictated By: Chris Pond MD Signed By: <Electronically signed by Chris Pond MD inOV> 11/19/24 1312 DD/ 0856 TD/TT: 11/17/24 1220 Business Representative: us [facility] External Provider CV STRE SS PROCEDURES Edited Result - Final [facility] [address] [place] [phone] * Lactic Acid (10/05/2024 4:27 PM EST) Lactic Acid 1.1 0.5 - 2.0 mmol/L [facility] 10/05/2024 4:27 PM EST 10/05/2024 4:33 PM EST Generic External Data Provider LAB BLOOD ORDERAB LES Final Result Performing Organization Address [facility]/ZIP Co de Phone Number [facility] [address] [place] [address] [phone] * (ABNORMAL) Urinalysis, Complete, with Reflex to Culture (10/05/2024 2:04 PM EST) Color Urine Yellow [facility] Appearance Urine Clear [facility] PH 5.5 5.0 - 9.0 [facility] Glucose Urine UA >=1000(A) Negative mg/dL [facility] Urine Blood Negative Negative [facility] Specific Thurman - Urine 1.025 1.005 - 1.025 [facility] Urine Protein Negative Neg-Trace mg/dL [facility] Urine Ketones Negative Negative mg/dL [facility] Nitrite Urine Negative Negative [facility] Leukocyte Esterase Urine Negative Negative [facility] RBC Urine 0-2 0 - 2 /HPF [facility] Urine WBC 0-5 0 - 5 /HPF [facility] Urine Squamous Epithelial Cell 6-10 0 - 2 /HPF [facility] Urine Bacteria 1+ None Seen [facility] Hyaline Casts, Urine 3-5 0 - 2 /LPF [facility] 10/05/2024 2:04 PM EST 10/05/2024 2:07 PM EST Narrative [facility] - 10/05/2024 2:21 PM EST [id number], Clean Catch Generic External Data Provider LAB URINE ORDERAB LES Final Result Performing Organization Address [facility]/ZIP Co de Phone Number [facility] [address] [place] [address] [phone] * XR Chest 1 View (10/05/2024 2:04 PM EST) Anatomical Region Laterality Modality Chest Radiographic Addie ging 10/05/2024 2:04 PM EST Narrative 10/05/2024 2:20 PM EST ? [facility] ?[address] ?[place] [address] ?XRay Report ? Signed ? Patient: Irma Pal ?M ?? R#: [id number] ? : 1950 ?Acct:[id number] ? Age/Sex: 74 / F ?ADM Date: 10/05/24 ? Loc: HO.ED ? Attending Dr: ? Ordering Physician: Jose Calvin MD ?? Date of Service: 10/05/24 ?? Procedure(s): XR chest 1V ?? Accession Number(s): [id number] ? cc: Sammie Silverman MD; Jose Calvin [...] ? Signed By: ?<Electronically signed by Richard lAva MD in OV> ? 10/05/24 1417 ? DD/ 1404 ? TD/TT: 10/05/24 1404 ? Business Representative: ? Procedure Note [place], Image - 10/05/[address] [place] [address] XRay Report Signed Patient: Sanjuana Pal R#: [id number] : 1950Acct:[id number] Age/Sex: 74 / FADM Date: 10/05/24 Loc: HO.ED Attending Dr: Ordering Physician: Jose Calvin MD Date of Service: 10/05/24 Procedure(s): XR chest 1V Accession Number(s): [id number] cc: Sammie Silverman MD; Jose Calvin MD [...] Richard Sims MD 10/05/2024 02:17 PM EST Dictated By: Richard Mendes MD Signed By: <Electronically signed by Richard Alva MDin OV> 10/05/24 1417 DD/ 1404 TD/TT: 10/05/24 1404 Business Representative: [facility] External Provider IMG XR PROCEDURES Final Result * CT Abdomen Pelvis w/o Contrast (10/05/2024 1:53 PM EST) Anatomical Region Laterality Modality Body, Pelvis, Abdomen Computed T omography 10/05/2024 1:53 PM EST Narrative 10/05/2024 2:28 PM EST ? [facility] ?[address] ?[place] [address] ? CT Scan Report ? Signed ? Patient: Roger Puckett,Irma ?M ?? R#: [id number] ? : 1950 ?Acct:[id number] ? Age/Sex: 74 / F ?ADM Date: 10/05/24 ? Loc: HO.ED ? Attending Dr: ? Ordering Physician: Jose Calvin MD ?? Date of Service: 10/05/24 ?? Procedure(s): CT abdomen pelvis wo IV con ?? Accession Number(s): [id number] ? cc: Sammie Silverman MD; Jose Calvin MD ? Report Number: ?? [id number]: Total DLP = ??462.00 mGy-cm ?? EXAMINATION: [...] arterial structures. ? Electronically signed by: ??Gilberto Seyomur MD ??10/05/2024 02:25 PM EST RP ? Dictated By: ?Gilberto Seymour MD ? Signed By: ?<Electronically signed by Gilberto Seymour MD in OV> ?10/05/24 1425 ? DD/ 1353 ? TD/TT: 10/05/24 1414 ? Business Representative: ? Procedure Note [place], Image - 10/05/[address] [address] [address] Scan Report Signed Patient: Sanjuana Pal#: [id number] : 1950Acct:[id number] Age/Sex: 74 / FADM Date: 10/05/24 Loc: HO.ED Attending Dr: Ordering Physician: Jose Calvin MD Date of Service: 10/05/24 Procedure(s): CT abdomen pelvis wo IV con Accession Number(s): [id number] cc: Sammie Silverman MD; Jose Calvin MD Report Number: [id number]: Total DLP = 462.00 mGy-cm EXAMINATION: CT [...] Gilberto Seymour MD 10/05/2024 02:25 PM EST RP Dictated By: Gilberto Seymour MD Signed By: <Electronically signed by Gilberto Seymour MD in OV> 10/05/24 1425 DD/ 1353 TD/TT: 10/05/24 1414 Business Representative: [facility] External Provider IMG CT PROCEDURES Final Result * (ABNORMAL) POCT HGB A1C (08/28/2024 11:56 AM EST) Hemoglobin A1C 6.1(A) 4.0 - 6.0 % QC Media Lot # [id number] Lot# Expiration Date Blood 08/28/2024 11:5 6 AM EST Sammie Hale MD POINT OF CARE TEST EN TER/EDIT ORDERABLES Final Result * Lipid Panel, Standard (01/06/2023 10:56 AM EDT) Cholesterol, Total 165 <200 mg/dL [facility] HDL Cholesterol 51 > OR = 50 mg/dL [facility] Triglycerides 148 <150 mg/dL [facility] LDL Cholesterol 89 mg/dL (calc) [facility] Comment: Reference range: <100 Desirable range <100 mg/dL for primary prevention; ?? <70 mg/dL for patients with CHD or diabetic patients with > or = 2 CHD risk factors. LDL-C is now calculated using the Kedar calculation, which is a validated novel method providing better accuracy than the Friedewald equation in the estimation of LDL-C. Tyshawn ESTRADA et al. SUAD. 2013;310(19): 3007-3445 (http://education.[employer].Experifun/faq/PAP974) Chol/HDLC Ratio 3.2 <5.0 (calc) [facility] Non-HDL Cholesterol 114 <130 mg/dL (calc) [facility] Comment: For patients with diabetes plus 1 major ASCVD risk factor, treating to a non-HDL-C goal of <100 mg/dL (LDL-C of <70 mg/dL) is considered a therapeutic option. Blood Venous blood specimen / Unknown 01/06/2023 10:56 AM EDT 01/06/2023 10:56 AM EDT Narrative [facility] - 01/06/2023 9:40 PM EDT FASTING:YES FASTING: YES Sammie Hale MD LAB BLOOD ORDERABLES Final Result [facility] [address], [facility] [place] [address] [facility] [address] [place] [address] * HEPATITIS A,B,C PROFILE (10/17/2019 2:04 PM [...] Historical Provider HISTORICAL/NON ORDERABLE LABS Final Result [facility] [address] from Last 3 Months or Most Recently Relevant to Health Maintenance Insurance [facility] Care Teams Fund Accountant Relationship Specialty Start Date End Date Sammie Silverman MD [address] [place], [place] PCP - General Family Medicine 04/27/18
== END 2024-12-14 09:31 | disposition home or self-care (01) ==
LOC: HO.HCS 09:08
PROVIDERS: PCP Internal Medicine; Visit Provider Nurse Practitioner Family
DX: I44.7 Left bundle-branch block, unspecified (principal); R00.2 Palpitations; R55 Syncope and collapse; I10 Essential (primary) hypertension; E78.5 Hyperlipidemia, unspecified
CPT/HCPCS: 99214; G2211

== ENCOUNTER → 2024-12-14 09:07 | Outpatient (BNVA) | payer OTHER, SELFPAY | PROVIDERS: PCP Internal Medicine; Visit Provider Nurse Practitioner Family | DX: I44.7 Left bundle-branch block, unspecified (principal); I10 Essential (primary) hypertension; R00.2 Palpitations; R55 Syncope and collapse; E78.5 Hyperlipidemia, unspecified | CPT/HCPCS: 99212 ==

== ENCOUNTER 2024-12-29 13:53 | Outpatient (REF) | payer OTHER, SELFPAY ==
--- NOTE | ~2024-12-29 | CT_ITS ---
CLINICAL HISTORY: pneumonia CT CHEST WITHOUT CONTRAST Comparison: None Findings: The heart is normal size. No significant pericardial effusion. Prominent aortic and coronary artery calcifications. Mildly ectatic ascending thoracic aorta. Thyroid gland is heterogeneous. No mediastinal lymphadenopathy. Cylindrical bronchiectasis in the right middle and lower lobes. There is a 7 mm polypoid soft tissue density projecting into the proximal right mainstem bronchus on axial image 44, series 5. There is an irregular subpleural linear density associated with small calcifications. There is biapical scarring. No pulmonary mass or consolidation. No pleural effusion or pneumothorax. There is a small calcified granuloma in the right upper lobe. There is a small nodular ground-glass opacity peripherally in the left lower lobe on axial image 81, series 4. There is a 6 mm noncalcified subpleural nodule in the medial right lower lobe on axial image 83, series 4. Cholecystectomy. No acute fractures. IMPRESSION: 1. Bronchiectatic changes in the right middle and right lower lobes with no superimposed consolidative changes or mass. 2. Irregular linear density in the right upper lobe most likely represent scarring. 3. Nonspecific 6 mm noncalcified subpleural nodule in the right lower lobe and 8 mm nodular ground-glass opacity in the left lower lobe for which follow-up imaging in 3-6 months is suggested. 4. 7 mm polypoid soft tissue density in the proximal right mainstem bronchus is technically indeterminate: Endobronchial lesion versus atypical secretions versus mucoid impaction. This document has been electronically signed by: Karishma Dooley DO on 01/02/2025 14:02:00
--- OUTSIDE RECORDS SUMMARY | 2024-12-29 13:56 | XMS_ITS ---
Author Name Ridge Rubio APRN Address [address] [place] [address] Phone [phone] Organization [facility] Care Team Providers Care Crm Solution Architect Name Role Phone Palma Rubio Unavailable [phone] Reason for Referral Not Available Allergies, adverse [...] of Service Diagnosis/Co mplaint No Data Available [facility] [place]/2022 Type 2 diabetes mellitus wit h diabetic chronic kidney diseaseHypertensive chronic kidney disease w stg 1-4/unsp chr kdnyChronic kidney disease, stage 3aHyperlipidemia, unspecifiedAnxiety disorder, unspecifiedChronic obstructive pulmonary disease, unspecifiedVitamin D deficiency, unspecifiedConstipation, unspecifiedDietary calcium deficiency No Data Available [facility] [place] 07[place]03[place]2022 No Data Available [facility] [place]2022 No Data Available [facility] [place]20[place] No Data Available [facility] [place]20[place] No Data Available [facility] [place]20[place] No Data Available [facility] [place]20[place] Estab. patient 20-29min; 1 stable chronic or 2 minor; add add modifier 95 for video, modifier 93 for phone [facility] [place]2022 Type 2 diabetes mellitus wit h [...] 95 for video, modifier 93 for phone [facility] [place] 08/05/2022 Unlisted special service; to be used for medical record reviews and reporting CPTII codes (1111F, etc) [facility] ([place] 03/31/2023 Other specified counseling Unlisted special service; to be used for medical record reviews and reporting CPTII codes (1111F, etc) [facility] [place] 03/31/2023 Unlisted special service; to be used for medical record reviews and reporting CPTII codes (1111F, etc) [facility] [place] 03[place]23 Estab. patient 30-39min; chronic exacerbation, 2 stable chronic or 1 acute illness add add modifier 95 for video, (do not use for phone, instead use [id number]) [facility] 04[place]2023 Type 2 diabetes mellitus [...] (do not use for phone, instead use [id number]) [facility]20[place] Estab. patient 30-39min; chronic exacerbation, 2 stable chronic or 1 acute illness add add modifier 95 for video, (do not use for phone, instead use [id number]) [facility] [place] 04[place]09/2023 Estab. patient 30-39min; chronic exacerbation, 2 stable chronic or 1 acute illness add add modifier 95 for video, (do not use for phone, instead use 80109-89) [facility] 04[place]2023 Unlisted special service; to be used for medical record reviews and reporting CPTII codes (1111F, etc) [facility] [place] 01/07/2024 Other specified health statu s Unlisted special service; to be used for medical record reviews and reporting CPTII codes (1111F, etc) [facility] [place]/07/2024 Unlisted special service; to be used for medical record reviews and reporting CPTII codes (1111F, etc) [facility] [place] 01/07/2024 Vital Signs Date of Collection Vitals 2022-08-05 09:12:10 Height - 149.86 cmWe ight - 63.96 kgBody Mass Index (BMI) - 28.48 kg/m2 2023-04-09 11:44:18 BP Diastolic - 83.0 mm[Hg]BP Systolic - 132.0 mm[Hg] Social History Social History Social History Observation Description Effec tive Time Current Smoking Status Never smoker 2024-12-14 5 Sex Female History of Procedures Procedures Service Procedure code Service date Servicing provider Phone# No Data Available [id number] 2022-07-03 No Data Available No Data Available [...] 95 for video, modifier 93 for phone [id number] 2022-08-05 No Data Available No Data Availa ble BMI obtained (3008F) 3008F 2022-08-05 No Data Availab le No Data Available Unlisted special service; to be used for medical record reviews and reporting CPTII codes (1111F, etc) 04100 2023-03-31 No Data Available No Data Availa ble SBP < 130 (3074F) 3074F 2023-03-31 No Data Available No Data Available DBP 80-89 (3079F) 3079F 2023-03-31 No Data Available No Data Available Estab. 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 Shiva Santo foods high in saltIncorporate [...] level every 3 monthsCheck BS weeklyContinue seeing sheet metal shop supervisorDr. Shiva foods high in saltIncorporate exercise regimen and lifestyle modificationsContinue taking losartan as prescribedCheck BP weekly and report any elevated readingsAvoid foods high in fatIncorporate exercise regimen and lifestyle modificationsContinue taking Atorvastatin as prescribed Check lipid levels yearlyManaged by PCPContinue taking symbicort, spiriva, montelukast as prescribedAvoid irritantsContinue taking vit d as prescribedContinue taking docusate as prescribedContinue taking prescribed medicationson furosemide daily vapckrx7J, low na dietcall if weight gain greater than 3lbs for RX treatmenton furosemidemonitor BPlow na dieton citalopram no recent episodes and stable 2023-03-31 11:07:41 [id number] < 130 (3074 F)DBP 80-89 (3079F) 2023-04-09 [...] level every 3 monthsCheck BS weeklyContinue seeing sheet metal shop supervisor, Dr. Shiva Santo foods high in saltIncorporate [...] no recent episodes and stableon furosemide daily [id number], low na dietcall if weight gain greater [...] recen tly increased to BID done by coach tour driver due to fluid in lungs, denies cough and SOB at this time 2022-08-05 will send proair ref ill to pharmacy 2022-08-05 call if you feel ill , have any questions or concerns
--- OUTSIDE RECORDS SUMMARY | 2024-12-29 13:56 | XMS_ITS | Encounter Summary ---
Author Organization [employer] Address [address] 7t [place] [address] Care Team Providers Care Veneer Press Operator Name Role Phone Sammie Silverman MD Primary Care Provide r Reason for Visit * Reason Onset Date Comments Nurse Triage 08/04/2023 Encounter Details Date Type Department Care Team ([facility] st Contact Info) Description 08/04/2023 Telephone [facility] MEDICINE [address] [place], [place] [phone] Sammie Silverman MD [address] [place], [place] [phone] Nurse Triage Social History Tobacco Use Types [...] 08/04/2023 3:42 PM EST Triage call with Tippr Java Groovy Developer ID [id number] Pt reports was seen in pulmonology [place] [facility] [place]. Pt reports was tested for Covid [...] accepted this outcome Please contact pt @ [phone] Chinese Speaker documented in this encounter Plan of Treatment Upcoming Encounters Date Type Department Care Team (Late st Contact Info) Description 01/15/2025 10:00 AM EDT Office Visit [facility] MEDICINE [address] [place] [address] Sammie Silverman MD [address] [place] [address] documented as of this encounter Visit Diagnoses Not on filedocumented in this encounter Additional Health Concerns Assessment Noted Time PHQ-9 Depression Total Score: 0 01/07/20 23 9:59 AM EDT documented as of this encounter Care Teams Veneer Press Operator Relationship Specialty Start Date End Date Sammie Silverman MD [address] [place] [address] PCP - General Family Medicine 04/27/18 documented as of this encounter
--- OUTSIDE RECORDS SUMMARY | 2024-12-29 13:56 | XMS_ITS | Encounter Summary ---
Author Organization [employer] Address [address] [facility] 7t [place] [address] Care Team Providers Care On Air Talent Name Role Phone Sammie Silverman MD Primary Care Provide r Encounter Details Date Type Department Care Team (Late Contact Info) Description 05/18/2023 Orders Only [facility] MED & PEDS [address] [place], [place] [phone] Rosa Wise LPN Social History Tobacco Use [...] Description 01/15/2025 10:00 AM EDT Office Visit [facility] MEDICINE [address] [place], [place] [phone] Sammie Silverman MD [address] [place], [place] [phone] documented as of this encounter Visit Diagnoses Not on filedocumented in this encounter Additional Health Concerns Assessment Noted Time PHQ-9 Depression Total Score: 0 01/07/20 23 9:59 AM EDT documented as of this encounter Care Teams On Air Talent Relationship Specialty Start Date End Date Sammie Silverman MD [address] [place] [address] PCP - General Family Medicine 04/27/18 documented as of this encounter
--- OUTSIDE RECORDS SUMMARY | 2024-12-29 13:56 | XMS_ITS | Clinical Summary ---
Author Organization [facility] Address [address] [place] [address] Phone Care Team Providers Care Bus And Rail Operator Name Role Phone Sammie Silverman MD [...] Visit [facility] [address] [place] [phone] Shiva Patel MD [address] [facility] [address] [place] [address] Health Maintenance Due Date Last [...] patient's age to complete this topic Insurance [facility] [address] [place] [address] [facility] ([phone]) [place] [address] ([phone]) Care Teams Bus And Rail Operator Relationship Specialty Start Date End Date Sammie Silverman MD [address] [place] [phone] PCP - General Internal Medicine 12/19/20
--- OUTSIDE RECORDS SUMMARY | 2024-12-29 13:56 | XMS_ITS | Clinical Summary ---
Author Organization [employer] Address [address] [facility] 7t [place] [address] Care Team Providers Care Weight Control Lecturer Name Role Phone Sammie Silverman MD Primary [...] 25 Active Blood Glucose Monitoring Suppl (FreeStyle [place] Lite) w/Device kitIndications: Prediabetes Use to test [...] CONSTIPATION 180 capsule 3 09/12/19 25 Active Blood Glucose Monitoring Suppl (FreeStyle [place] Lite) w/Device kitIndications: Prediabetes Use to test [...] ALLERGIES 90 tablet 1 12/12/19 25 Active Alcohol Swabs (Alcohol Prep) 70 % padsIndications :Prediabetes USE DIRECTED TO TEST BLOOD SUGAR EVERY DAY 100 each 3 12/15/19 25 Active loratadine (Claritin) 10 MG tablet TAKE 1 TABLET BY MOUTH EVERY DAY NEEDED FOR ALLERGIES 90 tablet 1 06/08/20 24 2024 Discontinued Alcohol Swabs 70 % padsIndications :Prediabetes Use to test blood sugar 1 times daily 100 each 08/28/19 25 2024 Discontinued Active Problems Problem Noted Date [...] Type Department Care Team Description 12/14/2024 Refill [facility] MEDICINE [address] [place] [address] Belen Mehta FNP Prediabetes 12/09/2024 Refill [facility] MEDICINE [address] [place] [address] Sammie Silverman MD 11/16/2024 Orders Only [facility] External Provider, [facility] 10/30/2024 Refill [facility] MEDICINE [address] [place] [address] Sammie Silverman MD Essential hypertension 10/29/2024 Refill [facility] MED[facility]INE [address] [place] [address] Sammie Silverman MD Vitamin deficiency; Essential hypertension 10/24/2024 10:15 AM EDT Office Visit [facility] MEDICINE [address] [place] [address] Sammie Silverman MD Aspiration pneumonia of both lower lobes due to vomit (CMS/HCC) (Primary Dx); Essential hypertension; LBBB (left bundle branch block); SOB (shortness of breath); Prediabetes 10/24/2024 Travel 10/20/2024 Telephone [facility] MEDICINE [address] [place] [address] Sammie Silverman MD Chart Prep 10/09/2024 Patient Outreach [facility] [address] [place], [place] [phone] Sammie Silverman MD Transition Of Care (Tcm) (HDF- LVM ) 10/09/2024 Telephone [facility] MEDICINE [address] [place] [address] Sammie Silverman MD Hospital Follow-up 10/06/2024 Telephone [facility] MED[facility]INE [address] [place], [place] [phone] Sammie Silverman MD Error (VOID this visit) 10/05/2024 Telephone [facility] [address] [place] [address] Sammie Silverman MD Nurse Triage from Last 3 Months Immunizations Immunization Administration Dates Next Due Influenza High-dose Quadriva [...] Description 01/15/2025 10:00 AM EDT Office Visit [facility] MEDICINE [address] [place] [address] Sammie Silverman MD [address] [place] [address] Health Maintenance Due Date Last Done Comments CT Colonography 1950 Colonoscopy 1950 Colorectal Cancer Screening 1950 Dental Oral Exam 1950 Dental Prophylaxis 1950 Dental X-Ray: Bitewings 1950 FIT DNA/Cologuard 1950 FIT 1950 FOBT 1950 Sigmoidoscopy 1950 DTaP/Tdap/Td Vaccines (2 - Td or Tdap) 05/31/2022 05/31/2012 RSV Patients and Patients Aged 60 years or older (1 - 1-dose 75+ series) 2024 COVID-19 Vaccine ( season) 2025 07/12/2024, 09/24/2023, 06/04/2022, Additional history exists Alcohol/Substance Use Screening 08/28/2025 08/28/2024 Diabetes: Hemoglobin A1C 08/28/2025 025, 01/28/2024, 09/24/2023, Additional history exists SDOH Screening 08/28/2025 08/28/2024 Depression Screening 10/24/2025 10/24/2024, 10/25/19 Tobacco Screening 10/24/2025 10/24/2024 Dental X-Ray: Full Mouth 04/07/2026 04/06/2023 Lipid Panel 01/07/2028 01/06/2023, 10/07/2021 Pneumococcal Vaccine: 50+ Years Completed 08/30/2019, 04/30/2015, 09/25/2011 Hepatitis C Screening Completed 10/17/2019 Zoster Vaccines Completed 10/18/2019, 07/16, 04/26/2014 Influenza Vaccine Completed 07/12/2024, , 06/04/2022, Additional [...] patient's age to complete this topic Meningococcal B Vaccine Aged Out No l onger eligible based on patient's age to complete [...] 8:56 AM EDT) 11/16/2024 8:56 AM EDT [facility] IMAG[facility] - 11/19/2024 1:15 PM EDT ? [facility] [facility] ?[address] ?[place] [address] ?Nuclear Medicine Report ? Signed ? Patient: Irma Pal ?M ?? R#: [id number] ? : 1950 ?Acct:[id number] ? Age/Sex: 74 / F ?ADM Date: 11/16/24 ? Loc: HO.CARD ? Attending Dr: Sarahy FOX ? Ordering Physician: Sarahy Herrera ?? Date of Service: 11/16/24 ?? Procedure(s): NM cardiolite stress test ?? Accession Number(s): [id number] ? cc: Sammie Silverman MD; Sarahy Herrera [...] DD/ 0856 ? TD/TT: 11/17/24 1220 ? Artificial Glass Eye Maker: ? Procedure Note Heather Laguerre - 11/19/[address] [address] Nuclear Medicine Report Signed Patient: Sanjuana Pal R#: [id number] : 1950Acct:[id number] Age/Sex: 74 / FADM Date: 11/16/24 Loc: AMBER Attending Dr: Sarahy FOX Ordering Physician: Sarahy Herrera Date of Service: 11/16/24 Procedure(s): NM cardiolite stress test Accession Number(s): [id number] cc: Sammie Silverman MD; Sarahy Herrera Lexiscan [...] 11/19/24 1312 DD/ 0856 TD/TT: 11/17/24 1220 Artificial Glass Eye Maker: [facility] External Provider CV STRE SS PROCEDURES Edited Result - Final [facility] [address] [place] [address] * Lactic Acid (10/05/2024 4:27 PM EST) Lactic Acid 1.1 0.5 - 2.0 mmol/L [facility] 10/05/2024 4:27 PM EST 10/05/2024 4:33 PM EST us Generic External Data Provider LAB BLOOD ORDERAB LES Final Result Performing Organization Address [facility]/ZIP Co de Phone Number [facility] [address] [place] [address] [phone] * (ABNORMAL) Urinalysis, Complete, with Reflex to Culture (10/05/2024 2:04 PM EST) Color Urine Yellow [facility] Appearance Urine Clear [facility] PH 5.5 5.0 - 9.0 [facility] Glucose Urine UA >=1000(A) Negative mg/dL [facility] Urine Blood Negative Negative [facility] Specific [place] - Urine 1.025 1.005 - 1.025 [facility] Urine Protein Negative Neg-Trace mg/dL [facility] Urine Ketones Negative Negative mg/dL [facility] Nitrite Urine Negative Negative [facility] Leukocyte Esterase Urine Negative Negative [facility] RBC Urine 0-2 0 - 2 /HPF [facility] Urine WBC 0-5 0 - 5 /HPF [facility] Urine Squamous Epithelial Cell 6-10 0 - 2 /HPF [facility] Urine Bacteria 1+ None Seen [facility] Hyaline Casts, Urine 3-5 0 - 2 /LPF [facility] 10/05/2024 2:04 PM EST 10/05/2024 2:07 PM EST Narrative [facility] - 10/05/2024 2:21 PM EST [id number], Clean Catch us Generic External Data Provider LAB URINE ORDERAB LES Final Result [facility] [address] [place] [address] [phone] * XR Chest 1 View (10/05/2024 2:04 PM EST) Anatomical Region Laterality Modality Chest Radiographic Addie ging 10/05/2024 2:04 PM EST Narrative 10/05/2024 2:20 PM EST ? [facility] ?[address] ?[place] [address] ?XRay Report ? Signed ? Patient: Irma Pal ?M ?? R#: [id number] ? : 1950 ?Acct:[id number] ? Age/Sex: 74 / F ?ADM Date: 10/05/24 ? Loc: HO.ED ? Attending Dr: ? Ordering Physician: Jose Calvin MD ?? Date of Service: 10/05/24 ?? Procedure(s): XR chest 1V ?? Accession Number(s): [id number] ? cc: Sammie Silverman MD; Jose Calvin [...] by Richard Alva MD in OV> ? 10/05/247 ? DD/ 1404 ? TD/TT: 10/05/24 1404 ? Artificial Glass Eye Maker: ? Procedure Note Donotmoniinterpreter, Image - 10/05/[address] [address] XRay Report Signed Patient: Sanjuana Pal R#: [id number] : 1950Acct:[id number] Age/Sex: 74 / FADM Date: 10/05/24 Loc: HO.ED Attending Dr: Ordering Physician: Jose Calvin MD Date of Service: 10/05/24 Procedure(s): XR chest 1V Accession Number(s): [id number] cc: Sammie Silverman MD; Jose Calvin MD [...] 10/05/24 1417 DD/ 1404 TD/TT: 10/05/24 1404 Artificial Glass Eye Maker: [facility] External Provider IMG XR PROCEDURES Final Result * CT Abdomen Pelvis w/o Contrast (10/05/2024 1:53 PM EST) Anatomical Region Laterality Modality Body, Pelvis, Abdomen Computed T omography 10/05/2024 1:53 PM EST Narrative 10/05/2024 2:28 PM EST ? [facility] ?[address] ?[place] [address] ? CT Scan Report ? Signed ? Patient: Roger Puckett,Irma ?M ?? R#: [id number] ? : 1950 ?Acct:[id number] ? Age/Sex: 74 / F ?ADM Date: 10/05/24 ? Loc: HO.ED ? Attending Dr: ? Ordering Physician: Jose Calvin MD ?? Date of Service: 10/05/24 ?? Procedure(s): CT abdomen pelvis wo IV con ?? Accession Number(s): [id number] ? cc: Sammie Silverman MD; Jose Calvin MD ? Report Number: ?? [id number]: Total DLP = ??462.00 mGy-cm ?? EXAMINATION: [...] Seymour MD ??10/05/2024 02:25 PM EST RP ?? Workstation: [id number] ? Dictated By: ?Gilberto Seymour MD ? Signed By: ?<Electronically signed by Gilberto Seymour MD in OV> ?10/05/24 1425 ? DD/ 1353 ? TD/TT: 10/05/24 1414 ? Artificial Glass Eye Maker: ? Procedure Note Heather Laguerre - 10/05/2024 [place] [address] [place] [address] CT Scan Report Signed Patient: Sanjuana Pal#: [id number] : 1950Acct:[id number] Age/Sex: 74 / FADM Date: 10/05/24 Loc: HO.ED Attending Dr: Ordering Physician: Jose Calvin MD Date of Service: 10/05/24 Procedure(s): CT abdomen pelvis wo IV con Accession Number(s): [id number] cc: Sammie Silverman MD; Jose Calvin MD Report Number: [id number]: Total DLP = 462.00 mGy-cm EXAMINATION: CT [...] 10/05/24 1425 DD/ 1353 TD/TT: 10/05/24 1414 Artificial Glass Eye Maker: [facility] External Provider IMG CT PROCEDURES Final Result * (ABNORMAL) POCT HGB A1C (08/28/2024 11:56 AM EST) Hemoglobin A1C 6.1(A) 4.0 - 6.0 % QC Media Lot # [id number] Lot# Expiration Date ,716,640 Blood 08/28/2024 11:5 6 AM EST Sammie Hale MD POINT OF CARE TEST EN TER/EDIT ORDERABLES Final Result * Lipid Panel, Standard (01/06/2023 10:56 AM EDT) Cholesterol, Total 165 <200 mg/dL [facility] HDL Cholesterol 51 > OR = 50 mg/dL [facility] Triglycerides 148 <150 mg/dL [facility] LDL Cholesterol 89 mg/dL (calc) [facility] Comment: Reference range: <100 Desirable range <100 mg/dL for primary prevention; ?? <70 mg/dL for patients with CHD or diabetic patients with > or = 2 CHD risk factors. LDL-C is now calculated using the Kedar calculation, which is a validated novel method providing better accuracy than the Friedewald equation in the estimation of LDL-C. Tyshawn ESTRADA et al. SUAD. 2013;310(19): 5955-0203 (http://education.Kadriana/faq/WWU522) Chol/HDLC Ratio 3.2 <5.0 (calc) [facility] Non-HDL Cholesterol 114 <130 mg/dL (calc) [facility] Comment: For patients with diabetes plus 1 major ASCVD risk factor, treating to a non-HDL-C goal of <100 mg/dL (LDL-C of <70 mg/dL) is considered a therapeutic option. Blood Venous blood specimen / Unknown 01/06/2023 10:56 AM EDT 01/06/2023 10:56 AM EDT Narrative [facility] - 01/06/2023 9:40 PM EDT FASTING:YES FASTING: YES Sammie Hale MD LAB BLOOD ORDERABLES Final Result Performing Organization Address City/[facility]/ZIP Co de Phone Number [facility] [address] [place] [address] [facility] [place] [facility] [address] [place] [address] * HEPATITIS A,B,C PROFILE (10/17/2019 2:04 PM [...] Historical Provider HISTORICAL/NON ORDERABLE LABS Final Result [facility] [address] from Last 3 Months or Most Recently Relevant to Health Maintenance Insurance [facility] Care Teams Weight Control Lecturer Relationship Specialty Start Date End Date Sammie Silverman MD [address] [place] [address] PCP - General Family Medicine 04/27/18
== END 2024-12-29 13:54 | disposition home or self-care (01) ==
LOC: HO.CT 13:53
PROVIDERS: PCP Internal Medicine; Visit Provider Internal Medicine
DX: J69.0 Pneumonitis due to inhalation of food and vomit (principal)
CPT/HCPCS: 71250

== ENCOUNTER → 2024-12-29 13:59 | Outpatient (BNV) | payer OTHER, SELFPAY | PROVIDERS: PCP Internal Medicine; Visit Provider Radiology Diagnostic Radiology | DX: J47.9 Bronchiectasis, uncomplicated (principal); R91.8 Other nonspecific abnormal finding of lung field; J98.09 Other diseases of bronchus, not elsewhere classified | CPT/HCPCS: 71250 ==

== ENCOUNTER 2025-02-06 12:20 | Outpatient (AMB) | payer OTHER, SELFPAY ==
[2025-02-06 13:10] VITALS: BP 102/62; PULSE 76; O2SAT 97; BMI 30.1
--- NOTE | 2025-02-06 13:10 | MHC.OFFVIS ---
Vital Signs 02/06/25 13:10 Height 4 ft 9 in Weight 139 lb BMI 30.1 BP 102/62 Blood Pressure Location Lt brachial Position Sitting Pulse 76 Pulse Source Pulse Oximeter Pulse Oximetry (%) 97 Oxygen Delivery Method Room Air Intake Visit Reasons: COPD Allergies aspirin (ASPIRIN) Allergy (Unknown, Verified 02/06/25 13:15) MOUTH SWELLING Beef Containing Products (BEEF CONTAINING PRODUCTS) Adverse Reaction (Unknown, Verified 02/06/25 13:15) ITCHY HPI HPI COPD: Details: 74-year-old lady, lifetime nonsmoker, followed for bronchiectasis, dyspnea, and allergic asthma.? She continues on Symbicort and albuterol MDI with good control of her symptoms. She did not tolerate arformoterol. After the last office visit her orthopnea lower extremity edema resolved with increased diuresis. She did have CT scan in December of 2024 to follow-up on previous pneumonia that showed pulmonary nodules up to 8 mm and mild bronchiectasis. She denies recent acute exacerbations. [facility] Medical History Environmental allergies Arthralgia of knee Breast mass Varicose veins of both lower extremities CARON (obstructive sleep apnea) Major depression Hyperlipidemia Arthritis Mood disorder Allergic rhinitis Osteopenia HTN (hypertension) Asthma Surgical History Hx of tubal ligation Hx of cholecystectomy History of back surgery Hx of section Family History Mother CVD (cardiovascular disease) HTN (hypertension) Father Stroke Social History Household Members: Spouse Housing: Apartment Do you presently have visiting nurse or other home services: Yes (come every 3 months , james is her [employer] INSTALLER. nursing does assessments) Alcohol intake: never Patient Tobacco Use Status: Never used Tobacco Advance Directives Date on File: 10/06/24 service: No Review of Systems Const Denies daytime sleepiness, Denies excessive sweating, Denies fatigue, Denies fever(s), Denies lethargy, Denies malaise, Denies night sweats, Denies snoring and Denies weight loss Eyes Denies blurry vision and Denies itchy eyes ENT Denies nasal congestion, Denies post nasal drip, Denies sinus pain, Denies sinus pressure and Denies other ( Thrush) Card Denies chest pain, Denies pedal edema, Denies dyspnea, Denies orthopnea and Denies paroxysmal nocturnal dyspnea Resp Denies cough, Denies hemoptysis, Denies excessive phlegm production, Denies dyspnea, Denies snoring and Denies wheezing GI Denies abdominal pain and Denies heartburn Musc Denies myalgias, Denies arthralgias and Denies joint swelling Skin/Breast Denies rash Neuro Denies memory loss and Denies seizure-like activity Psych Denies abnormal sleep pattern, Denies anxiety and Denies memory loss Endo Denies excessive sweating, Denies fatigue and Denies heat intolerance Kyle/Lymph Denies easy bruising Aller/Immun Denies itchy eyes, Denies seasonal rhinorrhea and Denies wheezing Physical Exam Vital Signs: Last Vital Signs Pulse 76 02/06/25 13:10 BP 102/62 02/06/25 13:10 Pulse Ox 97 02/06/25 13:10 Oxygen Delivery Method Room Air 02/06/25 13:10 BMI result Body Mass Index 30.1 Const General: no acute distress and alert Nutritional Appearance: not obese Orientation/consciousness: Other orientation findings ( oriented) HEENT Head: Yes atraumatic Eyes General: appearance normal, both eyes and all related structures Sclerae: sclerae normal EOM: EOMs intact bilaterally Neck Neck: Yes supple Lymphatic: no lymphadenopathy noted Resp Effort & Inspection: normal respiratory effort and no use of accessory muscles Auscultation: clear to auscultation bilaterally Cardio Rate: regular rate Rhythm: regular rhythm Heart sounds: no gallops, no murmurs and no rubs Skin General skin exam: other ( warm) Extrem General: No clubbing, No cyanosis and No edema Assessment & Plan Assessment & Plan (1) Bronchiectasis: Code(s): J47.9 - Bronchiectasis, uncomplicated Category: Medical Plan: No recent exacerbations. Continue to monitor clinically. (2) Allergic asthma: Code(s): J45.909 - Unspecified asthma, uncomplicated Category: Medical Plan: Well controlled on Symbicort and albuterol MDI/nebs. (3) Solid nodule of lung 6 mm to 8 mm in diameter: Code(s): R91.1 - Solitary pulmonary nodule Category: Medical Plan: Will repeat CT chest in 6 months. (4) Orthopnea: Code(s): R06.01 - Orthopnea Category: Medical Plan: Well controlled on current diuretic regimen of Bumex 2 mg daily. Coding Level of Care Code Est Pt Level 4 (17012) Complex EM visit Add On G2211 Diagnoses Bronchiectasis J47.9 Allergic asthma J45.909 Solid nodule of lung 6 mm to 8 mm in diameter R91.1 Orthopnea R06.01
--- OUTSIDE RECORDS SUMMARY | 2025-02-06 13:50 | XMS_ITS | Encounter Summary ---
Author Organization [employer] Address [address] [facility] 7t [place] [address] Care Team Providers Care Community Service Patrol Officer Name Role Phone Sammie Silverman MD Primary Care Provide r Reason for Visit * Reason Onset Date Comments Nurse Triage 08/04/2023 Encounter Details Date Type Department Care Team ([facility] st Contact Info) Description 08/04/2023 Telephone [facility] MED[facility] [address] [place], [place] [phone] Sammie Silverman MD [address] [place], [place] [phone] Nurse Triage Social History Tobacco Use Types [...] Miscellaneous Notes * Telephone Encounter - Nani uMrphy RN - 08/04/2023 3:42 PM EST Triage call with Fewzion Carroter ID [id number] Pt reports was seen in pulmonology office [facility] 07/22/23. Pt reports was tested for Covid [...] accepted this outcome Please contact pt @ [phone] Latvian Speaker documented in this encounter Plan of Treatment Not on file documented as of this encounter Visit Diagnoses Not on filedocumented in this encounter Additional Health Concerns Assessment Noted Time PHQ-9 Depression Total Score: 0 01/07/20 23 9:59 AM EDT documented as of this encounter Care Teams Community Service Patrol Officer Relationship Specialty Start Date End Date Sammie Silverman MD [address] [place] [address] PCP - General Family Medicine 04/27/18 documented as of this encounter
== END 2025-02-06 13:23 | disposition home or self-care (01) ==
LOC: HO.HPS 12:21
PROVIDERS: PCP Internal Medicine; Visit Provider Internal Medicine Pulmonary Disease
DX: J47.9 Bronchiectasis, uncomplicated (principal); J45.909 Unspecified asthma, uncomplicated; R91.1 Solitary pulmonary nodule; R06.01 Orthopnea
CPT/HCPCS: 99214; G2211

== ENCOUNTER → 2025-02-06 12:20 | Outpatient (BNVA) | payer OTHER, SELFPAY | PROVIDERS: PCP Internal Medicine; Visit Provider Internal Medicine Pulmonary Disease | DX: R91.1 Solitary pulmonary nodule (principal); J47.9 Bronchiectasis, uncomplicated; J45.909 Unspecified asthma, uncomplicated; R06.01 Orthopnea | CPT/HCPCS: 99212 ==

== ENCOUNTER 2025-06-18 08:55 | Outpatient (AMB) | payer OTHER, SELFPAY ==
[2025-06-18 09:08] VITALS: BP 138/72; PULSE 72; BMI 30.6
--- NOTE | 2025-06-18 09:08 | MHC.OFFVIS ---
Vital Signs 06/18/25 09:08 Height 4 ft 9 in Weight 141 lb 8.588 oz BMI 30.6 BP 138/72 Blood Pressure Location Lt brachial Position Sitting Pulse 72 Pulse Source Pulse Oximeter Intake Visit Reasons: 6 mth fu Supervisor Polishing Required: No Supervisor Polishing Services: Supervisor Polishing Offered & Declined Allergies aspirin (ASPIRIN) Allergy (Unknown, Verified 06/18/25 09:10) MOUTH SWELLING Beef Containing Products (BEEF CONTAINING PRODUCTS) Adverse Reaction (Unknown, Verified 06/18/25 09:10) ITCHY Medication List - Last Reconciled 06/19/25 by Sarahy Herrera, DISTRIBUTION SUPERINTENDENT-C albuterol sulfate 2.5 mg inhalation Q6H PRN albuterol sulfate 90 mcg/actuation 2 puffs PO Q4-6H PRN 30 days atorvastatin 20 mg PO DAILY budesonide-formoterol 160-4.5 mcg/actuation (Symbicort) 2 puffs inhalation BID bumetanide 2 mg (2 x 1 mg) PO QAM calcium carbonate-vitamin D3 600 mg-10 mcg (400 unit) 1 tab PO DAILY cholecalciferol (vitamin D3) (Vitamin D3) 50 mcg PO DAILY citalopram 20 mg PO DAILY dapagliflozin propanediol (Farxiga) 10 mg PO DAILY docusate sodium 100 mg PO BID fluticasone propionate 50 mcg/actuation 1 spray intranasal DAILY PRN loperamide (Anti-Diarrheal (loperamide)) 2 mg PO Q6H PRN loratadine 10 mg PO DAILY PRN losartan 12.5 mg PO BEDTIME montelukast 10 mg PO DAILY HPI HPI 6 mth fu: Details: Irma is a 74-year-old female with past medical history of obesity, hypertension, hyperlipidemia, asthma, newer finding of LBBB who presents for follow-up. Today she reports that she has been doing very well since her last visit in December. She has no cardiac concerns at this time. She is denying any chest discomfort at rest or during activities. She now denies having any rapid heartbeats or palpitations. She says her breathing is normal, no PND, orthopnea or edema. She has been active and tolerates steady walking without symptoms. She has had vertigo in the past but is not experiencing any symptoms at this time. Daughter is present and assisting [facility] Medical History Environmental allergies Arthralgia of knee Breast mass Varicose veins of both lower extremities CARON (obstructive sleep apnea) Major depression Hyperlipidemia Arthritis Mood disorder Allergic rhinitis Osteopenia HTN (hypertension) Asthma Surgical History Hx of tubal ligation Hx of cholecystectomy History of back surgery Hx of section Family History Mother CVD (cardiovascular disease) HTN (hypertension) Father Stroke Social History Household Members: Spouse Housing: Apartment Do you presently have visiting nurse or other home services: Yes (come every 3 months , james is her PUNCH MACHINE OPERATOR. nursing does assessments) Alcohol intake: never Patient Tobacco Use Status: Never used Tobacco Advance Directives Date on File: 10/06/24 service: No Review of Systems Const All systems reviewed & are unremarkable except as noted in HPI and below ENT Denies dizziness Card Denies chest pain, Denies chest pain at rest, Denies chest pain with activity, Denies rapid heart rate, Denies pedal edema, Denies edema, Denies leg edema, Denies lightheadedness, Denies palpitations, Denies dyspnea, Denies dyspnea on exertion and Denies orthopnea Resp Denies cough, Denies dyspnea and Denies dyspnea on exertion GI Denies hematochezia and Denies change in stool character Musc Denies abnormal gait, Denies limited range of motion, Denies muscle cramps, Denies muscle weakness, Denies numbness, Denies radiating pain into limb, Denies stiffness and Denies tingling Neuro Denies abnormal gait, Denies dizziness, Denies numbness and Denies tingling Endo Denies palpitations Physical Exam Vital Signs: Last Vital Signs Pulse 72 06/18/25 09:08 BP 138/72 06/18/25 09:08 BMI result Body Mass Index 30.6 Const General: cooperative, healthy appearing, comfortable and no acute distress Orientation/consciousness: patient oriented x3 Neck Neck: Yes normal visual inspection Resp Effort & Inspection: normal respiratory effort Auscultation: rales (right lower lobe), no rhonchi and no wheezes Cardio Jugular venous distension: no JVD Rate: regular rate Rhythm: regular rhythm Heart sounds: S1 normal heart sound present, S2 normal heart sound present, no gallops, no murmurs and no rubs Neuro General: patient oriented x3 Extrem General: Yes normal to inspection, No no pedal edema and No calf tenderness Psych Appearance: grossly normal Mental Status: mental status grossly normal Speech and movement: Normal speech and movement present Assessment & Plan Assessment & Plan (1) Left bundle branch block: Code(s): I44.7 - Left bundle-branch block, unspecified Category: Medical Plan: EKG done at the time of ER evaluation for epigastric discomfort, 10/05/2024 showed sinus tachycardia with left bundle branch block. Prior EKG in our system 2018 did not show left bundle branch block. Echocardiogram 10/06/2024 showed EF 62%, no regional wall motion abnormality. Nuclear stress test on 11/16/2024 which does show a reversible defect in the inferior region however report states it is less likely to be true ischemia and likely artifact. She has cardiac risk factors of hypertension, hyperlipidemia, mild obesity, age. CTA was considered however she declined as she was asymptomatic. Currently doing well with no cardiac concerns. Continue with risk factor modification. Continue with risk factor modification. Continue losartan for good blood pressure control. Continue atorvastatin for LDL control. Emergency care if needed for symptoms. Cardiology follow-up 6 months, sooner if needed. (2) Palpitations: Code(s): R00.2 - Palpitations Category: Medical Plan: Prior reports of heart palpitations like her heart is going fast. Reported syncopal event while under EMS care last spring, without known recurrent episodes. Holter monitor done 11/16/2024 for 3 days shows sinus rhythm with average heart rate 82, occasional PACs, no significant arrhythmia. Currently denies palpitations. (3) Syncope: Code(s): R55 - Syncope and collapse Category: Medical Plan: As above. -no recurrent episodes. (4) HTN (hypertension): Code(s): I10 - Essential (primary) hypertension Category: Medical Plan: [place] goal less than 130/80. Near goal at this time. Continue losartan (5) Hyperlipidemia: Code(s): E78.5 - Hyperlipidemia, unspecified Category: Medical Plan: [place] LDL goal less than 70. No recent lipid profile in our system. She can continue atorvastatin. Recommend recheck of lipids in the near future. Labs followed by PCP. Plan Time spent on chart review, documentation, interview and assessment Coding Level of Care Code Est Pt Level 4 (39545) Complex EM visit Add On G2211 Diagnoses Left bundle branch block I44.7 Palpitations R00.2 Syncope R55 HTN (hypertension) I10 Hyperlipidemia E78.5 Time Spent (min) 28
--- OUTSIDE RECORDS SUMMARY | 2025-06-18 09:37 | XMS_ITS ---
Author Name Ridge Rubio APRN Address [address] [place] [address] Phone [phone] Organization [facility] Care Team Providers Care Family Support Worker Name Role Phone Palma Rubio Unavailable [phone] Reason for Referral Not Available Allergies, adverse [...] List Problem Status Onset Date Resolved Date Synopsis HTN (hypertension) Active 2022-07-11 N/A Avoid foods high in saltIncorporate exercise regimen and lifestyle modificationsContinue taking losartan as prescribedCheck BP weekly and report any elevated readings HLD (hyperlipidemia) Active 2022-07-11 N/A Avoi d foods high in fatIncorporate exercise regimen and lifestyle modificationsContinue taking Atorvastatin as prescribed Check lipid levels yearly Anxiety Active 2022-07-11 N/A Managed by PCP COPD (chronic obstructive pulmonary disease) Active 2022-07-11 N/A Continue taki ng symbicort, spiriva, montelukast as prescribedAvoid irritants Vitamin D deficiency Active 2022-07-11 N/A Cont inue taking vit d as prescribed Constipation Active 2022-07-11 N/A Continue dg ing docusate as prescribed Calcium deficiency Active 2022-07-11 N/A Contin ue taking prescribed medications Type 2 diabetes mellitus with diabetic chronic kidney disease Active 2022-07-11 N/A Avoid foods high in sugar and carbsIncorporate exercise regimenContinue taking Farxiga as prescribed Check A1c level every 3 monthsCheck BS weeklyContinue seeing scheduler, Dr. 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 Active 2022-08-05 N/A on furosemide daily [id number], low na dietcall if weight gain greater than 3lbs for RX treatment Chronic kidney disease, stage 3b Active 2022-08-05 N/A on furosemidemon itor BPlow na diet Encounters Encounters Type Facility Date of Service Diagnosis/Co mplaint No Data Available [facility], ([place]) 07/03/2022 Type 2 diabetes mellitus wit h diabetic chronic kidney diseaseHypertensive chronic kidney disease w stg 1-4/unsp chr kdnyChronic kidney disease, stage 3aHyperlipidemia, unspecifiedAnxiety disorder, unspecifiedChronic obstructive pulmonary disease, unspecifiedVitamin D deficiency, unspecifiedConstipation, unspecifiedDietary calcium deficiency No Data Available [facility] ([place]) 07/03/2022 No Data Available [facility]20[place] No Data Available [facility] No Data Available [facility] No Data Available [facility] No Data Available [facility] Estab. patient 20-29min; 1 stable chronic or 2 minor; add add modifier 95 for video, modifier 93 for phone [facility] ([place] 08/05/2022 Type 2 diabetes mellitus wit h [...] 95 for video, modifier 93 for phone [facility] ([place]) 08/05/2022 Unlisted special service; to be used for medical record reviews and reporting CPTII codes (1111F, etc) [facility] ([place]) 03/31/2023 Other specified counseling Unlisted special service; to be used for medical record reviews and reporting CPTII codes (1111F, etc) [facility] ([place] 03/31/2023 Unlisted special service; to be used for medical record reviews and reporting CPTII codes (1111F, etc) [facility] ([place] 03[place]31/20[place] Estab. patient 30-39min; chronic exacerbation, 2 stable chronic or 1 acute illness add add modifier 95 for video, (do not use for phone, instead use [id number]) [facility] ([place]) 04/09/2023 Type 2 diabetes mellitus wit h [...] (do not use for phone, instead use [id number]) [facility] ([place]) 04/09/2023 Estab. patient 30-39min; chronic exacerbation, 2 stable chronic or 1 acute illness add add modifier 95 for video, (do not use for phone, instead use [id number]) [facility] ([place] 04/09/2023 Estab. patient 30-39min; chronic exacerbation, 2 stable chronic or 1 acute illness add add modifier 95 for video, (do not use for phone, instead use 09005-15) [facility] ([place]) 04/09/2023 Unlisted special service; to be used for medical record reviews and reporting CPTII codes (1111F, etc) [facility] ([place] 01/07/2024 Other specified health statu s Unlisted special service; to be used for medical record reviews and reporting CPTII codes (1111F, etc) [facility] ([place] 01/07/2024 Unlisted special service; to be used for medical record reviews and reporting CPTII codes (1111F, etc) [facility] ([place] 01/07/2024 Vital Signs Date of Collection Vitals [...] date Servicing provider Phone# No Data Available [id number] 2022-07-03 No Data Available No Data Available [...] 95 for video, modifier 93 for phone [id number] 2022-08-05 No Data Available No Data Availa ble BMI obtained (3008F) 3008F 2022-08-05 No Data Availab le No Data Available Unlisted special service; to be used for medical record reviews and reporting CPTII codes (1111F, etc) 71935 2023-03-31 No Data Available No Data Availa ble SBP < 130 (3074F) 3074F 2023-03-31 No Data Available No Data Available DBP 80-89 (3079F) 3079F 2023-03-31 No Data Available No Data Available Estab. 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 Shiva Santo foods high in saltIncorporate [...] level every 3 monthsCheck BS weeklyContinue seeing scheduler, Dr. Shiva Santo foods high in saltIncorporate exercise regimen and lifestyle modificationsContinue taking losartan as prescribedCheck BP weekly and report any elevated readingsAvoid foods high in fatIncorporate exercise regimen and lifestyle modificationsContinue taking Atorvastatin as prescribed Check lipid levels yearlyManaged by PCPContinue taking symbicort, spiriva, montelukast as prescribedAvoid irritantsContinue taking vit d as prescribedContinue taking docusate as prescribedContinue taking prescribed medicationson furosemide daily [id number], low na dietcall if weight gain greater than 3lbs for RX treatmenton furosemidemonitor BPlow na dieton citalopram no recent episodes and stable 2023-03-31 11:07:41 66872CRL < 130 (3074 F)DBP 80-89 (3079F) 2023-04-09 11:44:18 Medication Review by prescribing provider or pharmacist documented (1160F)Medication List Documented (1159F)Functional Status Assessed (1170F)Advance Care Directive Advance care planning discussion documented in the medical record (1158F)BMI obtained (3008F)SBP 130-139 (3075F)DBP 80-89 (3079F)Televideo 30-39min; chronic exacerbation, 2 stable chronic or 1 acute illness add modifier 95Advance care planning discussed and documented advance care plan or surrogate decision-maker was documented in the medical record. (1123F)Advance care planning discussed and documented in the medical record beneficiary/patient did not wish to or was unable to provide an advance care plan or name a surrogate decision-maker. (1124F)Pain Assessment - NO pain documented (1126F)Continue to see PCP. Follow-up with [facility] as needed for any acute or disease education needs that may arise.Avoid foods high in sugar and carbsIncorporate exercise regimenContinue taking Farxiga as prescribed Check A1c level every 3 monthsCheynes BS weeklyContinue seeing scheduler, Dr. Shiva Santo foods high in saltIncorporate [...] no recent episodes and stableon furosemide daily ovdevtr2L, low na dietcall if weight gain greater [...] recen tly increased to BID done by assistant executive housekeeper due to fluid in lungs, denies cough and SOB at this time 2022-08-05 will send proair ref ill to pharmacy 2022-08-05 call if you feel ill , have any questions or concerns
--- OUTSIDE RECORDS SUMMARY | 2025-06-18 09:38 | XMS_ITS | Clinical Summary ---
Author Organization [employer] Address [address] [facility] 7[address] [place] [address] Care Team Providers Care Manager Professional Development Name Role Phone Sammie Silverman MD Primary Care Provide r Allergies Active Allergy Reactions Criticality Noted Date Comments Aspirin Swelling Hydrochlorothiazide 11/30/2014 Other reaction(s): GI upset Lisinopril 02/11/2015 Other reaction(s): itch Simvastatin 02/11/2015 Other reaction(s): muscle aches Medications albuterol (2.5 MG/3ML) 0.083% nebulizer solutionIndicat ions:Moderate [...] needed (wheezing). 1 each 02/09/20 24 Active dapagliflozin (Farxiga) 10 MG Take 10 mg by mouth Once per day. Active citalopram (CeleXA) 20 MG tablet Take 20 mg by mouth Once per day. Provider - Lina Junior Active FREESTYLE LITE test stripIndication s:Prediabetes Use to test blood sugar 1 times daily 100 each 12 08/28/19 25 2025 Active Lancets miscIndications :Prediabetes Use to test blood sugar 1 times daily 100 each 08/28/19 25 Active Blood Glucose Monitoring Suppl (FreeStyle Keiser Lite) w/Device kitIndications: Prediabetes Use to test [...] 25 Active Blood Glucose Monitoring Suppl (FreeStyle Keiser Lite) w/Device kitIndications: Prediabetes Use to test blood sugar 2 times daily 1 kit 10/25/19 25 Active bumetanide (Bumex) 1 MG tabletIndicatio ns:SOB (shortness of breath) Take 1 tablet (1 mg) by mouth 2 times daily. 60 tablet 10/25/19 25 Active Alcohol Swabs (Alcohol Prep) 70 % padsIndications :Prediabetes USE DIRECTED TO TEST BLOOD SUGAR EVERY DAY 100 each 12/15/19 25 Active fluticasone (Flonase) 50 MCG/ACT nasal sprayIndication s:Seasonal allergic rhinitis, unspecified trigger USE 1 SPRAY IN EACH NOSTRIL ONCE DAILY 16 g 11 01/16/20 25 Active atorvastatin (Lipitor) 20 MG tablet TAKE 1 TABLET BY MOUTH EVERY MORNING 90 tablet 3 03/08/20 25 Active loratadine (Claritin) 10 MG tabletIndicatio ns:Seasonal allergic rhinitis, unspecified trigger TAKE 1 TABLET BY MOUTH EVERY DAY 90 tablet 1 04/12/20 25 Active losartan (Cozaar) 25 MG tabletIndicatio ns:Essential hypertension TAKE 1/2 TABLET BY MOUTH EVERY EVENING 45 tablet 1 05/08/20 25 Active D3 Super Strength 50 MCG (1999) capsuleIndicati ons:Vitamin deficiency TAKE 1 CAPSULE BY MOUTH EVERY MORNING 90 capsule 1 05/08/20 25 Active Calcium Carb-Cholecalci ferol 600-10 MG-MCG tablet TAKE 1 TABLET BY MOUTH EVERY MORNING 90 tablet 1 05/08/20 25 Active montelukast (Singulair) 10 MG tabletIndicatio ns:Mild persistent asthma without complication TAKE 1 TABLET BY MOUTH EVERY EVENING 90 tablet 1 05/31/20 25 Active montelukast (Singulair) 10 MG tabletIndicatio ns:Mild persistent asthma without complication TAKE 1 TABLET BY MOUTH EVERY EVENING 90 tablet 1 08/08/20 24 2024 Discontinued Active Problems Problem Noted Date Diagnosed Date Bronchiectasis without complication ([facility]) Assessment & Plan (01/15/2025 11:02 AM EDT): CT chest results were reviewed with patient I let her know she has some pulmonary nodules that needs to be monitored and also something inside her bronchus possible secretion versus something else, I printed results and gave it to her she has an appointment next month with pulmonology I advised to bring the report to them as well, I also faxed the results to them Aspiration pneumonia of both lower lobes due to vomit ([facility]) 10/24/2024 Assessment & Plan (10/24/2024 11:48 AM [...] 03/25/2023 Essential hypertension 01/06/2023 Assessment & Plan (01/15/2025 11:00 AM EDT): Diabetes is: controlled - Lab Results Component Value Date HGBA1C 6.1 (A) 08/28/2024 HGBA1C 6.0 01/28/2024 HGBA1C 6.2 (A) 09/24/2023 - Lab Results Component Value Date CREATININE 1.20 (H) 01/06/2023 -Changes: none - Diabetic eye exam:up to date - Diabetic foot exam:up to date - Continue lifestyle modifications - Continue current medications - Follow up: 3 months Assessment & Plan (10/24/2024 11:49 AM EDT): [...] arm 01/06/2023 Stage 3 chronic kidney disease (CMS/HCC) 023 Assessment & Plan (03/25/2023 9:40 AM EDT): [...] Encounters Date Type Department Care Team Description 05/31/2025 Refill [facility] [address] [place] [address] Sammie Silverman MD Mild persistent asthma without complication 05/10/2025 Telephone [facility] [address] [place] [address] Sammie Silverman MD Dec recall 05/06/2025 Refill [facility] [address] [place] [address] Sammie Silverman MD Essential hypertension; Vitamin deficiency 04/11/2025 Refill [facility] [address] [place] [address] Sammie Silverman MD Seasonal allergic rhinitis, unspecified trigger from Last 3 Months Immunizations Immunization Administration [...] Sign Reading Time Taken Comments Blood Pressure 118/74 01/15/2025 10:03 AM EDT Pulse 72 01/15/2025 10:03 AM EDT Temperature 36.4 C (97.6 F) 01/15/2025 10:03 AM EDT Respiratory Rate 14 01/15/2025 10:03 AM EDT Oxygen Saturation 99% 10/24/2024 9:46 AM EDT Inhaled Oxygen Concentration - - Weight 63.2 kg (139 lb 6.4 oz) 01/15/2025 10:03 AM EDT Height 152.4 cm (5') 01/15/2025 10:03 AM EDT Body Mass Index 27.22 01/15/2025 10:03 AM EDT Plan of Treatment Upcoming Encounters Date Type Department Care Team (Late st Contact Info) Description 07/20/2025 11:15 AM EST Office Visit [facility] MED[facility] [address] [place] [address] Sammie Silverman MD [address] [place], [place] [phone] Health Maintenance Due Date Last Done Comments CT Colonography 1950 Colonoscopy 1949 Colorectal Cancer Screening 1950 Dental Oral Exam 1949 Dental Prophylaxis 1949 Dental X-Ray: Bitewings 1949 FIT DNA/Cologuard 1949 FIT 1949 FOBT 1949 Sigmoidoscopy 1949 DTaP/Tdap/Td Vaccines (2 - Td or Tdap) 05/31/2022 05/31/2012 RSV Patients and Patients Aged 60 years or older (1 - 1-dose 75+ series) 2024 COVID-19 Vaccine (2023- season) 2025 07/12/2024, 09/24/2023, 06/04/2022, Additional history exists Influenza Vaccine (#1) 2025 , 09/24/2023, 06/04/2022, Additional history exists Alcohol/Substance Use Screening 08/28/2025 08/28/2024 Diabetes: Hemoglobin A1C 08/28/2025 025, 01/28/2024, 09/24/2023, Additional history exists SDOH Screening 08/28/2025 08/28/2024 Depression Screening 10/24/2025 10/24/2024, 10/25/19 Tobacco Screening 10/24/2025 10/24/2024 Dental X-Ray: Full Mouth 04/07/2026 04/06/2023 Lipid Panel 01/07/2028 01/06/2023, 10/07/2021 Pneumococcal Vaccine: 50+ Years Completed 08/30/2019, 04/30/2015, 09/25/2011 Hepatitis C Screening Completed 10/17/2019 Zoster Vaccines Completed 10/18/2019, 07/16, 04/26/2014 HIB Vaccines Aged Out No longer eligi [...] Procedure Name Priority Date/Time Associated Diagnosis Comments POCT GLYCATED HEMOGLOBIN, TOTAL Routine 08/28/2024 11:56 AM EST Prediabetes PANORAMIC RADIOGRAPHIC IMAGE Routine 04/06/2023 10:00 AM EDT LIPID PANEL, STANDARD Routine 01/06/2023 10:56 AM EDT Essential hypertension Prediabetes ZZZ HISTORICAL HEPATITIS A,B,C PROFILE Routine 10/17/2019 2:04 PM EST from Last 3 Months or Most Recently Relevant to Health Maintenance Results * (ABNORMAL) POCT HGB A1C (08/28/2024 11:56 AM EST) Hemoglobin A1C 6.1(A) 4.0 - 6.0 % QC Media Lot # [id number] Lot# Expiration Date 203 Blood 08/28/2024 11:5 6 AM EST Sammie Hale MD POINT OF CARE TEST EN TER/EDIT ORDERABLES Final Result * Lipid Panel, Standard (01/06/2023 10:56 AM EDT) Cholesterol, Total 165 <200 mg/dL [facility] HDL Cholesterol 51 > OR = 50 mg/dL [facility] Triglycerides 148 <150 mg/dL [facility] LDL Cholesterol 89 mg/dL (calc) [facility] Comment: Reference range: <100 Desirable range <100 mg/dL for primary prevention; <70 mg/dL for patients with CHD or diabetic patients with > or = 2 CHD risk factors. LDL-C is now calculated using the Kedar calculation, which is a validated novel method providing better accuracy than the Friedewald equation in the estimation of LDL-C. Tyshawn SS et al. SUAD. 2013;310(19): 9747-3187 (http://education.GameFly.Simply Measured/faq/NBP110) Chol/HDLC Ratio 3.2 <5.0 (calc) [facility] Non-HDL Cholesterol 114 <130 mg/dL (calc) [facility] Comment: For patients with diabetes plus 1 major ASCVD risk factor, treating to a non-HDL-C goal of <100 mg/dL (LDL-C of <70 mg/dL) is considered a therapeutic option. Blood Venous blood specimen / Unknown 01/06/2023 10:56 AM EDT 01/06/2023 10:56 AM EDT Narrative [facility] - 01/06/2023 9:40 PM EDT FASTING:YES FASTING: YES Samime Hale MD LAB BLOOD ORDERABLES Final Result Performing Organization Address City/[facility]/ZIP Co de Phone Number [facility] [address], [place] [address] [facility] [address] [place] [address] * HEPATITIS A,B,C PROFILE (10/17/2019 2:04 PM [...] Historical Provider HISTORICAL/NON ORDERABLE LABS Final Result [facility] [address] from Last 3 Months or Most Recently Relevant to Health Maintenance Insurance [facility] Care Teams Manager Professional Development Relationship Specialty Start Date End Date Sammie Silverman MD [address] [place], [place] PCP - General Family Medicine 04/27/18
--- OUTSIDE RECORDS SUMMARY | 2025-06-18 09:38 | XMS_ITS | Clinical Summary ---
Author Organization [facility] Address [address] [place] [address] Phone Care Team Providers Care Monitor Technician Name Role Phone Sammie Silverman MD [...] RespiClick) 108 (90 Base) MCG/ACT aerosol powder Activ e atorvastatin (LIPITOR) 20 MG tablet Take 1 tablet by mouth 1 (one) time each day Active budesonide-for moterol (SYMBICORT) 160-4.5 MCG/ACT inhaler Active calcium carbonate [...] per tablet Take 1 tablet by mouth Active furosemide (LASIX) 40 MG tablet Take 40 mg by mouth 1 Active traMADol (ULTRAM) 50 MG tablet TAKE 1 TABLET BY MOUTH THREE TIMES DAILY NEEDED FOR PAIN 1 Active Farxiga 10 MG tablet TAKE 1 TABLET BY MOUTH EVERY MORNING 90 tablet 2 5 Active Farxiga 10 MG tablet TAKE 1 TABLET BY MOUTH EVERY MORNING 90 tablet 2 5 05/31/20 25 Discontinued Active Problems Problem Noted Date Diagnosed [...] Type Department Care Team Description 05/31/2025 Refill [facility] [address] [place], [place] [phone] Bryan Krishna MD from Last 3 Months Immunizations Immunization Administration [...] Care Team (Late st Contact Info) Description 09/17/2025 3:30 PM EST Office Visit [facility] [address] [place] [phone] Shiva Patel MD [address] [facility] [address] [place] [phone] Health Maintenance Due Date Last Done Comments Breast Cancer Screening 1949 Colorectal Cancer Screening: Annual FOBT 1998 Colorectal Cancer Screening: Colonoscopy 1998 Colorectal Cancer Screening: Sigmoidoscopy 1998 Diabetes: Ophthalmology Exam 12/15/2021 Diabetes: Pedal Pulse Checked 12/15/2021 Diabetes: Sensory Foot Exam 12/15/2021 Diabetes: Visual Foot Exam 12/15/2021 Diabetes: Hemoglobin A1C 11/26/2024 08/28/2024, 02/0 04/2024 Influenza Vaccine (#1) 2025 4, 09/24/2023, 06/18/2020, Additional history exists Pneumococcal Vaccine: 50+ Years Completed 08/30/2019, 04/30/2015, 09/25/2011 Pneumococcal Vaccine: Peds (0 to 5 Years) and At-Risk Patients (6 to 49 Years) Discontinued 08/30/2019, 04/30/2015, 09/25/2011 Hepatitis B Vaccine Aged Out No longe r eligible based on patient's age to complete this topic [place] [address] ([id number]) ([id number]) Member Subscriber Plan / Payer (Ef fective 2019-Present) Name:Irma Cifuentes Relation to Subscriber:Self Name:Irma Cifuentes Payer ID:[id number] (NAIC) Group ID:Not on file Type:Not on file Address: [place] [phone] Care Teams Monitor Technician Relationship Specialty Start Date End Date Sammie Silverman MD [address] [place] [phone] PCP - General Internal Medicine 12/19/20
--- OUTSIDE RECORDS SUMMARY | 2025-06-18 09:38 | XMS_ITS | Encounter Summary ---
Author Organization [employer] Address [address] [facility] 7[address] [place] [address] Care Team Providers Care Security Tech Name Role Phone Sammie Silverman MD Primary Care Provide r Reason for Visit * Reason Onset Date Comments Nurse Triage 08/04/2023 Encounter Details Date Type Department Care Team ([facility] st Contact Info) Description 08/04/2023 Telephone [facility] MEDICINE [address] [place], [place] [phone] Sammie Silverman MD [address] [place], [place] [phone] Nurse Triage Social History Tobacco Use Types [...] 08/04/2023 3:42 PM EST Triage call with Piki Formulator [place] [id number] Pt reports was seen in pulmonology office [facility] [place]. Pt reports was tested for Covid [...] accepted this outcome Please contact pt @ [phone] Malay Speaker documented in this encounter Plan of Treatment Upcoming Encounters Date Type Department Care Team (Late st Contact Info) Description 07/20/2025 11:15 AM EST Office Visit [facility] MEDICINE [address] [place] [address] Sammie Silverman MD [address] [place] [address] documented as of this encounter Visit Diagnoses Not on filedocumented in this encounter Additional Health Concerns Assessment Noted Time PHQ-9 Depression Total Score: 0 01/07/20 9:59 AM EDT documented as of this encounter Care Teams Security Tech Relationship Specialty Start Date End Date Sammie Silverman MD [address] [place], [place] [phone] PCP - General Family Medicine 04/27/18 documented as of this encounter
--- OUTSIDE RECORDS SUMMARY | 2025-06-18 09:38 | XMS_ITS | Encounter Summary ---
Author Organization [employer] Address [address] [facility] 7[address] [place] [address] Care Team Providers Care Credit Union Examiner Name Role Phone Sammie Silverman MD Primary Care Provide r Encounter Details Date Type Department Care Team (Late Contact Info) Description 05/18/2023 Orders Only [facility]EDS [address] [place], [place] [phone] Rosa Wise LPN Social History Tobacco Use [...] Department Care Team (Late Contact Info) Description 07/20/2025 11:15 AM EST Office Visit [facility] MEDICINE [address] [place], [place] [phone] Sammie Silverman MD [address] [place], [place] [phone] documented as of this encounter Visit Diagnoses Not on filedocumented in this encounter Additional Health Concerns Assessment Noted Time PHQ-9 Depression Total Score: 0 01/07/20 9:59 AM EDT documented as of this encounter Care Teams Credit Union Examiner Relationship Specialty Start Date End Date Sammie Silverman MD [address] [place] [address] PCP - General Family Medicine 04/27/18 documented as of this encounter
== END 2025-06-18 09:43 | disposition home or self-care (01) ==
LOC: HO.HCS 08:56
PROVIDERS: PCP Internal Medicine; Visit Provider Nurse Practitioner Family
DX: I44.7 Left bundle-branch block, unspecified (principal); R00.2 Palpitations; R55 Syncope and collapse; I10 Essential (primary) hypertension; E78.5 Hyperlipidemia, unspecified
CPT/HCPCS: 99214; G2211

== ENCOUNTER → 2025-06-18 08:55 | Outpatient (BNVA) | payer OTHER, SELFPAY | PROVIDERS: PCP Internal Medicine; Visit Provider Nurse Practitioner Family | DX: R55 Syncope and collapse (principal); R00.2 Palpitations; I44.7 Left bundle-branch block, unspecified; I10 Essential (primary) hypertension; E78.5 Hyperlipidemia, unspecified | CPT/HCPCS: 99212 ==

== ENCOUNTER 2025-07-11 11:00 | Outpatient (REF) | payer OTHER, SELFPAY ==
--- NOTE | ~2025-07-11 | CT_ITS ---
EXAMINATION: CT CHEST WITHOUT CONTRAST CLINICAL INFORMATION: Solitary pulmonary nodule. COMPARISON: 12/29/2024, 06/28/2019. TECHNIQUE: Multidetector volumetric CT imaging of the chest was done. Axial MIP volume rendering provided. Sagittal and coronal reformatted images were obtained. This CT examination was performed using dose optimization techniques as appropriate, variously including the following: *Automated exposure control *Adjustment of mA and/or kV according to patient size (this includes techniques or standardized protocols for targeted exams where dose is matched to indication/reason for exam; i.e. extremities or head) *Use of iterative reconstruction technique FINDINGS: LUNGS: Stable 6 mm nodule in the medial inferior right lower lobe, subpleural location (series 4, image 300). Oval groundglass nodular focus in the subpleural left lower lobe measuring 10 mm is unchanged (series 4, image 300). There is a pleural-based 4 mm nodule in the peripheral right upper lobe (series 4, image 148), unchanged Diffuse cylindrical and varicoid bronchiectasis is again noted throughout the right lower lobe, with involvement of the right middle lobe and inferior right upper lobe. There are associated extensive centrilobular nodular and groundglass opacities throughout the right lower lobe, right middle lobe, and inferior right upper lobe, similar to the prior examination, and representing endobronchial spread of infection. Calcified granulomas are present in the right upper lobe, and there is a stable focus of linear scarring in the medial posterior right upper lobe. Calcified granulomatous changes are also present in the right middle and right lower lobes. The left lung is clear. There are no pleural effusions. There is no pneumothorax. MEDIASTINUM: The imaged thyroid is grossly normal. There is no abnormal mediastinal lymphadenopathy or mass. Mild to moderate calcification of the aorta is present without evidence of aneurysm. The pulmonary trunk is normal in size. Heart size is normal. There is no pericardial effusion. No esophageal abnormality is evident. Just adjacent to the karen, within the anterior right mainstem bronchus, there is a 9 x 7 mm soft tissue polyploid focus (series 6, image 53), unchanged in size and morphology (when measured similarly). CORONARY ARTERY CALCIFICATION: Heavy. AXILLA/CHEST WALL: No abnormal lymph nodes or masses. UPPER ABDOMEN: There has been a cholecystectomy. There is calcific atheromatous change of the arterial vasculature. Remainder the imaged upper abdominal contents appear normal within confines of noncontrast technique. OSSEOUS STRUCTURES: No suspicious lytic or blastic bone lesion is present. Mild degenerative changes of the spine are present. CT/CT chest wo IV con IMPRESSION: 1. Diffuse cylindrical and varicoid bronchiectasis throughout the right middle lobe, right lower lobe, and to a lesser degree the inferior right upper lobe, similar to the prior exam. Associated granulomatous changes, and tree-in-bud nodularity is consistent with endobronchial spread of infection with a similar appearance when compared with 12/29/2024. 2. Stable pulmonary nodules as discussed. No new or enlarging suspicious pulmonary nodule within the confines of underlying nodular lung disease. 3. The 9 x 7 mm focus of soft tissue nodularity in the proximal right mainstem bronchus appears appears unchanged when measured similarly. In retrospect this is unchanged from 06/28/2019 benign. 4. Heavy coronary calcifications. Electronically signed by: Gilberto Seymour MD 07/11/2025 12:10 PM [facility]
== END 2025-07-11 11:01 | disposition home or self-care (01) ==
LOC: HO.CT 11:00
PROVIDERS: PCP Internal Medicine; Visit Provider Internal Medicine Pulmonary Disease
DX: R91.1 Solitary pulmonary nodule (principal)
CPT/HCPCS: 71250

== ENCOUNTER → 2025-07-11 11:03 | Outpatient (BNV) | payer OTHER, SELFPAY | PROVIDERS: PCP Internal Medicine; Visit Provider Radiology Diagnostic Radiology | DX: J47.9 Bronchiectasis, uncomplicated (principal); I25.84 Coronary atherosclerosis due to calcified coronary lesion; R91.8 Other nonspecific abnormal finding of lung field | CPT/HCPCS: 71250 ==

== ENCOUNTER 2025-07-26 10:20 | Outpatient (AMB) | payer OTHER, SELFPAY ==
[2025-07-26 10:25] VITALS: BP 132/77; PULSE 96; O2SAT 97; BMI 29.9
--- NOTE | 2025-07-26 10:25 | A.OFFVIS_ITS ---
Vital Signs 07/26/25 10:25 Height 4 ft 9 in Weight 138 lb BMI 29.9 BP 132/77 Blood Pressure Location Rt brachial Position Sitting Pulse 96 Pulse Source Pulse Oximeter Pulse Oximetry (%) 97 Oxygen Delivery Method Room Air Intake Visit Reasons: COPD Allergies aspirin (ASPIRIN) Allergy (Unknown, Verified 07/26/25 10:29) MOUTH SWELLING Beef Containing Products (BEEF CONTAINING PRODUCTS) Adverse Reaction (Unknown, Verified 07/26/25 10:29) ITCHY HPI HPI COPD: Details: 74-year-old lady, lifetime nonsmoker, followed for bronchiectasis, dyspnea, and allergic asthma.? She continues on Symbicort and albuterol MDI with good control of her symptoms. She did not tolerate arformoterol. After the last office visit her orthopnea lower extremity edema resolved and she maintains euvolemia on Bumex 1 mg daily. She did have repeat CT scan in June of 2025 that showed stable pulmonary nodules in non bronchiectasis. She denies recent exacerbations. [facility] Medical History Environmental allergies Arthralgia of knee Breast mass Varicose veins of both lower extremities CARON (obstructive sleep apnea) Major depression Hyperlipidemia Arthritis Mood disorder Allergic rhinitis Osteopenia HTN (hypertension) Asthma Surgical History Hx of tubal ligation Hx of cholecystectomy History of back surgery Hx of section Family History Mother CVD (cardiovascular disease) HTN (hypertension) Father Stroke Social History Household Members: Spouse Housing: Apartment Do you presently have visiting nurse or other home services: Yes (come every 3 months , james is her [employer] OPERATOR. nursing does assessments) Alcohol intake: never Patient Tobacco Use Status: Never used Tobacco Advance Directives Date on File: 10/06/24 service: No Review of Systems Const Denies daytime sleepiness, Denies excessive sweating, Denies fatigue, Denies fever(s), Denies lethargy, Denies malaise, Denies night sweats, Denies snoring and Denies weight loss Eyes Denies blurry vision and Denies itchy eyes ENT Denies nasal congestion, Denies post nasal drip, Denies sinus pain, Denies sinus pressure and Denies other ( Thrush) Card Denies chest pain, Denies pedal edema, Denies dyspnea, Denies orthopnea and Denies paroxysmal nocturnal dyspnea Resp Denies cough, Denies hemoptysis, Denies excessive phlegm production, Denies dyspnea, Denies snoring and Denies wheezing GI Denies abdominal pain and Denies heartburn Musc Denies myalgias, Denies arthralgias and Denies joint swelling Skin/Breast Denies rash Neuro Denies memory loss and Denies seizure-like activity Psych Denies abnormal sleep pattern, Denies anxiety and Denies memory loss Endo Denies excessive sweating, Denies fatigue and Denies heat intolerance Kyle/Lymph Denies easy bruising Aller/Immun Denies itchy eyes, Denies seasonal rhinorrhea and Denies wheezing Physical Exam Vital Signs: Last Vital Signs Pulse 96 07/26/25 10:25 BP 132/77 07/26/25 10:25 Pulse Ox 97 07/26/25 10:25 Oxygen Delivery Method Room Air 07/26/25 10:25 BMI result Body Mass Index 29.9 Const General: no acute distress and alert Nutritional Appearance: not obese Orientation/consciousness: Other orientation findings ( oriented) HEENT Head: Yes atraumatic Eyes General: appearance normal, both eyes and all related structures Sclerae: sclerae normal EOM: EOMs intact bilaterally Neck Neck: Yes supple Lymphatic: no lymphadenopathy noted Resp Effort & Inspection: normal respiratory effort and no use of accessory muscles Auscultation: clear to auscultation bilaterally Cardio Rate: regular rate Rhythm: regular rhythm Heart sounds: no gallops, no murmurs and no rubs Skin General skin exam: other ( warm) Extrem General: No clubbing, No cyanosis and No edema Assessment & Plan Assessment & Plan (1) Bronchiectasis: Code(s): J47.9 - Bronchiectasis, uncomplicated Category: Medical Plan: No recent exacerbations. Continue to monitor clinically. (2) Allergic asthma: Code(s): J45.909 - Unspecified asthma, uncomplicated Category: Medical Plan: Well controlled on Symbicort, Singulair, and albuterol MDI. Continue current regimen. (3) Solid nodule of lung 6 mm to 8 mm in diameter: Code(s): R91.1 - Solitary pulmonary nodule Category: Medical Plan: Results of follow-up CT chest from June of 2025 reviewed, stable pulmonary nodules, will repeat CT chest in 12 months. (4) Orthopnea: Code(s): R06.01 - Orthopnea Category: Medical Plan: Now well controlled on current regimen of Bumex 1 mg daily. Continue current regimen. Coding Level of Care Code Est Pt Level 4 (62381) Add On Problem Visit Only Diagnoses Bronchiectasis J47.9 Allergic asthma J45.909 Solid nodule of lung 6 mm to 8 mm in diameter R91.1 Orthopnea R06.01
== END 2025-07-26 10:39 | disposition home or self-care (01) ==
PROVIDERS: PCP Internal Medicine; Visit Provider Internal Medicine Pulmonary Disease
DX: J47.9 Bronchiectasis, uncomplicated (principal); J45.909 Unspecified asthma, uncomplicated; R91.1 Solitary pulmonary nodule; R06.01 Orthopnea
CPT/HCPCS: 99214; G2211

== ENCOUNTER → 2025-07-26 10:20 | Outpatient (BNVA) | payer OTHER, SELFPAY | PROVIDERS: PCP Internal Medicine; Visit Provider Internal Medicine Pulmonary Disease | DX: R91.1 Solitary pulmonary nodule (principal); J47.9 Bronchiectasis, uncomplicated; J45.909 Unspecified asthma, uncomplicated; R06.01 Orthopnea | CPT/HCPCS: 99212 ==

== ENCOUNTER 2025-07-31 14:01 | Emergency (ER) | payer OTHER, SELFPAY ==
--- NOTE | ~2025-07-31 | XR_ITS ---
CLINICAL HISTORY: dysphagia 2 views soft tissue neck Comparison: None provided Findings No acute fractures or dislocation. Normal epiglottis. Perivertebral calcifications in the prevertebral space from C3 through C5. No foreign bodies. IMPRESSION: 1. Perivertebral calcifications in the prevertebral space from C3 through C5. 2. No acute findings. This document has been electronically signed by: Nima Sims MD on 07/31/2025 22:58:07
--- NOTE | ~2025-07-31 | CT_ITS ---
CLINICAL HISTORY: headache CT head without contrast Comparison: None provided Findings: No intra-axial mass, midline shift, hydrocephalus, or acute hemorrhage. Mild heterogeneous low attenuation in the periventricular white matter. There is no sinus or mastoid fluid. The orbits are within normal limits. There is no acute fracture. Hyperostosis frontalis interna. Moderate calcified atherosclerotic disease of the cavernous portion of the internal carotid arteries. IMPRESSION: 1. Mild chronic periventricular microvascular ischemic disease. 2. No acute intracranial findings. This document has been electronically signed by: Nima Sims MD on 07/31/2025 17:50:16
--- NOTE | ~2025-07-31 | XR_ITS ---
EXAMINATION: XR CHEST CLINICAL INFORMATION: SoB. pneumonia? COMPARISON: 10/05/2024. TECHNIQUE: Frontal view of the chest was obtained. FINDINGS: The cardiac, hilar, and mediastinal contours are normal. Lungs demonstrate mild increased interstitial markings in the right base. There is associated bronchiectasis. Lungs otherwise clear. No pneumothorax or effusion. No focal osseous or soft tissue abnormality. XR/XR chest 1V IMPRESSION: No active pulmonary disease. Similar mild interstitial changes with bronchiectasis in the right base. Electronically signed by: Gilberto Seymour MD 07/31/2025 04:57 PM EST
--- NOTE | 2025-07-31 14:10 | ECG_ITS ---
Test Reason : NECK PAIN Blood Pressure : */* mmHG Vent. Rate : 92 BPM Atrial Rate : 92 BPM P-R Int : 136 ms QRS Dur : 120 ms QT Int : 372 ms P-R-T Axes : 66 19 103 degrees QTcB Int : 460 ms Normal sinus rhythm Left bundle branch block Abnormal ECG When compared with ECG of 05-Oct-2024 12:31, No significant change was found Referred By: Generic ED Physician Electronically Signed By: James Park
[2025-07-31 16:23] VITALS: BP 157/79; PULSE 90; RESP 18; TEMP 36.6; O2SAT 98; BMI 29.6
--- NOTE | 2025-07-31 16:29 | ED.GENADULT ---
HPI - General Adult General Chief complaint: Headache Stated complaint: neck pain, trouble swallowing Time Seen by Provider: 07/31/25 21:06 Source: patient and delivery rn Mode of arrival: ambulatory Limitations: language barrier History of Present Illness ED Provider: Dr. Belen Renee HPI narrative: 74 year old female with history of CARON, HTN, DDD, presents to the ED with persistent right shoulder pain and severe throat pain with odynophagia. She reports the shoulder pain has been present for approximately four months but acutely worsened this morning around 10 AM while she was making breakfast, to the point that she ?couldn?t tolerate it? and felt as though she was suffocating. She also notes associated diaphoresis at the onset. She denies recent illness and has not had fever in the past 24 hours. She denies headaches or migraine history. She took acetaminophen at approximately 10:10?10:30 AM today with minimal relief. She denies neck stiffness but states swallowing is very painful. Patient reports that X-rays and blood work were already done today through the urgent care/PCP and previously, with no abnormal findings. Related Data Home Medications ?Medication ?Instructions ?Recorded ?Confirmed atorvastatin 20 mg tablet 20 mg PO DAILY 06/18/20 06/19/25 citalopram 20 mg tablet 20 mg PO DAILY 06/18/20 06/19/25 fluticasone propionate 50 1 spray intranasal DAILY PRN 06/18/20 06/19/25 mcg/actuation nasal allergies spray,suspension montelukast 10 mg tablet 10 mg PO DAILY 06/18/20 06/19/25 calcium 600 mg (as 1 tab PO DAILY 01/12/23 06/19/25 carbonate)-vitamin D3 10 mcg (400 unit) tablet cholecalciferol (vitamin D3) 50 50 mcg PO DAILY 01/12/23 06/19/25 mcg (2,000 unit) capsule (Vitamin D3) dapagliflozin propanediol 10 mg 10 mg PO DAILY 01/12/23 06/19/25 tablet (Farxiga) docusate sodium 100 mg capsule 100 mg PO BID constipation 01/12/23 06/19/25 loratadine 10 mg tablet 10 mg PO DAILY PRN allergies 01/12/23 06/19/25 budesonide-formoterol HFA 160 2 puff inhalation BID 12/10/24 11/04/25 mcg-4.5 mcg/actuation aerosol inhaler (Symbicort) losartan 25 mg tablet 12.5 mg PO BEDTIME 10/05/24 06/19/25 albuterol sulfate 2.5 mg/3 mL 2.5 mg inhalation Q6H PRN 10/06/24 06/19/25 (0.083 %) solution for nebulization Shortness Of Breath Or Wheezing Previous Rx's ?Medication ?Instructions ?Recorded albuterol sulfate 90 mcg/actuation 2 puff PO Q4-6H PRN shortness of 07/22/23 aerosol inhaler breath or wheezing 30 days #1 ea loperamide 2 mg tablet 2 mg PO Q6H PRN loose stool #14 10/07/24 (Anti-Diarrheal (loperamide)) tabs bumetanide 1 mg tablet 2 mg (2 x 1 mg) PO QAM #60 tabs 06/01/25 phenol 1.4 % mucosal aerosol spray 5 spray mucous membrane Q4H PRN 08/01/25 (Chloraseptic Throat [place]) sore throat #177 mL sucralfate 100 mg/mL oral 10 ml PO TID 4 weeks #840 mL 08/01/25 suspension Allergies Allergy/AdvReac Type Severity Reaction Status Date / Time aspirin (ASPIRIN) Allergy Unknown MOUTH Verified 07/31/25 16:28 SWELLING Beef Containing Products AdvReac Unknown ITCHY Verified 07/31/25 16:28 (BEEF CONTAINING PRODUCTS) Review of Systems Review of Systems: as per HPI, full review of systems performed and negative but for the above mentioned pertinent positives and negatives. PMFSH Past Medical History Medical History Environmental allergies Arthralgia of knee Breast mass Varicose veins of both lower extremities CARON (obstructive sleep apnea) Major depression Hyperlipidemia Arthritis Mood disorder Allergic rhinitis Osteopenia HTN (hypertension) Asthma Surgical History Hx of tubal ligation Hx of cholecystectomy History of back surgery Hx of section Family History Family History Mother CVD (cardiovascular disease) HTN (hypertension) Father Stroke Social History Social History Household Members: Spouse Housing: Apartment Do you presently have visiting nurse or other home services: Yes (come every 3 months , james is her CORPORATE RELATIONS MANAGER. nursing does assessments) Alcohol intake: never Patient Tobacco Use Status: Never used Tobacco Smoked in Last 30 Days: No Use of substances other than those prescribed or required for medical reasons: No Advance Directives: Yes Advance Directives on File: Yes Advance Directives Date on File: 10/06/24 Do you have a plan to hurt others: No Plan service: No Physical Exam ED Exam Exam: GENERAL: Chronically ill-appearing, conversant, no acute distress. SKIN: Normal skin color for ethnicity, warm, dry, no rashes noted. HEENT: Normocephalic, atraumatic, no stridor, posterior oropharynx nonerythematous, EOMI, uvula midline. NECK: Soft, supple, full ROM, midline structures nontender, no step-offs, no deformities, no lymphadenopathy. CHEST: Heart regular rate and rhythm, no murmurs, symmetric chest rise and fall. PULMONARY: Clear to auscultation bilaterally, no labored breathing, no wheezes/rhales/ rhonchi. ABDOMINAL: Soft, nondistended, nontender, positive bowel sounds in all quadrants. : Deferred. MUSCULOSKELETAL: Normal tone, full range of motion, no deformities, no peripheral edema. NEURO: Alert and oriented to person, CN II through XII intact, no focal neurologic deficits. PSYCHIATRIC: Flat affect, fluid speech, appropriate demeanor. Vital Signs: Vital Signs - 24 hr 07/31/25 16:23 07/31/25 21:22 08/01/25 00:33 Temperature 98 F 97.4 F 97.5 F Pulse Rate 90 69 80 Respiratory Rate 18 16 16 Blood Pressure 157/79 H 122/80 124/70 Pulse Oximetry 98 99 99 Oxygen Delivery Method Room Air Room Air Room Air 08/01/25 01:18 Temperature 97.5 F Pulse Rate 80 Respiratory Rate 16 Blood Pressure 124/70 Pulse Oximetry 99 Oxygen Delivery Method Room Air BMI result Body Mass Index 29.6 Course Course Course Narrative: RME: 74 year female presents to ED for headache, posterior neck pain, trouble swallowing, shortness of breath, since 10:00. Patient states history of 3 strokes. Presently NIH score is 0 no neuro deficits. Labs EKG imaging ordered Medications Administered Discontinued Medications Generic Name Dose Route Start Last Admin Trade Name Abhishek PRN Reason Stop Dose Admin Acetaminophen 650 mg 07/31/25 22:13 07/31/25 23:03 Acetaminophen 325 Mg Tablet PO 07/31/25 22:14 650 mg ONCE ONE Administration Al Hydroxide/Mg Hydroxide 30 ml 07/31/25 22:11 07/31/25 23:02 Magnesium Hydrox/Alum Hydrox 30 Ml Oral.Susp PO 07/31/25 22:12 30 ml ONCE ONE Administration Lidocaine HCl 15 ml 07/31/25 22:11 07/31/25 23:03 Lidocaine Hcl Viscous 2 % 15 Ml Solution MUCOUS MEM 07/31/25 22:12 15 ml ONCE ONE Administration Medical Decision Making Medical Decision Making [facility] Narrative: Emerson presents with severe odynophagia and chronic right shoulder pain, acutely worsened today with associated diaphoresis and sensation of suffocation. Differential diagnosis includes pharyngitis as well as ENT emergencies such as epiglottitis, retropharyngeal abscess, peritonsillar abscess, Maurilio's angina, angioedema, allergic reaction, among many others. On exam, patient is nontoxic, tolerating their secretions, without signs of respiratory distress. ? Problem #1: Odynophagia / Throat Pain Assessment: Severe throat pain with painful swallowing, afebrile, no exam of posterior pharynx possible. Differential includes streptococcal pharyngitis, soft-tissue neck pathology, or referred pain. Plan: - Provide oral/throat analgesic medication per ED protocol. - Obtain rapid strep swab. - Order neck X-ray to evaluate for soft-tissue swelling or foreign body. Problem #2: Right Shoulder Pain Assessment: Chronic right shoulder pain ? ~4 months, acutely worsened today; no trauma reported. Plan: - Continue acetaminophen for analgesia as tolerated. - Re-evaluate after throat and neck work-up completed; consider additional imaging or orthopedic evaluation if pain persists. Imaging negative for acute process. Patient now tolerating oral intake (ham sandwich) without issue after GI cocktail. Using shared decision making, plan for discharge home to follow-up with primary care and/or specialist.? Patient understands and agrees with plan for discharge.? Discharged home in stable condition. Differential Diagnosis Differential Diagnoses: The differential diagnosis associated with the presentation includes (as above) Admission/Observation Consideration of admission/observation: Escalation of care including admission/observation considered Lab Data [facility] Lab Attestation statement: I reviewed the patient's lab results. 07/31/25 19:14 07/31/25 19:14 Labs: Lab Results 07/31/25 07/31/25 Range/Units 16:51 19:14 WBC 8.9 (4.8-10.8) X10*3/uL RBC 5.53 H D (4.20-5.50) X10*6/uL Hgb 13.5 (12.0-16.0) g/dl Hct 41.3 D (37.0-47.0) % MCV 74.7 L (80.0-98.0) fL MCH 24.4 L (27.0-33.0) pg MCHC 32.7 (31.0-35.0) g/dl RDW 15.3 (11.0-16.0) % Plt Count 332 (160-400) X10*3/uL MPV 9.2 L (9.4-12.3) fL Immature Gran % (Auto) 0.2 (0.0-0.4) % Neut % (Auto) 45.0 (45-73) % Lymph % (Auto) 48.0 H (20-40) % [place] % (Auto) 4.7 (2-11) % Eos % (Auto) 1.5 (0-4) % Baso % (Auto) 0.6 (0-2) % Lymph # (Auto) 4.3 (1.2-4.9) X10*3/uL [place] # (Auto) 0.4 (0.1-1.2) X10*3/uL Eos # (Auto) 0.1 (0.0-0.4) X10*3/uL Baso # (Auto) 0.1 (0.0-0.2) X10*3/uL Abs Immat Gran (auto) 0.02 (0.00-0.03) X10*3/uL Absolute Neuts (auto) 4.0 (2.0-8.3) x10*3/uL Absolute Nucleated RBC 0.000 (0.0-0.012) X10*3/uL Nucleated RBC % (auto) 0.0 (0.0-0.2) /100WBC PT 12.3 (11.2-13.5) SEC INR 1.0 (0.9-1.1) APTT 32.8 (26.7-34.1) SEC Sodium 140 (135-145) mmol/L Potassium 4.4 (3.3-5.1) mmol/L Chloride 103 (96-108) mmol/L Carbon Dioxide 25 (22-29) mmol/L Anion Gap 16 (12-20) BUN 27 H (9-16) mg/dL Creatinine 1.41 H (0.5-1.4) mg/dL Estim Creat Clear Calc 26.1 Estimated GFR 36 Random Glucose 84 (60-115) mg/dL Calcium 10.7 H (8.4-10.2) mg/dL Total Bilirubin 0.6 (0.0-1.0) mg/dL AST 26 (5-31) U/L ALT 23 (0-31) U/L Alkaline Phosphatase 123 H (39-117) U/L Troponin I High Sens 2.7 (<3.5-17.0) ng/L Total Protein 8.5 H (6.5-8.0) g/dL Albumin 4.8 (3.5-5.0) g/dL Influenza Type A (PCR) NEGATIVE (Negative) Influenza Type B (PCR) NEGATIVE (Negative) RSV RNA Qual (PCR) NEGATIVE (Negative) SARS-CoV-2 RNA (RT-PCR) NEGATIVE (Negative) Independent Interpretation I performed an independent interpretation of an: EKG and Plain X-Ray Radiology Impression Discussion of test interpretation with radiology: I have reviewed the radiologist's reading. Radiologist Impression: 2 views soft tissue neck Comparison: None provided Findings No acute fractures or dislocation. Normal epiglottis. Perivertebral calcifications in the prevertebral space from C3 through C5. No foreign bodies. IMPRESSION: 1. Perivertebral calcifications in the prevertebral space from C3 through C5. 2. No acute findings. Independent Historian Clinical information obtained from an independent historian. History obtained from or confirmed by: Other (daughter) External Record Review External record reviewed: Inpatient record Prescription Management I considered prescription management with: Pain Medication Chronic Conditions Patient?s care impacted by: Hypertension and Other (CARON, CVA) Social Determinants Patient?s care significantly limited by Social Determinants of Health including: Other Social Determinant of Health Discharge Plan Discharge Clinical Impression: Acute headache, Dysphagia Patient Disposition: Home, Self-Care Instructions: Dysphagia (ED) Additional Instructions: Continue to use Tylenol as needed for headaches. You may also use sucralfate (Carafate) to help with abdominal pain or painful swallowing. Alternatively, you may try the Chloraseptic throat spray which can help with pain in the back of your mouth. Return to the emergency department immediately with any new or worsening symptoms including: Worsening throat pain or swelling, difficulty breathing, chest pain, inability to tolerate food or drink, any new symptom that concerns you. Call 911 with any medical emergency. Contin?e tomando Tylenol seg?n sea necesario para el dolor de génesis. Tambi?n puede usar sucralfato (Carafate) para aliviar el dolor abdominal o la dificultad para tragar. Tadeo alternativa, puede probar el aerosol para la garganta Chloraseptic, que puede ayudar a aliviar el dolor en la parte posterior de la boca. Regrese a la blanche de emergencias de inmediato si presenta alg?n s?ntoma nuevo o que empeore, incluyendo: empeoramiento del dolor o la hinchaz?n de la garganta, dificultad para respirar, dolor en el pecho, incapacidad para tolerar alimentos o bebidas, o cualquier otro s?ntoma que le preocupe. Llame al 911 en yarely de cualquier emergencia m?dica. Prescriptions: New sucralfate 100 mg/mL suspension 10 ml PO TID 28 Days Qty: 840 0RF Chloraseptic Throat [place] 1.4 % aerosol,spray 5 spray mucous membrane Q4H PRN (Reason: sore throat) Qty: 177 0RF No Action bumetanide 1 mg tablet 2 mg PO QAM Qty: 60 6RF losartan 25 mg tablet 12.5 mg PO BEDTIME albuterol sulfate 2.5 mg /3 mL (0.083 %) Solution For Nebulization 2.5 mg INHALATION Q6H PRN (Reason: Shortness Of Breath Or Wheezing) loperamide [Anti-Diarrheal (loperamide)] 2 mg tablet 2 mg PO Q6H PRN (Reason: loose stool) Qty: 14 0RF fluticasone propionate 50 mcg/actuation spray,suspension 1 spray intranasal DAILY PRN (Reason: allergies) citalopram 20 mg tablet 20 mg PO DAILY montelukast 10 mg tablet 10 mg PO DAILY atorvastatin 20 mg tablet 20 mg PO DAILY albuterol sulfate 90 mcg/actuation HFA aerosol inhaler 2 puff PO Q4-6H PRN (Reason: shortness of breath or wheezing) 30 Days Qty: 1 6RF cholecalciferol (vitamin D3) [Vitamin D3] 50 mcg (2,000 unit) capsule 50 mcg PO DAILY calcium carbonate-vitamin D3 600 mg-10 mcg (400 unit) tablet 1 tab PO DAILY loratadine 10 mg tablet 10 mg PO DAILY PRN (Reason: allergies) docusate sodium 100 mg capsule 100 mg PO BID Farxiga 10 mg tablet 10 mg PO DAILY budesonide-formoterol [Symbicort] 160-4.5 mcg/actuation HFA aerosol inhaler 2 puff inhalation BID Interventions: ED Discharge Assessment Last Done: 08/01/25 01:18 Discharge Date/Time: 08/01/25 01:18 Print Language: Bhutanese
[2025-07-31 18:00] LABS: Resp Syncy Virus RNA Qual PCR NEGATIVE (Negative); SARS COV2 PCR INHOUSE NEGATIVE (Negative)
[2025-07-31 19:20] LABS: Hematocrit 41.3 % (37.0-47.0); Hemoglobin 13.5 g/dl (12.0-16.0); Imm Gran Abs Auto 0.02 X10*3/uL (0.00-0.03); Imm Gran Pct Auto 0.2 % (0.0-0.4); Lymphocytes Absolute Auto 4.3 X10*3/uL (1.2-4.9); MANUAL DIFF FLAG NO; Mean Corpuscular HGB Conc 32.7 g/dl (31.0-35.0); Mean Corpuscular Hemoglobin 24.4 pg (27.0-33.0); Mean Corpuscular Volume 74.7 fL (80.0-98.0); NRBC Abs Auto 0.000 X10*3/uL (0.0-0.012); NRBC Pct Auto 0.0 /100WBC (0.0-0.2); Platelet Count 332 X10*3/uL (160-400); Red Blood Count 5.53 X10*6/uL (4.20-5.50); White Blood Count 8.9 X10*3/uL (4.8-10.8)
[2025-07-31 19:30] LABS: INTERNATIONAL NORM RATIO 1.0 (0.9-1.1); Prothrombin Time 12.3 SEC (11.2-13.5)
[2025-07-31 19:33] LABS: Partial Thromboplastin Time 32.8 SEC (26.7-34.1)
[2025-07-31 19:35] LABS: Alanine Aminotransferase 23 U/L (0-31); Albumin Level 4.8 g/dL (3.5-5.0); Alkaline Phosphatase 123 U/L (39-117); Anion Gap 16 (12-20); Aspartate Amino Transferase 26 U/L (5-31); Blood Urea Nitrogen 27 mg/dL (9-16); Calcium 10.7 mg/dL (8.4-10.2); Carbon Dioxide 25 mmol/L (22-29); Chloride 103 mmol/L (96-108); Creatinine Clr Calc Pharmacy 26.1; Estimated Glomerular Filt Rate 36; Potassium 4.4 mmol/L (3.3-5.1); Sodium 140 mmol/L (135-145); Total Protein 8.5 g/dL (6.5-8.0)
[2025-07-31 19:42] LABS: Troponin-I High Sensitivity 2.7 ng/L (<3.5-17.0)
--- OUTSIDE RECORDS SUMMARY | 2025-07-31 20:36 | XMS_ITS ---
Author Name Ridge Rubio APRN Address [address] [place] [address] Phone [phone] Organization [facility] Team Providers Care Counter Hand Name Role Phone Palma Rubio Unavailable [phone] Reason for Referral Not Available Allergies, adverse [...] level every 3 monthsCheck BS weeklyContinue seeing optical engineer, Dr. 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 Active 2022-08-05 N/A on furosemide daily [id number], low na dietcall if weight gain greater than 3lbs for RX treatment Chronic kidney disease, stage 3b Active 2022-08-05 N/A on furosemidemon itor BPlow na diet Encounters Encounters Type Facility Date of Service Diagnosis/Co mplaint No Data Available [facility], ([place] 07/03/2022 Type 2 diabetes mellitus wit h diabetic chronic kidney diseaseHypertensive chronic kidney disease w stg 1-4/unsp chr kdnyChronic kidney disease, stage 3aHyperlipidemia, unspecifiedAnxiety disorder, unspecifiedChronic obstructive pulmonary disease, unspecifiedVitamin D deficiency, unspecifiedConstipation, unspecifiedDietary calcium deficiency No Data Available [facility] ([place] 07[place]03/2022 No Data Available [facility] No Data Available [facility] No Data Available [facility] No Data Available [facility] No Data Available [facility] Estab. patient 20-29min; 1 stable chronic or 2 minor; add add modifier 95 for video, modifier 93 for phone [facility] 08[place]/2022 Type 2 diabetes mellitus wit [...] 95 for video, modifier 93 for phone [facility] ([place] 08/05/2022 Unlisted special service; to be used for medical record reviews and reporting CPTII codes (1111F, etc) [facility] ([place] 03/31/2023 Other specified counseling Unlisted special service; to be used for medical record reviews and reporting CPTII codes (1111F, etc) [facility] ([place] 03/31/2023 Unlisted special service; to be used for medical record reviews and reporting CPTII codes (1111F, etc) [facility] ([place] 03/31/2023 Estab. patient 30-39min; chronic exacerbation, 2 stable chronic or 1 acute illness add add modifier 95 for video, (do not use for phone, instead use [id number]) [facility] [place] 04/09/2023 Type 2 diabetes mellitus wit h [...] (do not use for phone, instead use 76843-02) [facility] [place] 04/09/2023 Estab. patient 30-39min; chronic exacerbation, 2 stable chronic or 1 acute illness add add modifier 95 for video, (do not use for phone, instead use [id number]) [facility] ([place] 04/09/2023 Estab. patient 30-39min; chronic exacerbation, 2 stable chronic or 1 acute illness add add modifier 95 for video, (do not use for phone, instead use 42557-02) [facility] ([place] 04/09/2023 Unlisted special service; to be used for medical record reviews and reporting CPTII codes (1111F, etc) [facility] [place] 01/07/2024 Other specified health statu s Unlisted special service; to be used for medical record reviews and reporting CPTII codes (1111F, etc) [facility] ([place] 01/07/2024 Unlisted special service; to be used for medical record reviews and reporting CPTII codes (1111F, etc) [facility] ([place] 01/07/2024 Vital Signs Date of Collection Vitals 2022-08-05 09:12:10 Height - 149.86 cmWe ight - 63.96 kgBody Mass Index (BMI) - 28.48 kg/m2 2023-04-09 11:44:18 BP Diastolic - 83.0 mm[Hg]BP Systolic - 132.0 mm[Hg] Social History Social History Social History Observation Description Effec tive Time Current Smoking Status Never smoker 2025-07-16 7 Sex Female History of Procedures Procedures Service Procedure code Service date Servicing provider Phone# No Data Available [id number] 2022-07-03 No Data Available No Data Available [...] 95 for video, modifier 93 for phone [id number] 2022-08-05 No Data Available No Data Availa ble BMI obtained (3008F) 3008F 2022-08-05 No Data Availab le No Data Available Unlisted special service; to be used for medical record reviews and reporting CPTII codes (1111F, etc) 38437 2023-03-31 No Data Available No Data Availa ble SBP < 130 (3074F) 3074F 2023-03-31 No Data Available No Data Available DBP 80-89 (3079F) 3079F 2023-03-31 No Data Available No Data Available Estab. 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 Shiva Santo foods high in saltIncorporate [...] level every 3 monthsCheck BS weeklyContinue seeing optical engineer, Dr. Shiva Santo foods high in saltIncorporate exercise regimen and lifestyle modificationsContinue taking losartan as prescribedCheck BP weekly and report any elevated readingsAvoid foods high in fatIncorporate exercise regimen and lifestyle modificationsContinue taking Atorvastatin as prescribed Check lipid levels yearlyManaged by PCPContinue taking symbicort, spiriva, montelukast as prescribedAvoid irritantsContinue taking vit d as prescribedContinue taking docusate as prescribedContinue taking prescribed medicationson furosemide daily [id number], low na dietcall if weight gain greater than 3lbs for RX treatmenton furosemidemonitor BPlow na dieton citalopram no recent episodes and stable 2023-03-31 11:07:41 [id number] < 130 (3074 F)DBP 80-89 (3079F) 2023-04-09 [...] level every 3 monthsCheynes BS weeklyContinue seeing optical engineer, Dr. Shiva Santo foods high in saltIncorporate [...] no recent episodes and stableon furosemide daily [id number], low na dietcall if weight gain greater [...] recen tly increased to BID done by window unit air conditioning mechanic due to fluid in lungs, denies cough and SOB at this time 2022-08-05 will send proair ref ill to pharmacy 2022-08-05 call if you feel ill , have any questions or concerns
[2025-07-31 21:22] VITALS: BP 122/80; PULSE 69; RESP 16; TEMP 36.3; O2SAT 99
[2025-07-31] MEDS: Magnesium Hydrox/Alum Hydrox 30 ML ORAL.SUSP PO (23:02)
[2025-07-31] MEDS: Lidocaine HCl Viscous 2 % 15 ML SOLUTION MUCOUS MEM (23:03)
[2025-08-01 00:33] VITALS: BP 124/70; PULSE 80; RESP 16; TEMP 36.4; O2SAT 99
[2025-08-01 01:18] VITALS: BP 124/70; PULSE 80; RESP 16; TEMP 36.4; O2SAT 99
== END 2025-08-01 01:18 | disposition home or self-care (01) ==
PROVIDERS: Physician Assistant; Emergency Provider Emergency Medicine; PCP Internal Medicine
DX: R51.9 Headache, unspecified (principal); R13.10 Dysphagia, unspecified; Z03.818 Encounter for observation for suspected exposure to other biological agents ruled out; I44.7 Left bundle-branch block, unspecified; R06.02 Shortness of breath; R07.9 Chest pain, unspecified; M54.2 Cervicalgia; G47.33 Obstructive sleep apnea (adult) (pediatric); I10 Essential (primary) hypertension; J45.909 Unspecified asthma, uncomplicated; Z79.899 Other long term (current) drug therapy; Z79.51 Long term (current) use of inhaled steroids
CPT/HCPCS: 70360; 70450; 71045; 80053; 84484; 85025; 85610; 85730; 87637; 93005; 99284; 99285

== ENCOUNTER → 2025-07-31 14:10 | Outpatient (BNV) | payer OTHER, SELFPAY | PROVIDERS: PCP Internal Medicine; Visit Provider Internal Medicine Cardiovascular Disease | DX: I44.7 Left bundle-branch block, unspecified (principal) | CPT/HCPCS: 93010 ==

== ENCOUNTER → 2025-07-31 16:29 | Outpatient (BNV) | payer OTHER, SELFPAY | PROVIDERS: PCP Internal Medicine; Visit Provider Radiology Diagnostic Radiology | DX: I67.82 Cerebral ischemia (principal); J47.9 Bronchiectasis, uncomplicated | CPT/HCPCS: 70360; 70450; 71045 ==